=== PATIENT | female | born 1965 | race Caucasian/White ===

== ENCOUNTER 2022-12-13 16:24 | Emergency (ER) | payer OTHER ==
--- OUTSIDE RECORDS SUMMARY | 2022-12-13 16:53 | XMS REPORT | Continuity of Care Document ---
:1965 Author Organization [facility] t Address [address] [place] [address] [place] [id number] Care Team Providers Name Role Phone Anselmo Escobar MD Primary Care Physician ANSELMO ESCOBAR Attending Clinician Unavailable Ilan Attending Clinician Unavailable Doctor Unassigned, [place] Attending Clinician Unavailable Arnulfo Florez Attending Clinician Unavailable [email or web address] Attending Clinician Unavailable Helen Greer MD Attending Clinician Topher Ardon MD Attending Clinician HELEN GREER Attending Clinician Unavailable Lab, Adc Fam Pob I Attending Clinician Unavailable Shayy Parra MD Attending Clinician SHAYY PARRA Attending Clinician Unavailable Only, Adc Test Attending Clinician Unavailable Parish Lugo MD Attending Clinician Mauro Sims DO Attending Clinician CARLOS CASE Attending Clinician Unavailable CARLOS CASE Attending Clinician Unavailable , [facility] Sleep Lab Bed Attending Clinician Unavailable Carlos Case MD Attending Clinician , Adc Vascular Room 1 - Attending Clinician Unavailable Fifi aMxwell Attending Clinician Pob, Adc Lab Main Attending Clinician Unavailable Vls-Lab Attending Clinician Unavailable Hu Quach MD Attending Clinician 1, Adc Lab Attending Clinician Unavailable MITCH_Timmy Admitting Clinician Unavailable ANSELMO ESCOBAR Admitting Clinician Unavailable [email or web address] Admitting Clinician Unavailable Arnulfo Florez Admitting Clinician Unavailable Hu Quach MD Admitting Clinician Payers Payer Name Policy Type Policy Number Effective Date Expiration Date Sherice muir [employer] (POS) [id number] 2000 00:00:00 [employer] - CHOICE [id number] 2000 00:00:00 (POS II) [employer] (EPO) [id number] 2000 00:00:00 Problems Condition Condition Condition Status Onset Resolution Last Treating Co mments Source Name Details Category Date Date Treatment Clinician Date Trigger Trigger Problem Active Rosa Elena thumb of Thumb of 5-02 Orthop e left hand Left Hand 00:00: dic 00 Sports Medicin e Closed Closed Problem Active Rosa Elena Colles' Colles' 1-05 Orthope fracture Fracture 00:00: dic 00 Sports Medicin e Lesion of Lesion of Problem Active 2021-04 Aza elvira left ulnar Left Ulnar 2-21 Or thope nerve Nerve 00:00: dic 00 Sports Medicin e 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 00:00: dic of left of Left 00 Sports wrist Wrist Medicin e Lateral Lateral Problem Active 2021-04 Rosa Elena epicondyli Epicondyli 2-13 Or thope tis of tis of 00:00: dic left Left 00 Sports humerus Humerus Medicin e History of History of Problem Active P rivia cerebrovas Cerebrovas 9-13 Me dical cular cular 00:00: accident Accident 00 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 Added automatic ally from request for surgery [id number] Incontinen Incontinen Disease Active Overview : Univers ce of ce of 8-16 Formattin ity of feces, feces, 00:00: g of this [place] unspecifie unspecifie 00 note Me dical d fecal d fecal might be Branch incontinen incontinen different ce type ce type from the original. Added automatic ally from request for surgery [id number] Fecal Fecal Disease Active Overview: Univer s urgency urgency 8-16 Formattin ity o f 00:00: g of this [place] 00 note Medical might be Branch different from the original. Added automatic ally from request for surgery [id number] Intractabl Intractabl Disease Active Overview : Univers e vomiting e vomiting 16 Formattin ity of with with 00:00: g of this [place] nausea, nausea, 00 note Medical unspecifie unspecifie might be Branch d vomiting d vomiting different type type from the original. Added automatic ally from request for surgery [id number] Abdominal Abdominal Disease Active Overview: Univers pain, pain, 816 Formattin ity of generalize generalize 00:00: g of this [place] d d 00 note Medical might be Branch different from the original. Added automatic ally from request for surgery [id number] Early Early Disease Active Overview: Univer s satiety satiety 816 Formattin ity o f 00:00: g of this [place] 00 note Medical might be Branch different from the original. Added automatic ally from request for surgery [id number] Flatulence Flatulence Disease Active Overview : Univers , , 8-16 Formattin ity of eructation eructation 00:00: g of this [place] , and gas , and gas 00 note Medi moisés pain pain might be Branch different from the original. 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 acia 0-23 Orthope 00:00: dic 00 Sports Medicin e Allergies, Adverse Reactions, Alerts Allergy Allergy Status Severity Reaction(s) Onset Inactive Treating Comm ents Source Name Type Date Date Clinician ketorolgenaro DA Active SV FACIAL [facility] SWELLING 5-03 [place] 00:00: Orthope 00 dic [facility] No Known DA Active U 2021-04 [facility] Allergie 2-13 Clear s 00:00: [place] 00 [facility] AMLODIPI DRUG Active Swelling Univer s NE INGREDI 6-07 ity of 00:00: [place] 00 Medical Branch Amlodipi Propensi Active Swelling Univ ers ne ty to 6-07 ity of adverse 00:00: [place] reaction 00 Medical s Branch NO KNOWN Drug Active Univers ALLERGIE Class ity of S [facility] Social History Social Habit Start Date Stop Date Quantity Comments Source Exposure to Not sure [facility] SARS-CoV-2 [facility] (event) [place] Alcohol intake 2020-09-25 2020-09-25 Current drinker Unive rsity of 00:00:00 00:00:00 of alcohol [facility] (finding) [place] Tobacco use and 2018-12-04 2018-12-04 Smokeless tobacco Un iversity of exposure 00:00:00 00:00:00 non-user [facility] Sex [birth year] Universit y of 00:00:00 00:00:00 [facility] Smoking Status Start Date Stop Date [facility] Never Smoker Rosa Elena Orthopedi c Sports Medicine Medications Ordered Filled Start Stop Current Ordering Indication Dosage Frequency Signature Comments Components Source Medication Medication Date Date Medication? Clinician (SIG) Name Name hydroCHLORO 2020-04 Yes [id number] 12.5mg Take 1 Univers thiazide 0-04 capsule by ity o f 12.5 mg 00:00: mouth [place] capsule 00 daily. Medical Branch hydroCHLORO 2020-04 Yes [id number] 12.5mg Take 1 Univers thiazide 0-04 capsule by ity o f 12.5 mg 00:00: mouth [place] capsule 00 daily. Medical Branch hydroCHLORO Yes [id number] 12.5mg Take 1 Univers thiazide 4-08 capsule by ity o f 12.5 mg 00:00: mouth [place] capsule 00 daily. Medical Branch hydroCHLORO 2020-0 Yes [id number] 12.5mg Take 1 Univers thiazide 4-08 capsule by ity o f 12.5 mg 00:00: mouth [place] capsule 00 daily. Medical Branch hydroCHLORO 2020-0 Yes [id number] 12.5mg Take 1 Univers thiazide 4-08 capsule by ity o f 12.5 mg 00:00: mouth [place] capsule 00 daily. Medical Branch hydroCHLORO 2020-0 Yes [id number] 12.5mg Take 1 Univers thiazide 4-08 capsule by ity o f 12.5 mg 00:00: mouth [place] capsule 00 daily. Medical Branch hydroCHLORO 2020-0 Yes [id number] 12.5mg Take 1 Univers thiazide 4-08 capsule by ity o f 12.5 mg 00:00: mouth [place] capsule 00 daily. Medical Branch hydroCHLORO 2020-0 Yes [id number] 12.5mg Take 1 Univers thiazide 4-08 capsule by ity o f 12.5 mg 00:00: mouth [place] capsule 00 daily. Medical Branch hydroCHLORO 2020-0 2020- No [id number] 12.5mg Take 1 Univers thiazide 4-08 10-03 capsule by ity of 12.5 mg 00:00: 00:00 mouth [place] capsule 00 :00 daily. Medical Branch carvediloL 2020-0 Yes [id number] 25mg Take 1 U nivers 25 mg 4-07 tablet by ity of tablet 00:00: mouth (two) Medical times Branch daily with meals. carvediloL 2020-0 Yes [id number] 25mg Take 1 U nivers 25 mg 4-07 tablet by ity of tablet 00:00: mouth (two) Medical times Branch daily with meals. carvediloL 2020-0 Yes [id number] 25mg Take 1 U nivers 25 mg 4-07 tablet by ity of tablet 00:00: mouth (two) Medical times Branch daily with meals. carvediloL 2020-0 Yes [id number] 25mg Take 1 U nivers 25 mg 4-07 tablet by ity of tablet 00:00: mouth (two) Medical times Branch daily with meals. hydroCHLORO Yes [id number] 12.5mg Take 1 Univers thiazide 4-07 capsule by ity o f 12.5 mg 00:00: mouth [place] capsule 00 daily. Medical Branch carvediloL 2020-0 Yes [id number] 25mg Take 1 U nivers 25 mg 4-07 tablet by ity of tablet 00:00: mouth 2 (two) Medical times Branch daily with meals. hydroCHLORO 2020-0 Yes [id number] 12.5mg Take 1 Univers thiazide 4-07 capsule by ity o f 12.5 mg 00:00: mouth [place] capsule 00 daily. Medical Branch carvediloL 0 Yes [id number] 25mg Take 1 U nivers 25 mg 4-07 tablet by ity of tablet 00:00: mouth (two) Medical times Branch daily with meals. carvediloL Yes [id number] 25mg Take 1 U nivers 25 mg 4-07 tablet by ity of tablet 00:00: mouth (two) Medical times Branch daily with meals. carvediloL 0 Yes [id number] 25mg Take 1 U nivers 25 mg 4-07 tablet by ity of tablet 00:00: mouth (two) Medical times Branch daily with meals. carvediloL 0 Yes [id number] 25mg Take 1 U nivers 25 mg 4-07 tablet by ity of tablet 00:00: mouth (two) Medical times Branch daily with meals. carvediloL 0 Yes [id number] 25mg Take 1 U nivers 25 mg 4-07 tablet by ity of tablet 00:00: mouth (two) Medical times Branch daily with meals. carvediloL 0 Yes [id number] 25mg Take 1 U nivers 25 mg 4-07 tablet by ity of tablet 00:00: mouth (two) Medical times Branch daily with meals. hydroCHLORO 2020- No [id number] 12.5mg Take 1 Univers thiazide 4-07 04-08 capsule by ity of 12.5 mg 00:00: 00:00 mouth [place] capsule 00 :00 daily. Medical Branch amLODIPine 2019-04 Yes [id number] 5mg Take 1 U nivers 5 mg tablet 0-07 tablet by ity of 00:00: mouth [place] 00 daily. Medical Branch amLODIPine 2019- Yes [id number] 5mg Take 1 U nivers 5 mg tablet 0-07 tablet by ity of 00:00: mouth [place] 00 daily. Medical Branch amLODIPine 2019-04 Yes [id number] 5mg Take 1 U nivers 5 mg tablet 0-07 tablet by ity of 00:00: mouth [place] 00 daily. Medical Branch amLODIPine 2019-04 Yes [id number] 5mg Take 1 U nivers 5 mg tablet 0-07 tablet by ity of 00:00: mouth [place] 00 daily. Medical Branch amLODIPine 2019-04 Yes [id number] 5mg Take 1 U nivers 5 mg tablet 0-07 tablet by ity of 00:00: mouth [place] 00 daily. Medical Branch amLODIPine 2019-04 Yes [id number] 5mg Take 1 U nivers 5 mg tablet 0-07 tablet by ity of 00:00: mouth [place] 00 daily. Medical Branch amLODIPine 2019-04 Yes [id number] 5mg Take 1 U nivers 5 mg tablet 0-07 tablet by ity of 00:00: mouth [place] 00 daily. Medical Branch amLODIPine 2019-04 Yes [id number] 5mg Take 1 U nivers 5 mg tablet 0-07 tablet by ity of 00:00: mouth [place] 00 daily. Medical Branch amLODIPine 2019-04 Yes [id number] 5mg Take 1 U nivers 5 mg tablet 0-07 tablet by ity of 00:00: mouth [place] 00 daily. Medical Branch amLODIPine 2019-04- No [id number] 5mg Take 1 Univers 5 mg tablet 0-07 04-07 tablet by it y of 00:00: 00:00 mouth [place] 00 :00 daily. Medical Branch amLODIPine 2019-04- No [id number] 5mg Take 1 Univers 5 mg tablet 0-07 04-07 tablet by it y of 00:00: 00:00 mouth [place] 00 :00 daily. Medical Branch carvediloL 2019- Yes [id number] 12.5mg Take 1 Univers 12.5 mg 7-06 tablet by ity of tablet 00:00: mouth 2 [place] 00 (two) Medical times Branch daily with meals. carvediloL 2019- Yes [id number] 12.5mg Take 1 Univers 12.5 mg 7-06 tablet by ity of tablet 00:00: mouth 2 [place] 00 (two) Medical times Branch daily with meals. carvediloL 2020-0 Yes [id number] 12.5mg Take 1 Univers 12.5 mg 7-06 tablet by ity of tablet 00:00: mouth (two) Medical times Branch daily with meals. carvediloL 2020-0 Yes [id number] 12.5mg Take 1 Univers 12.5 mg 7-06 tablet by ity of tablet 00:00: mouth (two) Medical times Branch daily with meals. carvediloL 2020-0 Yes [id number] 12.5mg Take 1 Univers 12.5 mg 7-06 tablet by ity of tablet 00:00: mouth (two) Medical times Branch daily with meals. carvediloL 2020-0 Yes [id number] 12.5mg Take 1 Univers 12.5 mg 7-06 tablet by ity of tablet 00:00: mouth (two) Medical times Branch daily with meals. carvediloL 2020-0 Yes [id number] 12.5mg Take 1 Univers 12.5 mg 7-06 tablet by ity of tablet 00:00: mouth (two) Medical times Branch daily with meals. carvediloL 2020-0 Yes [id number] 12.5mg Take 1 Univers 12.5 mg 7-06 tablet by ity of tablet 00:00: mouth (two) Medical times Branch daily with meals. carvediloL 2020-0 Yes [id number] 12.5mg Take 1 Univers 12.5 mg 7-06 tablet by ity of tablet 00:00: mouth (two) Medical times Branch daily with meals. carvediloL 2020-0 Yes [id number] 12.5mg Take 1 Univers 12.5 mg 7-06 tablet by ity of tablet 00:00: mouth (two) Medical times Branch daily with meals. carvediloL 2020-0 Yes [id number] 12.5mg Take 1 Univers 12.5 mg 7-06 tablet by ity of tablet 00:00: mouth (two) Medical times Branch daily with meals. carvediloL 2020-0 Yes [id number] 12.5mg Take 1 Univers 12.5 mg 7-06 tablet by ity of tablet 00:00: mouth 2 [place] 00 (two) Medical times Branch daily with meals. carvediloL 2020-0 Yes [id number] 12.5mg Take 1 Univers 12.5 mg 7-06 tablet by ity of tablet 00:00: mouth (two) Medical times Branch daily with meals. carvediloL 2020-0 Yes [id number] 12.5mg Take 1 Univers 12.5 mg 7-06 tablet by ity of tablet 00:00: mouth (two) Medical times Branch daily with meals. carvediloL 2020-0 Yes [id number] 12.5mg Take 1 Univers 12.5 mg 7-06 tablet by ity of tablet 00:00: mouth (two) Medical times Branch daily with meals. carvediloL 2020-0 Yes [id number] 12.5mg Take 1 Univers 12.5 mg 7-06 tablet by ity of tablet 00:00: mouth (two) Medical times Branch daily with meals. carvediloL 2020-0 Yes [id number] 12.5mg Take 1 Univers 12.5 mg 7-06 tablet by ity of tablet 00:00: mouth (two) Medical times Branch daily with meals. carvediloL 2020-0 Yes [id number] 12.5mg Take 1 Univers 12.5 mg 7-06 tablet by ity of tablet 00:00: mouth (two) Medical times Branch daily with meals. carvediloL 2020-0 Yes [id number] 12.5mg Take 1 Univers 12.5 mg 7-06 tablet by ity of tablet 00:00: mouth (two) Medical times Branch daily with meals. carvediloL 2020-0 Yes [id number] 12.5mg Take 1 Univers 12.5 mg 7-06 tablet by ity of tablet 00:00: mouth (two) Medical times Branch daily with meals. carvediloL 2020-0 Yes [id number] 12.5mg Take 1 Univers 12.5 mg 7-06 tablet by ity of tablet 00:00: mouth (two) Medical times Branch daily with meals. carvediloL 2020-0 Yes [id number] 12.5mg Take 1 Univers 12.5 mg 7-06 tablet by ity of tablet 00:00: mouth (two) Medical times Branch daily with meals. carvediloL 2020-0 Yes [id number] 12.5mg Take 1 Univers 12.5 mg 7-06 tablet by ity of tablet 00:00: mouth 2 [place] 00 (two) Medical times Branch daily with meals. carvediloL 2019- Yes [id number] 12.5mg Take 1 Univers 12.5 mg 7-06 tablet by ity of tablet 00:00: mouth 2 [place] 00 (two) Medical times Branch daily with meals. carvediloL 2019-2020- No [id number] 12.5mg Take 1 Univers 12.5 mg 7-06 04-07 tablet by ity of tablet 00:00: 00:00 mouth 2 [place] 00 :00 (two) Medical times Branch daily with meals. carvediloL 2019-2020- No [id number] 12.5mg Take 1 Univers 12.5 mg 7-06 04-07 tablet by ity of tablet 00:00: 00:00 mouth 2 [place] 00 :00 (two) Medical times Branch daily with meals. carvediloL 2020- No [id number] 12.5mg Take 1 Univers 12.5 mg 7-06 04-07 tablet by ity of tablet 00:00: 00:00 mouth 2 [place] 00 :00 (two) Medical times Branch daily with meals. carvediloL 2019-2020- No [id number] 12.5mg Take 1 Univers 12.5 mg 7-06 04-07 tablet by ity of tablet 00:00: 00:00 mouth 2 [place] 00 :00 (two) Medical times Branch daily with meals. amLODIPine 2020-0 Yes [id number] 10mg Take 1 U nivers 10 mg 6-09 tablet by ity of tablet 00:00: mouth [place] 00 daily. Medical Branch amLODIPine 2020-0 Yes [id number] 10mg Take 1 U nivers 10 mg 6-09 tablet by ity of tablet 00:00: mouth [place] 00 daily. Medical Branch amLODIPine 2020-0 Yes [id number] 10mg Take 1 U nivers 10 mg 6-09 tablet by ity of tablet 00:00: mouth [place] 00 daily. Medical Branch amLODIPine 2019-0 2020- No [id number] 10mg Take 1 Univers 10 mg 6-09 10-07 tablet by ity of tablet 00:00: 00:00 mouth [place] 00 :00 daily. Medical Branch amLODIPine 2020-0 2020- No [id number] 10mg Take 1 Univers 10 mg 6-09 10-07 tablet by ity of tablet 00:00: 00:00 mouth [place] 00 :00 daily. Medical Branch amLODIPine 2020-0 Yes [id number] 10mg Take 1 U nivers 10 mg 6-08 tablet by ity of tablet 00:00: mouth 00 daily. Medical Branch carvediloL 2020-0 Yes [id number] 12.5mg Take 1 Univers 12.5 mg 4-06 tablet by ity of tablet 00:00: mouth (two) Medical times Branch daily with meals. carvediloL 2020-0 Yes [id number] 12.5mg Take 1 Univers 12.5 mg 4-06 tablet by ity of tablet 00:00: mouth (two) Medical times Branch daily with meals. carvediloL 2020-0 Yes [id number] 12.5mg Take 1 Univers 12.5 mg 4-06 tablet by ity of tablet 00:00: mouth (two) Medical times Branch daily with meals. carvediloL 2020-0 Yes [id number] 12.5mg Take 1 Univers 12.5 mg 4-06 tablet by ity of tablet 00:00: mouth (two) Medical times Branch daily with meals. carvediloL 2020-0 Yes [id number] 12.5mg Take 1 Univers 12.5 mg 4-06 tablet by ity of tablet 00:00: mouth (two) Medical times Branch daily with meals. carvediloL 2020-0 Yes [id number] 12.5mg Take 1 Univers 12.5 mg 4-06 tablet by ity of tablet 00:00: mouth (two) Medical times Branch daily with meals. carvediloL 2020-0 Yes [id number] 12.5mg Take 1 Univers 12.5 mg 4-06 tablet by ity of tablet 00:00: mouth (two) Medical times Branch daily with meals. carvediloL 2020-0 Yes [id number] 12.5mg Take 1 Univers 12.5 mg 4-06 tablet by ity of tablet 00:00: mouth 2 (two) Medical times Branch daily with meals. carvediloL 2020-0 Yes [id number] 12.5mg Take 1 Univers 12.5 mg 4-06 tablet by ity of tablet 00:00: mouth [place] (two) Medical times Branch daily with meals. carvediloL 2020-0 Yes [id number] 12.5mg Take 1 Univers 12.5 mg 4-06 tablet by ity of tablet 00:00: mouth 2 [place] 00 (two) Medical times Branch daily with meals. carvediloL 2020-0 Yes [id number] 12.5mg Take 1 Univers 12.5 mg 4-06 tablet by ity of tablet 00:00: mouth 2 [place] 00 (two) Medical times Branch daily with meals. carvediloL 2020-0 Yes [id number] 12.5mg Take 1 Univers 12.5 mg 4-06 tablet by ity of tablet 00:00: mouth 2 [place] 00 (two) Medical times Branch daily with meals. carvediloL 2020-0 2020- No [id number] 12.5mg Take 1 Univers 12.5 mg 4-06 07-06 tablet by ity of tablet 00:00: 00:00 mouth 2 [place] 00 :00 (two) Medical times Branch daily with meals. carvediloL 2020-0 2020- No [id number] 12.5mg Take 1 Univers 12.5 mg 4-06 07-06 tablet by ity of tablet 00:00: 00:00 mouth 2 [place] 00 :00 (two) Medical times Branch daily with meals. carvediloL 2020-0 2020- No [id number] 12.5mg Take 1 Univers 12.5 mg 4-06 04-06 tablet by ity of tablet 00:00: 00:00 mouth 2 [place] 00 :00 (two) Medical times Branch daily with meals. carvediloL 2020-0 Yes [id number] 6.25mg Take 1 Univers 6.25 mg 4-01 tablet by ity of tablet 00:00: mouth [address] [place] [address] 00 (two) Medical times Branch daily with meals. amLODIPine 2020-0 Yes [id number] 10mg Take 1 U nivers 10 mg 4-01 tablet by ity of tablet 00:00: mouth [place] 00 daily. Medical Branch amLODIPine 2020-0 Yes [id number] 10mg Take 1 U nivers 10 mg 4-01 tablet by ity of tablet 00:00: mouth [place] 00 daily. Medical Branch amLODIPine 2020-0 Yes [id number] 10mg Take 1 U nivers 10 mg 4-01 tablet by ity of tablet 00:00: mouth [place] 00 daily. Medical Branch amLODIPine 2019-0 Yes [id number] 10mg Take 1 U nivers 10 mg 4-01 tablet by ity of tablet 00:00: mouth [place] 00 daily. Medical Branch amLODIPine 2019-0 2020- No [id number] 10mg Take 1 Univers 10 mg 4-01 06-08 tablet by ity of tablet 00:00: 00:00 mouth [place] 00 :00 daily. Medical Branch carvediloL 2019-0 2020- No [id number] 6.25mg Take 1 Univers 6.25 mg 4- 04-06 tablet by ity of tablet 00:00: 00:00 mouth 2 [place] 00 :00 (two) Medical times Branch daily with meals. carvediloL 2020-0 Yes [id number] 3.125mg Take 1 Univers 3.125 mg 3-09 tablet by ity of tablet 00:00: mouth 2 (two) Medical times Branch daily with meals. carvediloL 2020-0 Yes [id number] 3.125mg Take 1 Univers 3.125 mg 3-09 tablet by ity of tablet 00:00: mouth (two) Medical times Branch daily with meals. carvediloL 2020-0 Yes [id number] 3.125mg Take 1 Univers 3.125 mg 3-09 tablet by ity of tablet 00:00: mouth 2 (two) Medical times Branch daily with meals. carvediloL 2020-0 Yes [id number] 3.125mg Take 1 Univers 3.125 mg 3-09 tablet by ity of tablet 00:00: mouth 2 (two) Medical times Branch daily with meals. carvediloL 2019-0 2020- No [id number] 3.125mg Take 1 Univers 3.125 mg 3-09 04-01 tablet by ity o f tablet 00:00: 00:00 mouth 2 [place] 00 :00 (two) Medical times Branch daily with meals. amLODIPine 2020-0 Yes [id number] 10mg Take 1 U nivers 10 mg 2-11 tablet by ity of tablet 00:00: mouth 00 daily. Medical Branch amLODIPine 2020-0 Yes [id number] 10mg Take 1 U nivers 10 mg 2-11 tablet by ity of tablet 00:00: mouth 00 daily. Medical Branch amLODIPine 2020-0 Yes [id number] 10mg Take 1 U nivers 10 mg 2-11 tablet by ity of tablet 00:00: mouth [place] 00 daily. Medical Branch amLODIPine 2020-0 Yes [id number] 10mg Take 1 U nivers 10 mg 2-11 tablet by ity of tablet 00:00: mouth [place] 00 daily. Medical Branch amLODIPine 2020-0 Yes [id number] 10mg Take 1 U nivers 10 mg 2-11 tablet by ity of tablet 00:00: mouth [place] 00 daily. Medical Branch amLODIPine 2020-0 Yes [id number] 10mg Take 1 U nivers 10 mg 2-11 tablet by ity of tablet 00:00: mouth [place] 00 daily. Medical Branch amLODIPine 2020-0 Yes [id number] 10mg Take 1 U nivers 10 mg 2-11 tablet by ity of tablet 00:00: mouth [place] 00 daily. Medical Branch amLODIPine 2020-0 Yes [id number] 10mg Take 1 U nivers 10 mg 2-11 tablet by ity of tablet 00:00: mouth [place] 00 daily. Medical Branch amLODIPine 2020-0 Yes [id number] 10mg Take 1 U nivers 10 mg 2-11 tablet by ity of tablet 00:00: mouth [place] 00 daily. Medical Branch amLODIPine 2020-0 2020- No [id number] 10mg Take 1 Univers 10 mg 2-11 04-01 tablet by ity of tablet 00:00: 00:00 mouth [place] 00 :00 daily. Medical Branch doxazosin 1 2020-0 2020- No 1mg Take 1 mg Univers mg tablet 2-07 21-04 by mouth ity o f 21:15: 00:00 daily. [place] 51 :00 Medical Branch doxazosin 1 2020-0 2020- No 1mg Take 1 mg Univers mg tablet 2-07 21-04 by mouth ity o f 21:15: 00:00 daily. [place] 51 :00 Medical Branch doxazosin 1 2020-0 2020- No 1mg Take 1 mg Univers mg tablet 2-07 21-04 by mouth ity o f 21:15: 00:00 daily. [place] 51 :00 Medical Branch doxazosin 2020-0 2020- No .5mg Take 0.5 Uni vers (CARDURA) 1 2-04 02-04 mg by ity of mg tablet 21:00: 00:00 mouth at [place] 59 :00 bedtime. Medical Branch doxazosin 2020-0 2020- No .5mg Take 0.5 Uni vers (CARDURA) 1 2-04 02-04 mg by ity of mg tablet 21:00: 00:00 mouth at [place] :00 bedtime. Medical Branch doxazosin 2019-0 2020- No .5mg Take 0.5 Uni vers (CARDURA) 1 2-04 02-04 mg by ity of mg tablet 21:00: 00:00 mouth at [place] :00 bedtime. Medical Branch hydroCHLORO 2020-0 Yes [id number] 25mg Take 1 Univers thiazide 25 2-04 tablet by ity of mg tablet 00:00: mouth [place] 00 daily. Medical Branch hydroCHLORO 2020-0 Yes [id number] 25mg Take 1 Univers thiazide 25 2-04 tablet by ity of mg tablet 00:00: mouth [place] 00 daily. Medical Branch hydroCHLORO 2020-0 Yes [id number] 25mg Take 1 Univers thiazide 25 2-04 tablet by ity of mg tablet 00:00: mouth [place] 00 daily. Medical Branch hydroCHLORO 2020-0 Yes [id number] 25mg Take 1 Univers thiazide 25 2-04 tablet by ity of mg tablet 00:00: mouth [place] 00 daily. Medical Branch hydroCHLORO 2020-0 Yes [id number] 25mg Take 1 [facility] thiazide 25 2-04 tablet by ity of mg tablet 00:00: mouth [place] 00 daily. Medical Branch hydroCHLORO 2020-0 2020- No [id number] 25mg Take 1 [facility] thiazide 25 2-04 02-11 tablet by it y of mg tablet 00:00: 00:00 mouth [place] 00 :00 daily. Medical Branch hydroCHLORO 2020-0 2020- No [id number] 25mg Take 1 Univers thiazide 25 2-04 02-11 tablet by it y of mg tablet 00:00: 00:00 mouth [place] 00 :00 daily. [facility] hydroCHLORO 2020-0 2020- No [id number] 25mg Take 1 [facility] thiazide 25 2-04 02-11 tablet by it y of mg tablet 00:00: 00:00 mouth [place] 00 :00 daily. [facility] hydroCHLORO 2020-0 2020- No [id number] 25mg Take 1 [facility] thiazide 25 2-04 02-11 tablet by it y of mg tablet 00:00: 00:00 mouth [place] 00 :00 daily. [facility] hydroCHLORO 2020-0 2020- No [id number] 25mg Take 1 [facility] thiazide 25 2-04 02-11 tablet by it y of mg tablet 00:00: 00:00 mouth [place] 00 :00 daily. [facility] clonazePAM 2020-0 Yes .5mg Take 0.5 [facility] vers 0.5 mg 1-03 mg by ity of tablet 17:14: mouth at [place] 40 bedtime. [facility] cyanocobala 2020-0 Yes 1000ug 1,000 mcg [facility] min 1,000 1-03 by ity of mcg/mL 17:14: Intramuscu [place] injection 40 lar route Medic al once every Branch month. aspirin 81 2020-0 Yes 81mg Take 81 mg U nivers mg chewable 1-03 by mouth ity of tablet 17:14: daily. [place] [address] [facility] simvastatin 2020-0 Yes 20mg Take 20 mg [facility] 20 mg 1-03 by mouth ity of tablet 17:14: every [place] 40 evening. [facility] clonazePAM 2020-0 Yes .5mg Take 0.5 [facility] vers 0.5 mg 1-03 mg by ity of tablet 17:14: mouth at [place] [address] bedtime. [facility] cyanocobala 2020-0 Yes 1000ug 1,000 mcg [facility] min 1,000 1-03 by ity of mcg/mL 17:14: Intramuscu [place] injection 40 lar route Medic al once every Branch month. aspirin 81 2020-0 Yes 81mg Take 81 mg U nivers mg chewable 1-03 by mouth ity of tablet 17:14: daily. [address] Branch simvastatin 2020-0 Yes 20mg Take 20 mg [facility] 20 mg 1-03 by mouth ity of tablet 17:14: every [place] [address] evening. [facility] clonazePAM 2020-0 Yes .5mg Take 0.5 [facility] vers 0.5 mg 1-03 mg by ity of tablet 17:14: mouth at [place] 40 bedtime. [facility] cyanocobala 2020-0 Yes 1000ug 1,000 mcg [facility] min 1,000 1-03 by ity of mcg/mL 17:14: Intramuscu [place] injection 40 lar route Medic al once every Branch month. aspirin 81 2020-0 Yes 81mg Take 81 mg [facility] nivers mg chewable 1-03 by mouth ity of tablet 17:14: daily. [address] simvastatin 2020-0 Yes 20mg Take 20 mg [facility] 20 mg 1-03 by mouth ity of tablet 17:14: every [place] 40 evening. [facility] clonazePAM 2020-0 Yes .5mg Take 0.5 [facility] vers 0.5 mg 1-03 mg by ity of tablet 17:14: mouth at [place] [address] bedtime. [facility] cyanocobala 2020-0 Yes 1000ug 1,000 mcg [facility] min 1,000 1-03 by ity of mcg/mL 17:14: Intramuscu [place] injection 40 lar route Medic al once every Branch month. aspirin 81 2020-0 Yes 81mg Take 81 mg [facility] nivers mg chewable 1-03 by mouth ity of tablet 17:14: daily. [place] [address] [facility] simvastatin 2020-0 Yes 20mg Take 20 mg [facility] 20 mg 1-03 by mouth ity of tablet 17:14: every [place] [address] evening. [facility] clonazePAM 2020-0 Yes .5mg Take 0.5 [facility] vers 0.5 mg 1-03 mg by ity of tablet 17:14: mouth at [place] [address] bedtime. [facility] cyanocobala 2020-0 Yes 1000ug 1,000 mcg [facility] min 1,000 1-03 by ity of mcg/mL 17:14: Intramuscu [place] injection 40 lar route Medic al once every Branch month. aspirin 81 2020-0 Yes 81mg Take 81 mg [facility] nivers mg chewable 1-03 by mouth ity of tablet 17:14: daily. [address] simvastatin 2020-0 Yes 20mg Take 20 mg [facility] 20 mg 1-03 by mouth ity of tablet 17:14: every [place] [address] evening. [facility] clonazePAM 2020-0 Yes .5mg Take 0.5 [facility] vers 0.5 mg 1-03 mg by ity of tablet 17:14: mouth at [place] [address] bedtime. [facility] cyanocobala 2020-0 Yes 1000ug 1,000 mcg [facility] min 1,000 1-03 by ity of mcg/mL 17:14: Intramuscu [place] injection 40 lar route Medic al once every Branch month. aspirin 81 2020-0 Yes 81mg Take 81 mg [facility] nivers mg chewable 1-03 by mouth ity of tablet 17:14: daily. [address] simvastatin 2020-0 Yes 20mg Take 20 mg [facility] 20 mg 1-03 by mouth ity of tablet 17:14: every [place] 40 evening. [facility] clonazePAM 2020-0 Yes .5mg Take 0.5 [facility] vers 0.5 mg 1-03 mg by ity of tablet 17:14: mouth at [place] [address] bedtime. [facility] cyanocobala 2020-0 Yes 1000ug 1,000 mcg [facility] min 1,000 1-03 by ity of mcg/mL 17:14: Intramuscu [place] injection 40 lar route Medic al once every Branch month. aspirin 81 2020-0 Yes 81mg Take 81 mg [facility] nivers mg chewable 1-03 by mouth ity of tablet 17:14: daily. [place] [address] [facility] simvastatin 2020-0 Yes 20mg Take 20 mg [facility] 20 mg 1-03 by mouth ity of tablet 17:14: every [place] 40 evening. [facility] clonazePAM 2020-0 Yes .5mg Take 0.5 [facility] vers 0.5 mg 1-03 mg by ity of tablet 17:14: mouth at [place] [address] bedtime. [facility] cyanocobala 2020-0 Yes 1000ug 1,000 mcg [facility] min 1,000 1-03 by ity of mcg/mL 17:14: Intramuscu [place] injection 40 lar route Medic al once every Branch month. aspirin 81 2020-0 Yes 81mg Take 81 mg [facility] nivers mg chewable 1-03 by mouth ity of tablet 17:14: daily. [place] [address] [facility] simvastatin 2020-0 Yes 20mg Take 20 mg [facility] 20 mg 1-03 by mouth ity of tablet 17:14: every [place] [address] evening. [facility] clonazePAM 2020-0 Yes .5mg Take 0.5 [facility] vers 0.5 mg 1-03 mg by ity of tablet 17:14: mouth at [place] [address] bedtime. [facility] cyanocobala 2020-0 Yes 1000ug 1,000 mcg [facility] min 1,000 1-03 by ity of mcg/mL 17:14: Intramuscu [place] injection 40 lar route Medic al once every Branch month. aspirin 81 2020-0 Yes 81mg Take 81 mg [facility] nivers mg chewable 1-03 by mouth ity of tablet 17:14: daily. [place] [address] [facility] simvastatin 2020-0 Yes 20mg Take 20 mg [facility] 20 mg 1-03 by mouth ity of tablet 17:14: every [place] 40 evening. [facility] clonazePAM 2020-0 Yes .5mg Take 0.5 [facility] vers 0.5 mg 1-03 mg by ity of tablet 17:14: mouth at [place] [address] bedtime. [facility] cyanocobala 2020-0 Yes 1000ug 1,000 mcg [facility] min 1,000 1-03 by ity of mcg/mL 17:14: Intramuscu [place] injection 40 lar route Medic al once every Branch month. aspirin 81 2020-0 Yes 81mg Take 81 mg [facility] nivers mg chewable 1-03 by mouth ity of tablet 17:14: daily. [place] [address] [facility] simvastatin 2020-0 Yes 20mg Take 20 mg [facility] 20 mg 1-03 by mouth ity of tablet 17:14: every [place] 40 evening. [facility] clonazePAM 2020-0 Yes .5mg Take 0.5 [facility] vers 0.5 mg 1-03 mg by ity of tablet 17:14: mouth at [place] [address] bedtime. [facility] cyanocobala 2020-0 Yes 1000ug 1,000 mcg [facility] min 1,000 1-03 by ity of mcg/mL 17:14: Intramuscu [place] injection 40 lar route Medic al once every Branch month. aspirin 81 2020-0 Yes 81mg Take 81 mg U nivers mg chewable 1-03 by mouth ity of tablet 17:14: daily. [place] [address] [facility] simvastatin 2020-0 Yes 20mg Take 20 mg [facility] 20 mg 1-03 by mouth ity of tablet 17:14: every [place] 40 evening. [facility] clonazePAM 2020-0 Yes .5mg Take 0.5 [facility] vers 0.5 mg 1-03 mg by ity of tablet 17:14: mouth at [place] [address] bedtime. [facility] cyanocobala 2020-0 Yes 1000ug 1,000 mcg [facility] min 1,000 1-03 by ity of mcg/mL 17:14: Intramuscu [place] injection 40 lar route Medic al once every Branch month. aspirin 81 2020-0 Yes 81mg Take 81 mg U nivers mg chewable 1-03 by mouth ity of tablet 17:14: daily. [place] [address] [facility] simvastatin 2020-0 Yes 20mg Take 20 mg [facility] 20 mg 1-03 by mouth ity of tablet 17:14: every [place] 40 evening. [facility] clonazePAM 2020-0 Yes .5mg Take 0.5 [facility] vers 0.5 mg 1-03 mg by ity of tablet 17:14: mouth at [place] [address] bedtime. [facility] cyanocobala 2020-0 Yes 1000ug 1,000 mcg [facility] min 1,000 1-03 by ity of mcg/mL 17:14: Intramuscu [place] injection 40 lar route Medic al once every Branch month. aspirin 81 2020-0 Yes 81mg Take 81 mg [facility] nivers mg chewable 1-03 by mouth ity of tablet 17:14: daily. [place] [address] [facility] simvastatin 2020-0 Yes 20mg Take 20 mg [facility] 20 mg 1-03 by mouth ity of tablet 17:14: every [place] 40 evening. [facility] clonazePAM 2020-0 Yes .5mg Take 0.5 [facility] vers 0.5 mg 1-03 mg by ity of tablet 17:14: mouth at [place] 40 bedtime. [facility] cyanocobala 2020-0 Yes 1000ug 1,000 mcg [facility] min 1,000 1-03 by ity of mcg/mL 17:14: Intramuscu [place] injection 40 lar route Medic al once every Branch month. aspirin 81 2020-0 Yes 81mg Take 81 mg [facility] nivers mg chewable 1-03 by mouth ity of tablet 17:14: daily. [place] [address] [facility] simvastatin 2020-0 Yes 20mg Take 20 mg [facility] 20 mg 1-03 by mouth ity of tablet 17:14: every [place] 40 evening. [facility] clonazePAM 2020-0 Yes .5mg Take 0.5 [facility] vers 0.5 mg 1-03 mg by ity of tablet 17:14: mouth at [place] [address] bedtime. [facility] cyanocobala 2020-0 Yes 1000ug 1,000 mcg [facility] min 1,000 1-03 by ity of mcg/mL 17:14: Intramuscu [place] injection 40 lar route Medic al once every Branch month. aspirin 81 2020-0 Yes 81mg Take 81 mg [facility] nivers mg chewable 1-03 by mouth ity of tablet 17:14: daily. [place] [address] Medical [place] simvastatin 2020-0 Yes 20mg Take 20 mg [facility] 20 mg 1-03 by mouth ity of tablet 17:14: every [place] 40 evening. [facility] clonazePAM 2020-0 Yes .5mg Take 0.5 [facility] vers 0.5 mg 1-03 mg by ity of tablet 17:14: mouth at [place] 40 bedtime. [facility] cyanocobala 2020-0 Yes 1000ug 1,000 mcg [facility] min 1,000 1-03 by ity of mcg/mL 17:14: Intramuscu [place] injection 40 lar route Medic al once every Branch month. aspirin 81 2020-0 Yes 81mg Take 81 mg U nivers mg chewable 1-03 by mouth ity of tablet 17:14: daily. [address] simvastatin 2020-0 Yes 20mg Take 20 mg [facility] 20 mg 1-03 by mouth ity of tablet 17:14: every [place] 40 evening. [facility] clonazePAM 2020-0 Yes .5mg Take 0.5 [facility] vers 0.5 mg 1-03 mg by ity of tablet 17:14: mouth at [place] [address] bedtime. [facility] cyanocobala 2020-0 Yes 1000ug 1,000 mcg [facility] min 1,000 1-03 by ity of mcg/mL 17:14: Intramuscu [place] injection 40 lar route Medic al once every Branch month. aspirin 81 2020-0 Yes 81mg Take 81 mg U nivers mg chewable 1-03 by mouth ity of tablet 17:14: daily. [address] simvastatin 2020-0 Yes 20mg Take 20 mg [facility] 20 mg 1-03 by mouth ity of tablet 17:14: every [place] 40 evening. [facility] clonazePAM 2020-0 Yes .5mg Take 0.5 [facility] vers 0.5 mg 1-03 mg by ity of tablet 17:14: mouth at [place] [address] bedtime. [facility] cyanocobala 2020-0 Yes 1000ug 1,000 mcg [facility] min 1,000 1-03 by ity of mcg/mL 17:14: Intramuscu [place] injection 40 lar route Medic al once every Branch month. aspirin 81 2020-0 Yes 81mg Take 81 mg [facility] nivers mg chewable 1-03 by mouth ity of tablet 17:14: daily. [address] simvastatin 2020-0 Yes 20mg Take 20 mg [facility] 20 mg 1-03 by mouth ity of tablet 17:14: every [place] [address] evening. [facility] clonazePAM 2020-0 Yes .5mg Take 0.5 [facility] vers 0.5 mg 1-03 mg by ity of tablet 17:14: mouth at [place] [address] bedtime. [facility] cyanocobala 2020-0 Yes 1000ug 1,000 mcg [facility] min 1,000 1-03 by ity of mcg/mL 17:14: Intramuscu [place] injection 40 lar route Medic al once every Branch month. aspirin 81 2020-0 Yes 81mg Take 81 mg [facility] nivers mg chewable 1-03 by mouth ity of tablet 17:14: daily. [address] simvastatin 2020-0 Yes 20mg Take 20 mg [facility] 20 mg 1-03 by mouth ity of tablet 17:14: every [place] 40 evening. [facility] clonazePAM 2020-0 Yes .5mg Take 0.5 [facility] vers 0.5 mg 1-03 mg by ity of tablet 17:14: mouth at [place] 40 bedtime. [facility] cyanocobala 2020-0 Yes 1000ug 1,000 mcg [facility] min 1,000 1-03 by ity of mcg/mL 17:14: Intramuscu [place] injection 40 lar route Medic al once every Branch month. aspirin 81 2020-0 Yes 81mg Take 81 mg [facility] nivers mg chewable 1-03 by mouth ity of tablet 17:14: daily. [place] [address] [facility] simvastatin 2020-0 Yes 20mg Take 20 mg [facility] 20 mg 1-03 by mouth ity of tablet 17:14: every [place] 40 evening. [facility] clonazePAM 2020-0 Yes .5mg Take 0.5 [facility] vers 0.5 mg 1-03 mg by ity of tablet 17:14: mouth at [place] [address] bedtime. [facility] cyanocobala 2020-0 Yes 1000ug 1,000 mcg [facility] min 1,000 1-03 by ity of mcg/mL 17:14: Intramuscu [place] injection 40 lar route Medic al once every Branch month. aspirin 81 2020-0 Yes 81mg Take 81 mg U nivers mg chewable 1-03 by mouth ity of tablet 17:14: daily. [place] [address] [facility] simvastatin 2020-0 Yes 20mg Take 20 mg [facility] 20 mg 1-03 by mouth ity of tablet 17:14: every [place] 40 evening. [facility] clonazePAM 2020-0 Yes .5mg Take 0.5 [facility] vers 0.5 mg 1-03 mg by ity of tablet 17:14: mouth at [place] [address] bedtime. [facility] cyanocobala 2020-0 Yes 1000ug 1,000 mcg [facility] min 1,000 1-03 by ity of mcg/mL 17:14: Intramuscu [place] injection 40 lar route Medic al once every Branch month. aspirin 81 2020-0 Yes 81mg Take 81 mg U nivers mg chewable 1-03 by mouth ity of tablet 17:14: daily. [place] [address] Medical [place] simvastatin 2020-0 Yes 20mg Take 20 mg [facility] 20 mg 1-03 by mouth ity of tablet 17:14: every [place] 40 evening. [facility] clonazePAM 2020-0 Yes .5mg Take 0.5 [facility] vers 0.5 mg 1-03 mg by ity of tablet 17:14: mouth at [place] [address] bedtime. [facility] cyanocobala 2020-0 Yes 1000ug 1,000 mcg [facility] min 1,000 1-03 by ity of mcg/mL 17:14: Intramuscu [place] injection 40 lar route Medic al once every Branch month. aspirin 81 2020-0 Yes 81mg Take 81 mg [facility] nivers mg chewable 1-03 by mouth ity of tablet 17:14: daily. [place] [address] [facility] simvastatin 2020-0 Yes 20mg Take 20 mg [facility] 20 mg 1-03 by mouth ity of tablet 17:14: every [place] 40 evening. [facility] clonazePAM 2020-0 Yes .5mg Take 0.5 [facility] vers 0.5 mg 1-03 mg by ity of tablet 17:14: mouth at [place] [address] bedtime. [facility] cyanocobala 2020-0 Yes 1000ug 1,000 mcg [facility] min 1,000 1-03 by ity of mcg/mL 17:14: Intramuscu [place] injection 40 lar route Medic al once every Branch month. aspirin 81 2020-0 Yes 81mg Take 81 mg U nivers mg chewable 1-03 by mouth ity of tablet 17:14: daily. [address] Branch simvastatin 2020-0 Yes 20mg Take 20 mg [facility] 20 mg 1-03 by mouth ity of tablet 17:14: every [place] [address] evening. [facility] clonazePAM 2020-0 Yes .5mg Take 0.5 [facility] vers 0.5 mg 1-03 mg by ity of tablet 17:14: mouth at [place] [address] bedtime. [facility] cyanocobala 2020-0 Yes 1000ug 1,000 mcg [facility] min 1,000 1-03 by ity of mcg/mL 17:14: Intramuscu [place] injection 40 lar route Medic al once every Branch month. aspirin 81 2020-0 Yes 81mg Take 81 mg U nivers mg chewable 1-03 by mouth ity of tablet 17:14: daily. [address] Branch simvastatin 2020-0 Yes 20mg Take 20 mg [facility] 20 mg 1-03 by mouth ity of tablet 17:14: every [place] 40 evening. [facility] clonazePAM 2020-0 Yes .5mg Take 0.5 [facility] vers 0.5 mg 1-03 mg by ity of tablet 17:14: mouth at [place] [address] bedtime. [facility] cyanocobala 2020-0 Yes 1000ug 1,000 mcg [facility] min 1,000 1-03 by ity of mcg/mL 17:14: Intramuscu [place] injection 40 lar route Medic al once every Branch month. aspirin 81 2020-0 Yes 81mg Take 81 mg U nivers mg chewable 1-03 by mouth ity of tablet 17:14: daily. [place] [address] [facility] simvastatin 2020-0 Yes 20mg Take 20 mg [facility] 20 mg 1-03 by mouth ity of tablet 17:14: every [place] 40 evening. [facility] clonazePAM 2020-0 Yes .5mg Take 0.5 [facility] vers 0.5 mg 1-03 mg by ity of tablet 17:14: mouth at [place] [address] bedtime. [facility] cyanocobala 2020-0 Yes 1000ug 1,000 mcg [facility] min 1,000 1-03 by ity of mcg/mL 17:14: Intramuscu [place] injection 40 lar route Medic al once every Branch month. aspirin 81 2020-0 Yes 81mg Take 81 mg [facility] nivers mg chewable 1-03 by mouth ity of tablet 17:14: daily. [place] [address] [facility] simvastatin 2020-0 Yes 20mg Take 20 mg [facility] 20 mg 1-03 by mouth ity of tablet 17:14: every [place] [address] evening. [facility] clonazePAM 2020-0 Yes .5mg Take 0.5 [facility] vers 0.5 mg 1-03 mg by ity of tablet 17:14: mouth at [place] [address] bedtime. [facility] cyanocobala 2020-0 Yes 1000ug 1,000 mcg [facility] min 1,000 1-03 by ity of mcg/mL 17:14: Intramuscu [place] injection 40 lar route Medic al once every Branch month. aspirin 81 2020-0 Yes 81mg Take 81 mg [facility] nivers mg chewable 1-03 by mouth ity of tablet 17:14: daily. [place] [address] [facility] simvastatin 2020-0 Yes 20mg Take 20 mg [facility] 20 mg 1-03 by mouth ity of tablet 17:14: every [place] 40 evening. [facility] clonazePAM 2020-0 Yes .5mg Take 0.5 [facility] vers 0.5 mg 1-03 mg by ity of tablet 17:14: mouth at [place] [address] bedtime. [facility] cyanocobala 2020-0 Yes 1000ug 1,000 mcg [facility] min 1,000 1-03 by ity of mcg/mL 17:14: Intramuscu [place] injection 40 lar route Medic al once every Branch month. aspirin 81 2020-0 Yes 81mg Take 81 mg [facility] nivers mg chewable 1-03 by mouth ity of tablet 17:14: daily. [place] [address] [facility] simvastatin 2020-0 Yes 20mg Take 20 mg [facility] 20 mg 1-03 by mouth ity of tablet 17:14: every [place] 40 evening. [facility] clonazePAM 2020-0 Yes .5mg Take 0.5 [facility] vers 0.5 mg 1-03 mg by ity of tablet 17:14: mouth at [place] [address] bedtime. [facility] cyanocobala 2020-0 Yes 1000ug 1,000 mcg [facility] min 1,000 1-03 by ity of mcg/mL 17:14: Intramuscu [place] injection 40 lar route Medic al once every Branch month. aspirin 81 2020-0 Yes 81mg Take 81 mg U nivers mg chewable 1-03 by mouth ity of tablet 17:14: daily. [place] [address] [facility] simvastatin 2020-0 Yes 20mg Take 20 mg [facility] 20 mg 1-03 by mouth ity of tablet 17:14: every [place] 40 evening. [facility] clonazePAM 2020-0 Yes .5mg Take 0.5 [facility] vers 0.5 mg 1-03 mg by ity of tablet 17:14: mouth at [place] [address] bedtime. [facility] cyanocobala 2020-0 Yes 1000ug 1,000 mcg [facility] min 1,000 1-03 by ity of mcg/mL 17:14: Intramuscu [place] injection 40 lar route Medic al once every Branch month. aspirin 81 2020-0 Yes 81mg Take 81 mg U nivers mg chewable 1-03 by mouth ity of tablet 17:14: daily. [place] [address] [facility] simvastatin 2020-0 Yes 20mg Take 20 mg [facility] 20 mg 1-03 by mouth ity of tablet 17:14: every [place] 40 evening. [facility] clonazePAM 2020-0 Yes .5mg Take 0.5 [facility] vers 0.5 mg 1-03 mg by ity of tablet 17:14: mouth at [place] [address] bedtime. [facility] cyanocobala 2020-0 Yes 1000ug 1,000 mcg [facility] min 1,000 1-03 by ity of mcg/mL 17:14: Intramuscu [place] injection 40 lar route Medic al once every Branch month. aspirin 81 2020-0 Yes 81mg Take 81 mg U nivers mg chewable 1-03 by mouth ity of tablet 17:14: daily. [place] [address] [facility] simvastatin 2020-0 Yes 20mg Take 20 mg [facility] 20 mg 1-03 by mouth ity of tablet 17:14: every [place] 40 evening. [facility] clonazePAM 2020-0 Yes .5mg Take 0.5 [facility] vers 0.5 mg 1-03 mg by ity of tablet 17:14: mouth at [place] [address] bedtime. [facility] cyanocobala 2020-0 Yes 1000ug 1,000 mcg [facility] min 1,000 1-03 by ity of mcg/mL 17:14: Intramuscu [place] injection 40 lar route Medic al once every Branch month. aspirin 81 2020-0 Yes 81mg Take 81 mg [facility] nivers mg chewable 1-03 by mouth ity of tablet 17:14: daily. [place] [address] [facility] simvastatin 2020-0 Yes 20mg Take 20 mg [facility] 20 mg 1-03 by mouth ity of tablet 17:14: every [place] 40 evening. [facility] clonazePAM 2020-0 Yes .5mg Take 0.5 [facility] vers 0.5 mg 1-03 mg by ity of tablet 17:14: mouth at [place] [address] bedtime. [facility] cyanocobala 2020-0 Yes 1000ug 1,000 mcg [facility] min 1,000 1-03 by ity of mcg/mL 17:14: Intramuscu [place] injection 40 lar route Medic al once every Branch month. aspirin 81 2020-0 Yes 81mg Take 81 mg U nivers mg chewable 1-03 by mouth ity of tablet 17:14: daily. [place] [address] [facility] simvastatin 2020-0 Yes 20mg Take 20 mg [facility] 20 mg 1-03 by mouth ity of tablet 17:14: every [place] 40 evening. [facility] clonazePAM 2020-0 Yes .5mg Take 0.5 [facility] vers 0.5 mg 1-03 mg by ity of tablet 17:14: mouth at [place] [address] bedtime. [facility] cyanocobala 2020-0 Yes 1000ug 1,000 mcg [facility] min 1,000 1-03 by ity of mcg/mL 17:14: Intramuscu [place] injection 40 lar route Medic al once every Branch month. aspirin 81 2020-0 Yes 81mg Take 81 mg U nivers mg chewable 1-03 by mouth ity of tablet 17:14: daily. [address] simvastatin 2020-0 Yes 20mg Take 20 mg [facility] 20 mg 1-03 by mouth ity of tablet 17:14: every [place] 40 evening. [facility] clonazePAM 2020-0 Yes .5mg Take 0.5 [facility] vers 0.5 mg 1-03 mg by ity of tablet 17:14: mouth at [place] [address] bedtime. [facility] cyanocobala 2020-0 Yes 1000ug 1,000 mcg [facility] min 1,000 1-03 by ity of mcg/mL 17:14: Intramuscu [place] injection 40 lar route Medic al once every Branch month. aspirin 81 2020-0 Yes 81mg Take 81 mg [facility] nivers mg chewable 1-03 by mouth ity of tablet 17:14: daily. [address] simvastatin 2020-0 Yes 20mg Take 20 mg [facility] 20 mg 1-03 by mouth ity of tablet 17:14: every [place] 40 evening. [facility] clonazePAM 2020-0 Yes .5mg Take 0.5 [facility] vers 0.5 mg 1-03 mg by ity of tablet 17:14: mouth at [place] [address] bedtime. [facility] cyanocobala 2020-0 Yes 1000ug 1,000 mcg [facility] min 1,000 1-03 by ity of mcg/mL 17:14: Intramuscu [place] injection 40 lar route Medic al once every Branch month. aspirin 81 2020-0 Yes 81mg Take 81 mg [facility] nivers mg chewable 1-03 by mouth ity of tablet 17:14: daily. [address] simvastatin 2020-0 Yes 20mg Take 20 mg [facility] 20 mg 1-03 by mouth ity of tablet 17:14: every [place] 40 evening. [facility] clonazePAM 2020-0 Yes .5mg Take 0.5 [facility] vers 0.5 mg 1-03 mg by ity of tablet 17:14: mouth at [place] [address] bedtime. [facility] cyanocobala 2020-0 Yes 1000ug 1,000 mcg [facility] min 1,000 1-03 by ity of mcg/mL 17:14: Intramuscu [place] injection 40 lar route Medic al once every Branch month. aspirin 81 2020-0 Yes 81mg Take 81 mg [facility] nivers mg chewable 1-03 by mouth ity of tablet 17:14: daily. [address] simvastatin 2020-0 Yes 20mg Take 20 mg [facility] 20 mg 1-03 by mouth ity of tablet 17:14: every [place] 40 evening. [facility] clonazePAM 2020-0 Yes .5mg Take 0.5 [facility] vers 0.5 mg 1-03 mg by ity of tablet 17:14: mouth at [place] [address] bedtime. [facility] cyanocobala 2020-0 Yes 1000ug 1,000 mcg [facility] min 1,000 1-03 by ity of mcg/mL 17:14: Intramuscu [place] injection 40 lar route Medic al once every Branch month. aspirin 81 2020-0 Yes 81mg Take 81 mg [facility] nivers mg chewable 1-03 by mouth ity of tablet 17:14: daily. [place] [address] [facility] simvastatin 2020-0 Yes 20mg Take 20 mg [facility] 20 mg 1-03 by mouth ity of tablet 17:14: every [place] 40 evening. [facility] clonazePAM 2020-0 Yes .5mg Take 0.5 [facility] vers 0.5 mg 1-03 mg by ity of tablet 17:14: mouth at [place] [address] bedtime. [facility] cyanocobala 2020-0 Yes 1000ug 1,000 mcg [facility] min 1,000 1-03 by ity of mcg/mL 17:14: Intramuscu [place] injection 40 lar route Medic al once every Branch month. aspirin 81 2020-0 Yes 81mg Take 81 mg [facility] nivers mg chewable 1-03 by mouth ity of tablet 17:14: daily. [address] Branch simvastatin 2020-0 Yes 20mg Take 20 mg [facility] 20 mg 1-03 by mouth ity of tablet 17:14: every [place] 40 evening. [facility] clonazePAM 2020-0 Yes .5mg Take 0.5 [facility] vers 0.5 mg 1-03 mg by ity of tablet 17:14: mouth at [place] [address] bedtime. [facility] cyanocobala 2020-0 Yes 1000ug 1,000 mcg [facility] min 1,000 1-03 by ity of mcg/mL 17:14: Intramuscu [place] injection 40 lar route Medic al once every Branch month. aspirin 81 2020-0 Yes 81mg Take 81 mg [facility] nivers mg chewable 1-03 by mouth ity of tablet 17:14: daily. [address] simvastatin 2020-0 Yes 20mg Take 20 mg [facility] 20 mg 1-03 by mouth ity of tablet 17:14: every [place] 40 evening. [facility] clonazePAM 2020-0 Yes .5mg Take 0.5 [facility] vers 0.5 mg 1-03 mg by ity of tablet 17:14: mouth at [place] 40 bedtime. [facility] cyanocobala 2020-0 Yes 1000ug 1,000 mcg [facility] min 1,000 1-03 by ity of mcg/mL 17:14: Intramuscu [place] injection 40 lar route Medic al once every Branch month. aspirin 81 2020-0 Yes 81mg Take 81 mg [facility] nivers mg chewable 1-03 by mouth ity of tablet 17:14: daily. [place] [address] [facility] simvastatin 2020-0 Yes 20mg Take 20 mg [facility] 20 mg 1-03 by mouth ity of tablet 17:14: every [place] 40 evening. [facility] clonazePAM 2020-0 Yes .5mg Take 0.5 [facility] vers 0.5 mg 1-03 mg by ity of tablet 17:14: mouth at [place] [address] bedtime. [facility] cyanocobala 2020-0 Yes 1000ug 1,000 mcg [facility] min 1,000 1-03 by ity of mcg/mL 17:14: Intramuscu [place] injection 40 lar route Medic al once every Branch month. aspirin 81 2020-0 Yes 81mg Take 81 mg U nivers mg chewable 1-03 by mouth ity of tablet 17:14: daily. [place] [address] Medical Branch simvastatin 2020-0 Yes 20mg Take 20 mg [facility] 20 mg 1-03 by mouth ity of tablet 17:14: every [place] 40 evening. Medical Branch clonazePAM 2020-0 Yes .5mg Take 0.5 Uni vers 0.5 mg 1-03 mg by ity of tablet 11:14: mouth at [place] [address] bedtime. Medical Branch cyanocobala 2020-0 Yes 1000ug 1,000 mcg [facility] min 1,000 1-03 by ity of mcg/mL 11:14: Intramuscu [place] injection 40 lar route Medic al once every Branch month. aspirin 81 2020-0 Yes 81mg Take 81 mg U nivers mg chewable 1-03 by mouth ity of tablet 11:14: daily. [place] [address] Medical Branch simvastatin 2020-0 Yes 20mg Take 20 mg [facility] 20 mg 1-03 by mouth ity of tablet 11:14: every [place] 40 evening. Medical Branch clonazePAM 2020-0 Yes .5mg Take 0.5 Uni vers 0.5 mg 1-03 mg by ity of tablet 11:14: mouth at [place] [address] bedtime. Medical Branch cyanocobala 2020-0 Yes 1000ug 1,000 mcg [facility] min 1,000 1-03 by ity of mcg/mL 11:14: Intramuscu [place] injection 40 lar route Medic al once every Branch month. aspirin 81 2020-0 Yes 81mg Take 81 mg U nivers mg chewable 1-03 by mouth ity of tablet 11:14: daily. [address] Branch simvastatin 2020-0 Yes 20mg Take 20 mg [facility] 20 mg 1-03 by mouth ity of tablet 11:14: every [place] 40 evening. Medical Branch clonazePAM 2020-0 Yes .5mg Take 0.5 Uni vers 0.5 mg 1-03 mg by ity of tablet 11:14: mouth at [place] [address] bedtime. Medical Branch cyanocobala 2020-0 Yes 1000ug 1,000 mcg [facility] min 1,000 1-03 by ity of mcg/mL 11:14: Intramuscu [place] injection 40 lar route Medic al once every Branch month. aspirin 81 2020-0 Yes 81mg Take 81 mg U nivers mg chewable 1-03 by mouth ity of tablet 11:14: daily. [address] simvastatin 2020-0 Yes 20mg Take 20 mg Univers 20 mg 1-03 by mouth ity of tablet 11:14: every [place] 40 evening. Medical Branch rifAXIMin 2019- No [id number] 550mg Take 1 Univers (XIFAXAN) 01-05 tablet by ity of 550 mg 00:00: 04:59 mouth 3 [place] tablet 00 :00 (three) Medical times [place] daily for 14 days. rifAXIMin 2019- No [id number] 550mg Take 1 Univers (XIFAXAN) 01-05- tablet by ity of 550 mg 00:00: 04:59 mouth 3 [place] tablet 00 :00 (three) Medical times [place] daily for 14 days. rifAXIMin 2019- No [id number] 550mg Take 1 Univers (XIFAXAN) 01-05- tablet by ity of 550 mg 00:00: 04:59 mouth 3 [place] tablet 00 :00 (three) Medical times [place] daily for 14 days. simethicone 2018-0 Yes PRN, Univer s (GAS 8-20 Starting ity of RELIEF) 40 17:59: Tue [place] mg/0.6 mL 00 12/08/18 at [facility] moisés drops 1259, Branch Until Discontinu ed, Routine, Intra-op lactated 2019- No 1000mL at 20 [facility] rs ringers IV 12-08 08-20 mL/hr, ity of infusion 17:45: 17:51 1,000 mL, [place] as 1,000 mL 00 :00 IV Medical Infusion, Branch ONCE, 1 dose, 12/08/18 at 1245, Routine, Endo Pre-op iohexol 2019- No 120mL 120 mL, [facility] rs (OMNIPAQUE 12-04-16 Intravenou it y of 350 20:45: 20:28 s, ONCE, 1 [place] BULK-150 00 :00 dose, Fri Medica l mL) 12/04/18 at Branch injection 1545, 120 mL Routine ondansetron Yes [id number] 8mg Take 1 Univers (ZOFRAN) 8 8-16 tablet by ity of mg tablet 00:00: mouth [place] 00 every 8 Medical (eight) Branch hours as needed for Nausea and Vomiting (N/V). ondansetron 2018- Yes [id number] 8mg Take 1 Univers (ZOFRAN) 8 8-16 tablet by ity of mg tablet 00:00: mouth [place] 00 every 8 Medical (eight) Branch hours as needed for Nausea and Vomiting (N/V). ondansetron 2018- Yes [id number] 8mg Take 1 [facility] (ZOFRAN) 8 8-16 tablet by ity of mg tablet 00:00: mouth [place] 00 every 8 Medical (eight) Branch hours as needed for Nausea and Vomiting (N/V). ondansetron 2018- Yes [id number] 8mg Take 1 Univers (ZOFRAN) 8 8-16 tablet by ity of mg tablet 00:00: mouth [place] 00 every 8 Medical (eight) Branch hours as needed for Nausea and Vomiting (N/V). ondansetron 2018- Yes [id number] 8mg Take 1 Univers (ZOFRAN) 8 8-16 tablet by ity of mg tablet 00:00: mouth [place] 00 every 8 Medical (eight) Branch hours as needed for Nausea and Vomiting (N/V). peg-electro 2018-0 Yes [id number] Take as Univers lyte soln 8-16 directed ity of 236-22.74-6 00:00: before [place] .74 -5.86 00 colonoscop Medi moisés gram y Branch solution ondansetron 2019-0 Yes [id number] 8mg Take 1 Univers (ZOFRAN) 8 8-16 tablet by ity of mg tablet 00:00: mouth [place] 00 every 8 Medical (eight) Branch hours as needed for Nausea and Vomiting (N/V). peg-electro Yes [id number] Take as Univers lyte soln 8-16 directed ity of 236-22.74-6 00:00: before [place] .74 -5.86 00 colonoscop Medi moisés gram y Branch solution ondansetron 2018-0 Yes [id number] 8mg Take 1 Univers (ZOFRAN) 8 8-16 tablet by ity of mg tablet 00:00: mouth [place] 00 every 8 Medical (eight) Branch hours as needed for Nausea and Vomiting (N/V). peg-electro Yes [id number] Take as Univers lyte soln 8-16 directed ity of 236-22.74-6 00:00: [place] .74 -5.86 00 colonoscop Medi moisés gram y Branch solution ondansetron 2018-0 Yes [id number] 8mg Take 1 Univers (ZOFRAN) 8 8-16 tablet by ity of mg tablet 00:00: mouth [place] 00 every 8 Medical (eight) Branch hours as needed for Nausea and Vomiting (N/V). peg-electro 0 Yes [id number] Take as Univers lyte soln 8-16 directed ity of 236-22.74-6 00:00: before [place] .74 -5.86 00 colonoscop Medi moisés gram y Branch solution ondansetron 2019-0 Yes [id number] 8mg Take 1 Univers (ZOFRAN) 8 8-16 tablet by ity of mg tablet 00:00: mouth [place] 00 every 8 Medical (eight) Branch hours as needed for Nausea and Vomiting (N/V). peg-electro 0 Yes [id number] Take as Univers lyte soln 8-16 directed ity of 236-22.74-6 00:00: before [place] .74 -5.86 00 colonoscop Medi moisés gram y Branch solution ondansetron 2019-0 Yes [id number] 8mg Take 1 Univers (ZOFRAN) 8 8-16 tablet by ity of mg tablet 00:00: mouth [place] 00 every 8 Medical (eight) Branch hours as needed for Nausea and Vomiting (N/V). peg-electro 2018-0 Yes [id number] Take as Univers lyte soln 8-16 directed ity of 236-22.74-6 00:00: before [place] .74 -5.86 00 colonoscop Medi moisés gram y Branch solution ondansetron 2018-0 Yes [id number] 8mg Take 1 Univers (ZOFRAN) 8 8-16 tablet by ity of mg tablet 00:00: mouth [place] 00 every 8 Medical (eight) Branch hours as needed for Nausea and Vomiting (N/V). peg-electro 2018-0 Yes [id number] Take as Univers lyte soln 8-16 directed ity of 236-.74-6 00:00: [place] .. 00 colonoscop Medi moisés gram y Branch solution ondansetron 2018-0 Yes [id number] 8mg Take 1 Univers (ZOFRAN) 8 8-16 tablet by ity of mg tablet 00:00: mouth [place] 00 every 8 Medical (eight) Branch hours as needed for Nausea and Vomiting (N/V). peg-electro 2018-0 Yes [id number] Take as Univers lyte soln 8-16 directed ity of 236-22.74-6 00:00: before [place] .[place] -.[place] 00 colonoscop Medi moisés gram y Branch solution ondansetron 2019-0 Yes [id number] 8mg Take 1 Univers (ZOFRAN) 8 8-16 tablet by ity of mg tablet 00:00: mouth [place] 00 every 8 Medical (eight) Branch hours as needed for Nausea and Vomiting (N/V). peg-electro 0 Yes [id number] Take as Univers lyte soln 8-16 directed ity of 236-22.74-6 00:00: before [place] .74 -5.86 00 colonoscop Medi moisés gram y Branch solution ondansetron 2019-0 Yes [id number] 8mg Take 1 Univers (ZOFRAN) 8 8-16 tablet by ity of mg tablet 00:00: mouth [place] 00 every 8 Medical (eight) Branch hours as needed for Nausea and Vomiting (N/V). peg-electro 2019-0 Yes [id number] Take as Univers lyte soln 8-16 directed ity of 236-22.74-6 00:00: before [place] .[place] -5.86 00 colonoscop Medi moisés gram y Branch solution ondansetron 2019-0 Yes [id number] 8mg Take 1 Univers (ZOFRAN) 8 8-16 tablet by ity of mg tablet 00:00: mouth [place] 00 every 8 Medical (eight) Branch hours as needed for Nausea and Vomiting (N/V). peg-electro 2019-0 Yes [id number] Take as Univers lyte soln 8-16 directed ity of 236-.74-6 00:00: before [place] .74 -5.86 00 colonoscop Medi moisés gram y Branch solution ondansetron 2019-0 Yes [id number] 8mg Take 1 Univers (ZOFRAN) 8 8-16 tablet by ity of mg tablet 00:00: mouth [place] 00 every 8 Medical (eight) Branch hours as needed for Nausea and Vomiting (N/V). peg-electro 2019-0 Yes [id number] Take as Univers lyte soln 8-16 directed ity of 236-.74-6 00:00: before [place] .74 -5.86 00 colonoscop Medi moisés gram y Branch solution ondansetron 2019-0 Yes [id number] 8mg Take 1 Univers (ZOFRAN) 8 8-16 tablet by ity of mg tablet 00:00: mouth [place] 00 every 8 Medical (eight) Branch hours as needed for Nausea and Vomiting (N/V). ondansetron 2019-0 Yes [id number] 8mg Take 1 Univers (ZOFRAN) 8 8-16 tablet by ity of mg tablet 00:00: mouth [place] 00 every 8 Medical (eight) Branch hours as needed for Nausea and Vomiting (N/V). ondansetron 2019-0 Yes [id number] 8mg Take 1 Univers (ZOFRAN) 8 8-16 tablet by ity of mg tablet 00:00: mouth [place] 00 every 8 Medical (eight) Branch hours as needed for Nausea and Vomiting (N/V). ondansetron 2019-0 Yes [id number] 8mg Take 1 Univers (ZOFRAN) 8 8-16 tablet by ity of mg tablet 00:00: mouth [place] 00 every 8 Medical (eight) Branch hours as needed for Nausea and Vomiting (N/V). ondansetron 2019-0 Yes [id number] 8mg Take 1 Univers (ZOFRAN) 8 8-16 tablet by ity of mg tablet 00:00: mouth [place] 00 every 8 Medical (eight) Branch hours as needed for Nausea and Vomiting (N/V). ondansetron 2019-0 Yes [id number] 8mg Take 1 Univers (ZOFRAN) 8 8-16 tablet by ity of mg tablet 00:00: mouth [place] 00 every 8 Medical (eight) Branch hours as needed for Nausea and Vomiting (N/V). ondansetron 2019-0 Yes [id number] 8mg Take 1 Univers (ZOFRAN) 8 8-16 tablet by ity of mg tablet 00:00: mouth [place] 00 every 8 Medical (eight) Branch hours as needed for Nausea and Vomiting (N/V). ondansetron 2019-0 Yes [id number] 8mg Take 1 Univers (ZOFRAN) 8 8-16 tablet by ity of mg tablet 00:00: mouth [place] 00 every 8 Medical (eight) Branch hours as needed for Nausea and Vomiting (N/V). ondansetron 2019-0 Yes [id number] 8mg Take 1 Univers (ZOFRAN) 8 8-16 tablet by ity of mg tablet 00:00: mouth [place] 00 every 8 Medical (eight) Branch hours as needed for Nausea and Vomiting (N/V). ondansetron 2019-0 Yes [id number] 8mg Take 1 Univers (ZOFRAN) 8 8-16 tablet by ity of mg tablet 00:00: mouth [place] 00 every 8 Medical (eight) Branch hours as needed for Nausea and Vomiting (N/V). ondansetron 2019-0 Yes [id number] 8mg Take 1 Univers (ZOFRAN) 8 8-16 tablet by ity of mg tablet 00:00: mouth [place] 00 every 8 Medical (eight) Branch hours as needed for Nausea and Vomiting (N/V). ondansetron 2019-0 Yes [id number] 8mg Take 1 Univers (ZOFRAN) 8 8-16 tablet by ity of mg tablet 00:00: mouth [place] 00 every 8 Medical (eight) Branch hours as needed for Nausea and Vomiting (N/V). ondansetron 2019-0 Yes [id number] 8mg Take 1 Univers (ZOFRAN) 8 8-16 tablet by ity of mg tablet 00:00: mouth [place] 00 every 8 Medical (eight) Branch hours as needed for Nausea and Vomiting (N/V). ondansetron 2019-0 Yes [id number] 8mg Take 1 Univers (ZOFRAN) 8 8-16 tablet by ity of mg tablet 00:00: mouth [place] 00 every 8 Medical (eight) Branch hours as needed for Nausea and Vomiting (N/V). ondansetron 2019-0 Yes [id number] 8mg Take 1 Univers (ZOFRAN) 8 8-16 tablet by ity of mg tablet 00:00: mouth [place] 00 every 8 Medical (eight) Branch hours as needed for Nausea and Vomiting (N/V). ondansetron 2019-0 Yes [id number] 8mg Take 1 Univers (ZOFRAN) 8 8-16 tablet by ity of mg tablet 00:00: mouth [place] 00 every 8 Medical (eight) Branch hours as needed for Nausea and Vomiting (N/V). ondansetron 2019-0 Yes [id number] 8mg Take 1 Univers (ZOFRAN) 8 8-16 tablet by ity of mg tablet 00:00: mouth [place] 00 every 8 Medical (eight) Branch hours as needed for Nausea and Vomiting (N/V). ondansetron 2019-0 Yes [id number] 8mg Take 1 Univers (ZOFRAN) 8 8-16 tablet by ity of mg tablet 00:00: mouth [place] 00 every 8 Medical (eight) Branch hours as needed for Nausea and Vomiting (N/V). ondansetron 2019-0 Yes [id number] 8mg Take 1 Univers (ZOFRAN) 8 8-16 tablet by ity of mg tablet 00:00: mouth [place] 00 every 8 Medical (eight) Branch hours as needed for Nausea and Vomiting (N/V). ondansetron 2019-0 Yes [id number] 8mg Take 1 Univers (ZOFRAN) 8 8-16 tablet by ity of mg tablet 00:00: mouth [place] 00 every 8 Medical (eight) Branch hours as needed for Nausea and Vomiting (N/V). ondansetron Yes [id number] 8mg Take 1 Univers (ZOFRAN) 8 8-16 tablet by ity of mg tablet 00:00: mouth [place] 00 every 8 Medical (eight) Branch hours as needed for Nausea and Vomiting (N/V). peg-electro 2018- Yes [id number] Take as Univers lyte soln 8-16 directed ity of 236-22.74-6 00:00: before [place] .74 -5.86 00 colonoscop Medi moisés gram y Branch solution ondansetron Yes [id number] 8mg Take 1 Univers (ZOFRAN) 8 8-16 tablet by ity of mg tablet 00:00: mouth [place] 00 every 8 Medical (eight) Branch hours as needed for Nausea and Vomiting (N/V). ondansetron 2018- Yes [id number] 8mg Take 1 Univers (ZOFRAN) 8 8-16 tablet by ity of mg tablet 00:00: mouth [place] 00 every 8 Medical (eight) Branch hours as needed for Nausea and Vomiting (N/V). ondansetron Yes [id number] 8mg Take 1 Univers (ZOFRAN) 8 8-16 tablet by ity of mg tablet 00:00: mouth [place] 00 every 8 Medical (eight) Branch hours as needed for Nausea and Vomiting (N/V). ondansetron Yes [id number] 8mg Take 1 Univers (ZOFRAN) 8 8-16 tablet by ity of mg tablet 00:00: mouth [place] 00 every 8 Medical (eight) Branch hours as needed for Nausea and Vomiting (N/V). ondansetron Yes [id number] 8mg Take 1 Univers (ZOFRAN) 8 8-16 tablet by ity of mg tablet 00:00: mouth [place] 00 every 8 Medical (eight) Branch hours as needed for Nausea and Vomiting (N/V). ondansetron 2018-0 Yes [id number] 8mg Take 1 Univers (ZOFRAN) 8 8-16 tablet by ity of mg tablet 00:00: mouth [place] 00 every 8 Medical (eight) Branch hours as needed for Nausea and Vomiting (N/V). ondansetron 2018-0 Yes [id number] 8mg Take 1 Univers (ZOFRAN) 8 8-16 tablet by ity of mg tablet 00:00: mouth [place] 00 every 8 Medical (eight) Branch hours as needed for Nausea and Vomiting (N/V). ondansetron 2019-0 Yes [id number] 8mg Take 1 Univers (ZOFRAN) 8 8-16 tablet by ity of mg tablet 00:00: mouth [place] 00 every 8 Medical (eight) Branch hours as needed for Nausea and Vomiting (N/V). ondansetron 2018- Yes [id number] 8mg Take 1 Univers (ZOFRAN) 8 8-16 tablet by ity of mg tablet 00:00: mouth [place] 00 every 8 Medical (eight) Branch hours as needed for Nausea and Vomiting (N/V). ondansetron 2018- Yes [id number] 8mg Take 1 Univers (ZOFRAN) 8 8-16 tablet by ity of mg tablet 00:00: mouth [place] 00 every 8 Medical (eight) Branch hours as needed for Nausea and Vomiting (N/V). ondansetron 2018- Yes [id number] 8mg Take 1 Univers (ZOFRAN) 8 8-16 tablet by ity of mg tablet 00:00: mouth [place] 00 every 8 Medical (eight) Branch hours as needed for Nausea and Vomiting (N/V). ondansetron 2018- Yes [id number] 8mg Take 1 Univers (ZOFRAN) 8 8-16 tablet by ity of mg tablet 00:00: mouth [place] 00 every 8 Medical (eight) Branch hours as needed for Nausea and Vomiting (N/V). ondansetron 2018- Yes [id number] 8mg Take 1 Univers (ZOFRAN) 8 8-16 tablet by ity of mg tablet 00:00: mouth [place] 00 every 8 Medical (eight) Branch hours as needed for Nausea and Vomiting (N/V). peg-electro 2018-0 Yes [id number] Take as Univers lyte soln 8-16 directed ity of 236-22.74-6 00:00: before [place] .74 -5.86 00 colonoscop Medi moisés gram y Branch solution ondansetron 2018-0 Yes [id number] 8mg Take 1 Univers (ZOFRAN) 8 8-16 tablet by ity of mg tablet 00:00: mouth [place] 00 every 8 Medical (eight) Branch hours as needed for Nausea and Vomiting (N/V). ondansetron Yes [id number] 8mg Take 1 Univers (ZOFRAN) 8 8-16 tablet by ity of mg tablet 00:00: mouth [place] 00 every 8 Medical (eight) Branch hours as needed for Nausea and Vomiting (N/V). ondansetron 2018- Yes [id number] 8mg Take 1 Univers (ZOFRAN) 8 8-16 tablet by ity of mg tablet 00:00: mouth [place] 00 every 8 Medical (eight) Branch hours as needed for Nausea and Vomiting (N/V). ondansetron Yes [id number] 8mg Take 1 Univers (ZOFRAN) 8 8-16 tablet by ity of mg tablet 00:00: mouth [place] 00 every 8 Medical (eight) Branch hours as needed for Nausea and Vomiting (N/V). ondansetron 2018- Yes [id number] 8mg Take 1 Univers (ZOFRAN) 8 8-16 tablet by ity of mg tablet 00:00: mouth [place] 00 every 8 Medical (eight) Branch hours as needed for Nausea and Vomiting (N/V). ondansetron Yes [id number] 8mg Take 1 Univers (ZOFRAN) 8 8-16 tablet by ity of mg tablet 00:00: mouth [place] 00 every 8 Medical (eight) Branch hours as needed for Nausea and Vomiting (N/V). ondansetron Yes [id number] 8mg Take 1 Univers (ZOFRAN) 8 8-16 tablet by ity of mg tablet 00:00: mouth [place] 00 every 8 Medical (eight) Branch hours as needed for Nausea and Vomiting (N/V). ondansetron Yes [id number] 8mg Take 1 Univers (ZOFRAN) 8 8-16 tablet by ity of mg tablet 00:00: mouth [place] 00 every 8 Medical (eight) Branch hours as needed for Nausea and Vomiting (N/V). peg-electro Yes [id number] Take as Univers lyte soln 8-16 directed ity of 236-22.74-6 00:00: before [place] .74 -5.86 00 colonoscop Medi moisés gram y Branch solution ondansetron Yes [id number] 8mg Take 1 Univers (ZOFRAN) 8 8-16 tablet by ity of mg tablet 00:00: mouth [place] 00 every 8 Medical (eight) Branch hours as needed for Nausea and Vomiting (N/V). ondansetron 2018- Yes [id number] 8mg Take 1 Univers (ZOFRAN) 8 8-16 tablet by ity of mg tablet 00:00: mouth [place] 00 every 8 Medical (eight) Branch hours as needed for Nausea and Vomiting (N/V). ondansetron Yes [id number] 8mg Take 1 Univers (ZOFRAN) 8 8-16 tablet by ity of mg tablet 00:00: mouth [place] 00 every 8 Medical (eight) Branch hours as needed for Nausea and Vomiting (N/V). ondansetron 2018- Yes [id number] 8mg Take 1 Univers (ZOFRAN) 8 8-16 tablet by ity of mg tablet 00:00: mouth [place] 00 every 8 Medical (eight) Branch hours as needed for Nausea and Vomiting (N/V). ondansetron Yes [id number] 8mg Take 1 Univers (ZOFRAN) 8 8-16 tablet by ity of mg tablet 00:00: mouth [place] 00 every 8 Medical (eight) Branch hours as needed for Nausea and Vomiting (N/V). ondansetron 2018- Yes [id number] 8mg Take 1 Univers (ZOFRAN) 8 8-16 tablet by ity of mg tablet 00:00: mouth [place] 00 every 8 Medical (eight) Branch hours as needed for Nausea and Vomiting (N/V). ondansetron 2018- Yes [id number] 8mg Take 1 Univers (ZOFRAN) 8 8-16 tablet by ity of mg tablet 00:00: mouth [place] 00 every 8 Medical (eight) Branch hours as needed for Nausea and Vomiting (N/V). peg-electro Yes [id number] Take as Univers lyte soln 8-16 directed ity of 236-22.74-6 00:00: before [place] .74 -5.86 00 colonoscop Medi moisés gram y Branch solution ondansetron 2018- Yes [id number] 8mg Take 1 Univers (ZOFRAN) 8 8-16 tablet by ity of mg tablet 00:00: mouth [place] 00 every 8 Medical (eight) Branch hours as needed for Nausea and Vomiting (N/V). peg-electro 2019- No [id number] Take as Univers lyte soln 12-0420 directed ity o f 236-22.74-6 00:00: 00:00 before [place] .74 -5.86 00 :00 colonoscop Medi moisés gram y Branch solution ondansetron 2019- No [id number] 8mg Take 1 Univers (ZOFRAN) 8 12-04 tablet by ity of mg tablet 00:00: 00:00 mouth [place] 00 :00 every 8 Medical (eight) Branch hours as needed for Nausea and Vomiting (N/V). ondansetron 2018- No [id number] 8mg Take 1 Univers (ZOFRAN) 8 12-04 tablet by ity of mg tablet 00:00: 00:00 mouth [place] 00 :00 every 8 Medical (eight) Branch hours as needed for Nausea and Vomiting (N/V). liothyronin Yes Univer s e 5 mcg 8-10 ity of tablet 00:00: Medical Branch liothyronin 20190 Yes Univer s e 5 mcg 8-10 ity of tablet 00:00: Medical Branch liothyronin 0 Yes Univer s e 5 mcg 8-10 ity of tablet 00:00: Medical Branch liothyronin 2019-0 Yes Univer s e 5 mcg 8-10 ity of tablet 00:00: Medical Branch liothyronin 20190 Yes Univer s e 5 mcg 8-10 ity of tablet 00:00: Medical Branch liothyronin 20190 Yes Univer s e 5 mcg 8-10 ity of tablet 00:00: Medical Branch liothyronin 2019-0 Yes Univer s e 5 mcg 8-10 ity of tablet 00:00: Medical Branch liothyronin 2019-0 Yes Univer s e 5 mcg 8-10 ity of tablet 00:00: Medical Branch liothyronin 20190 Yes Univer s e 5 mcg 8-10 ity of tablet 00:00: [place] 00 Medical Branch liothyronin 2019-0 Yes Univer s e 5 mcg 8-10 ity of tablet 00:00: [place] 00 Medical Branch liothyronin 2019-0 Yes Univer s e 5 mcg 8-10 ity of tablet 00:00: [place] 00 Medical Branch liothyronin 2019-0 Yes Univer s e 5 mcg 8-10 ity of tablet 00:00: [place] 00 Medical Branch liothyronin 2019-0 Yes Univer s e 5 mcg 8-10 ity of tablet 00:00: [place] 00 Medical Branch liothyronin 2019-0 Yes Univer s e 5 mcg 8-10 ity of tablet 00:00: [place] [address] Medical Branch liothyronin 2019-0 Yes Univer s e 5 mcg 8-10 ity of tablet 00:00: [place] [facility] Branch liothyronin 2019-0 Yes Univer s e 5 mcg 8-10 ity of tablet 00:00: [place] [address] Medical Branch liothyronin 2019-0 Yes Univer s e 5 mcg 8-10 ity of tablet 00:00: [place] [facility] Branch liothyronin 2019-0 Yes Univer s e 5 mcg 8-10 ity of tablet 00:00: [place] [address] Medical Branch liothyronin 2019-0 Yes Univer s e 5 mcg 8-10 ity of tablet 00:00: [place] [address] Medical Branch liothyronin 2019-0 Yes Univer s e 5 mcg 8-10 ity of tablet 00:00: [place] [address] Medical Branch liothyronin 2019-0 Yes Univer s e 5 mcg 8-10 ity of tablet 00:00: [place] [facility] liothyronin 2019-0 Yes Univer s e 5 mcg 8-10 ity of tablet 00:00: [place] 00 Medical Branch liothyronin 2019-0 Yes Univer s e 5 mcg 8-10 ity of tablet 00:00: [place] [facility] liothyronin 2019-0 Yes Univer s e 5 mcg 8-10 ity of tablet 00:00: [place] 00 Medical Branch liothyronin 2019-0 Yes Univer s e 5 mcg 8-10 ity of tablet 00:00: [place] [address] Medical Branch liothyronin 2019-0 Yes Univer s e 5 mcg 8-10 ity of tablet 00:00: [place] 00 Medical Branch liothyronin 2019-0 Yes Univer s e 5 mcg 8-10 ity of tablet 00:00: [place] 00 Medical Branch liothyronin 2019-0 Yes Univer s e 5 mcg 8-10 ity of tablet 00:00: [place] 00 Medical Branch liothyronin 2019-0 Yes Univer s e 5 mcg 8-10 ity of tablet 00:00: [place] [facility] liothyronin 2019-0 Yes Univer s e 5 mcg 8-10 ity of tablet 00:00: [place] 00 Medical Branch liothyronin 2019-0 Yes Univer s e 5 mcg 8-10 ity of tablet 00:00: [place] [facility] liothyronin 2019-0 Yes Univer s e 5 mcg 8-10 ity of tablet 00:00: [place] [facility] liothyronin 2019-0 Yes Univer s e 5 mcg 8-10 ity of tablet 00:00: [place] [address] Medical Branch liothyronin 2019-0 Yes Univer s e 5 mcg 8-10 ity of tablet 00:00: [place] [facility] liothyronin 2019-0 Yes Univer s e 5 mcg 8-10 ity of tablet 00:00: [place] [facility] liothyronin 2019-0 Yes Univer s e 5 mcg 8-10 ity of tablet 00:00: [place] [facility] liothyronin 2019-0 Yes Univer s e 5 mcg 8-10 ity of tablet 00:00: [place] [facility] liothyronin 2019-0 Yes Univer s e 5 mcg 8-10 ity of tablet 00:00: [place] [facility] liothyronin 2019-0 Yes Univer s e 5 mcg 8-10 ity of tablet 00:00: [place] [facility] liothyronin 2019-0 Yes Univer s e 5 mcg 8-10 ity of tablet 00:00: [place] [facility] liothyronin 2019-0 Yes Univer s e 5 mcg 8-10 ity of tablet 00:00: [place] [facility] liothyronin 2019-0 Yes Univer s e 5 mcg 8-10 ity of tablet 00:00: [place] [facility] liothyronin 2019-0 Yes Univer s e 5 mcg 8-10 ity of tablet 00:00: [place] [facility] liothyronin 2019-0 Yes Univer s e 5 mcg 8-10 ity of tablet 00:00: [place] 00 [facility] Branch liothyronin 2019-0 Yes Univer s e 5 mcg 8-10 ity of tablet 00:00: [place] 00 [facility] Branch liothyronin 2019-0 Yes Univer s e 5 mcg 8-10 ity of tablet 00:00: [place] [facility] liothyronin 2019-0 Yes Univer s e 5 mcg 8-10 ity of tablet 00:00: [place] [facility] liothyronin 2019-0 Yes Univer s e 5 mcg 8-10 ity of tablet 00:00: [place] [facility] liothyronin 2019-0 Yes Univer s e 5 mcg 8-10 ity of tablet 00:00: [place] [facility] liothyronin 2019-0 Yes Univer s e 5 mcg 8-10 ity of tablet 00:00: [place] [facility] liothyronin 2019-0 Yes Univer s e 5 mcg 8-10 ity of tablet 00:00: [place] [facility] liothyronin 2019-0 Yes Univer s e 5 mcg 8-10 ity of tablet 00:00: [place] [address] Medical Branch liothyronin 2019-0 Yes Univer s e 5 mcg 8-10 ity of tablet 00:00: [place] [address] Medical Branch liothyronin 2019-0 Yes [facility] 5 mcg 8-10 ity of tablet 00:00: [facility] liothyronin 2019-0 Yes [facility] e 5 mcg 8-10 ity of tablet 00:00: [place] [facility] liothyronin 2019-0 Yes [facility] e 5 mcg 8-10 ity of tablet 00:00: [place] [facility] liothyronin 2019-0 Yes [facility] e 5 mcg 8-10 ity of tablet 00:00: [place] [facility] liothyronin 2019-0 Yes [facility] e 5 mcg 8-10 ity of tablet 00:00: [place] [facility] liothyronin 2019-0 Yes [facility] e 5 mcg 8-10 ity of tablet 00:00: [place] [facility] liothyronin 2019-0 Yes [facility] e 5 mcg 8-10 ity of tablet 00:00: [place] [facility] liothyronin 2019-0 Yes [facility] s e 5 mcg 8-10 ity of tablet 00:00: [place] [facility] liothyronin 2019-0 Yes [facility] s e 5 mcg 8-10 ity of tablet 00:00: [place] [facility] liothyronin 2019-0 Yes Un[facility] s e 5 mcg 8-10 ity of tablet 00:00: [place] [facility] liothyronin 2019-0 Yes [facility] e 5 mcg 8-10 ity of tablet 00:00: [place] [address] [facility] liothyronin 2019-0 Yes Un[facility] s e 5 mcg 8-10 ity of tablet 00:00: [place] [facility] liothyronin 2019-0 Yes [facility] e 5 mcg 8-10 ity of tablet 00:00: [place] [address] [facility] valsartan 2019-0 Yes [facility] 160 mg 7-26 ity of tablet 00:00: [place] [address] [facility] valsartan 2019-0 Yes [facility] 160 mg 7-26 ity of tablet 00:00: [place] [address] [facility] valsartan 2019-0 Yes [facility] 160 mg 7-26 ity of tablet 00:00: [place] [address] [facility] valsartan 2019-0 Yes [facility] 160 mg 7-26 ity of tablet 00:00: [place] [address] [facility] valsartan 2019-0 Yes [facility] 160 mg 7-26 ity of tablet 00:00: [place] [address] [facility] valsartan 2019-0 Yes [facility] 160 mg 7-26 ity of tablet 00:00: [place] [address] [facility] valsartan 2019-0 Yes [facility] 160 mg 7-26 ity of tablet 00:00: [place] [address] [facility] valsartan 2019-0 Yes [facility] 160 mg 7-26 ity of tablet 00:00: [place] [address] [facility] valsartan 2019-0 Yes [facility] 160 mg 7-26 ity of tablet 00:00: [place] [address] [facility] valsartan 2019-0 Yes [facility] 160 mg 7-26 ity of tablet 00:00: [place] [address] [facility] valsartan 2019-0 Yes [facility] 160 mg 7-26 ity of tablet 00:00: [place] [address] [facility] valsartan 2019-0 Yes [facility] 160 mg 7-26 ity of tablet 00:00: [place] [address] [facility] valsartan 2019-0 Yes [facility] 160 mg 7-26 ity of tablet 00:00: [place] [address] [facility] valsartan 2019-0 Yes [facility] 160 mg 7-26 ity of tablet 00:00: [place] 00 [facility] valsartan 2019-0 Yes [facility] 160 mg 7-26 ity of tablet 00:00: [place] 00 [facility] valsartan 2019-0 Yes [facility] 160 mg 7-26 ity of tablet 00:00: [place] 00 [facility] valsartan 2019-0 Yes [facility] 160 mg 7-26 ity of tablet 00:00: [place] 00 [facility] valsartan 2019-0 Yes [facility] 160 mg 7-26 ity of tablet 00:00: [place] 00 [facility] valsartan 2019-0 Yes [facility] 160 mg 7-26 ity of tablet 00:00: [place] 00 [facility] valsartan 2019-0 Yes [facility] 160 mg 7-26 ity of tablet 00:00: [place] 00 [facility] valsartan 2019-0 2020- No [facility] 160 mg 7-26 02-04 ity of tablet 00:00: 00:00 [place] 00 :00 [facility] valsartan 2019-0 2020- No [facility] 160 mg 7-26 02-04 ity of tablet 00:00: 00:00 [place] 00 :00 [facility] valsartan 2019-0 2020- No [facility] 160 mg 7-26 02-04 ity of tablet 00:00: 00:00 [place] 00 :00 [facility] buPROPion 2019-0 Yes [facility] XL 300 mg 7-15 ity of 24 hr 00:00: [place] tablet 00 [facility] buPROPion [address] Yes [facility] XL 300 mg 7-15 ity of 24 hr 00:00: [place] tablet 00 [facility] buPROPion 2019-0 Yes [facility] XL 300 mg 7-15 ity of 24 hr 00:00: [place] tablet 00 [facility] buPROPion 2019-0 Yes [facility] XL 300 mg 7-15 ity of 24 hr 00:00: [place] tablet 00 [facility] buPROPion 2019-0 Yes [facility] XL 300 mg 7-15 ity of 24 hr 00:00: [place] tablet 00 [facility] buPROPion 2019-0 Yes [facility] XL 300 mg 7-15 ity of 24 hr 00:00: [place] tablet 00 [facility] buPROPion 2019-0 Yes [facility] XL 300 mg 7-15 ity of 24 hr 00:00: [place] tablet 00 [facility] buPROPion 2019-0 Yes [facility] XL 300 mg 7-15 ity of 24 hr 00:00: [place] tablet 00 [facility] buPROPion 2019-0 Yes [facility] XL 300 mg 7-15 ity of 24 hr 00:00: [place] tablet [facility] buPROPion 2019-0 Yes [facility] XL 300 mg 7-15 ity of 24 hr 00:00: [place] tablet [facility] buPROPion 2019-0 Yes [facility] XL 300 mg 7-15 ity of 24 hr 00:00: [place] tablet [facility] buPROPion 2019-0 Yes [facility] XL 300 mg 7-15 ity of 24 hr 00:00: [place] tablet [facility] buPROPion 2019-0 Yes [facility] XL 300 mg 7-15 ity of 24 hr 00:00: [place] tablet [facility] buPROPion 2019-0 Yes [facility] XL 300 mg 7-15 ity of 24 hr 00:00: [place] tablet [facility] buPROPion 2019-0 Yes [facility] XL 300 mg 7-15 ity of 24 hr 00:00: [place] tablet [facility] buPROPion 2019-0 Yes [facility] XL 300 mg 7-15 ity of 24 hr 00:00: [place] tablet [facility] buPROPion 2019-0 Yes [facility] XL 300 mg 7-15 ity of 24 hr 00:00: [place] tablet [facility] buPROPion 2019-0 Yes [facility] XL 300 mg 7-15 ity of 24 hr 00:00: [place] tablet [facility] buPROPion 2019-0 Yes [facility] XL 300 mg 7-15 ity of 24 hr 00:00: [place] tablet [facility] buPROPion 2019-0 Yes [facility] XL 300 mg 7-15 ity of 24 hr 00:00: [place] tablet [facility] buPROPion 2019-0 Yes [facility] XL 300 mg 7-15 ity of 24 hr 00:00: [place] tablet [facility] buPROPion 2019-0 Yes [facility] XL 300 mg 7-15 ity of 24 hr 00:00: [place] tablet [facility] buPROPion 2019-0 Yes [facility] XL 300 mg 7-15 ity of 24 hr 00:00: [place] tablet [facility] buPROPion 2019-0 Yes [facility] XL 300 mg 7-15 ity of 24 hr 00:00: [place] tablet [facility] buPROPion 2019-0 Yes [facility] XL 300 mg 7-15 ity of 24 hr 00:00: [place] tablet [facility] buPROPion 2019-0 Yes [facility] XL 300 mg 7-15 ity of 24 hr 00:00: [place] tablet [facility] buPROPion 2019-0 Yes [facility] XL 300 mg 7-15 ity of 24 hr 00:00: [place] tablet [facility] buPROPion 2019-0 Yes [facility] XL 300 mg 7-15 ity of 24 hr 00:00: [place] tablet [facility] buPROPion 2019-0 Yes [facility] XL 300 mg 7-15 ity of 24 hr 00:00: [place] tablet [facility] buPROPion 2019-0 Yes [facility] XL 300 mg 7-15 ity of 24 hr 00:00: [place] tablet [facility] buPROPion 2019-0 Yes [facility] XL 300 mg 7-15 ity of 24 hr 00:00: [place] tablet [facility] buPROPion 2019-0 Yes [facility] XL 300 mg 7-15 ity of 24 hr 00:00: [place] tablet [facility] buPROPion 2019-0 Yes [facility] XL 300 mg 7-15 ity of 24 hr 00:00: [place] tablet [facility] buPROPion 2019-0 Yes [facility] XL 300 mg 7-15 ity of 24 hr 00:00: [place] tablet [facility] buPROPion 2019-0 Yes [facility] XL 300 mg 7-15 ity of 24 hr 00:00: [place] tablet [facility] buPROPion 2019-0 Yes [facility] XL 300 mg 7-15 ity of 24 hr 00:00: [place] tablet [facility] buPROPion 2019-0 Yes [facility] XL 300 mg 7-15 ity of 24 hr 00:00: [place] tablet [facility] buPROPion 2019-0 Yes [facility] XL 300 mg 7-15 ity of 24 hr 00:00: [place] tablet [facility] buPROPion 2019-0 Yes [facility] XL 300 mg 7-15 ity of 24 hr 00:00: [place] tablet [facility] buPROPion 2019-0 Yes [facility] XL 300 mg 7-15 ity of 24 hr 00:00: [place] tablet [facility] buPROPion 2019-0 Yes [facility] XL 300 mg 7-15 ity of 24 hr 00:00: [place] tablet [facility] buPROPion 2019-0 Yes [facility] XL 300 mg 7-15 ity of 24 hr 00:00: [place] tablet [facility] buPROPion 2019-0 Yes [facility] XL 300 mg 7-15 ity of 24 hr 00:00: [place] tablet [facility] buPROPion 2019-0 Yes [facility] XL 300 mg 7-15 ity of 24 hr 00:00: [place] tablet [facility] buPROPion 2019-0 Yes [facility] XL 300 mg 7-15 ity of 24 hr 00:00: [place] tablet [facility] buPROPion 2019-0 Yes [facility] XL 300 mg 7-15 ity of 24 hr 00:00: [place] tablet [facility] buPROPion 2019-0 Yes [facility] XL 300 mg 7-15 ity of 24 hr 00:00: [place] tablet [facility] buPROPion 2019-0 Yes [facility] XL 300 mg 7-15 ity of 24 hr 00:00: [place] tablet [facility] buPROPion 2019-0 Yes [facility] XL 300 mg 7-15 ity of 24 hr 00:00: [place] tablet [facility] buPROPion 2019-0 Yes [facility] XL 300 mg 7-15 ity of 24 hr 00:00: [place] tablet [facility] buPROPion 2019-0 Yes [facility] XL 300 mg 7-15 ity of 24 hr 00:00: [place] tablet [facility] buPROPion 2019-0 Yes [facility] XL 300 mg 7-15 ity of 24 hr 00:00: [place] tablet [facility] buPROPion 2019-0 Yes [facility] XL 300 mg 7-15 ity of 24 hr 00:00: [place] tablet [facility] buPROPion 2019-0 Yes [facility] XL 300 mg 7-15 ity of 24 hr 00:00: [place] tablet [facility] buPROPion 2019-0 Yes [facility] XL 300 mg 7-15 ity of 24 hr 00:00: [place] tablet [facility] buPROPion 2019-0 Yes [facility] XL 300 mg 7-15 ity of 24 hr 00:00: [place] tablet [facility] buPROPion 2019-0 Yes [facility] XL 300 mg 7-15 ity of 24 hr 00:00: [place] tablet [facility] buPROPion 2019-0 Yes [facility] XL 300 mg 7-15 ity of 24 hr 00:00: [place] tablet [facility] buPROPion 2019-0 Yes [facility] XL 300 mg 7-15 ity of 24 hr 00:00: [place] tablet [facility] buPROPion 2019-0 Yes [facility] XL 300 mg 7-15 ity of 24 hr 00:00: [place] tablet [facility] buPROPion 2019-0 Yes [facility] XL 300 mg 7-15 ity of 24 hr 00:00: [place] tablet [facility] buPROPion 2019-0 Yes [facility] XL 300 mg 7-15 ity of 24 hr 00:00: [place] tablet [facility] buPROPion 0 Yes [facility] XL 300 mg 7-15 ity of 24 hr 00:00: [place] tablet [facility] buPROPion 0 Yes [facility] XL 300 mg 7-15 ity of 24 hr 00:00: [place] tablet [facility] buPROPion 0 Yes [facility] XL 300 mg 7-15 ity of 24 hr 00:00: [place] tablet [facility] buPROPion Yes [facility] XL 300 mg 7-15 ity of 24 hr 00:00: [place] tablet [facility] olmesartan 0 Yes Univers 20 mg 5-29 ity of tablet 00:00: [address] olmesartan 0 Yes Univers 20 mg 5-29 ity of tablet 00:00: [address] [facility] olmesartan Yes Univers 20 mg 5-29 ity of tablet 00:00: [address] [facility] olmesartan 2019-0 Yes [facility] 20 mg 5-29 ity of tablet 00:00: [address] [facility] olmesartan 0 Yes [facility] 20 mg 5-29 ity of tablet 00:00: [address] [facility] olmesartan 0 Yes [facility] 20 mg 5-29 ity of tablet 00:00: [address] [facility] olmesartan [address] Yes [facility] 20 mg 5-29 ity of tablet 00:00: [address] [facility] olmesartan 0 Yes [facility] 20 mg 5-29 ity of tablet 00:00: [address] [facility] olmesartan 2019-0 Yes [facility] 20 mg 5-29 ity of tablet 00:00: [address] [facility] olmesartan 0 Yes [facility] 20 mg 5-29 ity of tablet 00:00: [address] [facility] olmesartan 0 Yes [facility] 20 mg 5-29 ity of tablet 00:00: [address] [facility] olmesartan 2019-0 Yes [facility] 20 mg 5-29 ity of tablet 00:00: [address] [facility] olmesartan 0 Yes [facility] 20 mg 5-29 ity of tablet 00:00: [address] [facility] olmesartan 0 Yes [facility] 20 mg 5-29 ity of tablet 00:00: [address] olmesartan 0 Yes [facility] 20 mg 5-29 ity of tablet 00:00: [place] 00 [facility] olmesartan 2019-0 Yes [facility] 20 mg 5-29 ity of tablet 00:00: [place] 00 [facility] olmesartan 2019-0 Yes [facility] 20 mg 5-29 ity of tablet 00:00: [place] 00 [facility] olmesartan 2019-0 Yes [facility] 20 mg 5-29 ity of tablet 00:00: [place] [address] [facility] olmesartan 2019-0 Yes [facility] 20 mg 5-29 ity of tablet 00:00: [place] [address] [facility] olmesartan 2019-0 Yes [facility] 20 mg 5-29 ity of tablet 00:00: [place] [address] [facility] olmesartan 2019-0 Yes [facility] 20 mg 5-29 ity of tablet 00:00: [place] [address] [facility] olmesartan 2019-0 Yes [facility] 20 mg 5-29 ity of tablet 00:00: [place] [address] [facility] olmesartan 2019-0 Yes [facility] 20 mg 5-29 ity of tablet 00:00: [place] [address] [facility] olmesartan 2019-0 Yes [facility] 20 mg 5-29 ity of tablet 00:00: [place] [address] [facility] olmesartan 2019-0 Yes [facility] 20 mg 5-29 ity of tablet 00:00: [place] [address] [facility] olmesartan 2019-0 2020- No Univer s 20 mg 5-29 02-11 ity of tablet 00:00: 00:00 [place] 00 :00 [facility] olmesartan 2019-0 2020- No Univer s 20 mg 5-29 02-11 ity of tablet 00:00: 00:00 [place] 00 :00 [facility] olmesartan 2019-0 2020- No Univer s 20 mg 5-29 02-11 ity of tablet 00:00: 00:00 [place] 00 :00 [facility] olmesartan 2019-0 2020- No Univer s 20 mg 5-29 02-11 ity of tablet 00:00: 00:00 [place] 00 :00 [facility] olmesartan 2019-0 2020- No Univer s 20 mg 5-29 02-11 ity of tablet 00:00: 00:00 [place] 00 :00 [facility] levothyroxi 2019-0 Yes Univer s ne 150 mcg 5-25 ity of tablet 00:00: [place] [address] [facility] levothyroxi 2019-0 Yes Univer s ne 150 mcg 5-25 ity of tablet 00:00: [place] 00 [facility] levothyroxi 2019-0 Yes [place] [facility] 150 mcg 5-25 ity of tablet 00:00: [place] 00 [facility] levothyroxi 2019-0 Yes [place] [facility] ne 150 mcg 5-25 ity of tablet 00:00: [place] 00 [facility] levothyroxi 2019-0 Yes [place] [facility] ne 150 mcg 5-25 ity of tablet 00:00: [place] 00 [facility] levothyroxi 2019-0 Yes [facility] ne 150 mcg 5-25 ity of tablet 00:00: [place] 00 [facility] levothyroxi 2019-0 Yes [facility] ne 150 mcg 5-25 ity of tablet 00:00: [place] [address] [facility] levothyroxi 2019-0 Yes [facility] ne 150 mcg 5-25 ity of tablet 00:00: [place] [address] [facility] levothyroxi 2019-0 Yes [facility] ne 150 mcg 5-25 ity of tablet 00:00: [place] [address] [facility] levothyroxi 2019-0 Yes [facility] ne 150 mcg 5-25 ity of tablet 00:00: [place] [address] [facility] levothyroxi 2019-0 Yes [facility] ne 150 mcg 5-25 ity of tablet 00:00: [place] [address] [facility] levothyroxi 2019-0 Yes [facility] ne 150 mcg 5-25 ity of tablet 00:00: [place] [address] [facility] levothyroxi 2019-0 Yes [facility] ne 150 mcg 5-25 ity of tablet 00:00: [place] [address] [facility] levothyroxi 2019-0 Yes [facility] ne 150 mcg 5-25 ity of tablet 00:00: [place] 00 [facility] levothyroxi 2019-0 Yes [facility] ne 150 mcg 5-25 ity of tablet 00:00: [place] 00 [facility] levothyroxi 2019-0 Yes [facility] ne 150 mcg 5-25 ity of tablet 00:00: [place] [address] [facility] levothyroxi 2019-0 Yes [facility] ne 150 mcg 5-25 ity of tablet 00:00: [place] [address] [facility] levothyroxi 2019-0 Yes [facility] ne 150 mcg 5-25 ity of tablet 00:00: [place] [address] [facility] levothyroxi 2019-0 Yes [facility] ne 150 mcg 5-25 ity of tablet 00:00: [place] 00 [facility] levothyroxi 2019-0 Yes [facility] ne 150 mcg 5-25 ity of tablet 00:00: [place] 00 [facility] levothyroxi 2019-0 Yes Univer s ne 150 mcg 5-25 ity of tablet 00:00: [place] 00 [facility] levothyroxi 2019-0 Yes Univer s ne 150 mcg 5-25 ity of tablet 00:00: [place] [address] [facility] levothyroxi 2019-0 Yes [place] [facility] ne 150 mcg 5-25 ity of tablet 00:00: [place] [address] [facility] levothyroxi 2019-0 Yes [facility] ne 150 mcg 5-25 ity of tablet 00:00: [place] [address] [facility] levothyroxi 2019-0 Yes [place] [facility] ne 150 mcg 5-25 ity of tablet 00:00: [place] [address] [facility] levothyroxi 2019-0 Yes [facility] ne 150 mcg 5-25 ity of tablet 00:00: [place] [address] [facility] levothyroxi 2019-0 Yes [facility] ne 150 mcg 5-25 ity of tablet 00:00: [place] [address] [facility] levothyroxi 2019-0 Yes [facility] ne 150 mcg 5-25 ity of tablet 00:00: [place] [address] [facility] levothyroxi 2019-0 Yes [facility] ne 150 mcg 5-25 ity of tablet 00:00: [place] [address] [facility] levothyroxi 2019-0 Yes [facility] ne 150 mcg 5-25 ity of tablet 00:00: [place] [address] [facility] levothyroxi 2019-0 Yes [facility] ne 150 mcg 5-25 ity of tablet 00:00: [place] [address] [facility] levothyroxi 2019-0 Yes [facility] ne 150 mcg 5-25 ity of tablet 00:00: [place] [address] [facility] levothyroxi 2019-0 Yes [facility] ne 150 mcg 5-25 ity of tablet 00:00: [place] [address] [facility] levothyroxi 2019-0 Yes [place] [facility] ne 150 mcg 5-25 ity of tablet 00:00: [place] [address] [facility] levothyroxi 2019-0 Yes [facility] 150 mcg 5-25 ity of tablet 00:00: [place] [address] [facility] levothyroxi 2019-0 Yes [place] [facility] ne 150 mcg 5-25 ity of tablet 00:00: [place] [address] [facility] levothyroxi 2019-0 Yes [facility] ne 150 mcg 5-25 ity of tablet 00:00: [place] 00 [facility] levothyroxi 2019-0 Yes Univer s ne 150 mcg 5-25 ity of tablet 00:00: [place] 00 [facility] levothyroxi 2019-0 Yes Univer s ne 150 mcg 5-25 ity of tablet 00:00: [place] 00 [facility] levothyroxi 2019-0 Yes Univer s ne 150 mcg 5-25 ity of tablet 00:00: [place] [address] [facility] levothyroxi 2019-0 Yes Univer s ne 150 mcg 5-25 ity of tablet 00:00: [place] [address] [facility] levothyroxi 2019-0 Yes Univer s ne 150 mcg 5-25 ity of tablet 00:00: [place] [address] [facility] levothyroxi 2019-0 Yes Univer s ne 150 mcg 5-25 ity of tablet 00:00: [place] [address] [facility] levothyroxi 2019-0 Yes [place] [facility] ne 150 mcg 5-25 ity of tablet 00:00: [place] [address] [facility] levothyroxi 2019-0 Yes [place] [facility] ne 150 mcg 5-25 ity of tablet 00:00: [place] [address] [facility] levothyroxi 2019-0 Yes Univer s ne 150 mcg 5-25 ity of tablet 00:00: [place] [address] [facility] levothyroxi 2019-0 Yes Univer s ne 150 mcg 5-25 ity of tablet 00:00: [place] [address] [facility] levothyroxi 2019-0 Yes Univer s ne 150 mcg 5-25 ity of tablet 00:00: [place] [address] [facility] levothyroxi 2019-0 Yes [place] [facility] ne 150 mcg 5-25 ity of tablet 00:00: [place] [address] [facility] levothyroxi 2019-0 Yes Univer s ne 150 mcg 5-25 ity of tablet 00:00: [place] [address] [facility] levothyroxi 2019-0 Yes Univer s ne 150 mcg 5-25 ity of tablet 00:00: [place] [address] [facility] levothyroxi 2019-0 Yes Univer s ne 150 mcg 5-25 ity of tablet 00:00: [place] [address] [facility] levothyroxi 2019-0 Yes Univer s ne 150 mcg 5-25 ity of tablet 00:00: [place] [address] [facility] levothyroxi 2019-0 Yes Univer s ne 150 mcg 5-25 ity of tablet 00:00: [place] [address] [facility] levothyroxi 2019-0 Yes Univer s ne 150 mcg 5-25 ity of tablet 00:00: [place] [facility] levothyroxi 2019-0 Yes Univer s ne 150 mcg 5-25 ity of tablet 00:00: [place] [facility] levothyroxi 2019-0 Yes Univer s ne 150 mcg 5-25 ity of tablet 00:00: [place] [address] [facility] levothyroxi 2019-0 Yes Univer s ne 150 mcg 5-25 ity of tablet 00:00: [place] [address] [facility] levothyroxi 2019-0 Yes Univer s ne 150 mcg 5-25 ity of tablet 00:00: [place] [address] [facility] levothyroxi 2019-0 Yes Univer s ne 150 mcg 5-25 ity of tablet 00:00: [place] [address] [facility] levothyroxi 2019-0 Yes Univer s ne 150 mcg 5-25 ity of tablet 00:00: [place] [address] [facility] levothyroxi 2019-0 Yes Univer s ne 150 mcg 5-25 ity of tablet 00:00: [place] [address] [facility] levothyroxi 2019-0 Yes Univer s ne 150 mcg 5-25 ity of tablet 00:00: [address] [facility] levothyroxi 2019-0 Yes Univer s ne 150 mcg 5-25 ity of tablet 00:00: [address] [facility] levothyroxi 2019-0 Yes Univer s ne 150 mcg 5-25 ity of tablet 00:00: [address] [facility] levothyroxi 2019-0 Yes Univer s ne 150 mcg 5-25 ity of tablet 00:00: [place] [address] [facility] omeprazole 2019-0 Yes [facility] 40 mg 5-19 ity of capsule 00:00: [place] [address] [facility] omeprazole 2019-0 Yes [facility] 40 mg 5-19 ity of capsule 00:00: [place] [address] [facility] omeprazole 2019-0 Yes [facility] 40 mg 5-19 ity of capsule 00:00: [place] [address] [facility] omeprazole 2019-0 Yes [facility] 40 mg 5-19 ity of capsule 00:00: [place] [address] [facility] omeprazole 2019-0 Yes [facility] 40 mg 5-19 ity of capsule 00:00: [place] [address] [facility] omeprazole 2019-0 Yes [facility] 40 mg 5-19 ity of capsule 00:00: [place] 00 [facility] omeprazole 2019-0 Yes [facility] 40 mg 5-19 ity of capsule 00:00: [place] [address] [facility] omeprazole 2019-0 Yes [facility] 40 mg 5-19 ity of capsule 00:00: [place] [address] [facility] omeprazole 2019-0 Yes [facility] 40 mg 5-19 ity of capsule 00:00: [place] [address] [facility] omeprazole 2019-0 Yes [facility] 40 mg 5-19 ity of capsule 00:00: [place] [address] [facility] omeprazole 2019-0 Yes [facility] 40 mg 5-19 ity of capsule 00:00: [place] [address] [facility] omeprazole 2019-0 Yes [facility] 40 mg 5-19 ity of capsule 00:00: [place] [address] [facility] omeprazole 2019-0 Yes [facility] 40 mg 5-19 ity of capsule 00:00: [place] [address] [facility] omeprazole 2019-0 Yes [facility] 40 mg 5-19 ity of capsule 00:00: [place] [address] [facility] omeprazole 2019-0 Yes [facility] 40 mg 5-19 ity of capsule 00:00: [place] [address] [facility] omeprazole 2019-0 Yes [facility] 40 mg 5-19 ity of capsule 00:00: [place] [address] [facility] omeprazole 2019-0 Yes [facility] 40 mg 5-19 ity of capsule 00:00: [place] [address] [facility] omeprazole 2019-0 Yes [facility] 40 mg 5-19 ity of capsule 00:00: [place] [address] [facility] omeprazole 2019-0 Yes [facility] 40 mg 5-19 ity of capsule 00:00: [place] [address] [facility] omeprazole 2019-0 Yes [facility] 40 mg 5-19 ity of capsule 00:00: [place] [address] [facility] omeprazole 2019-0 Yes [facility] 40 mg 5-19 ity of capsule 00:00: [place] [address] [facility] omeprazole 2019-0 Yes [facility] 40 mg 5-19 ity of capsule 00:00: [place] [address] [facility] omeprazole 2019-0 Yes [facility] 40 mg 5-19 ity of capsule 00:00: [place] [address] [facility] omeprazole 2019-0 Yes [facility] 40 mg 5-19 ity of capsule 00:00: [place] [address] [facility] omeprazole 2019-0 Yes [facility] 40 mg 5-19 ity of capsule 00:00: [place] [address] [facility] omeprazole 2019-0 Yes [facility] 40 mg 5-19 ity of capsule 00:00: [place] [address] [facility] omeprazole 2019-0 Yes [facility] 40 mg 5-19 ity of capsule 00:00: [place] [address] [facility] omeprazole 2019-0 Yes [facility] 40 mg 5-19 ity of capsule 00:00: [place] [address] [facility] omeprazole 2019-0 Yes [facility] 40 mg 5-19 ity of capsule 00:00: [place] [address] [facility] omeprazole 2019-0 Yes [facility] 40 mg 5-19 ity of capsule 00:00: [place] [address] [facility] omeprazole 2019-0 Yes [facility] 40 mg 5-19 ity of capsule 00:00: [place] [address] [facility] omeprazole 2019-0 Yes [facility] 40 mg 5-19 ity of capsule 00:00: [place] [address] [facility] omeprazole 2019-0 Yes [facility] 40 mg 5-19 ity of capsule 00:00: [place] [address] [facility] omeprazole 2019-0 Yes [facility] 40 mg 5-19 ity of capsule 00:00: [place] [address] [facility] omeprazole 2019-0 Yes [facility] 40 mg 5-19 ity of capsule 00:00: [place] [address] [facility] omeprazole 2019-0 Yes [facility] 40 mg 5-19 ity of capsule 00:00: [place] [address] [facility] omeprazole 2019-0 Yes [facility] 40 mg 5-19 ity of capsule 00:00: [place] [address] [facility] omeprazole 2019-0 Yes [facility] 40 mg 5-19 ity of capsule 00:00: [place] [address] [facility] omeprazole 2019-0 Yes [facility] 40 mg 5-19 ity of capsule 00:00: [place] [address] [facility] omeprazole 2019-0 Yes [facility] 40 mg 5-19 ity of capsule 00:00: [place] [address] [facility] omeprazole 2019-0 Yes [facility] 40 mg 5-19 ity of capsule 00:00: [place] [address] [facility] omeprazole 2019-0 Yes [facility] 40 mg 5-19 ity of capsule 00:00: [place] [address] [facility] omeprazole 2019-0 Yes [facility] 40 mg 5-19 ity of capsule 00:00: [place] [address] [facility] omeprazole 2019-0 Yes [facility] 40 mg 5-19 ity of capsule 00:00: [place] [address] [facility] omeprazole 2019-0 Yes [facility] 40 mg 5-19 ity of capsule 00:00: [place] [address] [facility] omeprazole 2019-0 Yes [facility] 40 mg 5-19 ity of capsule 00:00: [place] [address] [facility] omeprazole 2019-0 Yes [facility] 40 mg 5-19 ity of capsule 00:00: [place] [address] [facility] omeprazole 2019-0 Yes [facility] 40 mg 5-19 ity of capsule 00:00: [place] [facility] omeprazole 2019-0 Yes [facility] 40 mg 5-19 ity of capsule 00:00: [place] [address] [facility] omeprazole 2019-0 Yes [facility] 40 mg 5-19 ity of capsule 00:00: [place] [address] [facility] omeprazole 2019-0 Yes [facility] 40 mg 5-19 ity of capsule 00:00: [place] [address] [facility] omeprazole 2019-0 Yes [facility] 40 mg 5-19 ity of capsule 00:00: [place] [address] [facility] omeprazole 2019-0 Yes [facility] 40 mg 5-19 ity of capsule 00:00: [place] [address] [facility] omeprazole 2019-0 Yes [facility] 40 mg 5-19 ity of capsule 00:00: [place] [address] [facility] omeprazole 2019-0 Yes [facility] 40 mg 5-19 ity of capsule 00:00: [place] [address] [facility] omeprazole 2019-0 Yes [facility] 40 mg 5-19 ity of capsule 00:00: [place] [address] [facility] omeprazole 2019-0 Yes [facility] 40 mg 5-19 ity of capsule 00:00: [place] [address] [facility] omeprazole 2019-0 Yes [facility] 40 mg 5-19 ity of capsule 00:00: [place] [address] [facility] omeprazole 2019-0 Yes [facility] 40 mg 5-19 ity of capsule 00:00: [place] [address] [facility] omeprazole 2019-0 Yes [facility] 40 mg 5-19 ity of capsule 00:00: [place] [address] [facility] omeprazole 2019-0 Yes [facility] 40 mg 5-19 ity of capsule 00:00: [place] [address] [facility] omeprazole 2019-0 Yes [facility] 40 mg 5-19 ity of capsule 00:00: [place] [address] [facility] omeprazole 2019-0 Yes [facility] 40 mg 5-19 ity of capsule 00:00: [place] [address] [facility] omeprazole 2019-0 Yes [facility] 40 mg 5-19 ity of capsule 00:00: [place] [address] [facility] omeprazole 2019-0 Yes [facility] 40 mg 5-19 ity of capsule 00:00: [place] [address] [facility] omeprazole 2019-0 Yes [facility] 40 mg 5-19 ity of capsule 00:00: [place] [address] [facility] carvedilol carvedilol No carvedilol [facility] 12.5 mg 12.5 mg 12.5 mg Orthop e tablet tablet tablet dic Sports [facility] e cephalexin cephalexin No cephalexin [facility] 500 mg 500 mg 500 mg [facility] capsule capsule capsule dic Take 1 Take 1 Take 1 Sports capsule capsule capsule Medici n twice a day twice a day twice a e by oral by oral day by route. route. oral route. clonazepam clonazepam No clonazepam [facility] 1 mg tablet 1 mg tablet 1 mg O rthope tablet dic Sports Medicin e cyanocobala cyanocobala No cyanocobal [facility] Elena min (vit min (vit jean (vit Or thope B-12) 1,000 B-12) 1,000 B-12) dic mcg/mL mcg/mL 1,000 Sports injection injection mcg/mL Med icin solution solution injection e solution hydrochloro hydrochloro No hydrochlor [facility] Elena thiazide thiazide othiazide Or thope 12.5 mg 12.5 mg 12.5 mg dic capsule capsule capsule Sports Medicin e hydrochloro hydrochloro No hydrochlor [facility] Elena thiazide thiazide othiazide Or thope 12.5 mg 12.5 mg 12.5 mg dic tablet tablet tablet Sports Medicin e liothyronin liothyronin No liothyroni [facility] e 5 mcg e 5 mcg ne 5 mcg Ortho pe tablet RX tablet RX tablet RX dic by other MD by other MD by other Sports MD Medicin e lorazepam lorazepam No lorazepam [facility] 0.5 mg 0.5 mg 0.5 mg Orth[facility] tablet tablet tablet dic Sports Medicin e omeprazole omeprazole No omeprazole [facility] 40 mg 40 mg 40 mg [facility] capsule,del capsule,del capsule,de dic ayed ayed layed Sports release release release Medici n e potassium potassium No potassium Rosa Elena chloride ER chloride ER chloride Orthope 20 mEq 20 mEq ER 20 mEq dic tablet,exte tablet,exte tablet,ext Sports nded nded ended Medicin release release release e sertraline sertraline No sertraline [facility] 50 mg 50 mg 50 mg [facility] tablet tablet tablet dic Sports Medicin e simvastatin simvastatin No simvastati [facility] 20 mg 20 mg n 20 mg [facility] tablet tablet tablet dic Sports Medicin e Synthroid Synthroid No Synthroid [facility] 150 mcg 150 mcg 150 mcg Orthop e tablet tablet tablet dic Sports Medicin e tramadol 50 tramadol 50 No 1 Q6H tramadol [facility] mg tablet mg tablet 50 mg Orth ope Take 1 Take 1 tablet dic tablet tablet Take 1 Sports every 6 every 6 tablet Medicin hours by hours by every 6 e oral route. oral route. hours by oral route. trazodone trazodone No trazodone [facility] 50 mg 50 mg 50 mg [facility] tablet tablet tablet dic Sports Medicin e aspirin 81 aspirin 81 No 1capsul Q1D aspirin 81 [facility] mg capsule mg capsule e(s) mg capsule [facility] Take 1 Take 1 Take 1 dic capsule capsule capsule Sports every day every day every day Medicin by oral by oral by oral e route. route. route. carvedilol carvedilol No carvedilol [facility] 12.5 mg 12.5 mg 12.5 mg Orthop e tablet tablet tablet dic Sports Medicin e clonazepam clonazepam No clonazepam [facility] 1 mg tablet 1 mg tablet 1 mg O rthope tablet dic Sports Medicin e hydrochloro hydrochloro No hydrochlor [facility] thiazide thiazide othiazide Or thope 12.5 mg 12.5 mg 12.5 mg dic capsule capsule capsule Sports Medicin e liothyronin liothyronin No liothyroni [facility] e 5 mcg e 5 mcg ne 5 mcg Ortho pe tablet RX tablet RX tablet RX dic by other MD by other MD by other Sports MD Medicin e omeprazole omeprazole No omeprazole [facility] 40 mg 40 mg 40 mg [facility] capsule,del capsule,del capsule,de dic ayed ayed layed Sports release release release Medici n e simvastatin simvastatin No simvastati [facility] 20 mg 20 mg n 20 mg [facility] tablet tablet tablet dic Sports Medicin e Synthroid Synthroid No Synthroid [facility] 150 mcg 150 mcg 150 mcg Orthop e tablet tablet tablet dic Sports Medicin e trazodone trazodone No trazodone [facility] 50 mg 50 mg 50 mg [facility] tablet tablet tablet dic Sports Medicin e carvedilol carvedilol No carvedilol [facility] 12.5 mg 12.5 mg 12.5 mg Orthop e tablet tablet tablet dic Sports Medicin e clonazepam clonazepam No clonazepam [facility] 1 mg tablet 1 mg tablet 1 mg O rthope tablet dic Sports Medicin e cyanocobala cyanocobala No cyanocobal [facility] min (vit min (vit jean (vit Or thope B-12) 1,000 B-12) 1,000 B-12) dic mcg/mL mcg/mL 1,000 Sports injection injection mcg/mL Med icin solution solution injection e solution hydrochloro hydrochloro No hydrochlor [facility] thiazide thiazide othiazide Or thope 12.5 mg 12.5 mg 12.5 mg dic capsule capsule capsule Sports Medicin e hydrochloro hydrochloro No hydrochlor [facility] thiazide thiazide othiazide Or thope 12.5 mg 12.5 mg 12.5 mg dic tablet tablet tablet Sports Medicin e amlodipine amlodipine No amlodipine [facility] 10 mg 10 mg 10 mg Medical tablet tablet tablet liothyronin liothyronin No liothyroni [facility] e 5 mcg e 5 mcg ne 5 mcg Ortho pe tablet RX tablet RX tablet RX dic by other MD by other MD by other Sports MD Medicin e lorazepam lorazepam No lorazepam [facility] 0.5 mg 0.5 mg 0.5 mg [facility] tablet tablet tablet dic Sports Medicin e omeprazole omeprazole No omeprazole [facility] 40 mg 40 mg 40 mg [facility] capsule,del capsule,del capsule,de dic ayed ayed layed Sports release release release Medici n e potassium potassium No potassium [facility] chloride ER chloride ER chloride [facility] 20 mEq 20 mEq ER 20 mEq dic tablet,exte tablet,exte tablet,ext Sports nded nded ended Medicin release release release e sertraline sertraline No sertraline [facility] 50 mg 50 mg 50 mg [facility] tablet tablet tablet dic Sports Medicin e simvastatin simvastatin No simvastati [facility] 20 mg 20 mg n 20 mg [facility] tablet tablet tablet dic Sports Medicin e Synthroid Synthroid No Synthroid [facility] 150 mcg 150 mcg 150 mcg Orthop e tablet tablet tablet dic Sports Medicin e trazodone trazodone No trazodone [facility] 50 mg 50 mg 50 mg [facility] tablet tablet tablet dic Sports Medicin e carvedilol carvedilol No carvedilol [facility] 12.5 mg 12.5 mg 12.5 mg Orthop e tablet tablet tablet dic Sports Medicin e cephalexin cephalexin No cephalexin [facility] 500 mg 500 mg 500 mg [facility] capsule capsule capsule dic Take 1 Take 1 Take 1 Sports capsule capsule capsule Medici n twice a day twice a day twice a e by oral by oral day by route. route. oral route. azithromyci azithromyci No azithromyc [facility] n 500 mg n 500 mg in 500 mg Me dical tablet tablet tablet clonazepam clonazepam No clonazepam [facility] 1 mg tablet 1 mg tablet 1 mg O rthope tablet dic Sports Medicin e cyanocobala cyanocobala No cyanocobal [facility] min (vit min (vit jean (vit Or thope B-12) 1,000 B-12) 1,000 B-12) dic mcg/mL mcg/mL 1,000 Sports injection injection mcg/mL Med icin solution solution injection e solution hydrochloro hydrochloro No hydrochlor [facility] thiazide thiazide othiazide Or thope 12.5 mg 12.5 mg 12.5 mg dic capsule capsule capsule Sports Medicin e hydrochloro hydrochloro No hydrochlor [facility] thiazide thiazide othiazide Or thope 12.5 mg 12.5 mg 12.5 mg dic tablet tablet tablet Sports Medicin e liothyronin liothyronin No liothyroni [facility] e 5 mcg e 5 mcg ne 5 mcg Ortho pe tablet RX tablet RX tablet RX dic by other MD by other MD by other Sports MD Medicin e lorazepam lorazepam No lorazepam [facility] 0.5 mg 0.5 mg 0.5 mg [facility] tablet tablet tablet dic Sports Medicin e omeprazole omeprazole No omeprazole [facility] 40 mg 40 mg 40 mg [facility] capsule,del capsule,del capsule,de dic ayed ayed layed Sports release release release Medici n e potassium potassium No potassium [facility] chloride ER chloride ER chloride [facility] 20 mEq 20 mEq ER 20 mEq dic tablet,exte tablet,exte tablet,ext Sports nded nded ended Medicin release release release e sertraline sertraline No sertraline [facility] 50 mg 50 mg 50 mg [facility] tablet tablet tablet dic Sports Medicin e simvastatin simvastatin No simvastati [facility] 20 mg 20 mg n 20 mg [facility] tablet tablet tablet dic Sports Medicin e bupropion bupropion No bupropion [facility] HCl XL 300 HCl XL 300 HCl XL 300 Medical mg 24 hr mg 24 hr mg 24 hr tablet, tablet, tablet, extended extended extended release release release Synthroid Synthroid No Synthroid [facility] 150 mcg 150 mcg 150 mcg Orthop e tablet tablet tablet dic Sports Medicin e tramadol 50 tramadol 50 No 1 Q6H tramadol [facility] mg tablet mg tablet 50 mg Orth ope Take 1 Take 1 tablet dic tablet tablet Take 1 Sports every 6 every 6 tablet Medicin hours by hours by every 6 e oral route. oral route. hours by oral route. trazodone trazodone No trazodone [facility] 50 mg 50 mg 50 mg [facility] tablet tablet tablet dic Sports Medicin e carvedilol carvedilol No carvedilol [facility] 12.5 mg 12.5 mg 12.5 mg Orthop e tablet tablet tablet dic Sports Medicin e cephalexin cephalexin No cephalexin [facility] 500 mg 500 mg 500 mg [facility] capsule capsule capsule dic Take 1 Take 1 Take 1 Sports capsule capsule capsule Medici n twice a day twice a day twice a e by oral by oral day by route. route. oral route. clonazepam clonazepam No clonazepam [facility] 1 mg tablet 1 mg tablet 1 mg O rthope tablet dic Sports Medicin e cyanocobala cyanocobala No cyanocobal [facility] min (vit min (vit jean (vit Or thope B-12) 1,000 B-12) 1,000 B-12) dic mcg/mL mcg/mL 1,000 Sports injection injection mcg/mL Med icin solution solution injection e solution hydrochloro hydrochloro No hydrochlor [facility] thiazide thiazide othiazide Or thope 12.5 mg 12.5 mg 12.5 mg dic capsule capsule capsule Sports Medicin e hydrochloro hydrochloro No hydrochlor [facility] thiazide thiazide othiazide Or thope 12.5 mg 12.5 mg 12.5 mg dic tablet tablet tablet Sports Medicin e liothyronin liothyronin No liothyroni [facility] e 5 mcg e 5 mcg ne 5 mcg Ortho pe tablet RX tablet RX tablet RX dic by other MD by other MD by other Sports MD Medicin e carvedilol carvedilol No carvedilol [facility] 12.5 mg 12.5 mg 12.5 mg Medica l tablet tablet tablet lorazepam lorazepam No lorazepam [facility] 0.5 mg 0.5 mg 0.5 mg [facility] tablet tablet tablet dic Sports Medicin e omeprazole omeprazole No omeprazole [facility] 40 mg 40 mg 40 mg [facility] capsule,del capsule,del capsule,de dic ayed ayed layed Sports release release release Medici n e potassium potassium No potassium [facility] chloride ER chloride ER chloride [facility] 20 mEq 20 mEq ER 20 mEq dic tablet,exte tablet,exte tablet,ext Sports nded nded ended Medicin release release release e sertraline sertraline No sertraline [facility] 50 mg 50 mg 50 mg [facility] tablet tablet tablet dic Sports Medicin e simvastatin simvastatin No simvastati [facility] 20 mg 20 mg n 20 mg [facility] tablet tablet tablet dic Sports Medicin e Synthroid Synthroid No Synthroid [facility] 150 mcg 150 mcg 150 mcg Orthop e tablet tablet tablet dic Sports Medicin e tramadol 50 tramadol 50 No 1 Q6H tramadol [facility] mg tablet mg tablet 50 mg Orth ope Take 1 Take 1 tablet dic tablet tablet Take 1 Sports every 6 every 6 tablet Medicin hours by hours by every 6 e oral route. oral route. hours by oral route. trazodone trazodone No trazodone [facility] 50 mg 50 mg 50 mg [facility] tablet tablet tablet dic Sports Medicin e carvedilol carvedilol No carvedilol [facility] 25 mg 25 mg 25 mg Medical tablet tablet tablet clonazepam clonazepam No clonazepam [facility] 1 mg tablet 1 mg tablet 1 mg M edical tablet cyanocobala cyanocobala No cyanocobal [facility] min (vit min (vit jean (vit Me dical B-12) 1,000 B-12) 1,000 B-12) mcg/mL mcg/mL 1,000 injection injection mcg/mL solution solution injection solution famotidine famotidine No famotidine [facility] 20 mg 20 mg 20 mg Medical tablet tablet tablet hydrochloro hydrochloro No hydrochlor [facility] thiazide thiazide othiazide Me dical 12.5 mg 12.5 mg 12.5 mg capsule capsule capsule hydroxychlo hydroxychlo No hydroxychl [facility] roquine 200 roquine 200 oroquine Medical mg tablet mg tablet 200 mg tablet Klor-Con Klor-Con No Klor-Con Renetta via M20 mEq M20 mEq M20 mEq Medica l tablet,exte tablet,exte tablet,ext nded nded ended release release release liothyronin liothyronin No liothyroni [facility] e 5 mcg e 5 mcg ne 5 mcg Medic al tablet tablet tablet lorazepam lorazepam No lorazepam [facility] 0.5 mg 0.5 mg 0.5 mg Medical tablet tablet tablet metaxalone metaxalone No metaxalone [facility] 800 mg 800 mg 800 mg Medical tablet tablet tablet omeprazole omeprazole No omeprazole [facility] 40 mg 40 mg 40 mg Medical capsule,del capsule,del capsule,de ayed ayed layed release release release ondansetron ondansetron No ondansetro [facility] 4 mg 4 mg n 4 mg Medical disintegrat disintegrat disintegra ing tablet ing tablet ting tablet ondansetron ondansetron No ondansetro [facility] HCl 8 mg HCl 8 mg n HCl 8 mg M edical tablet tablet tablet promethazin promethazin No promethazi [facility] e 25 mg e 25 mg ne 25 mg Medic al tablet tablet tablet Promethegan Promethegan No Promethega [facility] 25 mg 25 mg n 25 mg Medical rectal rectal rectal suppository suppository suppositor y sertraline sertraline No sertraline [facility] 50 mg 50 mg 50 mg Medical tablet tablet tablet simvastatin simvastatin No simvastati [facility] 20 mg 20 mg n 20 mg Medical tablet tablet tablet sulfamethox sulfamethox No sulfametho [facility] azole 400 azole 400 xazole 400 Medical mg-trimetho mg-trimetho mg-trimeth prim 80 mg prim 80 mg oprim 80 tablet tablet mg tablet Synthroid Synthroid No Synthroid [facility] 150 mcg 150 mcg 150 mcg Medica l tablet tablet tablet trazodone trazodone No trazodone [facility] 50 mg 50 mg 50 mg Medical tablet tablet tablet Vital Signs Vital Name Observation Time Observation Value Comments Source Height 2022-08-20 00:00:00 67 [in_i] [facility] BMI (Body Mass 2022-08-20 00:00:00 27.4 kg/m2 [facility] Index) Sports Medicine Body Weight 2022-08-20 00:00:00 175 [lb_av] [facility] Height 2022-04-25 00:00:00 67 [in_i] [facility] BMI (Body Mass 2022-04-25 00:00:00 27.4 kg/m2 [facility] Index) Sports Medicine Body Weight 2022-04-25 00:00:00 175 [lb_av] [facility] Height 2022-04-18 00:00:00 67 [in_i] [facility] BMI (Body Mass 2022-04-18 00:00:00 27.4 kg/m2 [facility] Index) Sports Medicine Body Weight 2022-04-18 00:00:00 175 [lb_av] [facility] Height 2022-04-02 00:00:00 67 [in_i] [facility] BMI (Body Mass 2022-04-02 00:00:00 27.4 kg/m2 [facility] Index) Sports Medicine Body Weight 2022-04-02 00:00:00 175 [lb_av] [facility] Systolic blood 2020-09-25 15:17:00 135 mm[Hg] Univer sity of pressure [facility] Diastolic blood 2020-09-25 15:17:00 78 mm[Hg] Unive rsity of [facility] Heart rate 2020-09-25 15:17:00 62 /min Universi ty [facility] Body height 2020-09-25 15:17:00 167.6 cm [facility]i ty [facility] Body weight 2020-09-25 15:17:00 80.015 kg [facility]i ty [facility] BMI 2020-09-25 15:17:00 28.47 kg/m2 Universi [facility] Oxygen saturation in 2020-09-25 15:17:00 98 /min [facility] Arterial blood by [facility] Pulse oximetry Branch Systolic blood 2020-07-26 15:10:00 119 mm[Hg] Univer sity of [facility] Diastolic blood 2020-07-26 15:10:00 78 mm[Hg] Unive rsity of [facility] Heart rate 2020-07-26 15:10:00 67 /min Universi ty [facility] Body height 2020-07-26 15:10:00 167.6 cm Universi ty [facility] Body weight 2020-07-26 15:10:00 86.728 [address] [facility] BMI 2020-07-26 15:10:00 30.86 kg/m2 [facility] [place] [facility] Oxygen saturation in 2020-07-26 15:10:00 95 /min [facility] of Arterial blood by [facility] Pulse oximetry Branch Systolic blood 2020-01-26 14:12:00 105 mm[Hg] Univer sity of pressure [place] [facility] Diastolic blood 2020-01-26 14:12:00 59 mm[Hg] Unive rsity of pressure [place] [facility] Heart rate 2020-01-26 14:12:00 59 /min [facility]i [facility] [place] [facility] Respiratory rate 2020-01-26 14:12:00 18 /min Univ ers[facility] [place] [facility] Body height 2020-01-26 14:12:00 170.2 cm [facility] [place] [facility] Body weight 2020-01-26 14:12:00 80.559 kg [facility] [place] [facility] BMI 2020-01-26 14:12:00 27.82 kg/m2 [facility] [place] [facility] Oxygen saturation in 2020-01-26 14:12:00 100 /min [facility] of Arterial blood by [facility] Pulse oximetry Branch Systolic blood 2019-06-07 21:51:00 145 mm[Hg] Univer sity of pressure [facility] Diastolic blood 2019-06-07 21:51:00 90 mm[Hg] Unive rsity of pressure [facility] Heart rate 2019-06-07 21:51:00 100 /min [facility] [place] [facility] Body temperature 2019-06-07 21:51:00 37.28 Jenni [facility] [place] [facility] Respiratory rate 2019-06-07 21:51:00 16 /min Univ ers[facility] [place] [facility] Body height 2019-06-07 21:51:00 170.2 cm [facility] [place] [facility] Body weight 2019-06-07 21:51:00 78.472 kg [facility] [place] [facility] BMI 2019-06-07 21:51:00 27.10 kg/m2 [facility] [place] [facility] Systolic blood 2019-05-25 20:50:00 153 mm[Hg] Univer sity of pressure [place] [facility] Diastolic blood 2019-05-25 20:50:00 74 mm[Hg] Unive rsity of pressure [facility] Heart rate 2019-05-25 20:43:00 90 /min [facility]i [facility] [place] [facility] Respiratory rate 2019-05-25 20:43:00 18 /min Univ ers[facility] [place] [facility] Body height 2019-05-25 20:43:00 170.2 cm [facility] [place] [facility] Body weight 2019-05-25 20:43:00 77.157 kg [facility] [place] [facility] BMI 2019-05-25 20:43:00 26.64 kg/m2 [facility] [place] [facility] Oxygen saturation in 2019-05-25 20:43:00 99 /min University of Arterial blood by [facility] Pulse oximetry Branch Systolic blood 2019-01-05 13:59:00 159 mm[Hg] Univer sity of pressure [facility] Diastolic blood 2019-01-05 13:59:00 97 mm[Hg] Unive rsity of pressure [facility] Heart rate 2019-01-05 13:59:00 71 /min [facility] [place] [facility] Body temperature 2019-01-05 13:59:00 36.11 Jenni [facility] [place] [facility] Respiratory rate 2019-01-05 13:59:00 16 /min [facility] [place] [facility] Body height 2019-01-05 13:59:00 170.2 cm [facility] [place] [facility] Body weight 2019-01-05 13:59:00 83.915 kg [facility] [place] [facility] BMI 2019-01-05 13:59:00 28.98 kg/m2 [facility] [place] [facility] Oxygen saturation in 2019-01-05 13:59:00 99 /min University of Arterial blood by [facility] [place] Pulse oximetry Branch Systolic blood 2018-12-08 18:50:00 119 mm[Hg] Univer sity of pressure [facility] Diastolic blood 2018-12-08 18:50:00 83 mm[Hg] Unive rsity of pressure [facility] Heart rate 2018-12-08 18:50:00 66 /min [facility] [place] [facility] Respiratory rate 2018-12-08 18:50:00 17 /min Univ [facility] [place] [facility] Oxygen saturation in 2018-12-08 18:50:00 100 /min [facility] blood by [place] [facility] P[facility] Body temperature 2018-12-08 18:32:00 36.67 Jenni [facility] [place] [facility] Body height 2018-12-08 17:48:00 170.2 cm Universi [facility] Body weight 2018-12-08 17:48:00 81.647 kg Universi [facility] BMI 2018-12-08 17:48:00 28.19 [facility] 2018-12-04 14:15:00 129 mm[Hg] Univer sity of pressure [facility] Diastolic blood 2018-12-04 14:15:00 89 mm[Hg] Unive rsity of pressure [facility] Heart rate 2018-12-04 14:15:00 65 [facility] Body temperature 2018-12-04 14:15:00 36.5 Jenni [facility] Respiratory rate 2018-12-04 14:15:00 16 /min [facility] Body height 2018-12-04 14:15:00 170.2 cm Universi [facility] Body weight 2018-12-04 14:15:00 81.647 kg [facility] BMI 2018-12-04 14:15:00 28.19 kg/m2 [facility] Oxygen saturation in 2018-12-04 14:15:00 98 /min [facility] Arterial blood by [facility] Pulse oximetry Branch Procedures Procedure Date / Time Performing Clinician Source Performed EXTERNAL PROVIDER RECORDS 2022-10-16 05:01:00 Doctor Unassigned, [facility] [place] [facility] MRI, brain, w/o contrast 2022-08-29 00:00:00 Renetta via Medical XR, wrist, 3 or more view 2022-04-25 00:00:00 Henok russell [facility] Inj Tendon 2022-04-10 00:00:00 Rosa Elena Ortho pedic Origin/insertion Sports Medicine Revise Ulnar Nerve at 2022-04-10 00:00:00 Rosa Elena Orthopedic Elbow Sports Medicine Carpal Tunnel Surgery 2022-04-10 00:00:00 [facility] XR, elbow, 2 view 2022-04-02 00:00:00 Rosa Elena Kang hopedic Sports Medicine XR, hand, 3 or more view 2022-04-02 00:00:00 Kaycee felix [facility] EXTERNAL PROVIDER - ADC 2021-01-01 05:01:00 [facility] CARDIOLOGY [place] [facility] AUTHORIZATION FOR RELEASE 2020-10-30 05:01:00 Doctor Crow, [facility] [place] [facility] ASSIGNMENT OF BENEFITS 2020-07-17 17:56:10 Doctor Crow [facility] SLEEP STUDY DATA REPORT 2020-01-31 05:01:00 Doctor Crow [facility] [place] COVID-19 (ID NOW RAPID 2020-01-28 13:48:00 [facility] [facility] TESTING) Medical Branch BASIC METABOLIC PANEL 2019-05-28 14:24:00 Sven [facility] (NA, K, CL, CO2, GLUCOSE, Medica l Branch BUN, CREATININE, CA) PROFILE / HEMOGRAM 2019-05-28 14:24:00 Sven [facility] PROTHROMBIN TIME / INR 2019-05-28 14:24:00 Sven [facility] ACTIVATED PARTIAL 2019-05-28 14:24:00 Sven [facility] THRMPLAS [facility] ASSIGNMENT OF BENEFITS 2019-05-28 14:05:08 Doctor Crow, [facility] Medical [place] EKG-12 LEAD 2019-05-25 20:51:14 Sven [facility] COLONOSCOPY (ENDO) 2018-12-08 17:48:14 Anselmo Escobar [facility] EGD (ENDO) 2018-12-08 17:42:09 Anselmo Escobar [facility] CONSENT/REFUSAL FOR 2018-12-08 17:21:15 Doctor Crow [facility] DIAGNOSIS AND TREATMENT [place] [facility] [place] ASSIGNMENT OF BENEFITS 2018-12-08 17:20:15 [facility] [place] [facility] ASSIGNMENT OF BENEFITS 2018-12-07 15:24:15 Doctor Crow, [facility] Medical Branch CT ABDOMEN PELVIS W 2018-12-04 20:37:26 Marques [facility] CONTRAST Fifi Medical Branch COMP. METABOLIC PANEL 2018-12-04 15:08:00 Marques [facility] ([id number]) [facility] CBC WITH DIFFERENTIAL 2018-12-04 15:08:00 Marques [facility] DISCLOSURE AND CONSENT, 2018-12-04 05:01:00 Doctor Unassigned, Liss [facility] MEDICAL AND SURGICAL [place] [facility] PROCEDURES REFERRAL- 2018-11-30 05:01:00 Doctor Lashaunsskasi, [facility] REQUEST/RESPONSE [place] [facility] Tonsillectomy [facility] Ass[facility]u [facility] Keratomileusis Ligation of Bilateral [facility] Fallopian Tubes Partial Hysterectomy [facility] Plan of Care Planned Activity Planned Date Details Comments Source Instructions [facility] Sports Medicine Encounters Start End Encounter Admission Attending Care Care Encounter Source Date/Time Date/Time Type Type Clinicians Facility Department ID 2022-01-14 Outpatient ANSELMO ESCOBAR [facility] [id number] Common 10:51:04 [facility] 2022-10-16 2022-10-16 Outpatient FOG_Mehlhof AOSM AOSM [id number] Rosa Elena 00:00:00 00:00:00 Mariah [id number] Orth ope dic Sports Medicin e 2022-10-16 2022-10-16 Orders Doctor DAMIAN 1.2.840.114 [id number] Univers 00:00:00 00:00:00 Only Unassigned, ROBERTO 350.1.13.10 ity of [place] [facility] 4.2.7.2.686 Lyle as [phone] [place] [address] Branch 2022-10-12 2022-10-12 Outpatient FOG_Mehlhof AOSM AOSM [id number] Rosa Elena 00:00:00 00:00:00 Mariah [id number] Orth ope dic Sports Medicin e 2022-09-12 2022-09-12 Outpatient FOG_Mehlhof AOSM AOSM 553 [id number] Rosa Elena 00:00:00 00:00:00 Mariah [id number] Orth ope dic Sports Medicin e 2022-09-11 2022-09-11 Outpatient FOG_Mehlhof AOSM AOSM [id number] Rosa Elena 00:00:00 00:00:00 Mariah [id number] Orth ope dic Sports Medicin e 2022-09-02 2022-09-02 Outpatient EDMOND Florez KARI OBSAleah [id number] [facility] 13:33:00 16:20:00 Arnulfo [facility] 2022-08-29 2022-08-29 Outpatient GC_TNC_Lovi PRIV PRIV [id number] [facility] 00:00:00 00:00:00 tt_S [id number] Medica l 2022-08-29 2022-08-29 Rashad Melendrez [facility]IV [facility] [id number] [facility] 00:00:00 00:00:00 Morro [facility] Dago barrios MD: [id number] GC_TNC_[facility]ison [facility], Office* [address], [place] [address] , Ph. 2022-08-22 2022-08-22 Outpatient FOG_Mehlhof AOSM AOSM [address] [place] [address] Rosa Elena 00:00:00 00:00:00 Mariah [id number] Orth ope dic Sports Medicin e 2022-08-20 2022-08-20 Outpatient FOG_Mehlhof AOSM AOSM 553 97[facility] Rosa Elena 00:00:00 00:00:00 Mariah [id number] Orth ope dic Sports Medicin e 2022-08-20 2022-08-20 Arnulfo Salmon AOSM [place] - Ortho Rosa Elena 00:00:00 00:00:00 Kavita Florez MD: [id number] FOG_Ofc dic [facility] Spo rts [facility] Medicin [facility] [address] , Ph. [phone] 2022-08-14 2022-08-14 Outpatient GC_TNC_Lovi PRIV PRIV [id number] [facility] 00:00:00 00:00:00 tt_S [id number] Medica l 2022-08-01 2022-08-01 Outpatient FOG_Mehlhof AOSM AOSM 553 [id number] Rosa Elena 00:00:00 00:00:00 Mariah [id number] Orth ope dic Sports Medicin e 2022-08-01 2022-08-01 Outpatient FOG_Mehlhof AOSM AOSM 553 [id number] Rosa Elena 00:00:00 00:00:00 Mariah [id number] Orth ope dic Sports Medicin e 2022-08-01 2022-08-01 Outpatient FOG_Mehlhof AOSM AOSM 553 [id number] Rosa Elena 00:00:00 00:00:00 Mariah [id number] Orth ope dic Sports Medicin e 2022-04-25 2022-04-25 Outpatient FOG_Mehlhof AOSM AOSM [id number] Rosa Elena 00:00:00 00:00:00 Mariah [id number] Orth ope dic Sports Medicin e 2022-04-25 2022-04-25 Arnulfo Salmon AOSM [place] - Ortho Rosa Elena 00:00:00 00:00:00 Kavita Florez MD: [id number] FOG_Ofc dic [facility] e [address] , Ph. [phone] 2022-04-24 2022-04-24 Outpatient FOG_Mehlhof AOSM AOSM 553 9711[facility] Rosa Elena 00:00:00 00:00:00 Mariah [id number] Orth ope dic Sports Medicin e 2022-04-18 2022-04-18 Outpatient FOG_Mehlhof AOSM AOSM [id number] Rosa Elena 00:00:00 00:00:00 Mariah [id number] Orth ope dic Sports Medicin e 2022-04-18 2022-04-18 Arnulfo Salmon AOSM [place] - Ortho [id number] Rosa Elena 00:00:00 00:00:00 Kavita Florez MD: [id number] FOG_Ofc dic [facility] [place] [address] , Ph. [phone] 2022-04-17 2022-04-17 Outpatient FOG_Mehlhof AOSM AOSM [id number] Rosa Elena 00:00:00 00:00:00 Mariah [id number] Orth ope dic Sports Medicin e 2022-04-16 2022-04-16 Outpatient FOG_Mehlhof AOSM AOSM 553 [id number] Rosa Elena 00:00:00 00:00:00 Mariah [id number] Orth ope dic Sports Medicin e 2022-04-12 2022-04-12 Outpatient FOG_Mehlhof AOSM AOSM 553 [id number] Rosa Elena 00:00:00 00:00:00 Mariah [id number] Orth ope dic Sports Medicin e 2022-04-10 2022-04-10 [id number] [facility] 08:37:00 08:37:00 Arnulfo Roman [facility] 2022-04-10 2022-04-10 Outpatient FOG_Mehlhof AOSM AOSM 553 9711- Rosa Elena 00:00:00 00:00:00 Mariah [id number] Orth ope dic Sports Medicin e 2022-04-10 2022-04-10 Arnulfo Luis Antonio AOSM [place] - Ortho [id number] Rosa Elena 00:00:00 00:00:00 Kavita Florez MD: 7401 FOG[facility] [place] [facility] [place] [address] , Ph. [phone] 2022-04-02 2022-04-02 Outpatient FOG_Mehlhof AOSM AOSM 553 [id number] Rosa Elena 00:00:00 00:00:00 Mariah [id number] Orth ope dic Sports Medicin e 2022-04-02 2022-04-02 Arnulfo Luis Antonio AOSM [place] - Ortho [id number] Rosa Elena 00:00:00 00:00:00 Kavita Florez MD: 7401 FOG_[address] [facility] [place] [address] , Ph. [phone] 2022-03-25 2022-03-25 Outpatient GC_TNC_Lovi PRIV PRIV [id number] [facility] 00:00:00 00:00:00 tt_S [id number] Medica l 2022-03-20 2022-03-20 Outpatient FOG_Mehlhof AOSM AOSM 553 [id number] Rosa Elena 00:00:00 00:00:00 Mariah [id number] Orth ope dic Sports Medicin e 2022-03-20 2022-03-20 Outpatient FOG_Mehlhof AOSM AOSM 553 [id number] Rosa Elena 00:00:00 00:00:00 Mariha [id number] Orth ope dic Sports Medicin e 2022-03-20 2022-03-20 Outpatient FOG_Mehlhof AOSM AOSM 553 [id number] Ros Aelena 00:00:00 00:00:00 Mariah [id number] Orth ope dic Sports Medicin e 2021-01-21 2021-01-21 [facility] 1.2.840.114 [id number] Univers 00:00:00 00:00:00 Helen Church 350.1.13.10 [place] [phone] Ms dical nal 059 [facility] 2021-01-01 2021-01-01 Orders Doctor RICKIE 1.2.840.114 [id number] Univers 00:00:00 00:00:00 Only Unassigned, ROBERTO 350.1.13.10 [place] [facility] 4.2.7.2.686 Lyle as [phone] [address] 2020-11-29 2020-11-29 Abel [facility] 1.2.840.114 [id number] [facility] 00:00:00 00:00:00 Topher Church 350.1.13.10 [place] [phone] Ms dical nal 092 [facility] 2020-10-30 2020-10-30 Orders Doctor RICKIE 1.2.840.114 [id number] Univers 00:00:00 00:00:00 Only Unassigned, ROBERTO 350.1.13.10 [place] [facility] 4.2.7.2.686 [place] as [phone] [address] 2020-09-25 2020-09-25 Office [facility] 1.2.840.114 [id number] Univers 10:13:51 10:33:24 Visit Helen Church 350.1.13.10 [place] [phone] Ms dical nal 059 [facility] 2020-09-25 2020-09-25 [facility] [id number] Univers 10:20:00 10:20:00 HELEN reidy o f [facility] 2020-09-10 2020-09-10 Laboratory Lab, [facility] Fam Pob I [facility] 1.2. 840.114 [id number] Univers 17:01:59 17:21:59 Only Shayy Parra [facility] 350.1.13.10 ity of [place] 4.2.7.2.686 [place] as Professio [phone] [address] Office [facility] 2020-09-10 2020-09-10 Outpatient [facility] [id number] Univers 17:20:00 17:20:[address] [facility] 2020-07-27 2020-07-27 Telephone [facility] 1.2.753.725 [id number] Univers 00:00:00 00:00:00 Helen Church 350.1.13.10 [place] [phone] Ms dical nal [address] [place] [address] 2020-07-26 2020-07-26 Office [facility] 1.2.840.114 [id number] Univers 09:41:54 10:41:31 Visit Helen Church 350.1.13.10 [place] [phone] Ms dical nal 059 [facility] 2020-07-26 2020-07-26 Outpatient [facility] [id number] Univers 10:00:00 10:00:00 HELEN ity o f [facility] 2020-07-17 2020-07-17 Laboratory Only, [facility] Test [facility] 1.2.840. 114 [id number] Univers 12:56:35 13:11:35 Only Parish Lugo 350.1.13.10 [place] Kamiah [phone] [facility] [address] 2020-07-17 2020-07-17 Outpatient R [facility] [id number] Univers 13:00:00 13:00:00 ity of [facility] 2020-07-17 2020-07-17 Orders Doctor RICKIE 1.2.840.114 [id number] Univers 00:00:00 00:00:00 Only Unassigned, ROBERTO 350.1.13.10 [place] of [place] [facility] 4.2.7.2.686 Lyle as [phone] [facility] [address] 2020-07-11 2020-07-11 Patient Levi [facility] 1.2.840.114 [id number] Univers 00:00:00 00:00:00 Outreach Mauro VELASQUEZ 350.1.13.10 i ty of [facility] [place]2.7.[place] [phone] [facility] [address] [place] 2020-01-31 2020-01-31 Outpatient R CARLOS CASE [facility] [id number] Univers 20:00:00 20:00:00 CARLOS CASE ity of [facility] 2020-01-31 2020-01-31 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 2.840.114 [id number] Univers 14:14:44 16:44:44 Visit Carlos Case 350.1.13. 10 [place] [phone] [facility] [address] 2020-01-31 2020-01-31 Gear Machine Operator Pc, [facility] Vascular Room 1 - [facility] 1.2.840.114 [id number] Univers 12:50:18 13:50:18 Visit Helen Greer 350.1.13.10 [place] [phone] Ms dical nal 059 [facility] 2020-01-31 2020-01-31 Outpatient R [facility] [id number] Univers 13:00:00 13:00:00 ity of [facility] 2020-01-31 2020-01-31 Orders Doctor RICKIE 1.2.840.114 [id number] Univers 00:00:00 00:00:00 Only Unassigned, ROBERTO 350.1.13.10 it[place] of [place] [facility] 4.2.7.2.686 Lyle as [phone] [facility] 00[address] [place] 2020-01-28 2020-01-28 Outpatient R [facility] [id number] Univers 09:30:00 09:30:00 ity of [facility] 2020-01-28 2020-01-28 Laboratory Only, Adc Test [facility] 1.2.840. 114 [id number] Univers 08:24:27 08:39:27 Only Carlos Case 350.1.13. 10 [place] [phone] [facility] [address] [place] 2020-01-26 2020-01-26 Office [facility] 1.2.840.114 [id number] Univers 08:55:21 09:30:55 Visit Helen Church 350.1.13.10 [place] [phone] Ms dical nal 059 [facility] 2020-01-26 2020-01-26 Out[facility] [id number] Univers 09:00:00 09:00:00 HELEN martin o f [facility] 2019-12-29 2019-12-29 Refill DunnRuss [facility] 1.2.840.114 [id number] Univers 00:00:00 00:00:00 ise, SPECIALTY 350.1.13.10 ity of [facility] 4.2.7.2.[place] AT [phone] Ms royal GUIDO 072 [facility] 2019-11-08 2019-11-08 Telephone [facility] 1.2.532.653 [id number] Univers 00:00:00 00:00:00 Qiangjun Ter[place] 350.1.13.10 [place] [phone] Ms dical nal [address] [place] [address] 2019-10-25 2019-10-25 Refill [facility] 1.2.840.114 [id number] Univers 00:00:00 00:00:00 Qiangjun [place] 350.1.13.10 [place] [phone] Ms dic[address] 2019-09-27 2019-09-27 Refill [facility] 1.2.840.114 [id number] Univers 00:00:00 00:00:00 Qiangjun [place] 350.1.13.10 [place] [phone] Ms dical nal [address] [place] [address] 2019-08-30 2019-08-30 Patient [facility], [facility] 1.2.840.114 [id number] Univers 00:00:00 00:00:00 Secure Msg Qiangjun [place] 350.1.13.10 [place] [phone] [address] 2019-08-30 2019-08-30 Patient [facility], [facility] 1.2.840.114 [id number] Univers 00:00:00 00:00:00 Secure Msg Qiangjun [place] 350.1.13.10 [place] [phone] Ms dical nal [address] [place] [address] 2019-08-17 2019-08-17 Patient Sven, [facility] 1.2.840.114 [id number] Univers 00:00:00 00:00:00 Secure Msg Qiang[facility] 350.1.13.10 [place]y of [place].2.[place] [phone] [place] [address] Branch [facility] 2019-07-26 2019-07-26 Outpatient R [facility] [id number] Univers 14:00:00 14:00:00 HELEN ity o f [facility] 2019-07-26 2019-07-26 Telemedici [facility] 1.2.840.114 [id number] Univers 08:08:58 08:28:58 ne Visit Helen Botelloton 350.1.13.10 [place] [phone] Ms dical nal 059 [facility] 2019-07-26 2019-07-26 Patient [facility], [facility] 1.2.840.114 [id number] Univers 00:00:00 00:00:00 Secure Msg Helen [place] 350.1.13.10 [place] [phone] Ms dical nal 059 [facility] 2019-07-21 2019-07-21 Telephone [facility] 1.2.531.349 [id number] Univers 00:00:00 00:00:00 Qiaaidenjun [place] 350.1.13.10 [place] [phone] Ms dical nal 059 [facility] 2019-07-13 2019-07-13 Patient [facility], [facility] 1.2.840.114 [id number] Univers 00:00:00 00:00:00 Secure Msg Helen [place] 350.1.13.10 [place] [phone] Ms dical nal 059 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 2019-06-28 2019-06-28 Patient Sven, [facility] 1.2.840.114 [id number] Univers 00:00:00 00:00:00 Secure Msg Helen Church 350.1.13.10 [place] [phone] Ms dicvt nal 059 [facility] 2019-06-07 2019-06-07 Office [facility] 1.2.840.114 [id number] Univers 15:32:41 16:00:18 Visit Topher Church 350.1.13.10 [place].2.[place] [phone] Ms dical nal 092 [facility] 2019-06-01 2019-06-01 Patient [facility], [facility] 1.2.840.114 [id number] Univers 00:00:00 00:00:00 Secure Msg Helen Church 350.1.13.10 [place].2.[place] [phone] Ms dical nal 059 [facility] 2019-05-31 2019-05-31 Telephone [facility], [facility] 1.2.635.018 [id number] Univers 00:00:00 00:00:00 Helen Church 350.1.13.10 [place] [phone] Ms dicvt nal 059 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 2019-05-28 2019-05-28 Orders Doctor RICKIE 1.2.840.114 [id number] Univers 00:00:00 00:00:00 Only Unassigned, ROBERTO 350.1.13.10 [place] [facility] 4.2.7.2.686 Lyle as [phone] [address] 2019-05-27 2019-05-27 Telephone Sven [facility] 1.2.782.112 [id number] Univers 00:00:00 00:00:00 Christenaidenroberto Ranjit 350.1.13.10 [place] [phone] Ms dicdenis nal 059 [facility] 2019-05-25 2019-05-25 Outpatient R SVEN [facility] [id number] Univers 14:40:00 15:25:26 HELEN martin o f [facility] 2019-05-25 2019-05-25 Office [facility] 1.2.840.114 [id number] Univers 14:36:57 15:25:26 Visit Helen Church 350.1.13.10 [place] [phone] [facility] nal [address] [place] [address] 2019-01-05 2019-01-05 Gear Machine Operator Vls-Lab [facility] 1.2.840.114 [id number] Univers 09:40:44 09:55:44 Visit Fifi Mohan SPECIALTY 350. 1.13.10 ity of [place].2.[place] AT [phone] Ms royal GUIDO [address] [facility] 2019-01-05 2019-01-05 Office ShaunRuss [facility] 1.2.840.114 [id number] Univers 08:46:16 09:16:16 Visit ise, SPECIALTY 350.1.13.10 ity of [place] CARE [place]2.[place].2.[place] AT [phone] Ms royal GUIDO 072 [facility] 2018-12-08 2018-12-08 Hospital [facility] 1.2.840.114 [id number] Univers 12:20:00 14:10:00 Encounter [facility] 350.1.13.10 [place] [phone] [address] ([facility]) 2018-12-08 2018-12-08 Orders Doctor RICKIE 1.2.840.114 [id number] Univers 00:00:00 00:00:00 Only Unassigned, ROBERTO 350.1.13.10 [place] [facility] 4.2.7.2.686 [place] as [phone] [address] 2018-12-07 2018-12-07 Gear Machine Operator 1, Adc Lab [facility] 1.2.840.114 [id number] Univers 10:23:39 10:38:[address] [facility] [place] 350.1 .13.10 [place] [phone] [address] 2018-12-07 2018-12-07 Telephone [facility] 1.2.840.114 [id number] Univers 00:00:00 00:00:00 ise, SPECIALTY 350.1.13.10 ity of [place] C[place]2.[place].2.[place] AT [phone] Ms royal GUIDO [address] [place] [address] 2018-12-07 2018-12-07 Orders Doctor RICKIE 1.2.840.114 [id number] Univers 00:00:00 00:00:00 Only Unassigned, ROBERTO 350.1.13.10 [place] of [place] [facility] 4.2.7.2.686 L[place] as [phone] [address] 2018-12-04 2018-12-04 Hospital [facility] 1.2.840.114 [id number] Univers 15:00:00 23:59:00 Encounter ise, SPECIALTY 350.1.13.10 it[place] of [place]2.[place].2.[place] AT [phone] Ms royal GUIDO [address] [facility] 2018-12-04 2018-12-04 Office [facility] 1.2.840.114 [id number] Univers 09:07:41 13:21:01 Visit ise, SPECIALTY 350.1.13.10 ity of [place] CARE 4.2.7.2.[place] AT [phone] Ms royal GUIDO [address] [place] [address] 2018-12-04 2018-12-04 Gear Machine Operator Vls-Lab [facility] 1.2.840.114 [id number] Univers 09:56:02 10:10:21 Visit Marques Fifi SPECIALTY 350. 1.13.10 ity of CARE 4.2.7.2.686 [facility] AT [phone] Ms royal GUIDO [address] [facility] 2018-12-04 2018-12-04 Telephone Marbin [facility] 1.2.840.114 [id number] Univers 00:00:00 00:00:00 ise, SPECIALTY 350.1.13.10 ity of [facility] CARE 4.2.7.2.686 [facility] AT [phone] Ms royal GUIDO 072 [facility] 2018-11-30 2018-11-30 Orders Doctor RICKIE 1.2.840.114 [id number] Univers 00:00:00 00:00:00 Only Unassigned, ROBERTO 350.1.13.10 it[place] of [place] [facility] 4.2.7.2.686 Lyel as [phone] [address] Results Test Description Test Time Test Comments Results Result Comments Source Novel Coronavirus 2019 Inhouse 2022-04-03 15:20:00 Test Item Value Reference Range Interpretation Comme nts Novel Coronavirus 2018 Negative Negative Posit reena results are indicative of the Inhouse (test code = presenc e kaIZRR-RgA-0 RNA, clinical COVNONPUI) correlation wit h patient historyand other diagnosti c information is necessary to de terminepatient infection status. Positiv e results do not rule outbacterial in fection or co-infection with other viru ses. Negative results do not preclude SA RS-CoV-2 infection andshould not b e used as the sole basis for patient man agementdecisions. Negative result s must be combined with otherclinical o bservations, patient history, and ep idemiologicalinformation. Detection of SA RS-CoV-2 RNA may be affected bysamp le collection methods, storage conditi ons, and/or stageof infection. Charisse l RNA mutations, vaccinations, a ntiviraltherapeutics, antibiotics, ch emotherapeutic orimmunosuppres wilfredo drugs have not been evaluated for e ffectson detection. Results are for the identification of SARS-CoV-2 RNA usingreal-time (RT) polymerase mayra n reaction (PCR) technologyfor t he qualitative detection of nucleic acid s from [id number]-JlX-3 virus and diagn osis of SARS-CoV-2 virusinfection. It is an Emergency Use Authorization ( EUA) testauthorized by the U.S[place] FDA. Novel Coronavirus 2018 [id number] 15:19:00 Test Item Value Reference Range Interpretation Comments Novel Coronavirus Negative Negative Positive r esults are 2019 Inhouse (test indicativ e of the presence code = COVNONPUI) ofSARS-CoV -2 RNA, clinical correlation wit h patient historyand othe r diagnostic info rmation is necessary to determinepatien t infection status. Positiv e results do not rule out bacterial infection or co -infection with other viru ses. Negative result s do not preclude SARS-C oV-2 infection andsh ould not be used as the zenia e basis for patient managementdecis ions. Negative result s must be combined with otherclinical observations, p atient history, and epidemiological information . Detection of SARS-CoV-2 RNA may be affe cted bysample collec tion methods, storag e conditions, and /or stageof infection. Charisse l RNA mutations, vacc inations, antiviraltherap eutics, antibiotics, chemotherapeuti c orimmunosuppres wilfredo drugs have not been e valuated for effectson d etection. Results are for the identification of SARS-CoV-2 RNA usingreal-time (RT) polymerase mayra n reaction (PCR) technolog yfor the qualitative det ection of nucleic acids f rom gebPIWF-OoO-2 v irus and diagnosis of SA RS-CoV-2 virusinfection. It is an Emergency Use Authorization ( EUA) testauthorized by the U.[place] FDA. novel coronavirus 2018 [id number] 10:50:00 Test Item Value Reference Range Interpretation Comments novel coronavirus 2018 inhouse (test negative negative code = novel coronavirus 2019 inhouse) performing lab: (test code = performing lab:) [facility] coronavirus 2018 [id number] 10:50:00 Test Item Value Reference Range Interpretation Comments novel coronavirus 2019 inhouse (test negative negative code = novel coronavirus 2019 inhouse) performing lab: (test code = performing lab:) [facility] coronavirus 2019 [id number] 10:50:00 Test Item Value Reference Range Interpretation Comments novel coronavirus 2019 inhouse (test negative negative code = novel coronavirus 2019 inhouse) performing lab: (test code = performing [facility]2020-01-28 14:16:00 Test Item Value Reference Range Interpretation Comments SARS-CoV-2 Rapid ID NOW Not Detected Not Detected (test code = 55533-0) SCARLET (test code = SCARLET) ID NOW COVID-19 Assay is an isothermal nucleic acid amplification test intended for the qualitative detection of nucleic acid from SARS-CoV-2 viral RNA in nasopharyngeal (TRANSPORT ASSISTANT) specimens. It is used under Emergency Use Authorization (EUA) by FDA. The limit of detection (LOD) of the assay is 125 Genome Equivalents/mL. A positive result is indicative of the presence of SARS-CoV-2 RNA. ?Clinical correlation with patient history and other diagnostic information is necessary to determine patient infection status. A negative (Not Detected) result does not preclude SARS-CoV-2 infection. In patients with clinical symptoms and other tests that are consistent with SARS-CoV-2 infection, negative results should be treated as presumptive negative and a new specimen should be tested with alternative PCR molecular test. Invalid: Please collect a new specimen for repeat patient testing if clinically indicated. Lab Interpretation Normal (test code = 78357-7) [facility] (01329)(NA, K, CL, CO2, GLUCOSE, BUN, CREATININE, CA)2019-05-28 15:09:00 Test Item Value Reference Range Interpretation Comments NA (test code = 140 mmol/L 135-145 6764008955) K (test code = 4.5 mmol/L 3.5-5 6715741461) CL (test code = 96 mmol/L 98-108 L 3780934970) CO2 TOTAL (test code = 30 mmol/L 23-31 5903945204) AGAP (test code = 2-16 8067005194) BUN (test code = 15 mg/dL 7-23 8076073577) GLUCOSE (test code = 136 mg/dL 70-110 H 0857926792) CREATININE (test code = 1.21 mg/dL 0.5-1.04 H 8288270690) CALCIUM (test code = 11.0 mg/dL 8.6-10.6 H 6970875394) eGFR Calculation mL/min/1.73m2 (Non-) (test code = 3301880179) eGFR Calculation mL/min/1.73m2 () (test code = 0935669466) SCARLET (test code = SCARLET) Association of Glomerular Filtration Rate (GFR) and Staging of Kidney Disease* + --+ --+ ------+| GFR (mL/min/1.73 m2) ?| With Kidney Damage ?| ?Without Kidney Damage+ --------+ --------+ +| ?>90 ?| ?Stage one ?| ? Normal ?+ ---+ ---+ -------+| ?60-89 ?| ?Stage two ?| ? Decreased GFR ? + --+ --+ ------+| ?30-59 ?| ?Stage three ?| ? Stage three ? + --+ --+ ------+| ?15-29 ?| ?Stage four ? | ? Stage four ?+ ---+ ---+ -------+| ?<15 (or dialysis) ? ?| ?Stage five ? | ? Stage five ?+ ---+ ---+ -------+ *Each stage assumes the associated GFR level has been in effect for at least three months. ?Stages 1 to 5, with or without kidney disease, indicate chronic kidney disease. Notes: Determination of stages one and two (with eGFR >59mL/min/1.73 m2) requires estimation of kidney damage for at least three months as defined by structural or functional abnormalities of the kidney, manifested by either:Pathological abnormalities or Markers of kidney damage (including abnormalities in the composition of the blood or urine or abnormalities in imaging tests). Lab Interpretation Abnormal (test code = 19830-8) [facility] / [id number] 15:03:00 Test Item Value Reference Range Interpretation Comments PROTIME PATIENT (test See_Comment [Auto mated message] code = 5964-2) The system [employer] generated this result transmitted ref erence range: 12.0 - 1 4.7 Seconds. The re ference range was not u sed to interpret this result as normal/abnor mal. INR (test code = 6301-6) Nor mal INR <1.1; Warfarin Therap eutic range 2.0 to 3. 0 or 2.5 to 3.5, dep ending upon the indica tions. Lab Interpretation (test Normal code = 58527-4) [facility] 15:03:00 Test Item Value Reference Range Interpretation Comments APTT Patient (test See_Comment [Automat ed code = 3173-2) message] The system which generated this result transmitted reference range : 23 - 38 Seconds . The reference range was not used to interpr et this result as normal/abnormal . SCARLET (test code = SCARLET) The [facility] patient population mean normal value for aPTT is 30 seconds. Lab Interpretation Normal (test code = 55510-5) [facility] W/O [id number] 14:43:00 Test Item Value Reference Range Interpretation Comments WBC (test code = 6690-2) See_Comment [A utomated message] The system [employer] generated this result transmit cedric reference range : 4.30 - 11.10 10*3/?L. The reference range was not used to interpret this result as normal/abnormal . RBC (test code = 789-8) See_Comment [Au tomated message] The system [employer] generated this result transmit cedric reference range : 3.93 - 5.25 10* 6/?L. The reference r tano was not used to interpret this result as normal/abnormal . HGB (test code = 718-7) 15.2 g/dL 11.6-15 H HCT (test code = 4544-3) 43.3 % 35.7-45.2 MCH (test code = 785-6) 30.2 pg 25.9-32.8 MCV (test code = 787-2) 86.1 fL 80.6-95.5 MCHC (test code = 786-4) 35.1 g/dL 31.6-35.1 PLT (test code = 777-3) See_Comment H [Au tomated message] The system [employer] generated this result transmit cedric reference range : 166 - 358 10*3/?L. The reference range was not used to interpret this result as normal/abnormal . MPV (test code = 10.3 fL 9.5-12.9 18844-9) RDW-CV (test code = 12.0 % 12-15.5 788-0) RDW-SD (test code = 37.2 fL 39-49.9 L 65215-2) NRBC x10^3 (test code = <0.01 See_Comment [Au tomated message] 5144154079) The system [employer] h generated this result transmit cedric reference range : 10*3/?L. The reference range was not used to interpret this result as normal/abnormal . NRBC/100 WBC (test code See_Comment [Au tomated message] = 7474159473) The system [employer] ch generated this result transmit cedric reference range : 0.0 - 10.0 /100 WBC s. The reference r tano was not used to interpret this result as normal/abnormal . IPF % (test code = 3322403650) Lab Interpretation (test Abnormal code = 38097-0) [facility] W [id number] 21:26:38 1.?No acute findings are seen in the abdomen and pelvis. 2.?The liver is enlarged and shows diffusesteatosis. * * * * * * * * ORIGINAL REPORT * * * * * * * *EXAM: CT ABDOMEN AND PELVIS WITH CONTRAST HISTORY: 53-year-old female with abdominal distention and pain. COMPARISON: None. DOSE: Total exam DLP 961 mGy-cm TECHNIQUE AND FINDINGS: Contiguous axial imaging was performed after theuncomplicated administration of 120 cc of intravenous Omnipaque contrast.Coronal and sagittal reconstructions were obtained. FINDINGS:LOWER THORAX: The lungs bases are clear. No cardiomegaly. No pleural orpericardial ef fusion is seen. LIVER: Hepatic steatosis with no evidence of focal lesions. No biliaryductal dilatation is seen. The liver is enlarged and measures 21.7 cm incraniocaudal dimension. GALLBLADDER AND BILIARY TREE: No biliary ductal dilation.?No gallbladderwall thickening. SPLEEN: No splenomegaly. PANCREAS: No ductal dilation or masses. ADRENAL GLANDS: No adrenal nodules. KIDNEYS: No hydronephrosis, stones, or masses. PERITONEUM AND RETROPERITONEUM: No free air or fluid. LYMPH NODES: No lymphadenopathy. GI TRACT: No dilation or wall thickening. A normal appendix is seen in theright lower quadrant. There is no evidence of diverticulitis. PELVIS/BLADDER: The urinary bladder appears normal. The uterus and adnexaappear normal. VESSELS: Unremarkable. BONES AND SOFT TISSUES: No suspicious lytic or sclerotic bony lesions.Degenerative changes are seen in the spine. [facility], Radiant Results Inft User - 12/04/2018 4:28 PM CDT* * * * * * * * ORIGINAL REPORT * * * * * * * *EXAM: CT ABDOMEN AND PELVIS WITH CONTRASTHISTORY: 53-year-old female with abdominal distention and pain.COMPARISON: None.DOSE: Total exam DLP 961 mGy-cmTECHNIQUE AND FINDINGS: Contiguous axial imaging was performed after theuncomplicated administration of 120 cc of intravenous Omnipaque contrast.Coronal and sagittal reconstructions were obtained.FINDINGS:LOWER THORAX: The lungs bases are clear. No cardiomegaly. No pleural orpericardial effusion is seen.LIVER: Hepatic steatosis with no evidence of focal lesions. No biliaryductal dilatationis seen. The liver is enlarged and measures 21.7 cm incraniocaudal dimension.GALLBLADDER AND BILIARY TREE: No biliary ductal dilation. No gallbladderwall thickening.SPLEEN: No splenomegaly.PANCREAS: Noductal dilation or masses.ADRENAL GLANDS: No adrenal nodules.KIDNEYS: No hydronephrosis, stones, or masses.PERITONEUM AND RETROPERITONEUM: No free air or fluid.LYMPH NODES: No lymphadenopathy.GI TRACT: No dilation or wall thickening. A normal appendix is seen in theright lower quadrant. There is no evidence of diverticulitis.PELVIS/BLADDER: The urinary bladder appears normal. The uterus and adnexaappear normal.VESSELS: Unremarkable.BONES AND SOFT TISSUES: No suspicious lytic or sclerotic bony lesions.Degenerative changes are seen in the spine.IMPRESSION1. No acute findings are seen in the abdomen and pelvis. 2. The liver is enlarged and shows diffuse steatosis.[facility]. METABOLIC PANEL (18328)2018-12-04 16:33:00 Test Item Value Reference Range Interpretation Comments NA (test code = 141 mmol/L 135-145 0852066875) K (test code = 5.5 mmol/L 3.5-5 H 4603014054) CL (test code = 100 mmol/L 98-108 3191493837) CO2 TOTAL (test code = 28 mmol/L 23-31 3716236129) AGAP (test code = 2-16 9439584017) BUN (test code = 11 mg/dL 7-23 4744475483) GLUCOSE (test code = 125 mg/dL 70-110 H 4012637109) CREATININE (test code = 0.69 mg/dL 0.5-1.04 6086087322) TOTAL BILI (test code = 0.7 mg/dL 0.1-1.9 9679664080) CALCIUM (test code = 10.8 mg/dL 8.6-10.6 H 4936356776) T PROTEIN (test code = 8.2 g/dL 6.3-8.2 5668169873) ALBUMIN (test code = 5.1 g/dL 3.5-5 H 8519887661) ALK PHOS (test code = 160 U/L 34-122 H 5455316446) ALT(SGPT) (test code = 54 U/L 9-51 H 8908801921) AST(SGOT) (test code = 42 U/L 13-40 H 7734075613) eGFR Calculation mL/min/1.73m2 (Non-) (test code = 5126391762) eGFR Calculation mL/min/1.73m2 () (test code = 5334002899) SCARLET (test code = SCARLET) Association of Glomerular Filtration Rate (GFR) and Staging of Kidney Disease*+ + + +| GFR (mL/min/1.73 m2)?| With Kidney Damage?|?Without Kidney Damage+ --------+ --------+ +|?>90?|?S tage one?|? Normal?+ ---------+ ---------+ +|?60-89? |?Stage two?|? Decreased GFR? + --+ --+ ------+|?30-59?|?Stage three?|? Stage three? + --+ --+ ------+|?15-29?|?Stage four? |? Stage four?+ -------+ -------+ +|?<15 (or dialysis)?|?Stage five? |? Stage five?+ -------+ -------+ +*Each stage assumes the associated GFR level has been in effect for at least three months.?Stages 1 to 5, with or without kidney disease, indicate chronic kidney disease.Notes: Determination of stages one and two (with eGFR >59mL/min/1.73 m2) requires estimation of kidney damage for at least three months as defined by structural or functional abnormalities of the kidney, manifested by either:Pathological abnormalities or Markers of kidney damage (including abnormalities in the composition of the blood or urine or abnormalities in imaging tests). Lab Interpretation Abnormal (test code = 58592-7) [facility] WITH [id number] 16:03:00 Test Item Value Reference Range Interpretation Comments WBC (test code = See_Comment [Automated 6690-2) message] The sy stem which generated this result transmitted reference range : 4.30 - 11.10 10*3/?L. The reference range was not used to interpret this result as normal/abnormal . RBC (test code = See_Comment [Automated 789-8) message] The sy stem which generated this result transmitted reference range : 3.93 - 5.25 10*6/?L. The reference range was not used to interpret this result as normal/abnormal . HGB (test code = 15.7 g/dL 11.6-15 H 718-7) HCT (test code = 45.9 % 35.7-45.2 H 4544-3) MCV (test code = 90.2 fL 80.6-95.5 787-2) MCH (test code = 30.8 pg 25.9-32.8 785-6) MCHC (test code = 34.2 g/dL 31.6-35.1 786-4) RDW-SD (test code = 41.2 fL 39-49.9 78041-6) RDW-CV (test code = 12.7 % 12-15.5 788-0) PLT (test code = See_Comment H [Automated 777-3) message] The sy stem which generated this result transmitted reference range : 166 - 358 10*3/ ?L. The reference r tano was not used to interpret this result as normal/abnormal . MPV (test code = 10.3 fL 9.5-12.9 63225-5) NRBC/100 WBC (test See_Comment [Automat ed code = 5789586804) message] The system which generated this result transmitted reference range : 0.0 - 10.0 /100 WBCs. The refer ence range was not u sed to interpret th is result as normal/abnormal . NRBC x10^3 (test code <0.01 See_Comment [Auto mated = 5169311720) message] The s ystem which generated this result transmitted reference range : 10*3/?L. The reference range was not used to interpret this result as normal/abnormal . GRAN MAT (NEUT) % 56.2 % (test code = 770-8) IMM GRAN % (test code 0.20 % = 9787074981) LYMPH % (test code = 34.2 % 736-9) MONO % (test code = 6.3 % 5905-5) EOS % (test code = 2.5 % 713-8) BASO % (test code = 0.6 % 706-2) GRAN MAT x10^3(ANC) 4.59 10*3/uL 1.88-7.09 (test code = 0791518394) IMM GRAN x10^3 (test <0.03 0-0.06 code = 7764910854) LYMPH x10^3 (test code 2.79 10*3/uL 1.32-3.29 = 731-0) MONO x10^3 (test code 0.51 10*3/uL 0.33-0.92 = 742-7) EOS x10^3 (test code = 0.20 10*3/uL 0.03-0.39 711-2) BASO x10^3 (test code 0.05 10*3/uL 0.01-0.07 = 704-7) Lab Interpretation Abnormal (test code = 34981-7) [facility] Notes Date/Time Note Provider Source 2022-09-02 16:54:00-00:00 [id number] [place] [address] PATIENT NAME: CHAPITO REINOSO ADMIT D ATE: 09/02/22 ACCOUNT NO: [id number] ROOM NO: AGE: 57 REPORT TYPE: OPERATIVE REPORT SEX: F ADMITTING PHYSICIAN: ATTENDING PHYSICIAN:Arnulfo Florez MD OPERATION DATE: 09/02/2022 PREOPERATIVE DIAGNOSES: 1. Left trigger thumb with locking. 2. Hypothyroidism. 3. Hypertension. POSTOPERATIVE DIAGNOSES: 1. Left trigger thumb with locking. 2. Retinacular ganglion cyst, A1 alyssa, left th umb. OPERATIVE PROCEDURE: Release of A1 alyssa, left trigger thumb, excision of retinacular ganglion cyst. SURGEON: Arnulfo Florez M.D. ARMATURE W[employer]ER AUTOMOTIVE: ANESTHESIA: General anesthesia, laryngeal mask a irway technique, supine position. ESTIMATED BLOOD LOSS: None. SPECIMENS: Retinacular ganglion cyst removed, no t sent. INDICATIONS: This is a 57-year-old left hand dom inant white female. She previously had surgery to release left carpal tu nnel and decompression ulnar nerve in 2021. She now has triggering and locking of the left t humb. She fell in June while carrying a basket, and then developed locking. The locking is now constant with active flexion and pops with active extension. 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 The risks and expectations for surgery were discussed. Com plications can include infection, hematoma, recurre nt triggering or locking, continued pain, scar, and anesthetic risks. No guarantees can be given. Monique simeon understands, and gives informed consent to proceed with surgery for her trigger left thumb. DESCRIPTION OF PROCEDURE IN DETAIL: The patient received 2 grams of IV Kefzol antibiotic. She was taken to operating room #11. General anesthesia was induced. Laryngeal mask airway technique was uti lized. Previously calibrated PATIENT NAME: CHAPITO REINOSO pneumatic tourniquet was applied to proximal lef t upper extremity. The left hand and arm were prepped and draped in a steril e manner. Timeout was performed. The tourniquet was elevated to 250 mm Hg. A 2.0 cm transverse incision was placed at the M P flexion crease, left thumb. The skin was incised. Subcutaneous tissue was sp read longitudinally. Digital nerves on the radial and ulnar aspect of the lef t thumb were identified and protected. The A1 alyssa was visualized. This wa s quite thick. There was a retinacular ganglion cyst on the A1 alyssa as we ll. The retinacular ganglion cyst was excised with the middle one-third of th e alyssa in a longitudinal manner. Complete release of the A1 alyssa was ac hieved further by releasing tendon sheath in a proximal direction with the t enotomy scissors. The digital nerves were protected. The retinacular g anglion cyst was excised, but not sent to pathology. Traction check with tendon hook de monstrated good excursion for the FPL flexor tendon. The tendon was irrigated and returned to the thumb. Subcutaneous tissue was infiltrated with Marcain e. The skin was carefully approximated with interrupte d #6-0 nylon sutures. The incision was dressed with Xeroform, followed by the application of sterile dressings and a volar splint. Tourniquet time for the left thumb surgery was 1 4 minutes. Procedure was tolerated well by the patient. She was s uccessfully extubated in the operating room, and she returned to the recovery room in g ood condition. Dictated By: Arnulfo Florez MD Date Dictated: 09/02/2022 16:54:01 Date Transcribed: 09/02/2022 20:34:34 [facility] [place] Receipt ID: [id number] Authenticated by Arnulfo Florez MD On 2022 02:13:11 PM Electronically Signed by Arnulfo Florez MD o n 09/06/22 at 0213 PATIENT NAME: CHAPITO REINOSO 2022-04-10 15:25:00-00:00 [id number] [place] [address] PATIENT NAME: CHAPITO REINOSO ADMIT D ATE: 04/10/22 ACCOUNT NO: [id number] ROOM NO: AGE: 56 REPORT TYPE: OPERATIVE REPORT SEX: F ADMITTING PHYSICIAN: ATTENDING PHYSICIAN:Arnulfo Florez MD OPERATION DATE: 04/10/2022 PREOPERATIVE DIAGNOSES: 1. Severe left carpal tunnel syndrome. 2. Ulnar neuropathy, left elbow. 3. Lateral epicondylitis, left elbow. POSTOPERATIVE DIAGNOSES: 1. Severe left carpal tunnel syndrome. 2. Moderate ulnar neuropathy, left elbow. 3. Lateral epicondylitis, left elbow. OPERATIVE PROCEDURES: 1. Release of left carpal tunnel with decompress ion of median nerve (severe). 2. Decompression of ulnar nerve, left elbow (mod erate). 3. Injection of extensor origin tendon, left elb ow (Depo-Medrol 40 mg/Xylocaine/Marcaine). SURGEON: Arnulfo Florez M.D. [employer]: ANESTHESIA: General anesthesia, laryngeal mask a irway technique, supine position. ESTIMATED BLOOD LOSS: None. SPECIMENS: None. INDICATIONS: This is a 56-year-old left hand dom inant white female. She has numbness and tingling to all fingers, left hand greater than right hand. Numbness radiates to the thumb, index, middle fi ngers, but often the little finger as well. She has been symptomatic for mor e than 2 years. She has nocturnal symptoms 7 of 7 nights. Electrodiagnos tic test reports moderate carpal tunnel syndrome in amilcar th hands and mild to moderate ulnar neuropathy, left elbow. She also has lateral epicondylitis of the left elbow with pain at the extensor origin tendon. Surgery for release of t he left carpal tunnel was recommended, as well as decompression of the ulnar nerve, left elbow. She will have injection for the extensor origin tendon, l eft elbow. The risks and expectations for surgery were discussed. Complic ations can include infection, hematoma, continued numbness or tingling, limite d elbow motion, scar, and anesthetic risks. No guarantees can be given. aleah understands and gives PATIENT NAME: CHAPITO REINOSO informed consent to proceed with surgery for her left hand and elbow. DESCRIPTION OF PROCEDURE IN DETAIL: The patient received 2 grams of IV Kefzol antibiotic. She was taken to the operating room #11. General anesthesia was induced. Laryngeal mask airway technique was uti lized. Previously calibrated pneumatic tourniquet was applied to the proximal left upper extremity. Injection of the extensor or igin tendon, left elbow was performed. The skin was prepped with Betadine and an alcohol pad. Inject ion of the extensor origin tendon was performed with De po-Medrol 40 mg/Xylocaine/Marcaine using a 27-gauge needle. The injection was well tolerated. The left hand and arm was then prepped a nd draped in a sterile manner. Timeout was performed. The tourniquet was elevated to 25 0 mmHg. Release of the left carpal tunnel was performed first. A 3.2 cm longitudinal incision was placed on the proximal aspect of th e left palm. The skin was incised. Subcutaneous tissue was divided cleanly . Fat pad was retracted in an ulnar direction. Self-retaining retractor was po sitioned. The transverse carpal ligament was incised and released along t he ulnar aspect of the carpal tunnel. Complete release was performed in a prox imal direction including the antebrachial fascia of the forearm. Complete rel ease was then performed in a distal direction to the fat tissue over the median nerve. The median nerve did show a severe hourglass deformity due to jack cecile. The motor recurrent branch was extraligamentous. Excellent release o f the left carpal tunnel was achieved. The wound was irrigated. Subcutaneous tissue was infiltrated with Marcaine. The subcutaneous tissue was then appro ximated with interrupted #5-0 Vicryl sutures. The skin was approximate d with interrupted #6-0 nylon sutures. Surgery for the ulnar nerve, left elbow was then performed. A 7 cm incision was placed at the medial aspect of the left elbow. T he skin was incised. Subcutaneous tissue was divided carefully protec ting cutaneous nerves. The fascia at the cubital tunnel was opened to ident larisa the ulnar nerve. This tissue was fibrotic. The cubital tunnel fascia w as incised and released with the tenotomy scissors. There was moderate hourgl ass deformity on the ulnar nerve at the FCU fascia. The FCU fascia was inci sed and released in a distal direction as well. Motor branches from the FCU w ere preserved. Excellent decompression of the ulnar nerve was achieved. T he ulnar nerve was stable and did not sublux with elbow range of motio n. Tourniquet was released. Hemostasis was excellent. Tourniquet was elevated for closu re. Subcutaneous tissue was infiltrated with Marcaine. The subcutaneous tiss ue was then approximated with interrupted #3-0 Vicryl sutu res. Skin was approximated with 4-0 Monocryl suture in a subcuticular fashion, reinforced with inter rupted #5-0 nylon sutures. Both procedures were dressed with Xeroform, foll owed by the application of sterile dressings, and an an terior-posterior fiberglass splint with the elbow in 60 degrees of extension. Both procedures were to lerated well by the patient. Tourniquet time was 30 minutes for the left hand and left elbow. She was successfully extubated in th e operating room, and returned to the recovery room in good condition. Dictated By: Arnulfo Florez MD Date Dictated: 04/10/2022 15:25:21 PATIENT NAME: CHAPITO REINOSO ACCOUN T #: [id number] Date Transcribed: 04/10/2022 20:03:30 [facility] Receipt ID: [id number] Authenticated by Arnulfo Florez MD On 2021 06:35:12 AM Electronically Signed by Arnulfo Florez MD o n 04/18/22 at 0635 PATIENT NAME: CHAPITO REINOSO 2022-04-02 10:49:00-00:00 [id number] [place] [address] PATIENT NAME: CHAPITO REINOSO ADMIT D ATE: ACCOUNT NO: [id number] ROOM NO: AGE: 56 REPORT TYPE: ELECTROCARDIOGRAM SEX: F ADMITTING PHYSICIAN: ATTENDING PHYSICIAN:Arnulfo Florez MD Order: [id number] Test Reason : PRE OP CLEARANCE HTN Test Date/Time Stamp: FriApr 02 2022 10:49:59 Blood Pressure : / mmHG Vent. Rate : 048 BPM Atrial Rate : 048 BPM P-R Int : 188 ms QRS Dur : 098 ms QT Int : 452 ms P-R-T Axes : 027 036 036 degree s QTc Int : 403 ms Sinus bradycardia Otherwise normal ECG No previous ECGs available Confirmed by ASHER PALACIO MD ([id number]) on 04/03/2022 8:12:29 PM Referred By: Arnulfo Florez Confirmed by:ASHER PALACIO MD PATIENT NAME: CHAPITO REINOSO "
--- NOTE | 2022-12-13 17:18 | RAD REPORT ---
EXAM DESCRIPTION: CT - Abdomen Pelvis Wo Contrast - 12/13/2022 5:06 pm CLINICAL HISTORY: Abdominal pain COMPARISON: None TECHNIQUE: Computed axial tomography of the abdomen and pelvis was obtained. IV and oral contrast we re not requested. All CT scans are performed using dose optimization technique as appropriate and may include automated exposure control or mA/KV adjustment according to patient size. FINDINGS: The evaluation of solid organs, vessels and bowel is limited secondary to the lack of con trast administration. The liver, spleen, pancreas, adrenals and kidneys appear grossly normal. The appendix is normal. There is no evidence of diverticulitis. No adnexal mass IMPRESSION: No acute abnormality is displayed.
--- NOTE | 2022-12-13 17:20 | RAD REPORT ---
EXAM DESCRIPTION: US - Abdomen Exam Limited - 12/13/2022 4:54 pm CLINICAL HISTORY: Abdominal pain. COMPARISON: None. FINDINGS: The gallbladder wall is not thickened. A gallstone is not seen. The biliary tree is normal caliber. IMPRESSION: Unremarkable gallbladder ultrasound.
[2022-12-13] MEDS ORDERED: NA CHLORIDE 0.9% 1,000 ML ONE ×2 (17:32→18:50)
[2022-12-13] MEDS ORDERED: FENTANYL CITR 100 MCG/2 ML ONE (17:32)
[2022-12-13] MEDS ORDERED: FAMOTIDINE 20 MG/2 ML VIAL IV ONE (17:32)
[2022-12-13] MEDS ORDERED: ONDANSETRON 4 MG/2 ML VIAL ONE (17:32)
[2022-12-13 17:37] LABS: Absolute Lymphocytes (CBC) 1.8 K/uL (0.7-4.9); Hematocrit 40.8 % (36.0-45.0); Lymphocytes % 20.3 % (15.3-44.8); MCV 86.3 fL (80-100); MPV 8.4 fL (7.6-11.3); Platelets 335 thou/uL (152-406); RBC Red Blood Cell Count 4.73 M/uL (3.86-4.86)
[2022-12-13 18:06] LABS: Albumin 4.1 g/dL (3.4-5.0); Bilirubin Total 0.7 mg/dL (0.2-1.0); Potassium 2.7 mEq/L (3.5-5.1); Protein, Total 7.9 g/dL (6.4-8.2)
[2022-12-13] MEDS ORDERED: POTASSIUM 25 MEQ EFFERV TAB ONE (18:50)
[2022-12-13] MEDS ORDERED: KCL 20 MEQ/100 mL IVPB 100 ML IV ONE (18:50)
--- NOTE | 2022-12-13 19:17 | EDPHYS ---
Physician Documentation [facility] Name: Roya Reinoso Age: 57 yrs Sex: Female : 1965 Arrival Date: 12/13/2022 Time: 16:24 Bed 12 Private MD: ED Physician Jonas Bolden HPI: 12/13 17:22 This 57 yrs old Female presents to ER via Ambulatory with complaints of kb Nausea/Vomiting/Diarrhea. 17:22 The patient presents to the emergency department with nausea, vomiting, diarrhea, kb abdominal pain. Onset: The symptoms/episode began/occurred 4 week(s) ago. Possible causes: unknown. The symptoms are aggravated by nothing. The symptoms are alleviated by nothing. Associated signs and symptoms: Pertinent positives: abdominal pain, diarrhea, nausea, vomiting, Pertinent negatives: fever. Severity of symptoms: At their worst the symptoms were moderate in the emergency department the symptoms are unchanged. The patient has not experienced similar symptoms in the past. The patient has been recently seen by a physician: the patient's primary care provider, 4 day(s) ago, with similar presenting complaints, was given a prescription for antibiotics. Historical: - Allergies: 16:35 Toradol; cm10 - PMHx: 16:35 Hypothyroidism; Hypertensive disorder; TIA; cm10 - PSHx: 16:35 Tonsillectomy; Ligation of fallopian tube; cm10 - Immunization history:: Adult Immunizations unknown. - Social history:: Smoking status: Patient denies any tobacco usage or history of. ROS: 17:21 Constitutional: Negative for fever, chills, and weight loss. kb 17:21 Abdomen/GI: Positive for abdominal pain, nausea, vomiting, and diarrhea. 17:21 Neuro: Positive for weakness. 17:21 All other systems are negative. Exam: 17:21 Constitutional: This is a well developed, well nourished patient who is awake, alert, kb and in no acute distress. Head/Face: Normocephalic, atraumatic. ENT: Moist Mucous membranes Cardiovascular: Regular rate and rhythm with a normal S1 and S2. No gallops, murmurs, or rubs. No pulse deficits. Respiratory: Respirations even and unlabored. No increased work of breathing. Talking in full sentences Skin: Warm, dry with normal turgor. Normal color. MS/ Extremity: Pulses equal, no cyanosis. Neurovascular intact. Full, normal range of motion. Neuro: Awake and alert, GCS 15, oriented to person, place, time, and situation. Moves all extremities. Normal gait. 17:21 Abdomen/GI: Inspection: abdomen appears normal, Bowel sounds: normal, Palpation: soft, in all quadrants, mild abdominal tenderness, in the right lower quadrant and left lower quadrant, moderate abdominal tenderness, in the right upper quadrant and left upper quadrant. Vital Signs: 16:32 BP 108 / 91; Pulse 77; Resp 18; Temp 98.2; Pulse Ox 100% ; Weight 69.85 kg; Height 5 cm10 ft. 7 in. ; Pain 8/10; 18:51 BP 128 / 68; Pulse 61; Resp 16; Pulse Ox 99% on R/A; Pain 7/10; hb 21:15 BP 115 / 60; Pulse 59; Resp 16; Pulse Ox 100% on R/A; kl 16:32 Body Mass Index 24.12 (69.85 kg, 170.18 cm) cm10 16:32 Pain Scale: Adult cm10 18:51 Pain Scale: Adult hb MDM: 16:29 Patient medically screened. 19:15 Differential diagnosis: Nonspecific abd pain, gastritis, diverticulitis, viral kb gastroenteritis. Data reviewed: vital signs, nurses notes. Historians other than the Patient: Spouse/Significant Other: . Counseling: I had a detailed discussion with the patient and/or guardian regarding the historical points, exam findings, and any diagnostic results supporting the discharge/admit diagnosis, lab results, radiology results, the need for outpatient follow up, a family practitioner, to return to the emergency department if symptoms worsen or persist or if there are any questions or concerns that arise at home. 19:15 I considered the following discharge prescriptions or medication management in the emergency department Antibiotics: At this time antibiotics are not recommended. 12/13 16:35 Order name: CBC with Diff; Complete Time: 17:43 kb 12/13 16:35 Order name: CMP; Complete Time: 18:07 kb 12/13 16:35 Order name: Lipase; Complete Time: 18:07 kb 12/13 16:35 Order name: Abdomen Limited US; Complete Time: 17:20 kb 12/13 17:07 Order name: Abdomen ; Complete Time: 17:20 EDMS 12/13 16:35 Order name: IV Saline Lock; Complete Time: 18:51 kb 12/13 16:35 Order name: Labs collected and sent; Complete Time: 18:51 kb Administered Medications: 16:50 Drug: NS 0.9% IV 1000 ml Route: IV; Rate: 1 bolus; Site: right antecubital; jl7 18:00 Follow up: Response: No adverse reaction; IV Status: Completed infusion; IV Intake: jl7 1800ml 16:50 Drug: Famotidine IVP 20 mg Route: IVP; Site: right antecubital; jl7 19:42 Follow up: Response: No adverse reaction 7 16:50 Drug: fentaNYL (PF) IVP 25 mcg Route: IVP; Site: right antecubital; jl7 19:42 Follow up: Response: No adverse reaction; Pain is decreased jl7 16:54 Drug: Ondansetron IVP 4 mg Route: IVP; Site: right antecubital; jl7 19:41 Follow up: Response: No adverse reaction 7 18:50 Drug: NS 0.9% IV 1000 ml Route: IV; Rate: 1000 ml; Site: right antecubital; hb 21:16 Follow up: IV Status: Completed infusion; IV Intake: 1000ml kl 18:50 Drug: Potassium Chloride IV 20 mEq Route: IV; Rate: calculated rate; Site: right hb antecubital; 21:15 Follow up: IV Status: Completed infusion; IV Intake: 100ml kl 18:50 Drug: Potassium PO Effervescent Tablet 50 mEq Route: PO; hb 21:15 Follow up: Response: No adverse reaction kl 19:18 Drug: Promethazine IVP 12.5 mg Route: IVP; Site: right antecubital; kl 21:15 Follow up: Response: No adverse reaction; Marked relief of symptoms kl Disposition Summary: 12/13/22 19:16 Discharge Ordered Location: Home kb Condition: Stable kb Diagnosis - Dehydration kb - Nausea with vomiting, unspecified kb - Diarrhea, unspecified kb Followup: kb - With: Emergency Department - When: As needed - Reason: Worsening of condition Followup: kb - With: Private Physician - When: 2 - 3 days - Reason: Recheck today's complaints, Continuance of care, Re-evaluation by your physician Discharge Instructions: - Discharge Summary Sheet kb - Food Choices to Help Relieve Diarrhea, Adult kb - Dehydration, Adult kb - Nausea and Vomiting, Adult, [id number] kb - Diarrhea, Adult, [id number] kb Forms: - Medication Reconciliation Form kb - Thank You Letter kb - Antibiotic Education kb - Prescription Opioid Use kb - Patient Portal Instructions kb - Leadership Thank You Letter kb Signatures: Dispatcher [employer] EDMS Avani Stevenson, [employer]-C [employer]-Sarah Hancock RN RN Crystal Diaz RN RN Bobbi Dunbar RN RN jl7 Ruma Hall RN RN cm10 Corrections: (The following items were deleted from the chart) 17:07 16:35 Abdomen Pelvis W Con+CT.RAD.BRZ ordered. EDMS EDMS
--- NOTE | 2022-12-13 19:17 | ER ---
Nurse's Notes [facility] Name: Roya Reinoso Age: 57 yrs Sex: Female : 1965 Arrival Date: 12/13/2022 Time: 16:24 Bed 12 Private MD: Diagnosis: Dehydration;Nausea with vomiting, unspecified;Diarrhea, unspecified Presentation: 12/13 16:32 Chief complaint: Patient states: nausea, vomiting, diarrhea and abdominal pain X3-4 cm10 weeks. Pt states that she was seen at her PCP on Friday and was started on potassium, cipro and zofran. Coronavirus screen: Client denies travel out of the [place] in the last 14 days. Ebola Screen: Patient denies travel to an Ebola-affected area in the 21 days before illness onset. No symptoms or risks identified at this time. Initial Sepsis Screen: Does the patient meet any 2 criteria? No. Patient's initial sepsis screen is negative. Does the patient have a suspected source of infection? No. Patient's initial sepsis screen is negative. Risk Assessment: Do you want to hurt yourself or someone else? Patient reports no desire to harm self or others. Onset of symptoms was December 13, 2022. 16:32 Method Of Arrival: Ambulatory cm10 16:32 Acuity: LINDA 3 cm10 Historical: - Allergies: 16:35 Toradol; cm10 - PMHx: 16:35 Hypothyroidism; Hypertensive disorder; TIA; cm10 - PSHx: 16:35 Tonsillectomy; Ligation of fallopian tube; cm10 - Immunization history:: Adult Immunizations unknown. - Social history:: Smoking status: Patient denies any tobacco usage or history of. Screenin:[facility] ED Fall Risk Assessment (Adult) Score/Fall Risk Level 0 - 2 = Low Risk hb Oriented to surroundings, Maintained a safe environment. Abuse screen: Denies threats or abuse. Denies injuries from another. Nutritional screening: No deficits noted. Tuberculosis screening: No symptoms or risk factors identified. Assessment: 16:45 General: Appears in no apparent distress. uncomfortable, ill, Behavior is calm, jl7 cooperative, appropriate for age. Pain: Complains of pain in abdomen Pain currently is 8 out of 10 on a pain scale. Quality of pain is described as burning. Neuro: Level of Consciousness is awake, alert, obeys commands, Oriented to person, place, time, situation. Cardiovascular: Patient's skin is warm and dry. Respiratory: Airway is patent Respiratory effort is even, unlabored, Respiratory pattern is regular, symmetrical. GI: Abdomen is non-distended, Reports diarrhea, nausea, vomiting. Derm: Skin is pink, warm \T\ dry. 18:51 Reassessment: Patient appears in no apparent distress at this time. Patient and/or hb family updated on plan of care and expected duration. Pain level reassessed. Patient is alert, oriented x 3, equal unlabored respirations, skin warm/dry/pink. 19:45 Reassessment: Pt will be discharged once infusion is complete. jl7 21:15 Reassessment: Patient states feeling better. Patient states symptoms have improved. Vital Signs: 16:32 BP 108 / 91; Pulse 77; Resp 18; Temp 98.2; Pulse Ox 100% ; Weight 69.85 kg; Height 5 cm10 ft. 7 in. ; Pain 8/10; 18:51 BP 128 / 68; Pulse 61; Resp 16; Pulse Ox 99% on R/A; Pain 7/10; hb 21:15 BP 115 / 60; Pulse 59; Resp 16; Pulse Ox 100% on R/A; kl 16:32 Body Mass Index 24.12 (69.85 kg, 170.18 cm) cm10 16:32 Pain Scale: Adult cm10 18:51 Pain Scale: Adult hb Vitals: 21:15 Cardiac Rhythm Assessment Sinus qi. kl ED Course: 16:26 Patient arrived in ED. rg4 16:27 Avani Stevenson [facility]C [facility] kb 16:27 Jonas Bolden MD is Attending Physician. kb 16:30 Patient has correct armband on for positive identification. Provided Education on: use jl7 of call lee. monitor tech on. Pulse ox on. NIBP on. 16:30 Inserted saline lock: 22 gauge in right antecubital area, using aseptic technique. jl7 16:35 Triage completed. cm10 16:36 Arm band placed on Patient placed in waiting room. cm10 16:56 Abdomen Limited US In Process Unspecified. EDMS 17:07 Abdomen In Process Unspecified. EDMS 17:18 Bobbi Dunbar, SHERI is Primary Nurse. jl7 21:16 No provider procedures requiring assistance completed. IV discontinued, intact, kl bleeding controlled, No redness/swelling at site. Pressure dressing applied. Administered Medications: 16:50 Drug: NS 0.9% IV 1000 ml Route: IV; Rate: 1 bolus; Site: right antecubital; jl7 18:00 Follow up: Response: No adverse reaction; IV Status: Completed infusion; IV Intake: jl7 1800ml 16:50 Drug: Famotidine IVP 20 mg Route: IVP; Site: right antecubital; jl7 19:42 Follow up: Response: No adverse reaction 7 16:50 Drug: fentaNYL (PF) IVP 25 mcg Route: IVP; Site: right antecubital; jl7 19:42 Follow up: Response: No adverse reaction; Pain is decreased 7 16:54 Drug: Ondansetron IVP 4 mg Route: IVP; Site: right antecubital; jl7 19:41 Follow up: Response: No adverse reaction [facility] 18:50 Drug: NS 0.9% IV 1000 ml Route: IV; Rate: 1000 ml; Site: right antecubital; hb 21:16 Follow up: IV Status: Completed infusion; IV Intake: 1000ml 18:50 Drug: Potassium Chloride IV 20 mEq Route: IV; Rate: calculated rate; Site: right hb antecubital; 21:15 Follow up: IV Status: Completed infusion; IV Intake: 100ml kl 18:50 Drug: Potassium PO Effervescent Tablet 50 mEq Route: PO; hb 21:15 Follow up: Response: No adverse reaction 19:18 Drug: Promethazine IVP 12.5 mg Route: IVP; Site: right antecubital; kl 21:15 Follow up: Response: No adverse reaction; Marked relief of symptoms Medication: 16:30 VIS not applicable for this client. jl7 Intake: 18:00 IV: 1800ml; Total: 1800ml. jl7 21:15 IV: 100ml; Total: 1900ml. kl 21:16 IV: 1000ml; Total: 2900ml. kl Outcome: 19:16 Discharge ordered by . tate 21:16 Discharged to home ambulatory. kl 21:16 Condition: improved 21:16 Discharge instructions given to patient, Instructed on discharge instructions, follow up and referral plans. Demonstrated understanding of instructions, follow-up care. 21:17 Patient left the ED. kl Signatures: Dispatcher [employer] Avani Cadet, PLAYGROUND EQUIPMENT ERECTOR-C PLAYGROUND EQUIPMENT ERECTOR-CkSarah Turner, RN RN kl Crystal Urbina, RN RN Gloria Vick4 Bobbi Dunbar RN RN jl7 Ruma Hall RN RN cm10
[2022-12-13] MEDS ORDERED: PROMETHAZINE INJ 25 MG/ML AMP ONE (19:28)
[2022-12-13 22:42] VITALS: TEMP 98.2
[2022-12-13 22:46] VITALS: BP 115/60; O2SAT 100
== END 2022-12-13 21:17 | disposition home or self-care (01) ==
LOC: ER 16:24
DX: E86.0 Dehydration (principal); R19.7 Diarrhea, unspecified; I10 Essential (primary) hypertension; Z88.5 Allergy status to narcotic agent
CPT/HCPCS: 96365; 96361; 85025; 36415; 82565; 83690; 80053; 74176; 76705; 96375; 99285; 96366; J2550; J3480; J3010; J2405; J7030 ×2

== ENCOUNTER 2022-12-20 18:17 | Emergency (ER) | payer OTHER ==
--- OUTSIDE RECORDS SUMMARY | 2022-12-20 18:28 | XMS REPORT | Continuity of Care Document ---
:1965 Author Organization Formerly [facility] t Address [address] [place] [address] [place] [id number] Care Team Providers Name Role Phone Anselmo Escobar MD Primary Care Physician ANSELMO ESCOBAR Attending Clinician Unavailable Ilan Attending Clinician Unavailable Doctor Unassigned, [place] Attending Clinician Unavailable Arnulfo Florez Attending Clinician Unavailable [email or web address] Attending Clinician Unavailable Helen Greer MD Attending Clinician Topher Ardon MD Attending Clinician HELEN GREER Attending Clinician Unavailable Lab, [facility] Fam Pob I Attending Clinician Unavailable Shayy Parra MD Attending Clinician SHAYY PARRA Attending Clinician Unavailable Only, [facility] Test Attending Clinician Unavailable Parish Lugo MD Attending Clinician Mauro Sims DO Attending Clinician CARLOS CASE Attending Clinician Unavailable CARLOS CASE Attending Clinician Unavailable 1, [facility] Sleep Lab Bed Attending Clinician Unavailable Carlos Case MD Attending Clinician , [facility] Vascular Room 1 - Attending Clinician Unavailable Fifi Maxwell Attending Clinician Pob, [facility] Lab Main Attending Clinician Unavailable Vls-Lab Attending Clinician Unavailable Hu Quach MD Attending Clinician , [facility] Lab Attending Clinician Unavailable MITCH_Timmy Admitting Clinician Unavailable ASNELMO ESCOBAR Admitting Clinician Unavailable [email or web address] Admitting Clinician Unavailable Arnulfo Florez Admitting Clinician Unavailable Hu Quach MD Admitting Clinician Payers Payer Name Policy Type Policy Number Effective Date Expiration Date S wood [employer] (POS) [id number] 2000 00:00:00 [employer] - CHOICE [id number] 2000 00:00:00 (POS II) [employer] (EPO) [id number] 2000 00:00:00 Problems Condition Condition Condition Status [...] Diarrhea, Disease Active Overview: [facility] unspecifie unspecifie 16 Formattin ity of d type d type 00:00: g of this [place] 00 note Medical might be Branch different from the original. Added automatic ally from request for surgery [id number] Incontinen Incontinen Disease Active Overview : Univers ce of ce of -16 Formattin ity of feces, feces, 00:00: g of this [place] unspecifie unspecifie 00 note Me dical d fecal d fecal might be Branch incontinen incontinen different ce type ce type from the original. Added automatic ally from request for surgery [id number] Fecal Fecal Disease Active Overview: Univer s urgency urgency 8-16 Formattin ity o f 00:00: g of this [place] 00 note Medical might be Branch different from the original. Added automatic ally from request for surgery [id number] Intractabl Intractabl Disease Active Overview : Univers e vomiting e vomiting 16 Formattin ity of with with 00:00: g of this [place] nausea, nausea, 00 note Medical unspecifie unspecifie might be Branch d vomiting d vomiting different type type from the original. Added automatic ally from request for surgery [id number] Abdominal Abdominal Disease Active Overview: Univers pain, pain, 16 Formattin ity of generalize generalize 00:00: g of this [place] d d 00 note Medical might be Branch different from the original. Added automatic ally from request for surgery [id number] Early Early Disease Active Overview: Univer s satiety satiety 816 Formattin ity o f 00:00: g of this [place] 00 note Medical might be Branch different from the original. Added automatic ally from request for surgery [id number] Flatulence Flatulence Disease Active Overview : Univers , , 8-16 Formattin ity of eructation eructation 00:00: g of this [place] , and gas , and gas 00 note Medi moisés pain pain might be Branch different from the original. Added automatic ally from request for surgery [id number] Closed Closed Problem Active Rosa Elena fracture [...] ents Source Name Type Date Date Clinician ketorola DA Active SV FACIAL [facility] SWELLING 5-03 [place] 00:00: [facility] No Known DA Active U 2021-04 [facility] Allergie 2-13 Clear s 00:00: [place] 00 [facility] AMLODIPI DRUG Active Swelling Univer s NE INGREDI 6-07 ity of 00:00: [place] 00 Medical Branch Amlodipi Propensi Active Swelling Univ ers ne ty to 6-07 ity of adverse 00:00: [place] reaction 00 Medical s Branch NO KNOWN Drug Active Univers ALLERGIE Class ity of S [facility] Social History Social Habit Start Date Stop Date Quantity Comments Source Exposure to Not sure [facility] SARS-CoV-2 [facility] (event) [place] Alcohol intake 2020-09-25 2020-09-25 Current drinker Unive rsity of 00:00:00 00:00:00 of alcohol [facility] (finding) [place] Tobacco use and 2018-12-04 2018-12-04 Smokeless tobacco Un iversity of exposure 00:00:00 00:00:00 non-user [facility] Sex Ass[birth year] At [birth year] Universit y of 00:00:00 00:00:00 [facility] Smoking Status Start Date Stop Date Source Unknown if ever smoked Universit y of [facility] Never Smoker [facility] Medications Ordered Filled Start Stop Current Ordering Indication Dosage Frequency Signature Comments Components Source Medication Medication Date Date Medication? Clinician (SIG) Name Name hydroCHLORO 2020-04 Yes [id number] 12.5mg Take 1 Univers thiazide 0-04 capsule by ity o f 12.5 mg 00:00: mouth [place] capsule 00 daily. Medical Branch hydroCHLORO 2020-04 Yes [id number] 12.5mg Take 1 Univers thiazide 0-04 capsule by ity o f 12.5 mg 00:00: mouth [place] capsule 00 daily. Medical Branch hydroCHLORO Yes [id number] 12.5mg Take 1 Univers thiazide 4-08 capsule by ity o f 12.5 mg 00:00: mouth [place] capsule 00 daily. Medical Branch hydroCHLORO 2020-0 Yes [id number] 12.5mg Take 1 Univers thiazide 4-08 capsule by ity o f 12.5 mg 00:00: mouth [place] capsule 00 daily. Medical Branch hydroCHLORO 2020-0 Yes [id number] 12.5mg Take 1 Univers thiazide 4-08 capsule by ity o f 12.5 mg 00:00: mouth [place] capsule 00 daily. Medical Branch hydroCHLORO 2020-0 Yes [id number] 12.5mg Take 1 Univers thiazide 4-08 capsule by ity o f 12.5 mg 00:00: mouth [place] capsule 00 daily. Medical Branch hydroCHLORO 2020-0 Yes [id number] 12.5mg Take 1 Univers thiazide 4-08 capsule by ity o f 12.5 mg 00:00: mouth [place] capsule 00 daily. Medical Branch hydroCHLORO 2020-0 Yes [id number] 12.5mg Take 1 Univers thiazide 4-08 capsule by ity o f 12.5 mg 00:00: mouth [place] capsule 00 daily. Medical Branch hydroCHLORO 2020- No [id number] 12.5mg Take 1 Univers thiazide 4-08 10-03 capsule by ity of 12.5 mg 00:00: 00:00 mouth [place] capsule 00 :00 daily. Medical Branch carvediloL 2020-0 Yes [id number] 25mg Take 1 U nivers 25 mg 4-07 tablet by ity of tablet 00:00: mouth (two) Medical times Branch daily with meals. carvediloL 2020-0 Yes [id number] 25mg Take 1 U nivers 25 mg 4-07 tablet by ity of tablet 00:00: mouth (two) Medical times Branch daily with meals. carvediloL 2020-0 Yes [id number] 25mg Take 1 U nivers 25 mg 4-07 tablet by ity of tablet 00:00: mouth (two) Medical times Branch daily with meals. carvediloL 2020-0 Yes [id number] 25mg Take 1 U nivers 25 mg 4-07 tablet by ity of tablet 00:00: mouth (two) Medical times Branch daily with meals. hydroCHLORO 2020-0 Yes [id number] 12.5mg Take 1 Univers thiazide 4-07 capsule by ity o f 12.5 mg 00:00: mouth [place] capsule 00 daily. Medical Branch carvediloL 0 Yes [id number] 25mg Take 1 U nivers 25 mg 4-07 tablet by ity of tablet 00:00: mouth 2 (two) Medical times Branch daily with meals. hydroCHLORO 2020-0 Yes [id number] 12.5mg Take 1 Univers thiazide 4-07 capsule by ity o f 12.5 mg 00:00: mouth [place] capsule 00 daily. Medical Branch carvediloL 0 Yes [id number] 25mg Take 1 U nivers 25 mg 4-07 tablet by ity of tablet 00:00: mouth (two) Medical times Branch daily with meals. carvediloL Yes [id number] 25mg Take 1 U nivers 25 mg 4-07 tablet by ity of tablet 00:00: mouth (two) Medical times Branch daily with meals. carvediloL 0 Yes [id number] 25mg Take 1 U nivers 25 mg 4-07 tablet by ity of tablet 00:00: mouth (two) Medical times Branch daily with meals. carvediloL 0 Yes [id number] 25mg Take 1 U nivers 25 mg 4-07 tablet by ity of tablet 00:00: mouth (two) Medical times Branch daily with meals. carvediloL 2020-0 Yes [id number] 25mg Take 1 U nivers 25 mg 4-07 tablet by ity of tablet 00:00: mouth (two) Medical times Branch daily with meals. carvediloL 2020-0 Yes [id number] 25mg Take 1 U nivers 25 mg 4-07 tablet by ity of tablet 00:00: mouth (two) Medical times Branch daily with meals. hydroCHLORO 2020-0 2020- No [id number] 12.5mg Take 1 Univers thiazide 4-07 04-08 capsule by ity of 12.5 mg 00:00: 00:00 mouth [place] capsule 00 :00 daily. Medical Branch amLODIPine 2019-04 Yes [id number] 5mg Take 1 U nivers 5 mg tablet 0-07 tablet by ity of 00:00: mouth [place] 00 daily. Medical Branch amLODIPine 2019-04 Yes [id number] 5mg Take 1 U nivers 5 mg tablet 0-07 tablet by ity of 00:00: mouth [place] 00 daily. Medical Branch amLODIPine 2019-04 Yes [id number] 5mg Take 1 U nivers 5 mg tablet 0-07 tablet by ity of 00:00: mouth [place] 00 daily. Medical Branch amLODIPine 2019-04 Yes [id number] 5mg Take 1 U nivers 5 mg tablet 0-07 tablet by ity of 00:00: mouth [place] 00 daily. Medical Branch amLODIPine 2019-04 Yes [id number] 5mg Take 1 U nivers 5 mg tablet 0-07 tablet by ity of 00:00: mouth [place] 00 daily. Medical Branch amLODIPine 2019-04 Yes [id number] 5mg Take 1 U nivers 5 mg tablet 0-07 tablet by ity of 00:00: mouth [place] 00 daily. Medical Branch amLODIPine 2019-04 Yes [id number] 5mg Take 1 U nivers 5 mg tablet 0-07 tablet by ity of 00:00: mouth [place] 00 daily. Medical Branch amLODIPine 2019-04 Yes [id number] 5mg Take 1 U nivers 5 mg tablet 0-07 tablet by ity of 00:00: mouth [place] 00 daily. Medical Branch amLODIPine 2019-04 Yes [id number] 5mg Take 1 U nivers 5 mg tablet 0-07 tablet by ity of 00:00: mouth [place] 00 daily. Medical Branch amLODIPine 2019-04- No [id number] 5mg Take 1 Univers 5 mg tablet 0-07 04-07 tablet by it y of 00:00: 00:00 mouth [place] 00 :00 daily. Medical Branch amLODIPine 2019-04- No [id number] 5mg Take 1 Univers 5 mg tablet 0-07 04-07 tablet by it y of 00:00: 00:00 mouth [place] 00 :00 daily. Medical Branch carvediloL 2019- Yes [id number] 12.5mg Take 1 Univers 12.5 mg 7-06 tablet by ity of tablet 00:00: mouth 2 [place] 00 (two) Medical times Branch daily with meals. carvediloL 2020- Yes [id number] 12.5mg Take 1 Univers 12.5 mg 7-06 tablet by ity of tablet 00:00: mouth (two) Medical times Branch daily with meals. carvediloL 2020-0 Yes [id number] 12.5mg Take 1 Univers 12.5 mg 7-06 tablet by ity of tablet 00:00: mouth (two) Medical times Branch daily with meals. carvediloL 2020-0 Yes [id number] 12.5mg Take 1 Univers 12.5 mg 7-06 tablet by ity of tablet 00:00: mouth (two) Medical times Branch daily with meals. carvediloL 2020-0 Yes [id number] 12.5mg Take 1 Univers 12.5 mg 7-06 tablet by ity of tablet 00:00: mouth (two) Medical times Branch daily with meals. carvediloL 2020-0 Yes [id number] 12.5mg Take 1 Univers 12.5 mg 7-06 tablet by ity of tablet 00:00: mouth (two) Medical times Branch daily with meals. carvediloL 2020-0 Yes [id number] 12.5mg Take 1 Univers 12.5 mg 7-06 tablet by ity of tablet 00:00: mouth (two) Medical times Branch daily with meals. carvediloL 2020-0 Yes [id number] 12.5mg Take 1 Univers 12.5 mg 7-06 tablet by ity of tablet 00:00: mouth (two) Medical times Branch daily with meals. carvediloL 2020-0 Yes [id number] 12.5mg Take 1 Univers 12.5 mg 7-06 tablet by ity of tablet 00:00: mouth (two) Medical times Branch daily with meals. carvediloL 2020-0 Yes [id number] 12.5mg Take 1 Univers 12.5 mg 7-06 tablet by ity of tablet 00:00: mouth (two) Medical times Branch daily with meals. carvediloL 2020-0 Yes [id number] 12.5mg Take 1 Univers 12.5 mg 7-06 tablet by ity of tablet 00:00: mouth (two) Medical times Branch daily with meals. carvediloL 2020-0 Yes [id number] 12.5mg Take 1 Univers 12.5 mg 7-06 tablet by ity of tablet 00:00: mouth (two) Medical times Branch daily with meals. carvediloL 2020-0 Yes [id number] 12.5mg Take 1 Univers 12.5 mg 7-06 tablet by ity of tablet 00:00: mouth (two) Medical times Branch daily with meals. carvediloL 2020-0 Yes [id number] 12.5mg Take 1 Univers 12.5 mg 7-06 tablet by ity of tablet 00:00: mouth (two) Medical times Branch daily with meals. carvediloL 2020-0 Yes [id number] 12.5mg Take 1 Univers 12.5 mg 7-06 tablet by ity of tablet 00:00: mouth (two) Medical times Branch daily with meals. carvediloL 2020-0 Yes [id number] 12.5mg Take 1 Univers 12.5 mg 7-06 tablet by ity of tablet 00:00: mouth (two) Medical times Branch daily with meals. carvediloL 2020-0 Yes [id number] 12.5mg Take 1 Univers 12.5 mg 7-06 tablet by ity of tablet 00:00: mouth (two) Medical times Branch daily with meals. carvediloL 2020-0 Yes [id number] 12.5mg Take 1 Univers 12.5 mg 7-06 tablet by ity of tablet 00:00: mouth (two) Medical times Branch daily with meals. carvediloL 2020-0 Yes [id number] 12.5mg Take 1 Univers 12.5 mg 7-06 tablet by ity of tablet 00:00: mouth (two) Medical times Branch daily with meals. carvediloL 2020-0 Yes [id number] 12.5mg Take 1 Univers 12.5 mg 7-06 tablet by ity of tablet 00:00: mouth (two) Medical times Branch daily with meals. carvediloL 2020-0 Yes [id number] 12.5mg Take 1 Univers 12.5 mg 7-06 tablet by ity of tablet 00:00: mouth (two) Medical times Branch daily with meals. carvediloL 2020-0 Yes [id number] 12.5mg Take 1 Univers 12.5 mg 7-06 tablet by ity of tablet 00:00: mouth (two) Medical times Branch daily with meals. carvediloL 2020-0 Yes [id number] 12.5mg Take 1 Univers 12.5 mg 7-06 tablet by ity of tablet 00:00: mouth 2 [place] 00 (two) Medical times Branch daily with meals. carvediloL 2020- Yes [id number] 12.5mg Take 1 Univers 12.5 mg 7-06 tablet by ity of tablet 00:00: mouth 2 [place] 00 (two) Medical times Branch daily with meals. carvediloL 2019-2020- No [id number] 12.5mg Take 1 Univers 12.5 mg 7-06 04-07 tablet by ity of tablet 00:00: 00:00 mouth 2 [place] 00 :00 (two) Medical times Branch daily with meals. carvediloL 2019-2020- No [id number] 12.5mg Take 1 Univers 12.5 mg 7-06 04-07 tablet by ity of tablet 00:00: 00:00 mouth 2 [place] 00 :00 (two) Medical times Branch daily with meals. carvediloL 2020- No [id number] 12.5mg Take 1 Univers 12.5 mg 7-06 04-07 tablet by ity of tablet 00:00: 00:00 mouth 2 [place] 00 :00 (two) Medical times Branch daily with meals. carvediloL 2019-2020- No [id number] 12.5mg Take 1 Univers 12.5 mg 7-06 04-07 tablet by ity of tablet 00:00: 00:00 mouth 2 [place] 00 :00 (two) Medical times Branch daily with meals. amLODIPine 2020-0 Yes [id number] 10mg Take 1 U nivers 10 mg 6-09 tablet by ity of tablet 00:00: mouth [place] 00 daily. Medical Branch amLODIPine 2020-0 Yes [id number] 10mg Take 1 U nivers 10 mg 6-09 tablet by ity of tablet 00:00: mouth [place] 00 daily. Medical Branch amLODIPine 2020-0 Yes [id number] 10mg Take 1 U nivers 10 mg 6-09 tablet by ity of tablet 00:00: mouth [place] 00 daily. Medical Branch amLODIPine 2019-0 2019- No [id number] 10mg Take 1 Univers 10 mg 6-09 10-07 tablet by ity of tablet 00:00: 00:00 mouth [place] 00 :00 daily. Medical Branch amLODIPine 2020-0 2019- No [id number] 10mg Take 1 Univers 10 mg 6-09 10-07 tablet by ity of tablet 00:00: 00:00 mouth [place] 00 :00 daily. Medical Branch amLODIPine 2020-0 Yes [id number] 10mg Take 1 U nivers 10 mg 6-08 tablet by ity of tablet 00:00: mouth [place] 00 daily. Medical Branch carvediloL 2020-0 Yes [id number] 12.5mg Take 1 Univers 12.5 mg 4-06 tablet by ity of tablet 00:00: mouth 2 (two) Medical times Branch daily with meals. carvediloL 2020-0 Yes [id number] 12.5mg Take 1 Univers 12.5 mg 4-06 tablet by ity of tablet 00:00: mouth (two) Medical times Branch daily with meals. carvediloL 2020-0 Yes [id number] 12.5mg Take 1 Univers 12.5 mg 4-06 tablet by ity of tablet 00:00: mouth (two) Medical times Branch daily with meals. carvediloL 2020-0 Yes [id number] 12.5mg Take 1 Univers 12.5 mg 4-06 tablet by ity of tablet 00:00: mouth (two) Medical times Branch daily with meals. carvediloL 2020-0 Yes [id number] 12.5mg Take 1 Univers 12.5 mg 4-06 tablet by ity of tablet 00:00: mouth (two) Medical times Branch daily with meals. carvediloL 2020-0 Yes [id number] 12.5mg Take 1 Univers 12.5 mg 4-06 tablet by ity of tablet 00:00: mouth (two) Medical times Branch daily with meals. carvediloL 2020-0 Yes [id number] 12.5mg Take 1 Univers 12.5 mg 4-06 tablet by ity of tablet 00:00: mouth [place] (two) Medical times Branch daily with meals. carvediloL 2020-0 Yes [id number] 12.5mg Take 1 Univers 12.5 mg 4-06 tablet by ity of tablet 00:00: mouth 2 (two) Medical times Branch daily with meals. carvediloL 2020-0 Yes [id number] 12.5mg Take 1 Univers 12.5 mg 4-06 tablet by ity of tablet 00:00: mouth [address] [place] [address] 00 (two) Medical times Branch daily with meals. carvediloL 2020-0 Yes [id number] 12.5mg Take 1 Univers 12.5 mg 4-06 tablet by ity of tablet 00:00: mouth 2 [place] 00 (two) Medical times Branch daily with meals. carvediloL 2020-0 Yes [id number] 12.5mg Take 1 Univers 12.5 mg 4-06 tablet by ity of tablet 00:00: mouth [address] [place] [address] 00 (two) Medical times Branch daily with meals. carvediloL 2020-0 Yes [id number] 12.5mg Take 1 Univers 12.5 mg 4-06 tablet by ity of tablet 00:00: mouth [address] [place] [address] 00 (two) Medical times Branch daily with meals. carvediloL 2020-0 2020- No [id number] 12.5mg Take 1 Univers 12.5 mg 4-06 07-06 tablet by ity of tablet 00:00: 00:[address] [place] [address] 00 :00 (two) Medical times Branch daily with meals. carvediloL 2020-0 2020- No [id number] 12.5mg Take 1 Univers 12.5 mg 4-06 07-06 tablet by ity of tablet 00:00: 00:[address] [place] [address] 00 :00 (two) Medical times Branch daily with meals. carvediloL 2020-0 2020- No [id number] 12.5mg Take 1 Univers 12.5 mg 4-06 04-06 tablet by ity of tablet 00:00: 00:[address] [place] [address] 00 :00 (two) Medical times Branch daily with meals. carvediloL 2020-0 Yes [id number] 6.25mg Take 1 Univers 6.25 mg 4-01 tablet by ity of tablet 00:00: mouth [address] [place] [address] 00 (two) Medical times Branch daily with meals. amLODIPine 2020-0 Yes [id number] 10mg Take 1 U nivers 10 mg 4-01 tablet by ity of tablet 00:00: mouth [place] 00 daily. Medical Branch amLODIPine 2020-0 Yes [id number] 10mg Take 1 U nivers 10 mg 4-01 tablet by ity of tablet 00:00: mouth [place] 00 daily. Medical Branch amLODIPine 2020-0 Yes [id number] 10mg Take 1 U nivers 10 mg 4-01 tablet by ity of tablet 00:00: mouth 00 daily. Medical Branch amLODIPine 2019-0 Yes [id number] 10mg Take 1 U nivers 10 mg 4-01 tablet by ity of tablet 00:00: mouth 00 daily. Medical Branch amLODIPine 2019-0 2020- No [id number] 10mg Take 1 Univers 10 mg 4-01 06-08 tablet by ity of tablet 00:00: 00:00 mouth [place] 00 :00 daily. Medical Branch carvediloL 2019-0 2020- No [id number] 6.25mg Take 1 Univers 6.25 mg 4- 04-06 tablet by ity of tablet 00:00: 00:00 mouth 2 [place] 00 :00 (two) Medical times Branch daily with meals. carvediloL 2020-0 Yes [id number] 3.125mg Take 1 Univers 3.125 mg 3-09 tablet by ity of tablet 00:00: mouth 2 00 (two) Medical times Branch daily with meals. carvediloL 2020-0 Yes [id number] 3.125mg Take 1 Univers 3.125 mg 3-09 tablet by ity of tablet 00:00: mouth 00 (two) Medical times Branch daily with meals. carvediloL 2020-0 Yes [id number] 3.125mg Take 1 Univers 3.125 mg 3-09 tablet by ity of tablet 00:00: mouth 2 00 (two) Medical times Branch daily with meals. carvediloL 2020-0 Yes [id number] 3.125mg Take 1 Univers 3.125 mg 3-09 tablet by ity of tablet 00:00: mouth 2 00 (two) Medical times Branch daily with meals. carvediloL 2019-0 2020- No [id number] 3.125mg Take 1 Univers 3.125 mg 3-09 04-01 tablet by ity o f tablet 00:00: 00:00 mouth 2 [place] 00 :00 (two) Medical times Branch daily with meals. amLODIPine 2019-0 Yes [id number] 10mg Take 1 U nivers 10 mg 2-11 tablet by ity of tablet 00:00: mouth [place] 00 daily. Medical Branch amLODIPine 2019-0 Yes [id number] 10mg Take 1 U nivers 10 mg 2-11 tablet by ity of tablet 00:00: mouth 00 daily. Medical Branch amLODIPine 2019-0 Yes [id number] 10mg Take 1 U nivers 10 mg 2-11 tablet by ity of tablet 00:00: mouth [place] 00 daily. Medical Branch amLODIPine 2020-0 Yes [id number] 10mg Take 1 U nivers 10 mg 2-11 tablet by ity of tablet 00:00: mouth [place] 00 daily. Medical Branch amLODIPine 2020-0 Yes [id number] 10mg Take 1 U nivers 10 mg 2-11 tablet by ity of tablet 00:00: mouth [place] 00 daily. Medical Branch amLODIPine 2020-0 Yes [id number] 10mg Take 1 U nivers 10 mg 2-11 tablet by ity of tablet 00:00: mouth [place] 00 daily. Medical Branch amLODIPine 2020-0 Yes [id number] 10mg Take 1 U nivers 10 mg 2-11 tablet by ity of tablet 00:00: mouth [place] 00 daily. Medical Branch amLODIPine 2020-0 Yes [id number] 10mg Take 1 U nivers 10 mg 2-11 tablet by ity of tablet 00:00: mouth [place] 00 daily. Medical Branch amLODIPine 2020-0 Yes [id number] 10mg Take 1 U nivers 10 mg 2-11 tablet by ity of tablet 00:00: mouth [place] 00 daily. Medical Branch amLODIPine 2020-0 2020- No [id number] 10mg Take 1 Univers 10 mg 2-11 [...] 1mg Take 1 mg Univers mg tablet 2- 02-04 by mouth ity o f 21:15: 00:00 [...] :00 bedtime. Medical Branch hydroCHLORO 2020-0 Yes [id number] 25mg Take 1 Univers thiazide 25 2-04 tablet by ity of mg tablet 00:00: mouth [place] 00 daily. Medical Branch hydroCHLORO 2020-0 Yes [id number] 25mg Take 1 Univers thiazide 25 2-04 tablet by ity of mg tablet 00:00: mouth [place] 00 daily. Medical Branch hydroCHLORO 2020-0 Yes [id number] 25mg Take 1 Univers thiazide 25 2-04 tablet by ity of mg tablet 00:00: mouth [place] 00 daily. Medical Branch hydroCHLORO 2020-0 Yes [id number] 25mg Take 1 [facility] thiazide 25 2-04 tablet by ity of mg tablet 00:00: mouth [place] 00 daily. Medical Branch hydroCHLORO 2020-0 Yes [id number] 25mg Take 1 [facility] thiazide 25 2-04 tablet by ity of mg tablet 00:00: mouth [place] 00 daily. Medical Branch hydroCHLORO 2019-0 2020- No [id number] 25mg Take 1 Univers thiazide 25 2-04 02-11 tablet by it y of mg tablet 00:00: 00:00 mouth [place] 00 :00 daily. Medical Branch hydroCHLORO 2020-0 2020- No [id number] 25mg Take 1 Univers thiazide 25 2-04 02-11 tablet by it y of mg tablet 00:00: 00:00 mouth [place] 00 :00 daily. Medical Branch hydroCHLORO 2020-0 2020- No [id number] 25mg Take 1 Univers thiazide 25 2-04 02-11 tablet by it y of mg tablet 00:00: 00:00 mouth [place] 00 :00 daily. Medical Branch hydroCHLORO 2020-0 2020- No [id number] 25mg Take 1 Univers thiazide 25 2-04 02-11 tablet by it y of mg tablet 00:00: 00:00 mouth [place] 00 :00 daily. Medical Branch hydroCHLORO 2020-0 2020- No [id number] 25mg Take 1 Univers thiazide 25 2-04 02-11 tablet by it y of mg tablet 00:00: 00:00 mouth [place] 00 :00 daily. Medical Branch clonazePAM 2020-0 Yes .5mg Take 0.5 Uni vers 0.5 mg 1-03 mg by ity of tablet 17:14: mouth at [place] [address] bedtime. Medical Branch cyanocobala 2020-0 Yes 1000ug 1,000 mcg Univers min 1,000 1-03 by ity of mcg/mL 17:14: Intramuscu [place] injection 40 lar route Medic al once every Branch month. aspirin 81 2020-0 Yes 81mg Take 81 mg U nivers mg chewable 1-03 by mouth ity of tablet 17:14: daily. [address] Branch simvastatin 2020-0 Yes 20mg Take 20 mg Univers 20 mg 1-03 by mouth ity of tablet 17:14: every [place] 40 evening. Medical Branch clonazePAM 2020-0 Yes .5mg Take 0.5 Uni vers 0.5 mg 1-03 mg by ity of tablet 17:14: mouth at [place] [address] bedtime. Medical Branch cyanocobala 2020-0 Yes 1000ug 1,000 mcg Univers min 1,000 1-03 by ity of mcg/mL 17:14: Intramuscu [place] injection 40 lar route Medic al once every Branch month. aspirin 81 2020-0 Yes 81mg Take 81 mg U nivers mg chewable 1-03 by mouth ity of tablet 17:14: daily. [address] simvastatin 2020-0 Yes 20mg Take 20 mg Univers 20 mg 1-03 by mouth ity of tablet 17:14: every [place] [address] evening. Medical Branch clonazePAM 2020-0 Yes .5mg Take 0.5 Uni vers 0.5 mg 1-03 mg by ity of tablet 17:14: mouth at [place] [address] bedtime. Medical Branch cyanocobala 2020-0 Yes 1000ug 1,000 mcg Univers min 1,000 1-03 by ity of mcg/mL 17:14: Intramuscu [place] injection 40 lar route Medic al once every Branch month. aspirin 81 2020-0 Yes 81mg Take 81 mg U nivers mg chewable 1-03 by mouth ity of tablet 17:14: daily. [address] simvastatin 2020-0 Yes 20mg Take 20 mg Univers 20 mg 1-03 by mouth ity of tablet 17:14: every [place] 40 evening. Medical Branch clonazePAM 2020-0 Yes .5mg Take 0.5 Uni vers 0.5 mg 1-03 mg by ity of tablet 17:14: mouth at [place] [address] bedtime. Medical Branch cyanocobala 2020-0 Yes 1000ug 1,000 mcg [facility] min 1,000 1-03 by ity of mcg/mL 17:14: Intramuscu [place] injection 40 lar route Medic al once every Branch month. aspirin 81 2020-0 Yes 81mg Take 81 mg U nivers mg chewable 1-03 by mouth ity of tablet 17:14: daily. [place] [address] [facility] Branch simvastatin 2020-0 Yes 20mg Take 20 mg [facility] 20 mg 1-03 by mouth ity of tablet 17:14: every [place] 40 evening. [facility] Branch clonazePAM 2020-0 Yes .5mg Take 0.5 Uni vers 0.5 mg 1-03 mg by ity of tablet 17:14: mouth at [place] [address] bedtime. [facility] cyanocobala 2020-0 Yes 1000ug 1,000 mcg [facility] min 1,000 1-03 by ity of mcg/mL 17:14: Intramuscu [place] injection 40 lar route Medic al once every Branch month. aspirin 81 2020-0 Yes 81mg Take 81 mg U nivers mg chewable 1-03 by mouth ity of tablet 17:14: daily. [place] [address] [facility] Branch simvastatin 2020-0 Yes 20mg Take 20 mg [facility] 20 mg 1-03 by mouth ity of tablet 17:14: every [place] 40 evening. [facility] Branch clonazePAM 2020-0 Yes .5mg Take 0.5 Uni vers 0.5 mg 1-03 mg by ity of tablet 17:14: mouth at [place] [address] bedtime. [facility] cyanocobala 2020-0 Yes 1000ug 1,000 mcg [facility] min 1,000 1-03 by ity of mcg/mL 17:14: Intramuscu [place] injection 40 lar route Medic al once every Branch month. aspirin 81 2020-0 Yes 81mg Take 81 mg U nivers mg chewable 1-03 by mouth ity of tablet 17:14: daily. [place] [address] [facility] Branch simvastatin 2020-0 Yes 20mg Take 20 mg [facility] 20 mg 1-03 by mouth ity of tablet 17:14: every [place] 40 evening. [facility] Branch clonazePAM 2020-0 Yes .5mg Take 0.5 Uni vers 0.5 mg 1-03 mg by ity of tablet 17:14: mouth at [place] [address] bedtime. [facility] cyanocobala 2020-0 Yes 1000ug 1,000 mcg [facility] min 1,000 1-03 by ity of mcg/mL 17:14: Intramuscu [place] injection 40 lar route Medic al once every Branch month. aspirin 81 2020-0 Yes 81mg Take 81 mg U nivers mg chewable 1-03 by mouth ity of tablet 17:14: daily. [place] [address] [facility] Branch simvastatin 2020-0 Yes 20mg Take 20 mg [facility] 20 mg 1-03 by mouth ity of tablet 17:14: every [place] 40 evening. [facility] Branch clonazePAM 2020-0 Yes .5mg Take 0.5 Uni vers 0.5 mg 1-03 mg by ity of tablet 17:14: mouth at [place] [address] bedtime. [facility] cyanocobala 2020-0 Yes 1000ug 1,000 mcg [facility] min 1,000 1-03 by ity of mcg/mL 17:14: Intramuscu [place] injection 40 lar route Medic al once every Branch month. aspirin 81 2020-0 Yes 81mg Take 81 mg U nivers mg chewable 1-03 by mouth ity of tablet 17:14: daily. [place] [address] [facility] Branch simvastatin 2020-0 Yes 20mg Take 20 mg [facility] 20 mg 1-03 by mouth ity of tablet 17:14: every [place] [address] evening. Medical Branch clonazePAM 2020-0 Yes .5mg Take 0.5 Uni vers 0.5 mg 1-03 mg by ity of tablet 17:14: mouth at [place] [address] bedtime. [facility] cyanocobala 2020-0 Yes 1000ug 1,000 mcg [facility] min 1,000 1-03 by ity of mcg/mL 17:14: Intramuscu [place] injection 40 lar route Medic al once every Branch month. aspirin 81 2020-0 Yes 81mg Take 81 mg U nivers mg chewable 1-03 by mouth ity of tablet 17:14: daily. [place] [address] [facility] Branch simvastatin 2020-0 Yes 20mg Take 20 mg [facility] 20 mg 1-03 by mouth ity of tablet 17:14: every [place] 40 evening. [facility] Branch clonazePAM 2020-0 Yes .5mg Take 0.5 Uni vers 0.5 mg 1-03 mg by ity of tablet 17:14: mouth at [place] [address] bedtime. [facility] cyanocobala 2020-0 Yes 1000ug 1,000 mcg [facility] min 1,000 1-03 by ity of mcg/mL 17:14: Intramuscu [place] injection 40 lar route Medic al once every Branch month. aspirin 81 2020-0 Yes 81mg Take 81 mg U nivers mg chewable 1-03 by mouth ity of tablet 17:14: daily. [place] [address] [facility] Branch simvastatin 2020-0 Yes 20mg Take 20 mg [facility] 20 mg 1-03 by mouth ity of tablet 17:14: every [place] 40 evening. [facility] Branch clonazePAM 2020-0 Yes .5mg Take 0.5 Uni vers 0.5 mg 1-03 mg by ity of tablet 17:14: mouth at [place] [address] bedtime. [facility] cyanocobala 2020-0 Yes 1000ug 1,000 mcg [facility] min 1,000 1-03 by ity of mcg/mL 17:14: Intramuscu [place] injection 40 lar route Medic al once every Branch month. aspirin 81 2020-0 Yes 81mg Take 81 mg U nivers mg chewable 1-03 by mouth ity of tablet 17:14: daily. [place] [address] [facility] Branch simvastatin 2020-0 Yes 20mg Take 20 mg [facility] 20 mg 1-03 by mouth ity of tablet 17:14: every [place] 40 evening. [facility] clonazePAM 2020-0 Yes .5mg Take 0.5 Uni vers 0.5 mg 1-03 mg by ity of tablet 17:14: mouth at [place] [address] bedtime. [facility] cyanocobala 2020-0 Yes 1000ug 1,000 mcg [facility] min 1,000 1-03 by ity of mcg/mL 17:14: Intramuscu [place] injection 40 lar route Medic al once every Branch month. aspirin 81 2020-0 Yes 81mg Take 81 mg U nivers mg chewable 1-03 by mouth ity of tablet 17:14: daily. [place] [address] [facility] Branch simvastatin 2020-0 Yes 20mg Take [...] by mouth ity of tablet 17:14: daily. [place] [address] [facility] Branch simvastatin 2020-0 Yes 20mg Take 20 mg [facility] 20 mg 1-03 by mouth ity of tablet 17:14: every [place] 40 evening. [facility] Branch clonazePAM 2020-0 Yes .5mg Take 0.5 [facility] vers 0.5 mg 1-03 mg by ity of tablet 17:14: mouth at [place] [address] bedtime. [facility] cyanocobala 2020-0 Yes 1000ug 1,000 mcg [facility] min 1,000 1-03 by ity of mcg/mL 17:14: Intramuscu [place] injection 40 lar route Medic al once every Branch month. aspirin 81 2020-0 Yes 81mg Take 81 mg U nivers mg chewable 1-03 by mouth ity of tablet 17:14: daily. [place] [address] [facility] Branch simvastatin 2020-0 Yes 20mg Take 20 mg [facility] 20 mg 1-03 by mouth ity of tablet 17:14: every [place] 40 evening. [facility] clonazePAM 2020-0 Yes .5mg Take 0.5 [facility] vers 0.5 mg 1-03 mg by ity of tablet 17:14: mouth at [place] [address] bedtime. [facility] cyanocobala 2020-0 Yes 1000ug 1,000 mcg [facility] min 1,000 1-03 by ity of mcg/mL 17:14: Intramuscu [place] injection 40 lar route Medic al once every Branch month. aspirin 81 2020-0 Yes 81mg Take 81 mg U nivers mg chewable 1-03 by mouth ity of tablet 17:14: daily. [place] [address] [facility] Branch simvastatin 2020-0 Yes 20mg Take 20 mg [facility] 20 mg 1-03 by mouth ity of tablet 17:14: every [place] 40 evening. [facility] clonazePAM 2020-0 Yes .5mg Take 0.5 [facility] vers 0.5 mg 1-03 mg by ity of tablet 17:14: mouth at [place] [address] bedtime. [facility] cyanocobala 2020-0 Yes 1000ug 1,000 mcg [facility] min 1,000 1-03 by ity of mcg/mL 17:14: Intramuscu [place] injection 40 lar route Medic al once every Branch month. aspirin 81 2020-0 Yes 81mg Take 81 mg U nivers mg chewable 1-03 by mouth ity of tablet 17:14: daily. [address] simvastatin 2020-0 Yes 20mg Take 20 mg [facility] 20 mg 1-03 by mouth ity of tablet 17:14: every [place] 40 evening. [facility] Branch clonazePAM 2020-0 Yes .5mg Take 0.5 [facility] vers 0.5 mg 1-03 mg by ity of tablet 17:14: mouth at [place] [address] bedtime. [facility] cyanocobala 2020-0 Yes 1000ug 1,000 mcg [facility] min 1,000 1-03 by ity of mcg/mL 17:14: Intramuscu [place] injection 40 lar route Medic al once every Branch month. aspirin 81 2020-0 Yes 81mg Take 81 mg [facility] nivers mg chewable 1-03 by mouth ity of tablet 17:14: daily. [address] simvastatin 2020-0 Yes 20mg Take 20 mg [facility] 20 mg 1-03 by mouth ity of tablet 17:14: every [place] 40 evening. [facility] clonazePAM 2020-0 Yes .5mg Take 0.5 [facility] vers 0.5 mg 1-03 mg by ity of tablet 17:14: mouth at [place] [address] bedtime. [facility] cyanocobala 2020-0 Yes 1000ug 1,000 mcg [facility] min 1,000 1-03 by ity of mcg/mL 17:14: Intramuscu [place] injection 40 lar route Medic al once every Branch month. aspirin 81 2020-0 Yes 81mg Take 81 mg U nivers mg chewable 1-03 by mouth ity of tablet 17:14: daily. [address] simvastatin 2020-0 Yes 20mg Take 20 mg [facility] 20 mg 1-03 by mouth ity of tablet 17:14: every [place] 40 evening. [facility] Branch clonazePAM 2020-0 Yes .5mg Take 0.5 [facility] vers 0.5 mg 1-03 mg by ity of tablet 17:14: mouth at [place] [address] bedtime. [facility] cyanocobala 2020-0 Yes 1000ug 1,000 mcg [facility] min 1,000 1-03 by ity of mcg/mL 17:14: Intramuscu [place] injection 40 lar route Medic al once every Branch month. aspirin 81 2020-0 Yes 81mg Take 81 mg U nivers mg chewable 1-03 by mouth ity of tablet 17:14: daily. [address] simvastatin 2020-0 Yes 20mg Take 20 [...] by mouth ity of tablet 17:14: daily. [address] Branch simvastatin 2020-0 Yes 20mg Take 20 mg [facility] 20 mg 1-03 by mouth ity of tablet 17:14: every [place] 40 evening. [facility] Branch clonazePAM 2020-0 Yes .5mg Take 0.5 Uni vers 0.5 mg 1-03 mg by ity of tablet 17:14: mouth at [place] [address] bedtime. [facility] cyanocobala 2020-0 Yes 1000ug 1,000 mcg [facility] min 1,000 1-03 by ity of mcg/mL 17:14: Intramuscu [place] injection 40 lar route Medic al once every Branch month. aspirin 81 2020-0 Yes 81mg Take 81 mg U nivers mg chewable 1-03 by mouth ity of tablet 17:14: daily. [address] simvastatin 2020-0 Yes 20mg Take 20 mg [facility] 20 mg 1-03 by mouth ity of tablet 17:14: every [place] 40 evening. [facility] Branch clonazePAM 2020-0 Yes .5mg Take 0.5 Uni vers 0.5 mg 1-03 mg by ity of tablet 17:14: mouth at [place] [address] bedtime. [facility] Branch cyanocobala 2020-0 Yes 1000ug 1,000 mcg [facility] min 1,000 1-03 by ity of mcg/mL 17:14: Intramuscu [place] injection 40 lar route Medic al once every Branch month. aspirin 81 2020-0 Yes 81mg Take 81 mg U nivers mg chewable 1-03 by mouth ity of tablet 17:14: daily. [address] simvastatin 2020-0 Yes 20mg Take 20 [...] by mouth ity of tablet 17:14: daily. [place] [address] [facility] Branch simvastatin 2020-0 Yes 20mg Take 20 mg [facility] 20 mg 1-03 by mouth ity of tablet 17:14: every [place] 40 evening. [facility] Branch clonazePAM 2020-0 Yes .5mg Take 0.5 Uni vers 0.5 mg 1-03 mg by ity of tablet 17:14: mouth at [place] [address] bedtime. [facility] cyanocobala 2020-0 Yes 1000ug 1,000 mcg [facility] min 1,000 1-03 by ity of mcg/mL 17:14: Intramuscu [place] injection 40 lar route Medic al once every Branch month. aspirin 81 2020-0 Yes 81mg Take 81 mg U nivers mg chewable 1-03 by mouth ity of tablet 17:14: daily. [place] [address] [facility] Branch simvastatin 2020-0 Yes 20mg Take 20 mg [facility] 20 mg 1-03 by mouth ity of tablet 17:14: every [place] 40 evening. [facility] Branch clonazePAM 2020-0 Yes .5mg Take 0.5 Uni vers 0.5 mg 1-03 mg by ity of tablet 17:14: mouth at [place] [address] bedtime. [facility] cyanocobala 2020-0 Yes 1000ug 1,000 mcg [facility] min 1,000 1-03 by ity of mcg/mL 17:14: Intramuscu [place] injection 40 lar route Medic al once every Branch month. aspirin 81 2020-0 Yes 81mg Take 81 mg U nivers mg chewable 1-03 by mouth ity of tablet 17:14: daily. [place] [address] [facility] Branch simvastatin 2020-0 Yes 20mg Take [...] by mouth ity of tablet 17:14: daily. [place] [address] [facility] Branch simvastatin 2020-0 Yes 20mg Take [...] by mouth ity of tablet 17:14: daily. [place] [address] [facility] simvastatin 2020-0 Yes 20mg Take 20 mg [facility] 20 mg 1-03 by mouth ity of tablet 17:14: every [place] 40 evening. [facility] clonazePAM 2020-0 Yes .5mg Take 0.5 [facility] vers 0.5 mg 1-03 mg by ity of tablet 17:14: mouth at [place] [address] bedtime. [facility] cyanocobala 2020-0 Yes 1000ug 1,000 mcg [facility] min 1,000 1-03 by ity of mcg/mL 17:14: Intramuscu [place] injection 40 lar route Medic al once every Branch month. aspirin 81 2020-0 Yes 81mg Take 81 mg U nivers mg chewable 1-03 by mouth ity of tablet 17:14: daily. [place] [address] [facility] Branch simvastatin 2020-0 Yes 20mg Take [...] by mouth ity of tablet 17:14: daily. [place] [address] [facility] simvastatin 2020-0 Yes 20mg Take 20 mg [facility] 20 mg 1-03 by mouth ity of tablet 17:14: every [place] 40 evening. [facility] clonazePAM 2020-0 Yes .5mg Take 0.5 Uni vers 0.5 mg 1-03 mg by ity of tablet 17:14: mouth at [place] [address] bedtime. [facility] cyanocobala 2020-0 Yes 1000ug 1,000 mcg [facility] min 1,000 1-03 by ity of mcg/mL 17:14: Intramuscu [place] injection 40 lar route Medic al once every Branch month. aspirin 81 2020-0 Yes 81mg Take 81 mg U nivers mg chewable 1-03 by mouth ity of tablet 17:14: daily. [place] [address] [facility] simvastatin 2020-0 Yes 20mg Take 20 mg [facility] 20 mg 1-03 by mouth ity of tablet 17:14: every [place] 40 evening. [facility] clonazePAM 2020-0 Yes .5mg Take 0.5 Uni vers 0.5 mg 1-03 mg by ity of tablet 17:14: mouth at [place] [address] bedtime. [facility] cyanocobala 2020-0 Yes 1000ug 1,000 mcg [facility] min 1,000 1-03 by ity of mcg/mL 17:14: Intramuscu [place] injection 40 lar route Medic al once every Branch month. aspirin 81 2020-0 Yes 81mg Take 81 mg U nivers mg chewable 1-03 by mouth ity of tablet 17:14: daily. [address] Branch simvastatin 2020-0 Yes 20mg Take 20 mg [facility] 20 mg 1-03 by mouth ity of tablet 17:14: every [place] 40 evening. Medical Branch clonazePAM 2020-0 Yes .5mg Take 0.5 Uni vers 0.5 mg 1-03 mg by ity of tablet 17:14: mouth at [place] [address] bedtime. [facility] cyanocobala 2020-0 Yes 1000ug 1,000 mcg [facility] min 1,000 1-03 by ity of mcg/mL 17:14: Intramuscu [place] injection 40 lar route Medic al once every Branch month. aspirin 81 2020-0 Yes 81mg Take 81 mg U nivers mg chewable 1-03 by mouth ity of tablet 17:14: daily. [place] [address] [facility] Branch simvastatin 2020-0 Yes 20mg Take 20 mg [facility] 20 mg 1-03 by mouth ity of tablet 17:14: every [place] 40 evening. [facility] Branch clonazePAM 2020-0 Yes .5mg Take 0.5 Uni vers 0.5 mg 1-03 mg by ity of tablet 17:14: mouth at [place] [address] bedtime. [facility] cyanocobala 2020-0 Yes 1000ug 1,000 mcg [facility] min 1,000 1-03 by ity of mcg/mL 17:14: Intramuscu [place] injection 40 lar route Medic al once every Branch month. aspirin 81 2020-0 Yes 81mg Take 81 mg U nivers mg chewable 1-03 by mouth ity of tablet 17:14: daily. [address] Branch simvastatin 2020-0 Yes 20mg Take 20 mg [facility] 20 mg 1-03 by mouth ity of tablet 17:14: every [place] [address] evening. Medical Branch clonazePAM 2020-0 Yes .5mg Take 0.5 Uni vers 0.5 mg 1-03 mg by ity of tablet 17:14: mouth at [place] [address] bedtime. [facility] Branch cyanocobala 2020-0 Yes 1000ug 1,000 mcg [facility] min 1,000 1-03 by ity of mcg/mL 17:14: Intramuscu [place] injection 40 lar route Medic al once every Branch month. aspirin 81 2020-0 Yes 81mg Take 81 mg U nivers mg chewable 1-03 by mouth ity of tablet 17:14: daily. [place] [address] [facility] Branch simvastatin 2020-0 Yes 20mg Take 20 mg [facility] 20 mg 1-03 by mouth ity of tablet 17:14: every [place] [address] evening. Medical Branch clonazePAM 2020-0 Yes .5mg Take 0.5 Uni vers 0.5 mg 1-03 mg by ity of tablet 17:14: mouth at [place] [address] bedtime. [facility] cyanocobala 2020-0 Yes 1000ug 1,000 mcg [facility] min 1,000 1-03 by ity of mcg/mL 17:14: Intramuscu [place] injection 40 lar route Medic al once every Branch month. aspirin 81 2020-0 Yes 81mg Take 81 mg U nivers mg chewable 1-03 by mouth ity of tablet 17:14: daily. [address] simvastatin 2020-0 Yes 20mg Take 20 mg [facility] 20 mg 1-03 by mouth ity of tablet 17:14: every [place] 40 evening. [facility] Branch clonazePAM 2020-0 Yes .5mg Take 0.5 Uni vers 0.5 mg 1-03 mg by ity of tablet 17:14: mouth at [place] [address] bedtime. [facility] cyanocobala 2020-0 Yes 1000ug 1,000 mcg [facility] min 1,000 1-03 by ity of mcg/mL 17:14: Intramuscu [place] injection 40 lar route Medic al once every Branch month. aspirin 81 2020-0 Yes 81mg Take 81 mg U nivers mg chewable 1-03 by mouth ity of tablet 17:14: daily. [address] simvastatin 2020-0 Yes 20mg Take 20 mg [facility] 20 mg 1-03 by mouth ity of tablet 17:14: every [place] 40 evening. [facility] Branch clonazePAM 2020-0 Yes .5mg Take 0.5 Uni vers 0.5 mg 1-03 mg by ity of tablet 17:14: mouth at [place] [address] bedtime. [facility] cyanocobala 2020-0 Yes 1000ug 1,000 mcg [facility] min 1,000 1-03 by ity of mcg/mL 17:14: Intramuscu [place] injection 40 lar route Medic al once every Branch month. aspirin 81 2020-0 Yes 81mg Take 81 mg U nivers mg chewable 1-03 by mouth ity of tablet 17:14: daily. [address] simvastatin 2020-0 Yes 20mg Take 20 mg [facility] 20 mg 1-03 by mouth ity of tablet 17:14: every [place] [address] evening. Medical Branch clonazePAM 2020-0 Yes .5mg Take 0.5 Uni vers 0.5 mg 1-03 mg by ity of tablet 17:14: mouth at [place] [address] bedtime. [facility] cyanocobala 2020-0 Yes 1000ug 1,000 mcg [facility] min 1,000 1-03 by ity of mcg/mL 17:14: Intramuscu [place] injection 40 lar route Medic al once every Branch month. aspirin 81 2020-0 Yes 81mg Take 81 mg U nivers mg chewable 1-03 by mouth ity of tablet 17:14: daily. [place] 40 Medical Branch simvastatin 2020-0 Yes 20mg Take [...] by mouth ity of tablet 17:14: daily. [address] Branch simvastatin 2020-0 Yes 20mg Take 20 mg [facility] 20 mg 1-03 by mouth ity of tablet 17:14: every [place] 40 evening. Medical Branch clonazePAM 2020-0 Yes .5mg Take 0.5 Uni vers 0.5 mg 1-03 mg by ity of tablet 17:14: mouth at [place] [address] bedtime. [facility] cyanocobala 2020-0 Yes 1000ug 1,000 mcg [facility] min 1,000 1-03 by ity of mcg/mL 17:14: Intramuscu [place] injection 40 lar route Medic al once every Branch month. aspirin 81 2020-0 Yes 81mg Take 81 mg U nivers mg chewable 1-03 by mouth ity of tablet 17:14: daily. [address] simvastatin 2020-0 Yes 20mg Take 20 mg [facility] 20 mg 1-03 by mouth ity of tablet 17:14: every [place] 40 evening. [facility] Branch clonazePAM 2020-0 Yes .5mg Take 0.5 Uni vers 0.5 mg 1-03 mg by ity of tablet 17:14: mouth at [place] [address] bedtime. Medical Branch cyanocobala 2020-0 Yes 1000ug 1,000 mcg [facility] min 1,000 1-03 by ity of mcg/mL 17:14: Intramuscu [place] injection 40 lar route Medic al once every Branch month. aspirin 81 2020-0 Yes 81mg Take 81 mg U nivers mg chewable 1-03 by mouth ity of tablet 17:14: daily. [address] simvastatin 2020-0 Yes 20mg Take 20 [...] by mouth ity of tablet 17:14: daily. [place] [address] [facility] Branch simvastatin 2020-0 Yes 20mg Take 20 mg [facility] 20 mg 1-03 by mouth ity of tablet 17:14: every [place] 40 evening. [facility] Branch clonazePAM 2020-0 Yes .5mg Take 0.5 Uni vers 0.5 mg 1-03 mg by ity of tablet 17:14: mouth at [place] [address] bedtime. [facility] cyanocobala 2020-0 Yes 1000ug 1,000 mcg [facility] min 1,000 1-03 by ity of mcg/mL 17:14: Intramuscu [place] injection 40 lar route Medic al once every Branch month. aspirin 81 2020-0 Yes 81mg Take 81 mg U nivers mg chewable 1-03 by mouth ity of tablet 17:14: daily. [place] [address] [facility] Branch simvastatin 2020-0 Yes 20mg Take 20 mg [facility] 20 mg 1-03 by mouth ity of tablet 17:14: every [place] 40 evening. [facility] Branch clonazePAM 2020-0 Yes .5mg Take 0.5 Uni vers 0.5 mg 1-03 mg by ity of tablet 11:14: mouth at [place] [address] bedtime. [facility] Branch cyanocobala 2020-0 Yes 1000ug 1,000 mcg [facility] min 1,000 1-03 by ity of mcg/mL 11:14: Intramuscu [place] injection 40 lar route Medic al once every Branch month. aspirin 81 2020-0 Yes 81mg Take 81 mg U nivers mg chewable 1-03 by mouth ity of tablet 11:14: daily. [place] [address] [facility] Branch simvastatin 2020-0 Yes 20mg Take 20 mg [facility] 20 mg 1-03 by mouth ity of tablet 11:14: every [place] 40 evening. [facility] Branch clonazePAM 2020-0 Yes .5mg Take 0.5 Uni vers 0.5 mg 1-03 mg by ity of tablet 11:14: mouth at [place] 40 bedtime. [facility] Branch cyanocobala 2020-0 Yes 1000ug 1,000 mcg [facility] min 1,000 1-03 by ity of mcg/mL 11:14: Intramuscu [place] injection 40 lar route Medic al once every Branch month. aspirin 81 2020-0 Yes 81mg Take 81 mg U nivers mg chewable 1-03 by mouth ity of tablet 11:14: daily. [address] Branch simvastatin 2020-0 Yes 20mg Take 20 mg [facility] 20 mg 1-03 by mouth ity of tablet 11:14: every [place] 40 evening. Medical Branch clonazePAM 2019-0 Yes .5mg Take 0.5 Uni vers 0.5 mg 1-03 mg by ity of tablet 11:14: mouth at [place] 40 bedtime. [facility] Branch cyanocobala 2019-0 Yes 1000ug 1,000 mcg [facility] min 1,000 1-03 by ity of mcg/mL 11:14: Intramuscu [place] injection 40 lar route Medic al once every Branch month. aspirin 81 2020-0 Yes 81mg Take 81 mg U nivers mg chewable 1-03 by mouth ity of tablet 11:14: daily. [address] simvastatin 2020-0 Yes 20mg Take 20 mg [facility] 20 mg 1-03 by mouth ity of tablet 11:14: every [place] 40 evening. Medical Branch rifAXIMin 2019- No [id number] 550mg Take 1 [facility] (XIFAXAN) 01-05 tablet by ity of 550 mg 00:00: 04:59 mouth 3 [place] tablet 00 :00 (three) Medical times [place] daily for 14 days. rifAXIMin 2019- No [id number] 550mg Take 1 [facility] (XIFAXAN) 01-05 tablet by ity of 550 mg 00:00: 04:59 mouth 3 [place] tablet 00 :00 (three) Medical times [place] daily for 14 days. rifAXIMin 2019- No [id number] 550mg Take 1 [facility] (XIFAXAN) 01-05 tablet by ity of 550 mg 00:00: 04:59 mouth 3 [place] tablet 00 :00 (three) Medical times [place] daily for 14 days. simethicone 2019-0 Yes PRN, Univer s (GAS 8-20 Starting ity of RELIEF) 40 17:59: Tue [place] mg/0.6 mL 00 12/08/18 at [facility] moisés drops 1259, Branch Until Discontinu ed, Routine, Intra-op lactated 2019- No 1000mL at 20 [facility] rs ringers IV 12-08 08-20 mL/hr, ity of infusion 17:45: 17:51 1,000 mL, [place] as 1,000 mL 00 :00 IV Medical Infusion, Branch ONCE, 1 dose, 12/08/18 at 1245, Routine, Endo Pre-op iohexol 2019- No 120mL 120 mL, [facility] rs (OMNIPAQUE 12-04-16 Intravenou it y of 350 20:45: 20:28 s, ONCE, 1 [place] BULK-150 00 :00 dose, Fri Medica l mL) 12/04/18 at [place] injection 1545, 120 mL Routine ondansetron 2018- Yes [id number] 8mg Take 1 [facility] (ZOFRAN) 8 8-16 tablet by ity of mg tablet 00:00: mouth [place] 00 every 8 Medical (eight) Branch hours as needed for Nausea and Vomiting (N/V). ondansetron 2018- Yes [id number] 8mg Take 1 [facility] (ZOFRAN) 8 8-16 tablet by ity of mg tablet 00:00: mouth [place] 00 every 8 Medical (eight) Branch hours as needed for Nausea and Vomiting (N/V). ondansetron 2018- Yes [id number] 8mg Take 1 [facility] (ZOFRAN) 8 8-16 tablet by ity of mg tablet 00:00: mouth [place] 00 every 8 Medical (eight) Branch hours as needed for Nausea and Vomiting (N/V). ondansetron 2019-0 Yes [id number] 8mg Take 1 [facility] (ZOFRAN) 8 8-16 tablet by ity of mg tablet 00:00: mouth [place] 00 every 8 Medical (eight) Branch hours as needed for Nausea and Vomiting (N/V). ondansetron 2019-0 Yes [id number] 8mg Take 1 [facility] (ZOFRAN) 8 8-16 tablet by ity of mg tablet 00:00: mouth [place] 00 every 8 Medical (eight) Branch hours as needed for Nausea and Vomiting (N/V). peg-electro 2018-0 Yes [id number] Take as [facility] lyte soln 8-16 directed ity of 236-22.74-6 00:00: before [place] .74 -5.86 00 colonoscop Medi moisés gram y Branch solution ondansetron 2019-0 Yes [id number] 8mg Take 1 [facility] (ZOFRAN) 8 8-16 tablet by ity of mg tablet 00:00: mouth [place] 00 every 8 Medical (eight) Branch hours as needed for Nausea and Vomiting (N/V). peg-electro 2018-0 Yes [id number] Take as [facility] lyte soln 8-16 directed ity of 236-22.74-6 00:00: before [place] .74 -5.86 00 colonoscop Medi moisés gram y Branch solution ondansetron 2019-0 Yes [id number] 8mg Take 1 [facility] (ZOFRAN) 8 8-16 tablet by ity of mg tablet 00:00: mouth [place] 00 every 8 Medical (eight) Branch hours as needed for Nausea and Vomiting (N/V). peg-electro 2018-0 Yes [id number] Take as [facility] lyte soln 8-16 directed ity of 236-22.74-6 00:00: before [place] .74 -5.86 00 colonoscop Medi moisés gram y Branch solution ondansetron 2019-0 Yes [id number] 8mg Take 1 [facility] (ZOFRAN) 8 8-16 tablet by ity of mg tablet 00:00: mouth [place] 00 every 8 Medical (eight) Branch hours as needed for Nausea and Vomiting (N/V). peg-electro 2018-0 Yes [id number] Take as [facility] lyte soln 8-16 directed ity of 236-22.74-6 00:00: before [place] .74 -5.86 00 colonoscop Medi moisés gram y Branch solution ondansetron 2019-0 Yes [id number] 8mg Take 1 [facility] (ZOFRAN) 8 8-16 tablet by ity of mg tablet 00:00: mouth [place] 00 every 8 Medical (eight) Branch hours as needed for Nausea and Vomiting (N/V). peg-electro 2019-0 Yes [id number] Take as [facility] lyte soln 8-16 directed ity of 236-22.74-6 00:00: before [place] .74 -5.86 00 colonoscop Medi moisés gram y Branch solution ondansetron 2019-0 Yes [id number] 8mg Take 1 [facility] ([facility] 8 8-16 tablet by ity of mg tablet 00:00: mouth [place] 00 every 8 Medical (eight) Branch hours as needed for Nausea and Vomiting (N/V). peg-electro 2018-0 Yes [id number] Take as [facility] lyte soln 8-16 directed ity of 236-22.74-6 00:[place] .[place] -5.[place] 00 colonoscop Medi mois[facility] gram y Branch solution ondansetron 2018-0 Yes [id number] 8mg Take 1 [facility] ([facility]) 8 8-16 tablet by ity of mg tablet 00:00: mouth [place] 00 every 8 Medical (eight) Branch hours as needed for Nausea and Vomiting (N/V). peg-electro 2018-0 Yes [id number] Take as [facility] lyte soln 8-16 directed ity of 236-22.74-6 00:00[place] .[place] -.[place] colonoscop [facility] mo[facility] gram y Branch solution ondansetron 2018-0 Yes [id number] 8mg Take 1 [facility] ([facility]) 8 8-16 tablet by ity of mg tablet 00:00: mouth [place] 00 every 8 Medical (eight) Branch hours as needed for Nausea and Vomiting (N/V). peg-electro 2018-0 Yes [id number] Take as [facility] lyte soln 8-16 directed ity of 236-22.74-6 00:00: [place] .[place] -5.86 00 colonoscop [facility] mois[facility] gram y Branch solution ondansetron 2019-0 Yes [id number] 8mg Take 1 [facility] ([facility]) 8 8-16 tablet by ity of mg tablet 00:00: mouth [place] 00 every 8 Medical (eight) Branch hours as needed for Nausea and Vomiting (N/V). peg-electro 2018-0 Yes [id number] Take as [facility] lyte soln 8-16 directed ity of 236-22.74-6 00:00: [place] .[place] -5.86 00 colonoscop [facility] mois[facility] gram y Branch solution ondansetron 2019-0 Yes [id number] 8mg Take 1 [facility] ([facility]) 8 8-16 tablet by ity of mg tablet 00:00: mouth [place] 00 every 8 Medical (eight) Branch hours as needed for Nausea and Vomiting (N/V). peg-electro 2019-0 Yes [id number] Take as [facility] lyte soln 8-16 directed ity of 236-22.74-6 00:00: [place] .[place] -5.86 00 colonoscop [facility] mois[facility] gram y Branch solution ondansetron 2019-0 Yes [id number] 8mg Take 1 [facility] ([facility]) 8 8-16 tablet by ity of mg tablet 00:00: mouth [place] 00 every 8 Medical (eight) Branch hours as needed for Nausea and Vomiting (N/V). peg-electro 2019-0 Yes [id number] Take as [facility] lyte soln 8-16 directed ity of 236-.74-6 00:00: [place] .[place] -5.86 00 colonoscop [facility] mo[facility] gram y Branch solution ondansetron 2019-0 Yes [id number] 8mg Take 1 [facility] ([facility]) 8 8-16 tablet by ity of mg tablet 00:00: mouth [place] 00 every 8 Medical (eight) Branch hours as needed for Nausea and Vomiting (N/V). peg-electro 2019-0 Yes [id number] Take as [facility] lyte soln 8-16 directed ity of 236-.74-6 00:00: [place] .74 -5.86 00 colonoscop [facility] mo[facility] gram y Branch solution ondansetron 2019-0 Yes [id number] 8mg Take 1 [facility] ([facility]) 8 8-16 tablet by ity of mg tablet 00:00: mouth [place] 00 every 8 Medical (eight) Branch hours as needed for Nausea and Vomiting (N/V). ondansetron 2019-0 Yes [id number] 8mg Take 1 [facility] ([facility]) 8 8-16 tablet by ity of mg tablet 00:00: mouth [place] 00 every 8 Medical (eight) Branch hours as needed for Nausea and Vomiting (N/V). ondansetron 2019-0 Yes [id number] 8mg Take 1 [facility] ([facility]) 8 8-16 tablet by ity of mg tablet 00:00: mouth [place] 00 every 8 Medical (eight) Branch hours as needed for Nausea and Vomiting (N/V). ondansetron 2019-0 Yes [id number] 8mg Take 1 [facility] ([facility]) 8 8-16 tablet by ity of mg tablet 00:00: mouth [place] 00 every 8 Medical (eight) Branch hours as needed for Nausea and Vomiting (N/V). ondansetron 2019-0 Yes [id number] 8mg Take 1 [facility] ([facility]) 8 8-16 tablet by ity of mg tablet 00:00: mouth [place] 00 every 8 Medical (eight) Branch hours as needed for Nausea and Vomiting (N/V). ondansetron 2019-0 Yes [id number] 8mg Take 1 [facility] ([facility]) 8 8-16 tablet by ity of mg tablet 00:00: mouth [place] 00 every 8 Medical (eight) Branch hours as needed for Nausea and Vomiting (N/V). ondansetron 2019-0 Yes [id number] 8mg Take 1 [facility] ([facility]) 8 8-16 tablet by ity of mg tablet 00:00: mouth [place] 00 every 8 Medical (eight) Branch hours as needed for Nausea and Vomiting (N/V). ondansetron 2019-0 Yes [id number] 8mg Take 1 [facility] ([facility]) 8 8-16 tablet by ity of mg tablet 00:00: mouth [place] 00 every 8 Medical (eight) Branch hours as needed for Nausea and Vomiting (N/V). ondansetron 2019-0 Yes [id number] 8mg Take 1 [facility] ([facility]) 8 8-16 tablet by ity of mg tablet 00:00: mouth [place] 00 every 8 Medical (eight) Branch hours as needed for Nausea and Vomiting (N/V). ondansetron 2019-0 Yes [id number] 8mg Take 1 [facility] ([facility]) 8 8-16 tablet by ity of mg tablet 00:00: mouth [place] 00 every 8 Medical (eight) Branch hours as needed for Nausea and Vomiting (N/V). ondansetron 2019-0 Yes [id number] 8mg Take 1 [facility] ([facility]) 8 8-16 tablet by ity of mg tablet 00:00: mouth [place] 00 every 8 Medical (eight) Branch hours as needed for Nausea and Vomiting (N/V). ondansetron 2019-0 Yes [id number] 8mg Take 1 [facility] ([facility]) 8 8-16 tablet by ity of mg tablet 00:00: mouth [place] 00 every 8 Medical (eight) Branch hours as needed for Nausea and Vomiting (N/V). ondansetron 2019-0 Yes [id number] 8mg Take 1 [facility] ([facility]) 8 8-16 tablet by ity of mg tablet 00:00: mouth [place] 00 every 8 Medical (eight) Branch hours as needed for Nausea and Vomiting (N/V). ondansetron 2019-0 Yes [id number] 8mg Take 1 [facility] ([facility]) 8 8-16 tablet by ity of mg tablet 00:00: mouth [place] 00 every 8 Medical (eight) Branch hours as needed for Nausea and Vomiting (N/V). ondansetron 2019-0 Yes [id number] 8mg Take 1 [facility] ([facility]) 8 8-16 tablet by ity of mg tablet 00:00: mouth [place] 00 every 8 Medical (eight) Branch hours as needed for Nausea and Vomiting (N/V). ondansetron 2019-0 Yes [id number] 8mg Take 1 [facility] ([facility]) 8 8-16 tablet by ity of mg tablet 00:00: mouth [place] 00 every 8 Medical (eight) Branch hours as needed for Nausea and Vomiting (N/V). ondansetron 2019-0 Yes [id number] 8mg Take 1 [facility] ([facility]) 8 8-16 tablet by ity of mg tablet 00:00: mouth [place] 00 every 8 Medical (eight) Branch hours as needed for Nausea and Vomiting (N/V). ondansetron 2019-0 Yes [id number] 8mg Take 1 [facility] ([facility]) 8 8-16 tablet by ity of mg tablet 00:00: mouth [place] 00 every 8 Medical (eight) Branch hours as needed for Nausea and Vomiting (N/V). ondansetron 2019-0 Yes [id number] 8mg Take 1 [facility] ([facility]) 8 8-16 tablet by ity of mg tablet 00:00: mouth [place] 00 every 8 Medical (eight) Branch hours as needed for Nausea and Vomiting (N/V). ondansetron 2019-0 Yes [id number] 8mg Take 1 [facility] ([facility]) 8 8-16 tablet by ity of mg tablet 00:00: mouth [place] 00 every 8 Medical (eight) Branch hours as needed for Nausea and Vomiting (N/V). ondansetron 2019- Yes [id number] 8mg Take 1 [facility] ([facility]) 8 8-16 tablet by ity of mg tablet 00:00: mouth [place] 00 every 8 Medical (eight) Branch hours as needed for Nausea and Vomiting (N/V). peg-electro 2018- Yes [id number] Take as [facility] lyte soln 8-16 directed ity of 236-22.74-6 00:00: [place] .74 -5.86 00 colonoscop [facility] gram y Branch solution ondansetron Yes [id number] 8mg Take 1 [facility] ([facility]) 8 8-16 tablet by ity of mg tablet 00:00: mouth [place] 00 every 8 Medical (eight) Branch hours as needed for Nausea and Vomiting (N/V). ondansetron 2018- Yes [id number] 8mg Take 1 [facility] ([facility]) 8 8-16 tablet by ity of mg tablet 00:00: mouth [place] 00 every 8 Medical (eight) Branch hours as needed for Nausea and Vomiting (N/V). ondansetron 2018- Yes [id number] 8mg Take 1 [facility] ([facility]) 8 8-16 tablet by ity of mg tablet 00:00: mouth [place] 00 every 8 Medical (eight) Branch hours as needed for Nausea and Vomiting (N/V). ondansetron 2018- Yes [id number] 8mg Take 1 [facility] ([facility]) 8 8-16 tablet by ity of mg tablet 00:00: mouth [place] 00 every 8 Medical (eight) Branch hours as needed for Nausea and Vomiting (N/V). ondansetron Yes [id number] 8mg Take 1 [facility] ([facility]) 8 8-16 tablet by ity of mg tablet 00:00: mouth [place] 00 every 8 Medical (eight) Branch hours as needed for Nausea and Vomiting (N/V). ondansetron 2019-0 Yes [id number] 8mg Take 1 [facility] ([facility]) 8 8-16 tablet by ity of mg tablet 00:00: mouth [place] 00 every 8 Medical (eight) Branch hours as needed for Nausea and Vomiting (N/V). ondansetron 2018- Yes [id number] 8mg Take 1 [facility] ([facility]) 8 8-16 tablet by ity of mg tablet 00:00: mouth [place] 00 every 8 Medical (eight) Branch hours as needed for Nausea and Vomiting (N/V). ondansetron 2019-0 Yes [id number] 8mg Take 1 [facility] ([facility]) 8 8-16 tablet by ity of mg tablet 00:00: mouth [place] 00 every 8 Medical (eight) Branch hours as needed for Nausea and Vomiting (N/V). ondansetron 2018- Yes [id number] 8mg Take 1 [facility] ([facility]) 8 8-16 tablet by ity of mg tablet 00:00: mouth [place] 00 every 8 Medical (eight) Branch hours as needed for Nausea and Vomiting (N/V). ondansetron 2018- Yes [id number] 8mg Take 1 [facility] ([facility]) 8 8-16 tablet by ity of mg tablet 00:00: mouth [place] 00 every 8 Medical (eight) Branch hours as needed for Nausea and Vomiting (N/V). ondansetron Yes [id number] 8mg Take 1 [facility] ([facility]) 8 8-16 tablet by ity of mg tablet 00:00: mouth [place] 00 every 8 Medical (eight) Branch hours as needed for Nausea and Vomiting (N/V). ondansetron 2018- Yes [id number] 8mg Take 1 [facility] ([facility]) 8 8-16 tablet by ity of mg tablet 00:00: mouth [place] 00 every 8 Medical (eight) Branch hours as needed for Nausea and Vomiting (N/V). ondansetron 2018- Yes [id number] 8mg Take 1 [facility] ([facility]) 8 8-16 tablet by ity of mg tablet 00:00: mouth [place] 00 every 8 Medical (eight) Branch hours as needed for Nausea and Vomiting (N/V). peg-electro Yes [id number] Take as [facility] lyte soln 8-16 directed ity of 236-22.74-6 00:00: [place] .74 -5.86 00 colonoscop Medi mois[facility] gram y Branch solution ondansetron 2018-0 Yes [id number] 8mg Take 1 [facility] ([facility]) 8 8-16 tablet by ity of mg tablet 00:00: mouth [place] 00 every 8 Medical (eight) Branch hours as needed for Nausea and Vomiting (N/V). ondansetron 2019- Yes [id number] 8mg Take 1 [facility] ([facility]) 8 8-16 tablet by ity of mg tablet 00:00: mouth [place] 00 every 8 Medical (eight) Branch hours as needed for Nausea and Vomiting (N/V). ondansetron 2018- Yes [id number] 8mg Take 1 [facility] ([facility]) 8 8-16 tablet by ity of mg tablet 00:00: mouth [place] 00 every 8 Medical (eight) Branch hours as needed for Nausea and Vomiting (N/V). ondansetron Yes [id number] 8mg Take 1 [facility] ([facility]) 8 8-16 tablet by ity of mg tablet 00:00: mouth [place] 00 every 8 Medical (eight) Branch hours as needed for Nausea and Vomiting (N/V). ondansetron Yes [id number] 8mg Take 1 [facility] ([facility]) 8 8-16 tablet by ity of mg tablet 00:00: mouth [place] 00 every 8 Medical (eight) Branch hours as needed for Nausea and Vomiting (N/V). ondansetron Yes [id number] 8mg Take 1 [facility] ([facility]) 8 8-16 tablet by ity of mg tablet 00:00: mouth [place] 00 every 8 Medical (eight) Branch hours as needed for Nausea and Vomiting (N/V). ondansetron Yes [id number] 8mg Take 1 [facility] ([facility]) 8 8-16 tablet by ity of mg tablet 00:00: mouth [place] 00 every 8 Medical (eight) Branch hours as needed for Nausea and Vomiting (N/V). ondansetron Yes [id number] 8mg Take 1 [facility] ([facility]) 8 8-16 tablet by ity of mg tablet 00:00: mouth [place] 00 every 8 Medical (eight) Branch hours as needed for Nausea and Vomiting (N/V). peg-electro Yes [id number] Take as [facility] lyte soln 8-16 directed ity of 236-22.74-6 00:00: [place] .74 -5.86 00 colonoscop Medi mois[facility] gram y Branch solution ondansetron Yes [id number] 8mg Take 1 [facility] ([facility]) 8 8-16 tablet by ity of mg tablet 00:00: mouth [place] 00 every 8 Medical (eight) Branch hours as needed for Nausea and Vomiting (N/V). ondansetron Yes [id number] 8mg Take 1 [facility] ([facility]) 8 8-16 tablet by ity of mg tablet 00:00: mouth [place] 00 every 8 Medical (eight) Branch hours as needed for Nausea and Vomiting (N/V). ondansetron Yes [id number] 8mg Take 1 [facility] ([facility]) 8 8-16 tablet by ity of mg tablet 00:00: mouth [place] 00 every 8 Medical (eight) Branch hours as needed for Nausea and Vomiting (N/V). ondansetron Yes [id number] 8mg Take 1 [facility] ([facility]) 8 8-16 tablet by ity of mg tablet 00:00: mouth [place] 00 every 8 Medical (eight) Branch hours as needed for Nausea and Vomiting (N/V). ondansetron Yes [id number] 8mg Take 1 [facility] ([facility]) 8 8-16 tablet by ity of mg tablet 00:00: mouth [place] 00 every 8 Medical (eight) Branch hours as needed for Nausea and Vomiting (N/V). ondansetron Yes [id number] 8mg Take 1 [facility] ([facility]) 8 8-16 tablet by ity of mg tablet 00:00: mouth [place] 00 every 8 Medical (eight) Branch hours as needed for Nausea and Vomiting (N/V). ondansetron Yes [id number] 8mg Take 1 [facility] ([facility]) 8 8-16 tablet by ity of mg tablet 00:00: mouth [place] 00 every 8 Medical (eight) Branch hours as needed for Nausea and Vomiting (N/V). peg-electro Yes [id number] Take as [facility] lyte soln 8-16 directed ity of 236-22.74-6 00:00: [place] .74 -5.86 00 colonoscop Medi mois[facility] gram y Branch solution ondansetron 2018- Yes [id number] 8mg Take 1 [facility] ([facility]) 8 8-16 tablet by ity of mg tablet 00:00: mouth [place] 00 every 8 Medical (eight) Branch hours as needed for Nausea and Vomiting (N/V). peg-electro 2019- No [id number] Take as [facility] lyte soln 12-0420 directed ity o f 236-22.74-6 00:00: 00:00 before [place] .74 -5.86 00 :00 colonoscop Medi mois[facility] gram y Branch solution ondansetron 2019- No [id number] 8mg Take 1 [facility] ([facility]) 8 12-04 tablet by ity of mg tablet 00:00: 00:00 mouth [place] 00 :00 every 8 Medical (eight) Branch hours as needed for Nausea and Vomiting (N/V). ondansetron 2018- No [id number] 8mg Take 1 [facility] ([facility]) 8 12-04 tablet by ity of mg tablet 00:00: 00:00 mouth [place] 00 :00 every 8 Medical (eight) Branch hours as needed for Nausea and Vomiting (N/V). liothyronin Yes Univer s e 5 mcg 8-10 ity of tablet 00:00: Medical Branch liothyronin 20190 Yes Univer s e 5 mcg 8-10 ity of tablet 00:00: [place] [facility] liothyronin 20190 Yes Univer s [...] 5 mcg 8-10 ity of tablet 00:00: [place] [address] Medical Branch liothyronin 2019-0 Yes Univer s e 5 mcg 8-10 ity of tablet 00:00: [place] [address] Medical Branch liothyronin 2019-0 Yes Univer s e 5 mcg 8-10 ity of tablet 00:00: [place] [address] Medical Branch liothyronin 2019-0 Yes Univer s e 5 mcg 8-10 ity of tablet 00:00: [place] [address] Medical Branch liothyronin 2019-0 Yes Univer s e 5 mcg 8-10 ity of tablet 00:00: [place] [address] Medical Branch liothyronin 2019-0 Yes Univer s e 5 mcg 8-10 ity of tablet 00:00: [place] [address] Medical Branch liothyronin 2019-0 Yes Univer s e 5 mcg 8-10 ity of tablet 00:00: [place] [address] Medical Branch liothyronin 2019-0 Yes Univer s e 5 mcg 8-10 ity of tablet 00:00: [place] [facility] liothyronin 2019-0 Yes Univer s e 5 mcg 8-10 ity of tablet 00:00: [place] [facility] liothyronin 2019-0 Yes Univer s e 5 mcg 8-10 ity of tablet 00:00: [place] [address] Medical Branch liothyronin 2019-0 Yes Univer s [...] 5 mcg 8-10 ity of tablet 00:00: [place] [address] Medical Branch liothyronin 2019-0 Yes Univer s e 5 mcg 8-10 ity of tablet 00:00: [place] 00 Medical Branch liothyronin 2019-0 Yes Univer s e 5 mcg 8-10 ity of tablet 00:00: [place] [address] Medical Branch liothyronin 2019-0 Yes Univer s e 5 mcg 8-10 ity of tablet 00:00: [place] 00 Medical Branch liothyronin 2019-0 Yes Univer s e 5 mcg 8-10 ity of tablet 00:00: [place] [address] Medical Branch liothyronin 2019-0 Yes Univer s [...] 5 mcg 8-10 ity of tablet 00:00: [place] [address] Medical Branch valsartan 2019-0 Yes [facility] 160 mg 7-26 ity of tablet 00:00: [place] [address] Medical Branch valsartan 2019-0 Yes [facility] 160 mg 7-26 ity of tablet 00:00: [place] [address] Medical Branch valsartan 2019-0 Yes [facility] 160 mg 7-26 ity of tablet 00:00: [place] [address] Medical Branch valsartan 2019-0 Yes [facility] 160 mg 7-26 ity of tablet 00:00: [place] [address] Medical Branch valsartan 2019-0 Yes [facility] 160 mg 7-26 ity of tablet 00:00: [place] [address] Medical Branch valsartan 2019-0 Yes [facility] 160 mg 7-26 ity of tablet 00:00: [place] [address] Medical Branch valsartan 2019-0 Yes [facility] 160 mg 7-26 ity of tablet 00:00: [place] [address] Medical Branch valsartan 2019-0 Yes [facility] 160 mg 7-26 ity of tablet 00:00: [place] [address] Medical Branch valsartan 2019-0 Yes [facility] 160 mg 7-26 ity of tablet 00:00: [place] [address] Medical Branch valsartan 2019-0 Yes [facility] 160 mg 7-26 ity of tablet 00:00: [place] [address] Medical Branch valsartan 2019-0 Yes [facility] 160 mg 7-26 ity of tablet 00:00: [place] [address] Medical Branch valsartan 2019-0 Yes [facility] 160 mg 7-26 ity of tablet 00:00: [place] [address] Medical Branch valsartan 2019-0 Yes [facility] 160 mg 7-26 ity of tablet 00:00: [place] [address] Medical Branch valsartan 2019-0 Yes [facility] 160 mg 7-26 ity of tablet 00:00: [place] 00 [facility] Branch valsartan 2019-0 Yes [facility] 160 mg 7-26 ity of tablet 00:00: [place] 00 [facility] Branch valsartan 2019-0 Yes [facility] 160 mg 7-26 ity of tablet 00:00: [place] 00 [facility] valsartan 2019-0 Yes [facility] 160 mg 7-26 ity of tablet 00:00: [place] 00 [facility] Branch valsartan 2019-0 Yes [facility] 160 mg 7-26 ity of tablet 00:00: [place] 00 [facility] valsartan 2019-0 Yes [facility] 160 mg 7-26 ity of tablet 00:00: [place] 00 [facility] valsartan 2019-0 Yes [facility] 160 mg 7-26 ity of tablet 00:00: [place] 00 [facility] valsartan 2019-0 2020- No [facility] 160 mg 7-26 02-04 ity of tablet 00:00: 00:00 [place] 00 :00 [facility] valsartan 2019-0 2020- No [facility] 160 mg 7-26 02-04 ity of tablet 00:00: 00:00 [place] 00 :00 [facility] valsartan 2019-0 2020- No [facility] 160 mg 7-26 02-04 ity of tablet 00:00: 00:00 [place] 00 :00 [facility] buPROPion 20190 Yes [facility] XL 300 mg 7-15 ity of 24 hr 00:00: [place] tablet 00 [facility] buPROPion 20190 Yes [facility] XL 300 mg 7-15 ity of 24 hr 00:00: [place] tablet 00 [facility] buPROPion 2019-0 Yes [facility] XL 300 mg 7-15 ity of 24 hr 00:00: [place] tablet 00 Medical Branch buPROPion 20190 Yes [facility] XL 300 mg 7-15 ity of 24 hr 00:00: [place] tablet 00 Medical Branch buPROPion 2019-0 Yes [facility] XL 300 mg 7-15 ity of 24 hr 00:00: [place] tablet 00 Medical Branch buPROPion 2019-0 Yes [facility] XL 300 mg 7-15 ity of 24 hr 00:00: [place] tablet 00 Medical Branch buPROPion 20190 Yes [facility] XL 300 mg 7-15 ity of 24 hr 00:00: [place] tablet 00 Medical Branch buPROPion 2019-0 Yes [facility] XL 300 mg 7-15 ity of 24 hr 00:00: [place] tablet [facility] buPROPion 2019-0 Yes [facility] XL 300 mg 7-15 ity of 24 hr 00:00: [place] tablet [facility] buPROPion 2019-0 Yes [facility] XL 300 mg 7-15 ity of 24 hr 00:00: [place] tablet [facility] buPROPion 2019-0 Yes [facility] XL 300 mg 7-15 ity of 24 hr 00:00: [place] tablet [facility] buPROPion 2019-0 Yes [facility] XL 300 mg 7-15 ity of 24 hr 00:00: [place] tablet [facility] buPROPion 2019-0 Yes [facility] XL 300 mg 7-15 ity of 24 hr 00:00: [place] tablet [facility] buPROPion 2019-0 Yes [facility] XL 300 mg 7-15 ity of 24 hr 00:00: [place] tablet [facility] buPROPion 2019-0 Yes [facility] XL 300 mg 7-15 ity of 24 hr 00:00: [place] tablet [facility] buPROPion 2019-0 Yes [facility] XL 300 mg 7-15 ity of 24 hr 00:00: [place] tablet [facility] buPROPion 2019-0 Yes [facility] XL 300 mg 7-15 ity of 24 hr 00:00: [place] tablet [facility] buPROPion 2019-0 Yes [facility] XL 300 mg 7-15 ity of 24 hr 00:00: [place] tablet [facility] buPROPion 2019-0 Yes [facility] XL 300 mg 7-15 ity of 24 hr 00:00: [place] tablet [facility] buPROPion 2019-0 Yes [facility] XL 300 mg 7-15 ity of 24 hr 00:00: [place] tablet [facility] buPROPion 2019-0 Yes [facility] XL 300 mg 7-15 ity of 24 hr 00:00: [place] tablet Medical Branch buPROPion 2019-0 Yes [facility] XL 300 mg 7-15 ity of 24 hr 00:00: [place] tablet Medical Branch buPROPion 2019-0 Yes [facility] XL 300 mg 7-15 ity of 24 hr 00:00: [place] tablet [facility] buPROPion 2019-0 Yes [facility] XL 300 mg 7-15 ity of 24 hr 00:00: [place] tablet [facility] buPROPion 2019-0 Yes [facility] XL 300 mg 7-15 ity of 24 hr 00:00: [place] tablet Medical Branch buPROPion 2019-0 Yes [facility] XL 300 mg 7-15 ity of 24 hr 00:00: [place] tablet [facility] buPROPion 2019-0 Yes [facility] XL 300 mg 7-15 ity of 24 hr 00:00: [place] tablet [facility] buPROPion 2019-0 Yes [facility] XL 300 mg 7-15 ity of 24 hr 00:00: [place] tablet [facility] buPROPion 2019-0 Yes [facility] XL 300 mg 7-15 ity of 24 hr 00:00: [place] tablet [facility] buPROPion 2019-0 Yes [facility] XL 300 mg 7-15 ity of 24 hr 00:00: [place] tablet [facility] buPROPion 2019-0 Yes [facility] XL 300 mg 7-15 ity of 24 hr 00:00: [place] tablet [facility] buPROPion 2019-0 Yes [facility] XL 300 mg 7-15 ity of 24 hr 00:00: [place] tablet [facility] buPROPion 2019-0 Yes [facility] XL 300 mg 7-15 ity of 24 hr 00:00: [place] tablet [facility] buPROPion 2019-0 Yes [facility] XL 300 mg 7-15 ity of 24 hr 00:00: [place] tablet [facility] buPROPion 2019-0 Yes [facility] XL 300 mg 7-15 ity of 24 hr 00:00: [place] tablet [facility] buPROPion 2019-0 Yes [facility] XL 300 mg 7-15 ity of 24 hr 00:00: [place] tablet [facility] buPROPion 2019-0 Yes [facility] XL 300 mg 7-15 ity of 24 hr 00:00: [place] tablet [facility] buPROPion 2019-0 Yes [facility] XL 300 mg 7-15 ity of 24 hr 00:00: [place] tablet [facility] buPROPion 2019-0 Yes [facility] XL 300 mg 7-15 ity of 24 hr 00:00: [place] tablet [facility] buPROPion 2019-0 Yes [facility] XL 300 mg 7-15 ity of 24 hr 00:00: [place] tablet [facility] buPROPion 2019-0 Yes [facility] XL 300 mg 7-15 ity of 24 hr 00:00: [place] tablet [facility] buPROPion 2019-0 Yes [facility] XL 300 mg 7-15 ity of 24 hr 00:00: [place] tablet [facility] buPROPion 2019-0 Yes [facility] XL 300 mg 7-15 ity of 24 hr 00:00: [place] tablet [facility] buPROPion 2019-0 Yes [facility] XL 300 mg 7-15 ity of 24 hr 00:00: [place] tablet [facility] buPROPion 2019-0 Yes [facility] XL 300 mg 7-15 ity of 24 hr 00:00: [place] tablet Medical Branch buPROPion 2019-0 Yes [facility] XL 300 mg 7-15 ity of 24 hr 00:00: [place] tablet [facility] buPROPion 2019-0 Yes [facility] XL 300 mg 7-15 ity of 24 hr 00:00: [place] tablet [facility] buPROPion 2019-0 Yes [facility] XL 300 mg 7-15 ity of 24 hr 00:00: [place] tablet [facility] buPROPion 2019-0 Yes [facility] XL 300 mg 7-15 ity of 24 hr 00:00: [place] tablet [facility] buPROPion 2019-0 Yes [facility] XL 300 mg 7-15 ity of 24 hr 00:00: [place] tablet [facility] buPROPion 2019-0 Yes [facility] XL 300 mg 7-15 ity of 24 hr 00:00: [place] tablet [facility] buPROPion 2019-0 Yes [facility] XL 300 mg 7-15 ity of 24 hr 00:00: [place] tablet [facility] buPROPion 2019-0 Yes [facility] XL 300 mg 7-15 ity of 24 hr 00:00: [place] tablet [facility] buPROPion 2019-0 Yes [facility] XL 300 mg 7-15 ity of 24 hr 00:00: [place] tablet [facility] buPROPion 2019-0 Yes [facility] XL 300 mg 7-15 ity of 24 hr 00:00: [place] tablet [facility] buPROPion 2019-0 Yes [facility] XL 300 mg 7-15 ity of 24 hr 00:00: [place] tablet [facility] buPROPion 2019-0 Yes [facility] XL 300 mg 7-15 ity of 24 hr 00:00: [place] tablet [facility] buPROPion 2019-0 Yes [facility] XL 300 mg 7-15 ity of 24 hr 00:00: [place] tablet [facility] buPROPion 2019-0 Yes [facility] XL 300 mg 7-15 ity of 24 hr 00:00: [place] tablet [facility] buPROPion 2019-0 Yes [facility] XL 300 mg 7-15 ity of 24 hr 00:00: [place] tablet [facility] buPROPion 2019-0 Yes Univers XL 300 mg 7-15 ity of 24 hr 00:00: [place] tablet [facility] buPROPion 2019-0 Yes Univers XL 300 [...] 20 mg 5-29 ity of tablet 00:00: [place] [address] [facility] olmesartan 0 Yes Univers 20 mg 5-29 ity of tablet 00:00: [address] Branch olmesartan 0 Yes Univers 20 mg 5-29 ity of tablet 00:00: [address] Branch olmesartan 2019-0 Yes Univers 20 mg 5-29 ity of tablet 00:00: [address] Branch olmesartan 0 Yes Univers 20 mg 5-29 ity of tablet 00:00: [address] Branch olmesartan [address] Yes Univers 20 mg 5-29 ity of tablet 00:00: [place] [address] [facility] olmesartan 2019-0 Yes Univers 20 mg 5-29 ity of tablet 00:00: [address] Branch olmesartan 2018-0 Yes Univers 20 mg 5-29 ity of tablet 00:00: [place] [address] [facility] olmesartan 2019-0 Yes Univers 20 mg 5-29 ity of tablet 00:00: [place] [address] [facility] olmesartan 2018-0 Yes Univers 20 mg 5-29 ity of tablet 00:00: [address] Branch olmesartan 2019-0 Yes Univers 20 mg 5-29 ity of tablet 00:00: [address] Branch olmesartan 2019-0 Yes Univers 20 mg 5-29 ity of tablet 00:00: [address] Branch olmesartan 0 Yes Univers 20 mg 5-29 ity of tablet 00:00: [place] [address] [facility] olmesartan 0 Yes Univers 20 mg 5-29 ity of tablet 00:00: [place] [address] [facility] olmesartan 0 Yes Univers 20 mg 5-29 ity of tablet 00:00: [place] 00 [facility] olmesartan 2019-0 Yes Univers 20 mg 5-29 ity of tablet 00:00: [place] 00 [facility] olmesartan 2019-0 Yes Univers 20 mg 5-29 ity of tablet 00:00: [place] 00 [facility] olmesartan 2019-0 Yes Univers 20 mg 5-29 ity of tablet 00:00: [place] [address] [facility] olmesartan 2019-0 Yes Univers 20 mg 5-29 ity of tablet 00:00: [place] 00 [facility] olmesartan 2019-0 Yes Univers 20 mg 5-29 ity of tablet 00:00: [place] 00 [facility] olmesartan 2019-0 Yes Univers 20 mg 5-29 ity of tablet 00:00: [place] [address] [facility] olmesartan 2019-0 Yes Univers 20 mg 5-29 ity of tablet 00:00: [place] [address] [facility] olmesartan 2019-0 Yes Univers 20 mg 5-29 ity of tablet 00:00: [place] [address] [facility] olmesartan 2019-0 Yes Univers 20 mg 5-29 ity of tablet 00:00: [place] 00 [facility] olmesartan 2019-0 Yes Univers 20 mg 5-29 ity of tablet 00:00: [place] 00 [facility] olmesartan 2019-0 2020- No Univer [...] 150 mcg 5-25 ity of tablet 00:00: [place] [address] [facility] levothyroxi 2019-0 Yes Ada s ne 150 mcg 5-25 ity of tablet 00:00: [place] [address] [facility] levothyroxi 2019-0 Yes Ada s ne 150 mcg 5-25 ity of tablet 00:00: [place] [address] [facility] levothyroxi 2019-0 Yes Ada malone ne 150 mcg 5-25 ity of tablet 00:00: [place] [address] [facility] levothyroxi 2019-0 Yes Ada s ne 150 mcg 5-25 ity of tablet 00:00: [place] [address] [facility] levothyroxi 2019-0 Yes Ada s ne 150 mcg 5-25 ity of tablet 00:00: [place] [address] [facility] levothyroxi 2019-0 Yes Ada s ne 150 mcg 5-25 ity of tablet 00:00: [place] [address] [facility] levothyroxi 2019-0 Yes Ada malone ne 150 mcg 5-25 ity of tablet 00:00: [place] [address] [facility] levothyroxi 2019-0 Yes Ada s ne 150 mcg 5-25 ity of tablet 00:00: [place] [address] [facility] levothyroxi 2019-0 Yes Ada s ne 150 mcg 5-25 ity of tablet 00:00: [place] [address] [facility] levothyroxi 2019-0 Yes Ada s ne 150 mcg 5-25 ity of tablet 00:00: [place] [address] [facility] levothyroxi 2019-0 Yes Ada s ne 150 mcg 5-25 ity of tablet 00:00: [place] [address] [facility] levothyroxi 2019-0 Yes Ada malone ne 150 mcg 5-25 ity of tablet 00:00: [place] [address] [facility] levothyroxi 2019-0 Yes Univer s [...] 150 mcg 5-25 ity of tablet 00:00: [place] [address] [facility] levothyroxi 2019-0 Yes Lew[place] s ne 150 mcg 5-25 ity of tablet 00:00: [place] [address] [facility] levothyroxi 2019-0 Yes Ada s ne 150 mcg 5-25 ity of tablet 00:00: [place] [address] [facility] levothyroxi 2019-0 Yes Ada s ne 150 mcg 5-25 ity of tablet 00:00: [place] [address] [facility] levothyroxi 2019-0 Yes Ada s ne 150 mcg 5-25 ity of tablet 00:00: [place] [address] [facility] levothyroxi 2019-0 Yes Ada s ne 150 mcg 5-25 ity of tablet 00:00: [place] [address] [facility] levothyroxi 2019-0 Yes Ada s ne 150 mcg 5-25 ity of tablet 00:00: [place] [address] [facility] levothyroxi 2019-0 Yes Ada s ne 150 mcg 5-25 ity of tablet 00:00: [place] [address] [facility] levothyroxi 2019-0 Yes Ada s ne 150 mcg 5-25 ity of tablet 00:00: [place] [address] [facility] levothyroxi 2019-0 Yes Ada s ne 150 mcg 5-25 ity of tablet 00:00: [place] [address] [facility] levothyroxi 2019-0 Yes Ada s ne 150 mcg 5-25 ity of tablet 00:00: [place] 00 [facility] levothyroxi 2019-0 Yes Ada s ne 150 mcg 5-25 ity of tablet 00:00: [place] [address] [facility] levothyroxi 2019-0 Yes Ada s ne 150 mcg 5-25 ity of tablet 00:00: [place] [address] [facility] levothyroxi 2019-0 Yes Univer s ne 150 mcg 5-25 ity of tablet 00:00: [place] 00 [facility] levothyroxi 2019-0 Yes Univer s ne 150 mcg 5-25 ity of tablet 00:00: [place] 00 [facility] levothyroxi 2019-0 Yes Univer s ne 150 mcg 5-25 ity of tablet 00:00: [place] [address] [facility] levothyroxi 2019-0 Yes Univer s ne 150 mcg 5-25 ity of tablet 00:00: [place] [address] [facility] levothyroxi 2019-0 Yes Univer s ne 150 mcg 5-25 ity of tablet 00:00: [place] [address] [facility] levothyroxi 2019-0 Yes Univer s ne 150 mcg 5-25 ity of tablet 00:00: [place] [address] [facility] levothyroxi 2019-0 Yes Univer s ne 150 mcg 5-25 ity of tablet 00:00: [place] [address] [facility] levothyroxi 2019-0 Yes [place] s ne 150 mcg 5-25 ity of tablet 00:00: [place] [address] [facility] levothyroxi 2019-0 Yes [place] s ne 150 mcg 5-25 ity of tablet 00:00: [place] [address] [facility] levothyroxi 2019-0 Yes Univer s ne 150 mcg 5-25 ity of tablet 00:00: [place] [address] [facility] levothyroxi 2019-0 Yes Univer s ne 150 mcg 5-25 ity of tablet 00:00: [place] [address] [facility] levothyroxi 2019-0 Yes Univer s ne 150 mcg 5-25 ity of tablet 00:00: [place] [address] [facility] levothyroxi 2019-0 Yes [place] s ne 150 mcg 5-25 ity of tablet 00:00: [place] [address] [facility] levothyroxi 2019-0 Yes Univer s ne 150 mcg 5-25 ity of tablet 00:00: [place] [address] [facility] levothyroxi 2019-0 Yes Univer s ne 150 mcg 5-25 ity of tablet 00:00: [place] [address] [facility] levothyroxi 2019-0 Yes Univer s ne 150 mcg 5-25 ity of tablet 00:00: [place] [address] [facility] levothyroxi 2019-0 Yes Univer s ne 150 mcg 5-25 ity of tablet 00:00: [place] [address] [facility] levothyroxi 2019-0 Yes Univer s ne 150 mcg 5-25 ity of tablet 00:00: [place] [address] [facility] levothyroxi 2019-0 Yes Univer s ne 150 mcg 5-25 ity of tablet 00:00: [place] [address] [facility] levothyroxi 2019-0 Yes Univer s ne 150 mcg 5-25 ity of tablet 00:00: [place] [address] [facility] levothyroxi 2019-0 Yes Univer s ne 150 mcg 5-25 ity of tablet 00:00: [place] [address] [facility] levothyroxi 2019-0 Yes Univer s ne 150 mcg 5-25 ity of tablet 00:00: [place] [address] [facility] levothyroxi 2019-0 Yes Univer s ne 150 mcg 5-25 ity of tablet 00:00: [place] [address] [facility] levothyroxi 2019-0 Yes Univer s ne 150 mcg 5-25 ity of tablet 00:00: [place] [address] [facility] levothyroxi 2019-0 Yes Univer s ne 150 mcg 5-25 ity of tablet 00:00: [place] [address] [facility] levothyroxi 2019-0 Yes Univer s ne 150 mcg 5-25 ity of tablet 00:00: [place] [address] [facility] levothyroxi 2019-0 Yes Univer s ne 150 mcg 5-25 ity of tablet 00:00: [place] [address] [facility] levothyroxi 2019-0 Yes Univer s ne 150 mcg 5-25 ity of tablet 00:00: [place] [address] [facility] levothyroxi 2019-0 Yes Univer s ne 150 mcg 5-25 ity of tablet 00:00: [place] [address] [facility] levothyroxi 2019-0 Yes Univer s ne 150 mcg 5-25 ity of tablet 00:00: [place] [address] [facility] omeprazole 2019-0 Yes Univers 40 mg 5-19 ity of capsule 00:00: [place] [address] [facility] omeprazole 2019-0 Yes Univers 40 mg 5-19 ity of capsule 00:00: [place] [address] [facility] omeprazole 2019-0 Yes Univers 40 mg 5-19 ity of capsule 00:00: [place] [address] [facility] omeprazole 2019-0 Yes Univers 40 mg 5-19 ity of capsule 00:00: [place] [address] [facility] omeprazole 2019-0 Yes Univers 40 mg 5-19 ity of capsule 00:00: [place] [address] [facility] omeprazole 2019-0 Yes Univers 40 mg 5-19 ity of capsule 00:00: [place] [address] [facility] omeprazole 2019-0 Yes Univers 40 mg 5-19 ity of capsule 00:00: [place] [address] [facility] omeprazole 2019-0 Yes Univers 40 mg 5-19 ity of capsule 00:00: [place] [address] [facility] omeprazole 2019-0 Yes Univers 40 mg 5-19 ity of capsule 00:00: [place] [address] [facility] omeprazole 2019-0 Yes Univers 40 mg 5-19 ity of capsule 00:00: [place] [address] [facility] omeprazole 2019-0 Yes Univers 40 mg 5-19 ity of capsule 00:00: [place] [address] [facility] omeprazole 2019-0 Yes Univers 40 mg 5-19 ity of capsule 00:00: [place] [address] [facility] omeprazole 2019-0 Yes Univers 40 mg 5-19 ity of capsule 00:00: [place] [address] [facility] omeprazole 2019-0 Yes Univers 40 mg 5-19 ity of capsule 00:00: [place] [address] [facility] omeprazole 2019-0 Yes Univers 40 mg 5-19 ity of capsule 00:00: [place] [address] [facility] omeprazole 2019-0 Yes Univers 40 mg 5-19 ity of capsule 00:00: [place] [address] [facility] omeprazole 2019-0 Yes Univers 40 mg 5-19 ity of capsule 00:00: [place] [address] [facility] omeprazole 2019-0 Yes Univers 40 mg 5-19 ity of capsule 00:00: [place] [address] [facility] omeprazole 2019-0 Yes Univers 40 mg 5-19 ity of capsule 00:00: [place] [address] [facility] omeprazole 2019-0 Yes Univers 40 mg 5-19 ity of capsule 00:00: [place] [address] [facility] omeprazole 2019-0 Yes Univers 40 mg 5-19 ity of capsule 00:00: [place] [address] [facility] omeprazole 2019-0 Yes Univers 40 mg 5-19 ity of capsule 00:00: [place] [address] [facility] omeprazole 2019-0 Yes Univers 40 mg 5-19 ity of capsule 00:00: [place] [address] [facility] omeprazole 2019-0 Yes Univers 40 mg 5-19 ity of capsule 00:00: [place] [address] [facility] omeprazole 2019-0 Yes Univers 40 mg 5-19 ity of capsule 00:00: [place] [address] [facility] omeprazole 2019-0 Yes Univers 40 mg 5-19 ity of capsule 00:00: [place] [address] [facility] omeprazole 2019-0 Yes Univers 40 mg 5-19 ity of capsule 00:00: [place] [address] [facility] omeprazole 2019-0 Yes Univers 40 mg 5-19 ity of capsule 00:00: [place] [address] [facility] omeprazole 2019-0 Yes Univers 40 mg 5-19 ity of capsule 00:00: [place] [address] [facility] omeprazole 2019-0 Yes Univers 40 mg 5-19 ity of capsule 00:00: [place] [address] [facility] omeprazole 2019-0 Yes Univers 40 mg 5-19 ity of capsule 00:00: [place] [address] [facility] omeprazole 2019-0 Yes Univers 40 mg 5-19 ity of capsule 00:00: [place] [address] [facility] omeprazole 2019-0 Yes Univers 40 mg 5-19 ity of capsule 00:00: [place] [address] [facility] omeprazole 2019-0 Yes Univers 40 mg 5-19 ity of capsule 00:00: [place] [address] [facility] omeprazole 2019-0 Yes Univers 40 mg 5-19 ity of capsule 00:00: [place] [address] [facility] omeprazole 2019-0 Yes Univers 40 mg 5-19 ity of capsule 00:00: [place] [address] [facility] omeprazole 2019-0 Yes Univers 40 mg 5-19 ity of capsule 00:00: [place] [address] [facility] omeprazole 2019-0 Yes Univers 40 mg 5-19 ity of capsule 00:00: [place] [address] [facility] omeprazole 2019-0 Yes Univers 40 mg 5-19 ity of capsule 00:00: [place] [address] [facility] omeprazole 2019-0 Yes Univers 40 mg 5-19 ity of capsule 00:00: [place] [address] [facility] omeprazole 2019-0 Yes Univers 40 mg 5-19 ity of capsule 00:00: [place] [address] [facility] omeprazole 2019-0 Yes Univers 40 mg 5-19 ity of capsule 00:00: [place] [address] [facility] omeprazole 2019-0 Yes Univers 40 mg 5-19 ity of capsule 00:00: [place] [address] [facility] omeprazole 2019-0 Yes Univers 40 mg 5-19 ity of capsule 00:00: [place] [address] [facility] omeprazole 2019-0 Yes Univers 40 mg 5-19 ity of capsule 00:00: [place] [address] [facility] omeprazole 2019-0 Yes Univers 40 mg 5-19 ity of capsule 00:00: [place] [address] [facility] omeprazole 2019-0 Yes Univers 40 mg 5-19 ity of capsule 00:00: [place] [address] [facility] omeprazole 2019-0 Yes Univers 40 mg 5-19 ity of capsule 00:00: [place] [address] [facility] omeprazole 2019-0 Yes Univers 40 mg 5-19 ity of capsule 00:00: [place] [address] [facility] omeprazole 2019-0 Yes Univers 40 mg 5-19 ity of capsule 00:00: [place] [address] [facility] omeprazole 2019-0 Yes Univers 40 mg 5-19 ity of capsule 00:00: [place] [address] [facility] omeprazole 2019-0 Yes Univers 40 mg 5-19 ity of capsule 00:00: [place] [address] [facility] omeprazole 2019-0 Yes Univers 40 mg 5-19 ity of capsule 00:00: [place] [address] [facility] omeprazole 2019-0 Yes Univers 40 mg 5-19 ity of capsule 00:00: [place] [address] [facility] omeprazole 2019-0 Yes Univers 40 mg 5-19 ity of capsule 00:00: [place] [address] [facility] omeprazole 2019-0 Yes Univers 40 mg 5-19 ity of capsule 00:00: [place] [address] [facility] omeprazole 2019-0 Yes Univers 40 mg 5-19 ity of capsule 00:00: [place] [address] [facility] omeprazole 2019-0 Yes Univers 40 mg 5-19 ity of capsule 00:00: [place] [address] [facility] omeprazole 2019-0 Yes Univers 40 mg 5-19 ity of capsule 00:00: [place] [address] [facility] omeprazole 2019-0 Yes Univers 40 mg 5-19 ity of capsule 00:00: [place] [address] [facility] omeprazole 2019-0 Yes Univers 40 mg 5-19 ity of capsule 00:00: [place] [address] [facility] omeprazole 2019-0 Yes Univers 40 mg 5-19 ity of capsule 00:00: [place] [address] [facility] omeprazole 2019-0 Yes Univers 40 mg 5-19 ity of capsule 00:00: [place] [address] [facility] omeprazole 2019-0 Yes Univers 40 mg 5-19 ity of capsule 00:00: [place] [address] [facility] omeprazole 2019-0 Yes Univers 40 mg 5-19 ity of capsule 00:00: [place] [address] [facility] omeprazole 2019-0 Yes Univers 40 mg 5-19 ity of capsule 00:00: [place] [address] [facility] carvedilol carvedilol No carvedilol Rosa [...] dic capsule capsule capsule [facility] amlodipine amlodipine No amlodipine [...] dic tablet tablet tablet [facility] azithromyci azithromyci No azithromyc [facility] n 500 mg n 500 mg in 500 mg Me dical tablet tablet tablet liothyronin liothyronin No liothyroni [...] oral day by route. route. oral route. bupropion bupropion No bupropion [facility] HCl XL 300 HCl XL 300 HCl XL 300 Medical mg 24 hr mg 24 hr mg 24 hr tablet, tablet, tablet, extended extended extended release release release clonazepam clonazepam No clonazepam Rosa Elena 1 [...] 12.5 mg Medica l tablet tablet tablet Synthroid Synthroid No Synthroid Rosa Elena 150 mcg 150 mcg 150 mcg Orthop e tablet tablet tablet dic [facility] tramadol 50 tramadol 50 No [...] mg 25 mg Medical tablet tablet tablet lorazepam lorazepam No lorazepam [...] [facility] clonazepam clonazepam No clonazepam [facility] 1 mg [...] 2020-09-25 15:17:00 135 mm[Hg] [facility]iver [facility] Diastolic blood 2020-09-25 15:17:00 78 mm[Hg] Unive rsity [facility] Heart rate 2020-09-25 15:17:00 62 /min Universi ty [facility] Body height 2020-09-25 15:17:00 167.6 cm Universi ty [facility] Body weight 2020-09-25 15:17:[address] [facility] BMI 2020-09-25 15:17:00 28.47 kg/m2 [facility] Oxygen saturation in 2020-09-25 15:17:00 98 /min [facility] Arterial blood by [facility] Pulse oximetry Branch Systolic blood 2020-07-26 15:10:00 119 mm[Hg] [facility]iver [facility] Diastolic blood 2020-07-26 15:10:00 78 mm[Hg] Unive rs[facility] Heart rate 2020-07-26 15:10:00 67 /min Universi ty [facility] Body height 2020-07-26 15:10:[address] [facility] Body weight 2020-07-26 15:10:00 86.728 kg [facility] [address] [facility] BMI 2020-07-26 15:10:00 30.86 kg/m2 [facility]i ty [facility] [place] [facility] Oxygen saturation in 2020-07-26 15:10:00 95 /min University of Arterial blood by [facility] Pulse oximetry Branch Systolic blood 2020-01-26 14:12:00 105 mm[Hg] Univer sity of pressure [place] [facility] Diastolic blood 2020-01-26 14:12:00 59 mm[Hg] Unive rsity of pressure [place] [facility] Heart rate 2020-01-26 14:12:00 59 [...] 100 /min University of Arterial blood by [facility] Pulse oximetry Branch Systolic blood 2019-06-07 21:51:00 145 mm[Hg] Univer sity of pressure [place] [facility] Diastolic blood 2019-06-07 21:51:00 90 mm[Hg] Unive rsity of pressure [place] [facility] Heart rate 2019-06-07 21:51:00 100 /min [facility]i [facility] [place] [facility] Body temperature 2019-06-07 21:51:00 37.28 Jenni Univ [facility] [place] [facility] Respiratory rate 2019-06-07 21:51:00 16 /min Univ [facility] [place] [facility] Body height 2019-06-07 21:51:00 170.2 cm [facility] [place] [facility] Body weight 2019-06-07 21:51:00 78.472 kg [facility] [place] [facility] BMI 2019-06-07 21:51:00 27.10 kg/m2 [facility] [place] [facility] Systolic blood 2019-05-25 20:50:00 153 mm[Hg] Univer sity of pressure [place] [facility] Diastolic blood 2019-05-25 20:50:00 74 mm[Hg] Unive rsity of pressure [place] [facility] Heart rate 2019-05-25 20:43:00 90 /min [facility] [place] [facility] Respiratory rate 2019-05-25 20:43:00 18 /min Univ ers[facility] [place] [facility] Body height 2019-05-25 20:43:00 170.2 cm [facility] [place] [facility] Body weight 2019-05-25 20:43:00 77.157 kg [facility] [place] [facility] BMI 2019-05-25 20:43:00 26.64 kg/m2 [facility] [place] [facility] Oxygen saturation in 2019-05-25 20:43:00 99 /min University of Arterial blood by [place] [facility] Pulse oximetry Branch Systolic blood 2019-01-05 [...] 2019-01-05 13:59:00 83.915 kg [facility] [place] [facility] BMI 2019-01-05 13:59:00 28.98 kg/m2 [facility] [place] [facility] Oxygen saturation in 2019-01-05 13:59:00 99 /min [facility] of Arterial blood by [place] [facility] Pulse oximetry Branch Systolic blood 2018-12-08 18:50:00 119 mm[Hg] Univer sity of pressure [place] [facility] Diastolic blood 2018-12-08 18:50:00 83 mm[Hg] Unive rsity of pressure [place] [facility] Heart rate 2018-12-08 18:50:00 66 /min [facility]i [facility] [place] [facility] Respiratory rate 2018-12-08 18:50:00 17 /min Univ [facility] [place] [facility] Oxygen saturation in 2018-12-08 18:50:00 100 /min University of Arterial blood by [facility] mois[facility] Pulse oximetry Branch Body temperature 2018-12-08 18:32:00 36.67 Jenni Univ [facility] [place] [facility] Body height 2018-12-08 17:48:[address] [facility] Body weight 2018-12-08 17:48:00 81.647 kg [facility] BMI 2018-12-08 17:48:00 28.19 [facility] 2018-12-04 14:15:00 129 mm[Hg] Univer sity of pressure [facility] Diastolic blood 2018-12-04 14:15:00 89 mm[Hg] Unive rsity of [facility] Heart rate 2018-12-04 14:15:00 65 /min Universi [facility] Body temperature 2018-12-04 14:15:00 36.5 Jenni [facility] 2018-12-04 14:15:00 16 /min [facility] Body height 2018-12-04 14:15:00 170.2 cm [facility] Body weight 2018-12-04 14:15:00 81.647 kg [facility] BMI 2018-12-04 14:15:00 28.19 kg/m2 [facility] Oxygen saturation in 2018-12-04 14:15:00 98 /min [facility] Arterial blood by [facility] Pulse oximetry Branch Procedures Procedure Date / Time Performing Clinician Source Performed EXTERNAL PROVIDER RECORDS 2022-10-16 05:01:00 Doctor Unassigned, [facility] [place] [facility] MRI, brain, w/o contrast 2022-08-29 00:00:00 Renetta via Medical XR, wrist, 3 or more view 2022-04-25 00:00:00 Henok russell Orthopedic Sports Medicine Inj Tendon 2022-04-10 00:00:00 Rosa Elena Ortho pedic Origin/insertion Sports Medicine Revise Ulnar Nerve at 2022-04-10 00:00:00 Rosa Eelna Orthopedic Elbow Sports Medicine Carpal Tunnel Surgery 2022-04-10 00:00:00 Rosa Elena Orthopedic Sports Medicine XR, elbow, 2 view 2022-04-02 00:00:00 Rosa Elena Kang hopedic Sports Medicine XR, hand, 3 or more view 2022-04-02 00:00:00 Kaycee felix Orthopedic Sports Medicine EXTERNAL PROVIDER - ADC 2021-01-01 05:01:00 Doctor Unassigned, [facility] CARDIOLOGY [place] [facility] AUTHORIZATION FOR RELEASE 2020-10-30 05:01:00 Doctor Crow, [facility] [place] [facility] ASSIGNMENT OF BENEFITS 2020-07-17 17:56:10 Doctor Crow, [facility] Medical Branch SLEEP STUDY DATA REPORT 2020-01-31 05:01:00 Doctor Crow [facility] Branch COVID-19 (ID NOW RAPID 2020-01-28 13:48:00 Carlos Case [facility] TESTING) Medical Branch BASIC METABOLIC PANEL 2019-05-28 14:24:00 [facility] (NA, K, CL, CO2, GLUCOSE, Medica l Branch BUN, CREATININE, CA) PROFILE / HEMOGRAM 2019-05-28 14:24:00 Sven [facility] PROTHROMBIN TIME / INR 2019-05-28 14:24:00 [facility]ven [facility] ACTIVATED PARTIAL 2019-05-28 14:24:00 Sven [facility] THRMPLAS ANUJ [facility] ASSIGNMENT OF BENEFITS 2019-05-28 14:05:08 Doctor Crow, [facility] Medical Branch EKG-12 LEAD 2019-05-25 20:51:14 Sven [facility] COLONOSCOPY (ENDO) 2018-12-08 17:48:14 Anselmo Escobar [facility] EGD (ENDO) 2018-12-08 17:42:09 Anselmo Escobar [facility] CONSENT/REFUSAL FOR 2018-12-08 17:21:15 Doctor Crow [facility] DIAGNOSIS AND TREATMENT [place] [facility] ASSIGNMENT OF BENEFITS 2018-12-08 17:20:15 [facility] [place] [facility] ASSIGNMENT OF BENEFITS 2018-12-07 15:24:15 Doctor Crow, [facility] Name Medical Branch CT ABDOMEN PELVIS W 2018-12-04 20:37:26 Marques [facility] CONTRAST [facility] COMP. METABOLIC PANEL 2018-12-04 15:08:00 Marques [facility] ([id number]) [facility] CBC WITH DIFFERENTIAL 2018-12-04 15:08:00 Marques [facility] DISCLOSURE AND CONSENT, 2018-12-04 05:01:00 Doctor UnassLiss villaseñor [facility] MEDICAL AND SURGICAL [place] [facility] PROCEDURES REFERRAL- 2018-11-30 05:01:00 Doctor Unassigned, [facility] REQUEST/RESPONSE [place] [facility] Tonsillectomy [facility]u [facility] Keratomileusis Ligation of Bilateral [facility] ical Fallopian Tubes Partial Hysterectomy [facility] Plan of Care Planned Activity Planned Date Details Comments Source Instructions Rosa Elena Orthoped ic Sports Medicine Encounters Start End Encounter Admission Attending Care Care Encounter Source Date/Time Date/Time Type Type Clinicians Facility Department ID 2022-01-14 Outpatient ANSELMO ESCOBAR [facility] [id number] Common 10:51:04 [place] [facility] 2022-10-16 2022-10-16 Outpatient FOG_Mehlhof AOSM AOSM 553 9711-20 Rosa Elena 00:00:00 00:00:00 Mariah [id number] [facility] 2022-10-16 2022-10-16 Orders Doctor RICKIE 1.2.840.114 [id number] Univers 00:00:00 00:00:00 Only Unassigned, ROBERTO 350.1.13.10 ity of [place] [facility] 4.2.7.2.686 Lyle as [phone] [place] [address] [place] 2022-10-12 2022-10-12 Outpatient FOG_Mehlhof AOSM AOSM 553 9711-20 Rosa Elena 00:00:00 00:00:00 Mariah [id number] Orth [facility] 2022-09-12 2022-09-12 Outpatient FOG_Mehlhof AOSM AOSM 553 9711-20 Rosa Elena 00:00:00 00:00:00 Mariah [id number] Orth o[facility] dic Sports Medicin e 2022-09-11 2022-09-11 Outpatient FOG_Mehlhof AOSM AOSM 553 9711-20 Rosa Elena 00:00:00 00:00:00 Mariah [id number] Orth [facility] 2022-09-02 2022-09-02 Outpatient KARI Galvez ISABELAAleah [id number] [facility] 13:33:00 16:20:00 Arnulfo [facility] 2022-08-29 2022-08-29 Outpatient GC_TNC_Lovi PRIV PRIV 223 [id number] [facility] 00:00:00 00:00:00 tt_S [id number] Medica l 2022-08-29 2022-08-29 Rashad PRIV [facility] 511 [facility] 00:00:00 00:00:00 Morro [facility] Dago barrios MD: [id number] GC_TN_Alison [facility], Office* [address], [place] [address] , Ph. 2022-08-22 2022-08-22 Outpatient FOG_Mehlhof AOSM AOSM 553 9711-20 Rosa Elena 00:00:00 00:00:00 Mariah [id number] Orth [facility] 2022-08-20 2022-08-20 Outpatient FOG_Mehlhof AOSM AOSM 553 9711-20 Rosa Elena 00:00:00 00:00:00 Mariah [id number] Orth ope dic Sports Medicin e 2022-08-20 2022-08-20 Arnulfo Salmon AOSM [place] - Ortho Rosa Elena 00:00:00 00:00:00 Kavita Florez MD: 7401 FOG_Ofc dic [facility] [place] [place] [address] , Ph. [phone] 2022-08-14 2022-08-14 Outpatient GC_TNC_Lovi PRIV PRIV 223 [id number] [facility] 00:00:00 00:00:00 tt_S [id number] Medica l 2022-08-01 2022-08-01 Outpatient FOG_Mehlhof AOSM AOSM 553 9711-20 Rosa Elena 00:00:00 00:00:00 fBobyThom_MD [id number] Orth [facility] 2022-08-01 2022-08-01 Outpatient FOG_Mehlhof AOSM AOSM 553 [id number] Rosa Elena 00:00:00 00:00:00 Mariah [id number] Orth ope dic Sports Medicin e 2022-08-01 2022-08-01 Outpatient FOG_Mehlhof AOSM AOSM 553 [id number] Rosa Elena 00:00:00 00:00:00 Mariah [id number] Orth ope dic Sports Medicin e 2022-04-25 2022-04-25 Outpatient FOG_Mehlhof AOSM AOSM 553 [id number] Rosa Elena 00:00:00 00:00:00 Mariah [id number] Orth ope dic Sports Medicin e 2022-04-25 2022-04-25 Arnulfo Salmon AOSM [place] - Ortho Rosa Elena 00:00:00 00:00:00 Kavita Florez MD: 7401 FOG_Ofc dic [facility] e [address] , Ph. [phone] 2022-04-24 2022-04-24 Outpatient FOG_Mehlhof AOSM AOSM 553 9711[facility] Rosa Elena 00:00:00 00:00:00 Mariah [id number] Orth ope dic Sports Medicin e 2022-04-18 2022-04-18 Outpatient FOG_Mehlhof AOSM AOSM 553 9711[facility] Rosa Elena 00:00:00 00:00:00 Mariah [id number] Orth ope dic Sports Medicin e 2022-04-18 2022-04-18 Arnulfo Salmon AOSM [place] - Ortho [id number] Rosa Elena 00:00:00 00:00:00 Kavita Florez MD: 7401 FOG_Ofc dic [facility] [place] [address] , Ph. [phone] 2022-04-17 2022-04-17 Outpatient FOG_Mehlhof AOSM AOSM 553 9711[facility] Rosa Elena 00:00:00 00:00:00 Mariah [id number] Orth ope dic Sports Medicin e 2022-04-16 2022-04-16 Outpatient FOG_Mehlhof AOSM AOSM 553 9711- Rosa Elena 00:00:00 00:00:00 Mariah [id number] Orth ope dic Sports Medicin e 2022-04-12 2022-04-12 Outpatient FOG_Mehlhof AOSM AOSM 553 9711 Rosa Elena 00:00:00 00:00:00 Mariah [id number] Orth ope dic Sports Medicin e 2022-04-10 2022-04-10 [facility] [id number] [facility] 08:37:00 08:37:00 Arnulfo Roman [facility] 2022-04-10 2022-04-10 Outpatient FOG_Mehlhof AOSM AOSM 553 9711 Rosa Elena 00:00:00 00:00:00 Mariah [id number] Orth ope dic Sports Medicin e 2022-04-10 2022-04-10 Arnulfo Salmon AOSM [place] - Ortho [id number] Rosa Elena 00:00:00 00:00:00 Kavita Florez MD: 7401 [facility] [place] [facility] [place] [address] , Ph. [phone] 2022-04-02 2022-04-02 Outpatient FOG_Mehlhof AOSM AOSM 553 9711-20 Rosa Elena 00:00:00 00:00:00 Mariah [id number] Orth ope dic Sports Medicin e 2022-04-02 2022-04-02 Arnulfo Salmon AOSM [place] - Ortho [id number] Rosa Elena 00:00:00 00:00:00 Kavita Florez MD: 7401 FOG_Ofc dic [facility] [place] [address] , Ph. [phone] 2022-03-25 2022-03-25 Outpatient GC_TNC_Lovi PRIV PRIV 223 [id number] [facility] 00:00:00 00:00:00 tt_S [id number] Medica l 2022-03-20 2022-03-20 Outpatient FOG_Mehlhof AOSM AOSM 553 9711-20 Rosa Elena 00:00:00 00:00:00 Mariah [id number] Orth ope dic Sports Medicin e 2022-03-20 2022-03-20 Outpatient FOG_Mehlhof AOSM AOSM 553 9711-20 Rosa Elena 00:00:00 00:00:00 Mariah [id number] Orth ope dic Sports Medicin e 2022-03-20 2022-03-20 Outpatient FOG_Mehlhof AOSM AOSM 553 9711-20 Rosa Elena 00:00:00 00:00:00 Mariah [id number] Orth ope dic Sports Medicin e 2021-01-21 2021-01-21 [facility] 1.2.840.114 [id number] Univers 00:00:00 00:00:00 Helen Churhc 350.1.13.10 ity of [place] [phone] Az dical nal 059 [facility] 2021-01-01 2021-01-01 Orders Doctor RICKIE 1.2.840.114 [id number] Univers 00:00:00 00:00:00 Only Unassigned, ROBERTO 350.1.13.10 ity of [place] [facility] 4.2.7.2.686 Lyle as [phone] [address] 2020-11-29 2020-11-29 Abel [facility] 1.2.840.114 [id number] [facility] 00:00:00 00:00:00 Topher Church 350.1.13.10 ity of [place] [phone] Az dical nal 092 [facility] 2020-10-30 2020-10-30 Orders Doctor RICKIE 1.2.840.114 [id number] Univers 00:00:00 00:00:00 Only Unassigned, ROBERTO 350.1.13.10 ity of [place] [facility] 4.2.7.2.686 Lyel as [phone] [facility] [address] [place] 2020-09-25 2020-09-25 Office [facility] 1.2.840.114 [id number] Univers 10:13:51 10:33:24 Visit Helen Church 350.1.13.10 ity of [place] [phone] Az dical nal [address] [place] [address] 2020-09-25 2020-09-25 Outpatient R [facility] [id number] Univers 10:20:00 10:20:00 HELEN reidy o f [facility] 2020-09-10 2020-09-10 Laboratory Lab, [facility] Pob I [facility] 1.2. 840.114 [id number] Univers 17:01:59 17:21:59 Only Eber Shayy [facility] 350.1.13.10 ity of [place] 4.2.7.2.686 Lyle as Professio [phone] [address] One 2020-09-10 2020-09-10 [facility] [id number] Univers 17:20:00 17:20:[address] [facility] 2020-07-27 2020-07-27 Telephone [facility] 1.2.379.195 [id number] Univers 00:00:00 00:00:00 Cadenroberto [place] 350.1.13.10 ity of [place].7.2.[place] [phone] Az dical nal [address] [place] [address] 2020-07-26 2020-07-26 Office [facility] 1.2.840.114 [id number] Univers 09:41:54 10:41:31 Visit Cadenroberto [place] 350.1.13.10 ity of [place] 4.2.7.2.[place] [phone] Az dical nal 059 [facility] 2020-07-26 2020-07-26 Outpatient R [facility] [id number] Univers 10:00:00 10:00:00 HELEN ity o f [facility] 2020-07-17 2020-07-17 Laboratory Only, [facility] Test [facility] 1.2.840. 114 [id number] Univers 12:56:35 13:11:35 Only Parish Lugo 350.1.13.10 ity of [place].2.7.2.686 [place] [phone] [facility] [address] 2020-07-17 2020-07-17 Outpatient R [facility] [id number] Univers 13:00:00 13:00:00 ity of [facility] 2020-07-17 2020-07-17 Orders Doctor RICKIE 1.2.840.114 [id number] Univers 00:00:00 00:00:00 Only Unassigned, ROBERTO 350.1.13.10 ity of [facility] 4.2.7.2.686 Lyle as [phone] [facility] [address] 2020-07-11 2020-07-11 Patient Levi [facility] 1.2.840.114 [id number] Univers 00:00:00 00:00:00 Outreach Mauro PRIMARY 350.1.13.10 i ty of [facility] 4.2.7.2.686 [place] [phone] [facility] [address] [place] 2020-01-31 2020-01-31 Outpatient R CARLOS CASE [facility] [id number] Univers 20:00:00 20:00:00 CARLOS CASE ity of [facility] 2020-01-31 2020-01-31 Contact Acid Plant Operator 1, [facility] Sleep Lab Bed [facility] 1. 2.840.114 [id number] Univers 14:14:44 16:44:44 Visit Carlos Case 350.1.13. 10 ity of [place]2.7.2.686 [place] [phone] [facility] [address] 2020-01-31 2020-01-31 Contact Acid Plant Operator Pc, [facility] Vascular Room 1 - [facility] 1.2.840.114 [id number] Univers 12:50:18 13:50:18 Visit Helen Greer 350.1.13.10 ity of [place] 4.2.7.2.[place] [phone] Az dical nal 059 [facility] 2020-01-31 2020-01-31 Outpatient R [facility] [id number] Univers 13:00:00 13:00:00 ity of [facility] 2020-01-31 2020-01-31 Orders Doctor RICKIE 1.2.840.114 [id number] Univers 00:00:00 00:00:00 Only Unassigned, ROBERTO 350.1.13.10 [facility] 4.2.7.2.686 [place] as [phone] [facility] [address] [place] 2020-01-28 2020-01-28 Outpatient R [facility] [id number] Univers 09:30:00 09:30:00 ity of [facility] 2020-01-28 2020-01-28 Laboratory Only, Adc Test [facility] 1.2.840. 114 [id number] Univers 08:24:27 08:39:27 Only Carlos Case 350.1.13. 10 ity of [place] 4.2.7.2.686 [place] [phone] [facility] [address] [place] 2020-01-26 2020-01-26 Office [facility] 1.2.840.114 [id number] Univers 08:55:21 09:30:55 Visit Helen Church 350.1.13.10 ity of [place]2.7.2.[place] [phone] Az dical nal 059 [facility] 2020-01-26 2020-01-26 Outpatient [facility] [id number] Univers 09:00:00 09:00:00 HELEN martin o f [facility] 2019-12-29 2019-12-29 Refill Dunn-Russ [facility] 1.2.840.114 [id number] Univers 00:00:00 00:00:00 ise, SPECIALTY 350.1.13.10 ity of [facility] 4.2.7.2.686 [place] AT [phone] Az royal GUIDO 072 [facility] 2019-11-08 2019-11-08 Telephone [facility] 1.2.458.269 [id number] Univers 00:00:00 00:00:00 Qiangjun [place] 350.1.13.10 ity of [place].7.2.[place] [phone] Az dicme nal [address] [place] [address] 2019-10-25 2019-10-25 Refill [facility] 1.2.840.114 [id number] Univers 00:00:00 00:00:00 Qiangjun [place] 350.1.13.10 ity of [place] 4[place]2.7.2.[place] [phone] Az dic[address] 2019-09-27 2019-09-27 Refill [facility] 1.2.840.114 [id number] Univers 00:00:00 00:00:00 Qiangjun [place] 350.1.13.10 ity of [place] 4.2.7.2.[place] [phone] Az dic[address] 2019-08-30 2019-08-30 Patient [facility], [facility] 1.2.840.114 [id number] Univers 00:00:00 00:00:00 Secure Msg Qiangjun [place] 350.1.13.10 ity of [place] 4.2.7.2.[place] [phone] [address] 2019-08-30 2019-08-30 Patient [facility], [facility] 1.2.840.114 [id number] Univers 00:00:00 00:00:00 Secure Msg Qiangjun [place] 350.1.13.10 ity of [place] 4.2.7.2.[place] [phone] Az dical nal [address] [place] [address] 2019-08-17 2019-08-17 Patient [facility], [facility] 1.2.840.114 [id number] Univers 00:00:00 00:00:00 Secure Msg Qiangjun [facility] 350.1.13.10 ity of [place]2.7.2.686 [place] [phone] [place] [address] [address] [facility] 2019-07-26 2019-07-26 Outpatient R [facility] [id number] Univers 14:00:00 14:00:00 HELEN ity o f [facility] 2019-07-26 2019-07-26 Telemedici [facility] 1.2.840.114 [id number] Univers 08:08:58 08:28:58 ne Visit Helen Church 350.1.13.10 ity of [place] 4.2.7.2.[place] [phone] Az dical nal 9 [facility] 2019-07-26 2019-07-26 Patient Sven, [facility] 1.2.840.114 [id number] Univers 00:00:00 00:00:00 Secure Msg Helen [place] 350.1.13.10 ity of [place] 4.2.7.2.686 [place] [phone] Az dical nal 059 [facility] 2019-07-21 2019-07-21 Telephone [facility] 1.2.874.633 [id number] Univers 00:00:00 00:00:00 Helen Botelloton 350.1.13.10 ity of [place] 4.2.7.2.[place] [phone] Az dical nal 9 [facility] 2019-07-13 2019-07-13 Patient Sven, [facility] 1.2.840.114 [id number] Univers 00:00:00 00:00:00 Secure Msg Helen Botelloton 350.1.13.10 ity of [place] 4.2.7.2.[place] [phone] Az dical nal 9 [facility] 2019-06-29 2019-06-29 Outpatient R [facility] [id number] Univers 11:00:00 11:00:00 CADENROBERTO frankliny o f [facility] 2019-06-29 2019-06-29 Contact Acid Plant Operator Sharon Curtis Lab Main [facility] 1.2.8 40.114 [id number] Univers 10:24:18 10:39:18 Visit Helen Greer 350.1.13.10 ity of [place] 4.2.7.2.686 [place] [phone] Az dical nal 353 [facility] 2019-06-28 2019-06-28 Patient Sven, [facility] 1.2.840.114 [id number] Univers 00:00:00 00:00:00 Secure Msg Helen Church 350.1.13.10 ity of [place] 4.2.7.2.686 [place] [phone] [facility] nal 059 [facility] 2019-06-07 2019-06-07 Office [facility] 1.2.840.114 [id number] Univers 15:32:41 16:00:18 Visit Topher Church 350.1.13.10 ity of [place] 4.2.7.2.686 [place] [phone] [facility] nal 092 [facility] 2019-06-01 2019-06-01 Patient [facility], [facility] 1.2.840.114 [id number] Univers 00:00:00 00:00:00 Secure Msg Helen Church 350.1.13.10 ity of [place] 4.2.7.2.686 [place] [phone] [facility] nal 059 [facility] 2019-05-31 2019-05-31 Telephone [facility], [facility] 1.2.699.477 [id number] Univers 00:00:00 00:00:00 Helen Church 350.1.13.10 ity of [place] 4.2.7.2.686 [place] [phone] [facility] nal 059 [facility] 2019-05-28 2019-05-28 Contact Acid Plant Operator Sharon Curtis Lab Main [facility] 1.2.8 40.114 [id number] Univers 08:07:22 08:22:22 Visit Helen Greer 350.1.13.10 ity of [place] 4.2.7.2.686 [place] [phone] [facility] nal 353 [facility] 2019-05-28 2019-05-28 Orders Doctor RICKIE 1.2.840.114 [id number] Univers 00:00:00 00:00:00 Only Unassigned, ROBERTO 350.1.13.10 ity of [place] [facility] 4.2.7.2.686 Lyle as [phone] [address] 2019-05-27 2019-05-27 Telephone Sven [facility] 1.2.070.165 [id number] Univers 00:00:00 00:00:00 Helen Botelloton 350.1.13.10 ity of [place] 4.2.7.2.[place] [phone] Az naomidenis nal 9 [facility] 2019-05-25 2019-05-25 Outpatient R SVEN [facility] [id number] Univers 14:40:00 15:25:26 HELEN martin o f [facility] 2019-05-25 2019-05-25 Office [facility] 1.2.840.114 [id number] Univers 14:36:57 15:25:26 Visit Helen Church 350.1.13.10 ity of [place] 4.2.7.2.686 [place] Profess[place] [phone] [facility] nal [address] [place] [address] 2019-01-05 2019-01-05 Contact Acid Plant Operator Vls-Lab [facility] 1.2.840.114 [id number] Univers 09:40:44 09:55:44 Visit Fifi Mohan SPECIALTY 350. 1.13.10 ity of C[place]2.7.2.[place] C[place] AT [phone] Az royal GUIDO 353 [facility] 2019-01-05 2019-01-05 Office Marbin [facility] 1.2.840.114 [id number] Univers 08:46:16 09:16:16 Visit isaleah, SPECIALTY 350.1.13.10 ity of [place] CARE 4.2.7.2.686 [place] C[place] AT [phone] Az royal GUIDO 072 [facility] 2018-12-08 2018-12-08 Hospital [facility] 1.2.840.114 [id number] Univers 12:20:00 14:10:00 Encounter [facility] 350.1.13.10 ity of [place].2.686 [place] [phone] [address] ([facility]) 2018-12-08 2018-12-08 Orders Doctor RICKIE 1.2.840.114 [id number] Univers 00:00:00 00:00:00 Only Unassigned, ROBERTO 350.1.13.10 ity of [place] [facility] 4.2.7.2.686 Lyle as [phone] [address] 2018-12-07 2018-12-07 Contact Acid Plant Operator 1, Adc Lab [facility] 1.2.840.114 [id number] Univers 10:23:39 10:38:39 [facility] [place] 350.1 .13.10 it[place] of [place] 4.2.7.2.686 [place] [phone] [facility] [address] [place] 2018-12-07 2018-12-07 Telephone [facility] 1.2.840.114 [id number] Univers 00:00:00 00:00:00 ise, SPECIALTY 350.1.13.10 ity of [place] CARE 4.2.7.2.[place] CENTER AT [phone] Az royal GUIDO [address] [place] [address] 2018-12-07 2018-12-07 Orders Doctor RICKIE 1.2.840.114 [id number] Univers 00:00:00 00:00:00 Only Unassigned, ROBERTO 350.1.13.10 ity of [place] [facility] 4.2.7.2.686 L[place] as [phone] [address] 2018-12-04 2018-12-04 Hospital [facility] 1.2.840.114 [id number] Univers 15:00:00 23:59:00 Encounter ise, SPECIALTY 350.1.13.10 ity of [place] C[place] 4.2.7.2.[place] C[place] AT [phone] Az royal GUIDO 801 [facility] 2018-12-04 2018-12-04 Office [facility] 1.2.840.114 [id number] Univers 09:07:41 13:21:01 Visit ise, SPECIALTY 350.1.13.10 ity of [place] C[place] 4[place]2.7.2.[place] CENTER AT [phone] Az royal GUIDO [address] [place] [address] 2018-12-04 2018-12-04 Contact Acid Plant Operator Vls-Lab [facility] 1.2.840.114 [id number] Univers 09:56:02 10:10:21 Visit JerricaMatt Fifi SPECIALTY 350. 1.13.10 ity of CARE 4.2.7.2.686 [place] [facility] AT [phone] Az royal GUIDO 353 [facility] 2018-12-04 2018-12-04 Telephone Marbin [facility] 1.2.840.114 [id number] Univers 00:00:00 00:00:00 ise, SPECIALTY 350.1.13.10 ity of [facility] CARE 4.2.7.2.686 [facility] AT [phone] Az royal GUIDO 072 [facility] 2018-11-30 2018-11-30 Orders Doctor RICKIE 1.2.840.114 [id number] Univers 00:00:00 00:00:00 Only Unassigned, ROBERTO 350.1.13.10 ity of [place] [facility] 4.2.7.2.686 [place] as [phone] [address] Results Test Description Test Time Test Comments Results Result Comments Source Novel Coronavirus 2018 Inhouse 2022-04-03 15:20:00 Test Item Value Reference Range Interpretation Comme nts Novel Coronavirus 2018 Negative Negative Posit reena results are indicative of the Inhouse (test code = presenc e gaCLOY-EtQ-4 RNA, clinical COVNONPUI) correlation wit h patient [...] qualitative detection of nucleic acid s from jouJZFQ-TaI-6 virus and diagn osis of SARS-CoV-2 virusinfection. It is an Emergency Use Authorization ( EUA) testauthorized by the U.[place]. FDA. Novel Coronavirus 2018 [id number] 15:19:00 Test Item Value Reference Range Interpretation [...] det ection of nucleic acids f rom djhONHZ-BcJ-9 v irus and diagnosis of SA RS-CoV-2 virusinfection. It is an Emergency Use Authorization ( EUA) testauthorized by the U.[place]. FDA. novel coronavirus 2018 [id number] 10:50:00 Test Item Value Reference Range Interpretation Comments novel coronavirus 2018 inhouse (test negative negative code = novel coronavirus 2019 inhouse) performing lab: (test code = performing lab:) [facility] coronavirus 2018 [id number] 10:50:00 Test Item Value Reference Range Interpretation Comments novel coronavirus 2019 inhouse (test negative negative code = novel coronavirus 2019 inhouse) performing lab: (test code = performing lab:) [facility] coronavirus 2019 [id number] 10:50:00 Test Item Value Reference Range Interpretation Comments novel coronavirus 2019 inhouse (test negative negative code = novel coronavirus 2019 inhouse) performing lab: (test code = performing lab:) [facility]ID [facility]2020-01-28 14:16:00 Test Item Value Reference Range Interpretation Comments SARS-CoV-2 Rapid ID NOW Not Detected Not Detected (test code = 54254-8) SCARLET (test code = SCARLET) ID NOW COVID-19 Assay is an isothermal nucleic acid amplification test intended for the qualitative detection of nucleic acid from SARS-CoV-2 viral RNA in nasopharyngeal (HOG MAN) specimens. It is used under Emergency Use [...] indicated. Lab Interpretation Normal (test code = 70785-9) [facility] METABOLIC PANEL (63625)(NA, K, CL, CO2, GLUCOSE, BUN, CREATININE, CA)2019-05-28 15:09:00 Test Item Value Reference Range Interpretation Comments NA (test code = 140 mmol/L 135-145 5913041238) K (test code = 4.5 mmol/L 3.5-5 3324394635) CL (test code = 96 mmol/L 98-108 L 2603867279) CO2 TOTAL (test code = 30 mmol/L 23-31 6626078162) AGAP (test code = 2-16 3684564705) BUN (test code = 15 mg/dL 7-23 1604541074) GLUCOSE (test code = 136 mg/dL 70-110 H 8768846113) CREATININE (test code = 1.21 mg/dL 0.5-1.04 H 8575686205) CALCIUM (test code = 11.0 mg/dL 8.6-10.6 H 7912631995) eGFR Calculation mL/min/1.73m2 (Non-) (test code = 2047625328) eGFR Calculation mL/min/1.73m2 () (test code = 9778781419) SCARLET (test code = SCARLET) Association of [...] tests). Lab Interpretation Abnormal (test code = 40487-7) [facility] [id number] 15:03:00 Test Item Value Reference Range Interpretation Comments PROTIME PATIENT (test See_Comment [Auto mated message] code = 5964-2) The system wh ich generated this result transmitted ref erence range: 12.0 - 1 4.7 Seconds. The re ference range was not u sed to interpret this result as normal/abnor mal. INR (test code = 6301-6) Nor mal INR <1.1; Warfarin Therap eutic range 2.0 to 3. 0 or 2.5 to 3.5, dep ending upon the indica tions. Lab Interpretation (test Normal code = 76743-9) [facility] 15:03:00 Test Item Value Reference Range Interpretation Comments APTT Patient (test See_Comment [Automat ed code = 3173-2) message] The system which generated this result transmitted reference range : 23 - 38 Seconds . The reference range was not used to interpr et this result as normal/abnormal . SCARLET (test code = SCARLET) The [facility] patient population mean normal value for aPTT is 30 seconds. Lab Interpretation Normal (test code = 81562-0) [facility]/O [id number] 14:43:00 Test Item Value Reference Range Interpretation Comments WBC (test code = 6690-2) See_Comment [A utomated message] The system [employer] generated this result transmit cedric reference range : 4.30 - 11.10 10*3/?L. The reference range was not used to interpret this result as normal/abnormal . RBC (test code = 789-8) See_Comment [Au tomated message] The system [employer] generated this result transmit cedric reference range [...] See_Comment H [Au tomated message] The system [employer] generated this result transmit cedric reference range : 166 - 358 10*3/?L. The reference range was not used to interpret this result as normal/abnormal . MPV (test code = 10.3 fL 9.5-12.9 98021-0) RDW-CV (test code = 12.0 % 12-15.5 788-0) RDW-SD (test code = 37.2 fL 39-49.9 L 57846-3) NRBC x10^3 (test code = <0.01 See_Comment [Au tomated message] [id number]) The system [employer] h generated this result transmit cedric reference range : 10*3/?L. The reference range was not used to interpret this result as normal/abnormal . NRBC/100 WBC (test code See_Comment [Au tomated message] = [id number]) The system [employer] generated this result transmit cedric reference range : 0.0 - 10.0 /100 WBC s. The reference r tano was not used to interpret this result as normal/abnormal . IPF % (test code = 7344184570) Lab Interpretation (test Abnormal code = 60791-9) [facility] [id number] 21:26:38 1.?No acute findings are seen in [...] The liver is enlarged and shows diffuse steatosis.[facility]. METABOLIC PANEL (37290)2018-12-04 16:33:00 Test Item Value Reference Range Interpretation Comments NA (test code = 141 mmol/L 135-145 4657797159) K (test code = 5.5 mmol/L 3.5-5 H 3432394356) CL (test code = 100 mmol/L 98-108 9850281495) CO2 TOTAL (test code = 28 mmol/L 23-31 5416598827) AGAP (test code = 2-16 7406526963) BUN (test code = 11 mg/dL 7-23 6575615684) GLUCOSE (test code = 125 mg/dL 70-110 H 5240884457) CREATININE (test code = 0.69 mg/dL 0.5-1.04 7415121190) TOTAL BILI (test code = 0.7 mg/dL 0.1-1.9 4183366902) CALCIUM (test code = 10.8 mg/dL 8.6-10.6 H 8930960365) T PROTEIN (test code = 8.2 g/dL 6.3-8.2 6881058987) ALBUMIN (test code = 5.1 g/dL 3.5-5 H 5598190073) ALK PHOS (test code = 160 U/L 34-122 H 4489866282) ALT(SGPT) (test code = 54 U/L 9-51 H 7649502756) AST(SGOT) (test code = 42 U/L 13-40 H 6729261773) eGFR Calculation mL/min/1.73m2 (Non-) (test code = 7008699729) eGFR Calculation mL/min/1.73m2 () (test code = 8972905000) SCARLET (test code = SCARLET) Association of [...] tests). Lab Interpretation Abnormal (test code = 81969-6) [facility] WITH [id number] 16:03:00 Test Item Value Reference Range Interpretation [...] RDW-SD (test code = 41.2 fL 39-49.9 11127-8) RDW-CV (test code = 12.7 % 12-15.5 788-0) PLT (test code = See_Comment H [Automated 777-3) message] The sy stem which generated this result transmitted reference range : 166 - 358 10*3/ ?L. The reference r tano was not used to interpret this result as normal/abnormal . MPV (test code = 10.3 fL 9.5-12.9 85214-8) NRBC/100 WBC (test See_Comment [Automat ed code = 8397231204) message] The system which generated this result transmitted reference range : 0.0 - 10.0 /100 WBCs. The refer ence range was not u sed to interpret th is result as normal/abnormal . NRBC x10^3 (test code <0.01 See_Comment [Auto mated = 3808896239) message] The s ystem which generated this result transmitted reference range : 10*3/?L. The reference range was not used to interpret this result as normal/abnormal . GRAN MAT (NEUT) % 56.2 % (test code = 770-8) IMM GRAN % (test code 0.20 % = 1898148921) LYMPH % (test code = 34.2 % 736-9) MONO % (test code = 6.3 % 5905-5) EOS % (test code = 2.5 % 713-8) BASO % (test code = 0.6 % 706-2) GRAN MAT x10^3(ANC) 4.59 10*3/uL 1.88-7.09 (test code = 0345036046) IMM GRAN x10^3 (test <0.03 0-0.06 code = 5748498533) LYMPH x10^3 (test code 2.79 10*3/uL 1.32-3.29 = 731-0) MONO x10^3 (test code 0.51 10*3/uL 0.33-0.92 = 742-7) EOS x10^3 (test code = 0.20 10*3/uL 0.03-0.39 711-2) BASO x10^3 (test code 0.05 10*3/uL 0.01-0.07 = 704-7) Lab Interpretation Abnormal (test code = 14945-5) [facility] Notes Date/Time Note Provider Source 2022-09-02 16:54:00-00:00 [id number] [place] [address] PATIENT NAME: CHAPITO REINOSO ADMIT D ATE: 09/02/22 ACCOUNT NO: [id number] ROOM NO: AGE: 57 REPORT TYPE: OPERATIVE [...] retinacular ganglion cyst. SURGEON: Arnulfo Florez M.D. WELDING MACHINE FEEDER: ANESTHESIA: General anesthesia, laryngeal mask a irway [...] to release the A1 alyssa, left t legal research analyst thumb is recommended. The risks and expectations [...] Dictated: 09/02/2022 16:54:01 Date Transcribed: 09/02/2022 20:34:34 [facility] Receipt ID: [id number] Authenticated by Arnulfo Florez MD On 2022 02:13:11 PM Electronically Signed by Arnulfo Florez MD o n 09/06/22 at 0213 PATIENT NAME: CHAPITO REINOSO 2022-04-10 15:25:00-00:00 [id number] [place] [address] PATIENT NAME: CHAPITO REINOSO ADMIT D ATE: 04/10/22 ACCOUNT NO: [id number] ROOM NO: AGE: 56 REPORT TYPE: OPERATIVE [...] (Depo-Medrol 40 mg/Xylocaine/Marcaine). SURGEON: Arnulfo Florez M.D. WELDING MACHINE FEEDER: ANESTHESIA: General anesthesia, laryngeal mask a irway [...] recovery room in good condition. Dictated By: Anrulfo Florez MD Date Dictated: 04/10/2022 15:25:21 PATIENT NAME: CHAPITO REINOSO Date Transcribed: 04/10/2022 20:03:30 [facility] Receipt ID: [id number] Authenticated by Arnulfo Florez MD On 2021 06:35:12 AM Electronically Signed by Arnulfo Florez MD o n 04/18/22 at 0635 PATIENT NAME: CHAPITO REINOSO 2022-04-02 10:49:00-00:00 [id number] [place] [address] PATIENT NAME: CHAPITO REINOSO ADMIT DATE: ACCOUNT NO: [id number] ROOM NO: AGE: 56 REPORT TYPE: ELECTROCARDIOGRAM SEX: F ADMITTING PHYSICIAN: ATTENDING PHYSICIAN:Arnulfo Florez MD Order: [id number] Test Reason : PRE OP CLEARANCE HTN [...] ECGs available Confirmed by ASHER PALACIO MD ([id number]) on 04/03/2022 8:12:29 PM Referred By: Arnulfo Florez Confirmed by:ASHER PALACIO MD PATIENT NAME: CHAPITO REINOSO "
[2022-12-20 19:25] LABS: Absolute Lymphocytes (CBC) 1.9 K/uL (0.7-4.9); Hematocrit 39.2 % (36.0-45.0); Lymphocytes % 24.4 % (15.3-44.8); MCV 85.6 fL (80-100); MPV 8.7 fL (7.6-11.3); Platelets 290 thou/uL (152-406); RBC Red Blood Cell Count 4.58 M/uL (3.86-4.86)
[2022-12-20] MEDS ORDERED: PROMETHAZINE INJ 25 MG/ML AMP ONE (19:41)
[2022-12-20] MEDS ORDERED: NA CHLORIDE 0.9% 250 ML ONE (19:42)
[2022-12-20] MEDS ORDERED: NA CHLORIDE 0.9% 1,000 ML ONE ×3 (19:42→21:23)
[2022-12-20 19:52] LABS: Albumin 4.1 g/dL (3.4-5.0); Bilirubin Total 0.7 mg/dL (0.2-1.0); Phosphorus 2.9 mg/dL (2.5-4.9); Potassium 2.9 mEq/L (3.5-5.1); Protein, Total 7.5 g/dL (6.4-8.2)
[2022-12-20 19:53] LABS: Thyroid Stimulating Hormone 0.011 uIU/mL (0.358-3.740)
[2022-12-20] MEDS ORDERED: KCL 20 MEQ/100 mL IVPB 200 ML IV ONE (20:19)
--- NOTE | 2022-12-20 20:55 | RAD REPORT ---
EXAM DESCRIPTION: CT - Abdomen Pelvis Wo Contrast - 12/20/2022 8:49 pm CLINICAL HISTORY: Abdominal pain. ABD PAIN COMPARISON: Head Brain Wo Cont dated 12/20/2022; HEAD BRAIN W O CONTRAST dated 04/15/2011bdomen Pel vis Wo Contrast dated 12/13/2022bdomen Pelvis Wo Contrast dated 12/13/2022; Abdomen Exam Limited ramón ed 12/13/2022 TECHNIQUE: CT imaging of the abdomen and pelvis was performed without contrast. Solid organ, bowel a nd vascular assessment is limited due to lack of IV and oral contrast. All CT scans are performed using dose optimization technique as appropriate and may include automated exposure control or mA/KV adjustment according to patient size. FINDINGS: The lower lung benavides are clear. The liver, spleen, pancreas, adrenal glands and kidneys are within normal limits for a limited non-co ntrast examination. No bowel obstruction, free air, free fluid or abscess. The appendix is normal. The osseous structures are within normal limits. IMPRESSION: No acute intra-abdominal or pelvic findings. A limited non-contrast examination was performed as detailed.
[2022-12-20 20:57] LABS: Hepatitis B Core IgM Nonreactive (Nonreactive); Hepatitis B surface AG Interp. Nonreactive (Nonreactive); Hepatitis C Virus Ab Nonreactive (Nonreactive)
--- NOTE | 2022-12-20 22:09 | ER ---
Nurse's Notes [facility] Name: Roya Reinoso Age: 57 yrs Sex: Female : 1965 Arrival Date: 12/20/2022 Time: 18:17 Bed 6 Private MD: Anselmo Harrison Diagnosis: Dehydration;Hypokalemia;Hyperthyroid state Presentation: 12/20 18:30 Chief complaint: Patient states: Vomiting and diarrhea for 1-2 months, seen here nj1 Friday, felt somewhat better for a couple of days and then again unable to keep anything down. States diarrhea is not as bad because "im not able to eat anything". Have appointment with GI specialist sometime this month. Coronavirus screen: Vaccine status: Patient reports being unvaccinated. Ebola Screen: Patient denies travel to an Ebola-affected area in the 21 days before illness onset. Initial Sepsis Screen: Does the patient meet any 2 criteria? No. Patient's initial sepsis screen is negative. Does the patient have a suspected source of infection? No. Patient's initial sepsis screen is negative. Risk Assessment: Do you want to hurt yourself or someone else? Patient reports no desire to harm self or others. Onset of symptoms was October 2022. 18:30 Method Of Arrival: Ambulatory [facility] 18:30 Acuity: LINDA 3 [facility] Triage Assessment: 19:00 General: Appears distressed, Behavior is cooperative, appropriate for age, anxious. bp Pain: Complains of pain in abdomen. EENT: No deficits noted. Neuro: No deficits noted. Cardiovascular: No deficits noted. Respiratory: No deficits noted. GI: Reports diarrhea, nausea, vomiting. : No signs and/or symptoms were reported regarding the genitourinary system. Derm: No deficits noted. Musculoskeletal: No deficits noted. Historical: - Allergies: 18:32 Toradol; nj1 - PMHx: 18:32 Hypertensive disorder; Hypothyroidism; TIA; Hypercholesterolemia; nj1 - PSHx: 18:32 Ligation of fallopian tube; Tonsillectomy; Carpal tunnel, left; nj1 - Immunization history:: Client reports having NOT received the Covid vaccine. - Social history:: Smoking status: Patient denies any tobacco usage or history of. Screenin:57 [facility] ED Fall Risk Assessment (Adult) History of falling in the last 3 months, bp including since admission No falls in past 3 months (0 pts). Abuse screen: Denies threats or abuse. Denies injuries from another. Nutritional screening: No deficits noted. Tuberculosis screening: No symptoms or risk factors identified. Assessment: 19:00 General: SEE TRIAGE NOTE. bp 19:57 Reassessment: Patient appears in no apparent distress at this time. Patient is alert, bp oriented x 3, equal unlabored respirations, skin warm/dry/pink. CT AND UOP PENDING. 22:00 Reassessment: Patient appears in no apparent distress at this time. Patient is alert, bp oriented x 3, equal unlabored respirations, skin warm/dry/pink. GI: Abdomen is non-distended. 12/21 00:38 Reassessment: REPORT GIVEN TO [facility]. rv 00:51 Reassessment: PT ONELIA WITH EMS. bp Vital Signs: 12/20 18:30 BP 120 / 54; Pulse 66; Resp 18; Temp 97.7(O); Pulse Ox 98% on R/A; Weight 74.39 kg; nj1 Height 5 ft. 7 in. ; 19:57 BP 120 / 76; Pulse 67; Resp 16; Pulse Ox 100% ; bp 20:00 BP 103 / 80; Pulse 68; Resp 17; Pulse Ox 100% ; rv 22:00 BP 97 / 49; Pulse 58; Resp 16; Pulse Ox 99% ; bp 23:00 BP 107 / 52; Pulse 59; Resp 18; Temp 98; Pulse Ox 97% on R/A; rv 12/21 00:30 BP 119 / 66; Pulse 61; Resp 16; Pulse Ox 98% on R/A; rv 12/20 18:30 Body Mass Index 25.69 (74.39 kg, 170.18 cm) nj1 Sofie Coma Score: 00:31 Eye Response: spontaneous(4). Motor Response: obeys commands(6). Verbal Response: rv oriented(5). Total: 15. ED Course: 12/20 18:20 Patient arrived in ED. mr 18:20 Anselmo Harrison is Private Physician. mr 18:21 [facility]C [facility]. snw 18:21 Jonas Bolden MD is Attending Physician. snw 18:32 Triage completed. nj1 18:33 Arm band placed on. nj1 19:10 Gagandeep Quintero, RN is Primary Nurse. bp 19:15 Inserted saline lock: 20 gauge in right forearm, using aseptic technique. Blood bp collected. 19:57 Patient has correct armband on for positive identification. Bed in low position. Call bp light in reach. Side rails up X2. Adult w/ patient. 20:50 Abdomen In Process Unspecified. EDMS 21:50 Dr. Harley initiated transfer to [facility]. wm 22:09 Terence Corcoran MD is Hospitalizing Provider. snw 22:31 Pt accepted for transfer to [facility] by Saulo Buckner \\T\\ [id number]. Admin to call wm back with bed assignment and report number, per Tammy Kirkpatrick. 22:47 Tammy from [facility] called back with bed assignment and report wm number. Pt will be going to [facility] 4 Bed 435. 12/21 00:38 No provider procedures requiring assistance completed. Patient transferred, IV remains rv in place. 00:40 Provided Education on: THYROID PROBLEM. rv Administered Medications: 12/20 19:43 Drug: NS 0.9% IV 1000 ml Route: IV; Rate: 1 bolus; Site: right forearm; bp 12/21 00:42 Follow up: IV Status: Completed infusion; IV Intake: 1000ml rv 12/20 19:43 Drug: Promethazine IVP 25 mg Route: IVP; Site: right forearm; bp / 00:41 Follow up: Response: No adverse reaction; Nausea is decreased rv 12/20 19:43 Drug: NS 0.9% IV 250 ml Route: IV; Rate: bolus; Site: right forearm; bp 12/21 00:41 Follow up: IV Status: Completed infusion; IV Intake: 250ml rv 12/20 20:11 Drug: Potassium Chloride IV 20 mEq Route: IV; Rate: calculated rate; Site: right wrist; rv 21:15 Follow up: Response: No adverse reaction; IV Status: Completed infusion; IV Intake: rv 100ml 21:15 Drug: Potassium Chloride IV 20 mEq Route: IV; Rate: calculated rate; Site: right wrist; rv 12/21 00:41 Follow up: IV Status: Completed infusion; IV Intake: 100ml rv 00:41 Follow up: Response: No adverse reaction rv 12/20 21:15 Drug: NS 0.9% IV 1000 ml Route: IV; Rate: 1 bolus; Site: right wrist; rv 12/21 00:41 Follow up: IV Status: Completed infusion; IV Intake: 1000ml rv 12/20 22:20 Drug: NS 0.9% IV 1000 ml Route: IV; Rate: 1 bolus; Site: right wrist; rv 12/21 00:41 Follow up: IV Status: Completed infusion; IV Intake: 1000ml rv Medication: 00:39 VIS not applicable for this client. rv Intake: 12/20 21:15 IV: 100ml; Total: 100ml. rv 12/21 00:41 IV: 1000ml; Total: 1100ml. rv 00:41 IV: 1000ml; Total: 2100ml. rv 00:41 IV: 100ml; Total: 2200ml. rv 00:41 IV: 250ml; Total: 2450ml. rv 00:42 IV: 1000ml; Total: 3450ml. rv Outcome: 12/20 22:09 Decision to Hospitalize by Provider. snw 12/21 00:37 ER care complete, transfer ordered by MD. snw 00:39 Transferred by ground EMS to [facility], Transfer form completed. X-rays rv sent w/ patient. 00:39 Condition: stable 00:39 Instructed on the need for transfer. 00:53 Patient left the ED. bp Signatures: Dispatcher [employer] EDMS Raissa Mascorro, GIN DIGITAL DIRECTOR-Colette Burks Brian, RN RN bp Austin Cosme RN SHERI rv Latanya Lujan Sheila Pearson RN RN nj1
--- NOTE | 2022-12-20 22:09 | EDPHYS ---
Physician Documentation [facility] Name: Roya Reinoso Age: 57 yrs Sex: Female : 1965 Arrival Date: 12/20/2022 Time: 18:17 Bed 6 Private MD: Anselmo Harrison ED Physician Jonas Bolden HPI: 12/20 20:57 This 57 yrs old Female presents to ER via Ambulatory with complaints of snw Nausea/Vomiting/Diarrhea, Dehydrated. 20:57 The patient presents to the emergency department with nausea, vomiting, abdominal pain. snw Onset: The symptoms/episode began/occurred 2 month(s) ago, and became persistent. The symptoms are aggravated by nothing. Severity of symptoms: At their worst the symptoms were moderate. The patient has experienced similar episodes in the past. The patient has been recently seen at the [facility] Emergency Department, a couple of weeks ago, for similar complaints. Historical: - Allergies: 18:32 Toradol; nj1 - PMHx: 18:32 Hypertensive disorder; Hypothyroidism; TIA; Hypercholesterolemia; nj1 - PSHx: 18:32 Ligation of fallopian tube; Tonsillectomy; Carpal tunnel, left; nj1 - Immunization history:: Client reports having NOT received the Covid vaccine. - Social history:: Smoking status: Patient denies any tobacco usage or history of. ROS: 20:56 Eyes: Negative for injury, pain, redness, and discharge, ENT: Negative for injury, snw pain, and discharge, Neck: Negative for injury, pain, and swelling, Cardiovascular: Negative for chest pain, palpitations, and edema, Respiratory: Negative for shortness of breath, cough, wheezing, and pleuritic chest pain. 20:56 Back: Negative for injury and pain, : Negative for injury, bleeding, discharge, and swelling, MS/Extremity: Negative for injury and deformity, Skin: Negative for injury, rash, and discoloration, Neuro: Negative for headache, weakness, numbness, tingling, and seizure, Psych: Negative for depression, anxiety, suicide ideation, homicidal ideation, and hallucinations. 20:56 Constitutional: Positive for body aches, malaise, poor PO intake, weight loss. 20:56 Abdomen/GI: Positive for abdominal pain, nausea and vomiting. Exam: 20:55 Head/Face: Normocephalic, atraumatic. Eyes: Pupils equal round and reactive to light, snw extra-ocular motions intact. Lids and lashes normal. Conjunctiva and sclera are non-icteric and not injected. Cornea within normal limits. Periorbital areas with no swelling, redness, or edema. ENT: Nares patent. No nasal discharge, no septal abnormalities noted. Tympanic membranes are normal and external auditory canals are clear. Oropharynx with no redness, swelling, or masses, exudates, or evidence of obstruction, uvula midline. Mucous membranes moist. Neck: Trachea midline, no thyromegaly or masses palpated, and no cervical lymphadenopathy. Supple, full range of motion without nuchal rigidity, or vertebral point tenderness. No Meningismus. Chest/axilla: Normal chest wall appearance and motion. Nontender with no deformity. No lesions are appreciated. Cardiovascular: Regular rate and rhythm with a normal S1 and S2. No gallops, murmurs, or rubs. Normal PMI, no JVD. No pulse deficits. Respiratory: Lungs have equal breath sounds bilaterally, clear to auscultation and percussion. No rales, rhonchi or wheezes noted. No increased work of breathing, no retractions or nasal flaring. 20:55 Back: No spinal tenderness. No costovertebral tenderness. Full range of motion. MS/ Extremity: Pulses equal, no cyanosis. Neurovascular intact. Full, normal range of motion. Neuro: Awake and alert, GCS 15, oriented to person, place, time, and situation. Cranial nerves II-XII grossly intact. Motor strength 5/5 in all extremities. Sensory grossly intact. Cerebellar exam normal. Normal gait. Psych: Awake, alert, with orientation to person, place and time. Behavior, mood, and affect are within normal limits. 20:55 Constitutional: The patient appears alert, anxious, pale, uncomfortable. 20:55 Abdomen/GI: Inspection: abdomen appears normal, Bowel sounds: diminished, in all quadrants, Palpation: mild abdominal tenderness, in all quadrants. 20:55 Skin: Appearance: Color: dusky. Vital Signs: 18:30 BP 120 / 54; Pulse 66; Resp 18; Temp 97.7(O); Pulse Ox 98% on R/A; Weight 74.39 kg; nj1 Height 5 ft. 7 in. ; 19:57 BP 120 / 76; Pulse 67; Resp 16; Pulse Ox 100% ; bp 20:00 BP 103 / 80; Pulse 68; Resp 17; Pulse Ox 100% ; rv 22:00 BP 97 / 49; Pulse 58; Resp 16; Pulse Ox 99% ; bp 23:00 BP 107 / 52; Pulse 59; Resp 18; Temp 98; Pulse Ox 97% on R/A; rv 12/21 00:30 BP 119 / 66; Pulse 61; Resp 16; Pulse Ox 98% on R/A; rv 12/20 18:30 Body Mass Index 25.69 (74.39 kg, 170.18 cm) nj1 Sofie Coma Score: 00:31 Eye Response: spontaneous(4). Motor Response: obeys commands(6). Verbal Response: rv oriented(5). Total: 15. MDM: 12/20 18:27 Patient medically screened. snw 18:51 ED course: 40# wt loss since August. snw 22:06 Differential diagnosis: Nonspecific abd pain, pancreatitis, viral gastroenteritis, snw gastroenteritis. Data reviewed: vital signs, nurses notes. Consideration of Admission/Observation Patient was admitted/placed on observation. Management of patient was discussed with the following: Hospitalist: Nahum Santana. I considered the following discharge prescriptions or medication management in the emergency department Medications were administered in the Emergency Department. See MAR. Historians other than the Patient: Spouse/Significant Other: . Counseling: I had a detailed discussion with the patient and/or guardian regarding the historical points, exam findings, and any diagnostic results supporting the discharge/admit diagnosis, lab results, radiology results, the need for further work-up and treatment in the hospital. Response to treatment: the patient's symptoms have mildly improved after treatment. Special discussion:. 12/20 18:51 Order name: TSH; Complete Time: 19:59 snw 12/20 18:51 Order name: CBC with Diff; Complete Time: 19:40 snw 12/20 18:51 Order name: CMP; Complete Time: 19:59 snw 12/20 18:51 Order name: Phosphorus; Complete Time: 19:59 snw 12/20 18:51 Order name: Hepatitis Panel; Complete Time: 20:58 snw 12/20 18:52 Order name: Lipid Profile; Complete Time: 19:59 snw 12/20 20:42 Order name: Abdomen ; Complete Time: 20:58 EDMS Administered Medications: 19:43 Drug: NS 0.9% IV 1000 ml Route: IV; Rate: 1 bolus; Site: right forearm; bp 12/21 00:42 Follow up: IV Status: Completed infusion; IV Intake: 1000ml rv 12/20 19:43 Drug: Promethazine IVP 25 mg Route: IVP; Site: right forearm; bp 12/21 00:41 Follow up: Response: No adverse reaction; Nausea is decreased rv 12/20 19:43 Drug: NS 0.9% IV 250 ml Route: IV; Rate: bolus; Site: right forearm; bp 12/21 00:41 Follow up: IV Status: Completed infusion; IV Intake: 250ml rv 12/20 20:11 Drug: Potassium Chloride IV 20 mEq Route: IV; Rate: calculated rate; Site: right wrist; rv 21:15 Follow up: Response: No adverse reaction; IV Status: Completed infusion; IV Intake: rv 100ml 21:15 Drug: Potassium Chloride IV 20 mEq Route: IV; Rate: calculated rate; Site: right wrist; rv 12/21 00:41 Follow up: IV Status: Completed infusion; IV Intake: 100ml rv 00:41 Follow up: Response: No adverse reaction rv 12/20 21:15 Drug: NS 0.9% IV 1000 ml Route: IV; Rate: 1 bolus; Site: right wrist; rv 12/21 00:41 Follow up: IV Status: Completed infusion; IV Intake: 1000ml rv 12/20 22:20 Drug: NS 0.9% IV 1000 ml Route: IV; Rate: 1 bolus; Site: right wrist; rv 12/21 00:41 Follow up: IV Status: Completed infusion; IV Intake: 1000ml rv Disposition Summary: 12/21/22 00:37 Transfer Ordered Transfer Location: [facility] snw Reason: Specialty snw Condition: Stable(12/21/22 00:37) snw Problem: an ongoing problem(12/21/22 00:37) snw Symptoms: are unchanged(12/21/22 00:37) snw Accepting Physician: [facility](12/21/22 00:53) bp Diagnosis - Dehydration(12/21/22 00:37) snw - Hypokalemia(12/21/22 00:37) snw - Hyperthyroid state snw Forms: - Medication Reconciliation Form snw - SBAR form snw Addendum: 12/23/2022 07:02 Co-signature as Attending Physician, Jonas Bolden MD I reviewed the patient's care r n provided by the Advanced Practice Provider and agree with the diagnosis and treatment plan. Signatures: Dispatcher [employer] EDMS Raissa Mascorro, TELEVISION ACTOR-C TELEVISION ACTOR-Csnw Jonas Bolden MD MD rn Gagandeep Quintero, RN RN bp Austin Cosme, RN RN rv Sheila Pearson RN RN nj1 Corrections: (The following items were deleted from the chart) 12/20 20:42 18:51 Abdomen Pelvis W Con+CT.RAD.BRZ ordered. EDGA EDGA 22:09 22:09 Dehydration snw snw 12/21 00:34 12/20 22:09 Observation snw snw 12/21 00:34 12/20 22:09 NiloTerence coto snw snw 12/21 00:34 12/20 22:09 Telemetry/MedSurg (observation) snw snw 12/21 00:34 12/20 22:09 Stable snw snw 12/21 00:34 12/20 22:09 an ongoing problem snw snw 12/21 00:34 12/20 22:09 have improved snw snw 12/21 00:34 12/20 22:09 Standard snw snw 12/21 00:34 12/20 22:09 snw snw 12/21 00:34 12/20 22:09 Hypokalemia snw snw 12/21 00:34 12/20 22:09 Hyperthyroid state snw snw 12/21 00:34 12/20 22:09 Dehydration - FLEX snw snw 12/21 00:53 00:37 [facility] snw bp
[2022-12-21 01:56] VITALS: TEMP 98
[2022-12-21 01:58] VITALS: BP 119/66; O2SAT 98
== END 2022-12-21 00:53 | disposition short-term general hospital (02) ==
LOC: ER 18:17
DX: E86.0 Dehydration (principal); E87.6 Hypokalemia; E05.90 Thyrotoxicosis, unspecified without thyrotoxic crisis or storm; I10 Essential (primary) hypertension; Z86.73 Personal history of transient ischemic attack (TIA), and cerebral infarction without residual deficits; Z88.5 Allergy status to narcotic agent
CPT/HCPCS: 96365; 85025; 36415; 84100; 80061; 84443; 80053; 80074; 74176; 96375; 99285; 96366; J2550; J3480; J7050; J7030 ×3

== ENCOUNTER 2024-01-31 16:43 | Emergency (ER) | payer OTHER ==
[2024-01-31] MEDS ORDERED: ONDANSETRON 4 MG/2 ML VIAL ONE (17:01)
[2024-01-31] MEDS ORDERED: NA CHLORIDE 0.9% 1,000 ML ONE (17:01)
[2024-01-31] MEDS ORDERED: droPERidol 5 MG/2 ML VIAL ONE (17:25)
[2024-01-31] MEDS ORDERED: DIPHENHYDRAMINE 50 MG/ML VIAL ONE (17:26)
[2024-01-31] MEDS ORDERED: FAMOTIDINE 20 MG/2 ML VIAL IV ONE (17:26)
[2024-01-31 17:28] LABS: Absolute Basophils 0.1 K/uL (0-0.5); Absolute Eosinophils 0.1 K/uL (0-0.5); Absolute Lymphocytes (CBC) 1.6 K/uL (0.7-4.9); Absolute Monocytes 0.4 K/uL (0.1-1.3); Eosinophils % 1.3 % (0-4.4); Hematocrit 37.7 % (36.0-45.0); Hemoglobin 12.8 g/dL (12.0-15.0); Lymphocytes % 25.7 % (15.3-44.8); MCH 30.1 pg (27.0-35.0); MCHC 33.9 g/dL (32.0-36.0); MCV 88.6 fL (80-100); MPV 8.9 fL (7.6-11.3); Platelets 299 thou/uL (152-406); RBC Red Blood Cell Count 4.25 M/uL (3.86-4.86); Red Cell Distribution Width 12.8 % (12.1-15.2)
[2024-01-31 17:48] LABS: Albumin 3.5 g/dL (3.4-5.0); Albumin/Globulin Ratio 1.1 (1.1-1.8); Anion Gap 11.7 mEq/L (5.0-15.0); Bilirubin Total 0.9 mg/dL (0.2-1.0); Globulin 3.1 g/dL (2.3-3.5); Potassium 2.7 mEq/L (3.5-5.1); Protein, Total 6.6 g/dL (6.4-8.2)
[2024-01-31] MEDS ORDERED: KCL 20 MEQ/100 mL IVPB 100 ML IV ONE (18:08)
[2024-01-31 18:30] LABS: Specific Gravity 1.005 (1.005-1.030); Sqamous Epithelial <5 /HPF (None Seen); Urine Bacteria <20 /HPF (<20); Urine Bilirubin NEGATIVE (Negative); Urine Blood Negative (Negative); Urine Clarity Turbid (Clear); Urine Color Colorless (Yellow); Urine Crystals Unidentified Few /HPF (None Seen); Urine Culture Reflex Order NOT NEEDED; Urine Glucose NEGATIVE (Negative); Urine Ketones 1+ (Negative); Urine Microscopic Reflex YN ORDER UMIC; Urine Nitrite NEGATIVE (Negative); Urine Protein NEGATIVE (Negative); Urine RBC <5 /HPF (None Seen); Urine Urobilinogen Normal (Normal); Urine WBC <5 /HPF (<5); Urine Yeast (Budding) Trace /HPF (None Seen); Urine pH 5.5 (5.0-7.0)
--- NOTE | 2024-01-31 19:01 | RAD REPORT ---
EXAMINATION: CT ABDOMEN AND PELVIS WITH CONTRAST CLINICAL INDICATION: ABD PAIN TECHNIQUE: CT abdomen and pelvis was performed, after the administration of IV contrast, as per [facility] protocol. Axial, sagittal and coronal reconstructions were obtained. One or more of the following dose reduction techniques were used: Automated exposure control, adjustment of the mA and k V according to patient size, and iterative reconstruction. Unless otherwise specified, incidental findings do not require dedicated imaging follow-up. COMPARISON: 12/20/2022 FINDINGS: LOWER CHEST: The visualized lung bases are clear. LIVER: Normal in size and contour. No focal lesion. Grossly unremarkable gallbladder. SPLEEN: Normal size. No focal lesion. PANCREAS: No mass, ductal dilation, or kylee-pancreatic fluid. ADRENALS: Normal; no mass. KIDNEYS: Normal size and contour. No hydronephrosis. GASTROINTESTINAL TRACT: No evidence of free air, significant intra-abdominal free fluid, bowel obstru ction or abscess. APPENDIX: Normal appendix. LYMPH NODES: No lymphadenopathy. MUSCULOSKELETAL: No acute or suspicious osseous abnormality. ADDITIONAL FINDINGS: None. IMPRESSION: No acute or concerning abnormalities seen in the abdomen or pelvis.
--- NOTE | 2024-01-31 20:47 | EDPHYS ---
Physician Documentation [facility] Name: Roya Reinoso Age: 58 yrs Sex: Female : 1965 Arrival Date: 01/31/2024 Time: 16:43 Bed 7 Private MD: ED Physician Amado Nichole HPI: 01/30 17:31 This 58 yrs old Female presents to ER via Ambulatory with complaints of ec2 Vomiting/Diarrhea. 17:31 Patient arrives today for evaluation of nausea, vomiting, diarrhea. Reports onset of ec2 symptoms approximately 2 weeks ago and has been persistent. Patient reports poor p.o. intake. Denies any urinary complaints. Reports generalized abdominal pain. Patient reports previous history of gastric ulcers.. Historical: - Allergies: 16:52 Toradol; aa5 - PMHx: 16:52 Hypercholesterolemia; Hypertensive disorder; Hypothyroidism; TIA; aa5 16:52 gastric ulcers; aa5 - PSHx: 16:52 Carpal tunnel; Ligation of fallopian tube; Tonsillectomy; aa5 - Immunization history:: Adult Immunizations unknown. - Infectious Disease History:: Denies. - Social history:: Smoking status: Patient denies any tobacco usage or history of. ROS: 17:31 Constitutional: as per hpi ec2 Exam: 17:31 Constitutional: GEN: NAD Head: atraumatic Eyes: EOMI Ears: External ears are ec2 normal. CV: regular rate LUNGS: no respiratory distress ABD: non-distended, soft, generally tender, not guarding, not rigid SKIN: no evidence of rashes MSK: no evidence of trauma Vital Signs: 16:51 BP 154 / 92; Pulse 62; Resp 18 S; Temp 97.5(TE); Pulse Ox 99% on R/A; Weight 74.39 kg aa5 (R); Height 5 ft. 7 in. (R); 18:41 BP 162 / 89; Pulse 53; Resp 16; Pulse Ox 96% on R/A; mb9 19:06 BP 181 / 96; Pulse 60; Resp 20; Temp 97.5; Pulse Ox 97% ; Pain 0/10; bm8 20:38 BP 184 / 89; Pulse 64; Resp 19; Temp 97.5; Pulse Ox 100% on R/A; Pain 0/10; bm8 16:51 Body Mass Index 25.69 (74.39 kg, 170.18 cm) aa5 19:06 Pain Scale: Adult bm8 20:38 Pain Scale: Adult bm8 [place] Coma Score: 19:06 Eye Response: spontaneous(4). Motor Response: obeys commands(6). Verbal Response: bm8 oriented(5). Total: 15. 20:38 Eye Response: spontaneous(4). Motor Response: obeys commands(6). Verbal Response: bm8 oriented(5). Total: 15. MDM: 17:31 Data reviewed: vital signs. ec2 17:33 ED course: Patient arrives today for evaluation of nausea, vomiting, diarrhea along ec2 with generalized abdominal pain. Examination remarkable for well-appearing nontoxic dividual's otherwise in no acute distress. Will obtain lab work, CT imaging and treat the patient's symptoms. Differential includes gastritis, urinary tract infection, lower suspicion for pancreatitis or appendicitis . 18:54 Patient medically screened. sb4 19:29 Patient medically screened. sb4 01/30 16:54 Order name: CBC with Diff; Complete Time: 17:39 ec2 01/30 16:54 Order name: CMP; Complete Time: 18:05 ec2 01/30 16:54 Order name: Urinalysis w/ reflexes; Complete Time: 18:33 ec2 12 18:33 Order name: CT Abd/Pelvis - IV Contrast Only; Complete Time: 19:06 ec2 01/30 16:54 Order name: IV Saline Lock; Complete Time: 17:21 ec2 01/30 16:54 Order name: Labs collected and sent; Complete Time: 17:21 ec2 01/30 19:06 Order name: PO challenge; Complete Time: 20:19 sb4 Administered Medications: 17:21 Drug: Ondansetron IVP 4 mg IVP once; over 2 minutes Route: IVP; Site: right forearm; mb9 18:00 Follow up: Response: No adverse reaction mb9 17:21 Drug: NS 0.9% IV 1000 ml IV at 1 bolus Per protocol; to be given as a bolus over 60 mb9 minutes Route: IV; Rate: 1 bolus; Site: right forearm; 18:37 Follow up: Response: No adverse reaction; IV Status: Completed infusion mb9 17:34 Drug: diphenhydrAMINE IVP 25 mg IVP once Route: IVP; Site: right forearm; mb9 18:00 Follow up: Response: No adverse reaction mb9 17:34 Drug: Famotidine IVP 20 mg IVP once; dilute with 10 mL 0.9% NaCl; give over 2 minutes mb9 Route: IVP; Site: right forearm; 18:00 Follow up: Response: No adverse reaction mb9 18:00 Not Given (Physician Discretion): droperidol2.5 mg IVP once mb9 18:21 Drug: Potassium Chloride IV 20 mEq IV at calculated rate once; administer over 1-2 mb9 hours Route: IV; Rate: calculated rate; Site: right forearm; 20:56 Follow up: Response: No adverse reaction; IV Status: Completed infusion; IV Intake: [id number] Disposition Summary: 01/31/24 20:47 Discharge Ordered Notes: Location: Home sb4 Problem: an ongoing problem sb4 Symptoms: have improved sb4 Condition: Stable sb4 Diagnosis - Nausea with vomiting, unspecified sb4 - Hypokalemia sb4 Followup: sb4 - With: Abelino Gill MD - When: 1 week - Reason: Further diagnostic work-up, Recheck today's complaints, Re-evaluation by your physician Discharge Instructions: - Discharge Summary Sheet sb4 - Food Choices to Help Relieve Diarrhea, Adult sb4 - Nausea and Vomiting, Adult sb4 - Hypokalemia sb4 Forms: - Patient Portal Instructions sb4 - Leadership Thank You Letter sb4 Prescriptions: - Reglan 10 mg Oral tablet - take 1 tablet ORAL route every 6 hours As needed; 20 tablet; Refills: 0, sb4 Product Selection Permitted Signatures: Dispatcher [employer] Emily Hinton RN RN aa5 Renate Farr PASalomón PASalomón sb4 Colette Olivas RN RN mb9 Amado Nichole MD MD ec2 Michael Reilly RN bm8 Corrections: (The following items were deleted from the chart) 16:52 16:52 PSHx: Carpal tunnel; aa5 [email or web address]
--- NOTE | 2024-01-31 20:47 | ER ---
Nurse's Notes [facility] Name: Roya Reinoso Age: 58 yrs Sex: Female : 1965 Arrival Date: 01/31/2024 Time: 16:43 Bed 7 Private MD: Diagnosis: Nausea with vomiting, unspecified;Hypokalemia Presentation: 01/30 16:51 Chief complaint: Patient states: vomiting and diarrhea that began 2 weeks ago. aa5 Coronavirus screen: diarrhea, vomiting. Ebola Screen: Patient denies travel to an Ebola-affected area in the 21 days before illness onset. Initial Sepsis Screen: Does the patient meet any 2 criteria? No. Patient's initial sepsis screen is negative. Does the patient have a suspected source of infection? No. Patient's initial sepsis screen is negative. Risk Assessment: Do you want to hurt yourself or someone else? Patient reports no desire to harm self or others. Onset of symptoms was January 2024. 16:51 Method Of Arrival: Ambulatory aa5 16:51 Acuity: LINDA 3 aa5 Historical: - Allergies: 16:52 Toradol; aa5 - PMHx: 16:52 Hypercholesterolemia; Hypertensive disorder; Hypothyroidism; TIA; aa5 16:52 gastric ulcers; aa5 - PSHx: 16:52 Carpal tunnel; Ligation of fallopian tube; Tonsillectomy; aa5 - Immunization history:: Adult Immunizations unknown. - Infectious Disease History:: Denies. - Social history:: Smoking status: Patient denies any tobacco usage or history of. Screenin:08 [facility] ED Fall Risk Assessment (Adult) History of falling in the last 3 months, mb9 including since admission No falls in past 3 months (0 pts) Confusion or Disorientation No (0 pts) Intoxicated or Sedated No (0 pts) Impaired Gait No (0 pts) Mobility Assist Device Used No (0 pt) Altered Elimination No (0 pt) Score/Fall Risk Level 0 - 2 = Low Risk Oriented to surroundings, Maintained a safe environment, Educated pt \T\ family on fall prevention, incl call for assistance when getting out of bed. Abuse screen: Denies threats or abuse. Nutritional screening: No deficits noted. Tuberculosis screening: No symptoms or risk factors identified. Assessment: 17:22 General: Appears in no apparent distress. Behavior is calm, cooperative. Pain: Denies mb9 pain. Neuro: [place] Agitation-Sedation Scale (RASS): 0 - Alert and Calm Level of Consciousness is awake, alert, obeys commands, Oriented to person, place, time, situation, Appropriate for age. Cardiovascular: Patient's skin is warm and dry. Respiratory: Airway is patent Respiratory effort is even, unlabored, Respiratory pattern is regular, symmetrical, Breath sounds are clear bilaterally. GI: Abdomen is flat, non-distended, Bowel sounds present X 4 quads. Abd is soft and non tender X 4 quads. Reports diarrhea, nausea. : No signs and/or symptoms were reported regarding the genitourinary system. EENT: No signs and/or symptoms were reported regarding the EENT system. Derm: Skin is pink, warm \T\ dry. Musculoskeletal: Range of motion: intact in all extremities. 19:06 Reassessment: Patient appears in no apparent distress at this time. Patient and/or bm8 family updated on plan of care and expected duration. Pain level reassessed. Patient is alert, oriented x 3, equal unlabored respirations, skin warm/dry/pink. Patient denies pain at this time. GI: Reports diarrhea, nausea, vomiting. 20:38 Reassessment: Patient appears in no apparent distress at this time. Patient and/or bm8 family updated on plan of care and expected duration. Pain level reassessed. Patient is alert, oriented x 3, equal unlabored respirations, skin warm/dry/pink. pt has passed PO challenge Patient states feeling better. Patient states symptoms have improved. Vital Signs: 16:51 BP 154 / 92; Pulse 62; Resp 18 S; Temp 97.5(TE); Pulse Ox 99% on R/A; Weight 74.39 kg aa5 (R); Height 5 ft. 7 in. (R); 18:41 BP 162 / 89; Pulse 53; Resp 16; Pulse Ox 96% on R/A; mb9 19:06 BP 181 / 96; Pulse 60; Resp 20; Temp 97.5; Pulse Ox 97% ; Pain 0/10; bm8 20:38 BP 184 / 89; Pulse 64; Resp 19; Temp 97.5; Pulse Ox 100% on R/A; Pain 0/10; bm8 16:51 Body Mass Index 25.69 (74.39 kg, 170.18 cm) aa5 19:06 Pain Scale: Adult bm8 20:38 Pain Scale: Adult bm8 [place] Coma Score: 19:06 Eye Response: spontaneous(4). Motor Response: obeys commands(6). Verbal Response: bm8 oriented(5). Total: 15. 20:38 Eye Response: spontaneous(4). Motor Response: obeys commands(6). Verbal Response: bm8 oriented(5). Total: 15. ED Course: 16:46 Patient arrived in ED. mg5 16:49 Amado Nichole MD is Attending Physician. ec2 16:51 Arm band placed on. aa5 16:52 Triage completed. aa5 16:59 Colette Olivas RN is Primary Nurse. mb9 17:08 Placed in gown. Bed in low position. Call light in reach. Side rails up X 1. Provided mb9 Education on: press call light if needing anything. Client placed on continuous cardiac and pulse oximetry monitoring. NIBP monitoring applied. 17:21 No provider procedures requiring assistance completed. Initial lab(s) drawn, by , louis sent to lab. Inserted saline lock: 22 gauge in right forearm, using aseptic technique. Blood collected. Flushed with 10 mL NS. 18:21 hospital monitor on. mb9 18:54 Renate Farr PA-C is PHCP. sb4 18:56 CT Abd/Pelvis - IV Contrast Only In Process Unspecified. EDMS 19:07 Report received from Colette gil RN. bm8 20:47 Abelino Gill MD is Referral Physician. sb4 20:56 Provided Education on: post er care. bm8 20:56 IV discontinued, intact, bleeding controlled, No redness/swelling at site. Pressure bm8 dressing applied. Administered Medications: 17:21 Drug: Ondansetron IVP 4 mg IVP once; over 2 minutes Route: IVP; Site: right forearm; mb9 18:00 Follow up: Response: No adverse reaction mb9 17:21 Drug: NS 0.9% IV 1000 ml IV at 1 bolus Per protocol; to be given as a bolus over 60 mb9 minutes Route: IV; Rate: 1 bolus; Site: right forearm; 18:37 Follow up: Response: No adverse reaction; IV Status: Completed infusion mb9 17:34 Drug: diphenhydrAMINE IVP 25 mg IVP once Route: IVP; Site: right forearm; mb9 18:00 Follow up: Response: No adverse reaction mb9 17:34 Drug: Famotidine IVP 20 mg IVP once; dilute with 10 mL 0.9% NaCl; give over 2 minutes mb9 Route: IVP; Site: right forearm; 18:00 Follow up: Response: No adverse reaction mb9 18:00 Not Given (Physician Discretion): droperidol2.5 mg IVP once mb9 18:21 Drug: Potassium Chloride IV 20 mEq IV at calculated rate once; administer over 1-2 mb9 hours Route: IV; Rate: calculated rate; Site: right forearm; 20:56 Follow up: Response: No adverse reaction; IV Status: Completed infusion; IV Intake: [id number] Medication: 17:08 VIS not applicable for this client. mb9 Intake: 20:56 IV: 50ml; Total: 50ml. bm8 Outcome: 20:47 Discharge ordered by . sb4 20:56 Discharged to home ambulatory, bm8 20:56 Condition: stable 20:56 Discharge instructions given to patient, family, Instructed on discharge instructions, follow up and referral plans. no drinking with medication, no driving heavy equipment, medication usage, safety practices, Demonstrated understanding of instructions, follow-up care, medications, Prescriptions given X 1, 20:58 Patient left the ED. bm8 Signatures: Dispatcher [employer] Emily Hinton RN RN aa5 Renate Farr, PA-C PA-C sb4 Colette Olivas RN RN mb9 Orquidea Shah mg5 Amado Nichole MD MD ec2 Michael Reilly RN RN bm8 Corrections: (The following items were deleted from the chart) 16:52 16:52 PSHx: Carpal tunnel; aa5 aa5
[2024-02-01 00:23] VITALS: TEMP 97.5
[2024-02-01 00:28] VITALS: BP 184/89; O2SAT 100
== END 2024-01-31 20:58 | disposition home or self-care (01) ==
LOC: ER 16:43
DX: R11.2 Nausea with vomiting, unspecified (principal); E87.6 Hypokalemia; I10 Essential (primary) hypertension; E78.00 Pure hypercholesterolemia, unspecified
CPT/HCPCS: 85025; 81001; 36415; 80053; 74177; Q9967; J3480; J1200; J2405; J7030; J1790

== ENCOUNTER 2024-02-19 17:15 | Emergency (ER) | payer OTHER ==
[2024-02-19] MEDS ORDERED: DIPHENHYDRAMINE 50 MG/ML VIAL ONE ×2 (17:45→18:28)
[2024-02-19] MEDS ORDERED: FAMOTIDINE 20 MG/2 ML VIAL IV ONE (17:45)
[2024-02-19] MEDS ORDERED: NA CHLORIDE 0.9% 1,000 ML ONE ×2 (17:45→21:43)
[2024-02-19] MEDS ORDERED: droPERidol 5 MG/2 ML VIAL ONE (17:45)
[2024-02-19 18:16] LABS: Absolute Basophils 0.1 K/uL (0-0.5); Absolute Lymphocytes (CBC) 1.5 K/uL (0.7-4.9); Absolute Monocytes 0.6 K/uL (0.1-1.3); Absolute Neutrophil 8.5 K/uL (1.8-8.0); Basophils % 0.9 % (0-1.3); Eosinophils % 0.3 % (0-4.4); Hematocrit 45.5 % (36.0-45.0); Hemoglobin 15.8 g/dL (12.0-15.0); Lymphocytes % 14.3 % (15.3-44.8); MCH 30.1 pg (27.0-35.0); MCHC 34.6 g/dL (32.0-36.0); MCV 86.9 fL (80-100); MPV 9.2 fL (7.6-11.3); Monocytes % 5.5 % (3.3-12.3); Nucleated Red Blood Cells % 0.3 % (0-0); Platelets 346 thou/uL (152-406); RBC Red Blood Cell Count 5.23 M/uL (3.86-4.86); Red Cell Distribution Width 12.6 % (12.1-15.2)
[2024-02-19 19:05] LABS: Albumin/Globulin Ratio 1.1 (1.1-1.8); Anion Gap 21.8 mEq/L (5.0-15.0); Bilirubin Total 0.8 mg/dL (0.2-1.0); Globulin 3.6 g/dL (2.3-3.5); Protein, Total 7.6 g/dL (6.4-8.2)
[2024-02-19 19:06] LABS: Potassium 3.8 mEq/L (3.5-5.1)
[2024-02-19] MEDS ORDERED: CEFTRIAXONE 1000 MG/VIAL ONE (19:50)
--- NOTE | 2024-02-19 20:52 | RAD REPORT ---
Procedure: Chest Single View HISTORY: Cough COMPARISON: none FINDINGS: The lungs appear clear of acute infiltrate. No significant pleural effusion noted. The heart is normal size. Battery pack overlies the left chest. IMPRESSION: No acute abnormality is displayed.
[2024-02-19 20:59] LABS: SARS-CoV-2 Antigen CONTROL BLUE LINE VIS/BG OK; SARS-CoV-2 Antigen Rapid Res Negative (Negative)
[2024-02-19 21:03] LABS: Specific Gravity 1.019 (1.005-1.030); Urine Bacteria <20 /HPF (<20); Urine Bilirubin NEGATIVE (Negative); Urine Blood Trace (Negative); Urine Clarity Extremely Turbid (Clear); Urine Color Light-Yellow (Yellow); Urine Culture Reflex Order REFLEXED; Urine Glucose NEGATIVE (Negative); Urine Ketones 4+ (Over) (Negative); Urine Micro Reflex YN NO BILL MICROSCOPIC; Urine Mucus Slight /HPF (None Seen); Urine Nitrite NEGATIVE (Negative); Urine Protein 1+ (Negative); Urine Urobilinogen 1+ (Normal); Urine WBC 20-50 /HPF (<5); Urine pH 5.5 (5.0-7.0)
--- NOTE | 2024-02-19 21:39 | RAD REPORT ---
EXAMINATION: CT ABDOMEN AND PELVIS WITH CONTRAST CLINICAL INDICATION: Abdominal pain TECHNIQUE: CT abdomen and pelvis was performed, after the administration of 100 cc Isovue-300.. Sagit ishan and coronal reconstructions were obtained. One or more of the following dose reduction techniques were used: Automated exposure control, adjustment of the mA and kV according to patient si ze, and iterative reconstruction. Unless otherwise specified, incidental findings do not require dedicated imaging follow-up. [id number]. Oral contrast was not given which limits evaluation of bowel and appendix. COMPARISON: January 31, 2024 FINDINGS: Mild fatty liver. The spleen, pancreas, adrenals and kidneys unremarkable Increased density within the appendix probably secondary to previous contrast. The appendix is normal size. .No evidence of diverticulitis. No adnexal mass : IMPRESSION: No acute abnormality displayed
--- NOTE | 2024-02-19 22:42 | ER ---
Nurse's Notes [facility] Name: Roya Reinoso Age: 58 yrs Sex: Female : 1965 Arrival Date: 02/19/2024 Time: 17:15 Bed 5 Private MD: Diagnosis: Nausea with vomiting, unspecified;UTI/ Urinary tract infection, site not specified Presentation: 02/18 17:21 Chief complaint: Patient states: was in [place] from 02/01 until 02/08, possible ko1 ulcers, didn't do a scope but had several CT's, MRI, and potassium replacements. Started having N/V again for past 7 days. Coronavirus screen: At this time, the client does not indicate any symptoms associated with coronavirus-19. Ebola Screen: No symptoms or risks identified at this time. Initial Sepsis Screen: Does the patient meet any 2 criteria? No. Patient's initial sepsis screen is negative. Does the patient have a suspected source of infection? No. Patient's initial sepsis screen is negative. Risk Assessment: Do you want to hurt yourself or someone else? Patient reports no desire to harm self or others. Onset of symptoms is unknown. 17:21 Method Of Arrival: Wheelchair ko1 17:21 Acuity: LINDA 3 ko1 Triage Assessment: 17:26 General: Appears in no apparent distress. Behavior is calm, cooperative, appropriate ko1 for age. Pain: Denies pain. GI: Reports intolerance of fluids, intolerance of food, nausea, vomiting. Historical: - Allergies: 17:26 Toradol; ko1 - Home Meds: 17:26 Unable to obtain [Active]; ko1 - PMHx: 17:26 gastric ulcers; Hypercholesterolemia; Hypertensive disorder; Hypothyroidism; TIA; ko1 - PSHx: 17:26 Carpal tunnel; Ligation of fallopian tube; Tonsillectomy; ko1 - Immunization history:: Adult Immunizations up to date. - Infectious Disease History:: Denies. - Social history:: Smoking status: Patient denies any tobacco usage or history of. Screenin:52 [facility] ED Fall Risk Assessment (Adult) History of falling in the last 3 months, tm6 including since admission No falls in past 3 months (0 pts) Confusion or Disorientation No (0 pts) Intoxicated or Sedated No (0 pts) Impaired Gait No (0 pts) Mobility Assist Device Used No (0 pt) Altered Elimination No (0 pt) Score/Fall Risk Level 0 - 2 = Low Risk Oriented to surroundings, Maintained a safe environment, Educated pt \T\ family on fall prevention, incl call for assistance when getting out of bed. Abuse screen: Denies threats or abuse. Denies injuries from another. Nutritional screening: No deficits noted. Tuberculosis screening: No symptoms or risk factors identified. Assessment: 20:05 General: Appears in no apparent distress. Behavior is calm, cooperative. Pain: Denies tm6 pain. Neuro: Level of Consciousness is awake, alert, obeys commands, Oriented to person, place, time, situation. Cardiovascular: Patient's skin is warm and dry. Respiratory: Airway is patent Respiratory effort is even, unlabored, Respiratory pattern is regular, symmetrical. GI: Abdomen is flat, non-distended, Reports nausea, vomiting, since x7 days. : No signs and/or symptoms were reported regarding the genitourinary system. EENT: No signs and/or symptoms were reported regarding the EENT system. Derm: No signs and/or symptoms reported regarding the dermatologic system. Musculoskeletal: No signs and/or symptoms reported regarding the musculoskeletal system. 21:35 Reassessment: Patient appears in no apparent distress at this time. No changes from al5 previously documented assessment. Patient and/or family updated on plan of care and expected duration. Pain level reassessed. Patient is alert, oriented x 3, equal unlabored respirations, skin warm/dry/pink. Patient states feeling better. Patient states symptoms have improved. 22:32 Reassessment: Patient appears in no apparent distress at this time. No changes from al5 previously documented assessment. Patient and/or family updated on plan of care and expected duration. Pain level reassessed. Patient is alert, oriented x 3, equal unlabored respirations, skin warm/dry/pink. Vital Signs: 17:21 BP 130 / 99; Pulse 91; Resp 18; Temp 97.3; Pulse Ox 98% ; ko1 20:05 BP 139 / 99; Pulse 91; Pulse Ox 99% on R/A; MAP 112 mmHg; tm6 20:46 BP 126 / 74; Pulse 66; Resp 18; Pulse Ox 99% on R/A; al5 21:00 BP 148 / 95; Pulse 88; Resp 16; Pulse Ox 99% ; al5 21:30 BP 161 / 91; Pulse 61; Resp 18; Pulse Ox 98% on R/A; al5 22:00 BP 159 / 97; Pulse 59; Resp 17; Pulse Ox 100% on R/A; al5 22:35 BP 168 / 99; Pulse 72; Resp 18; Pulse Ox 99% on R/A; al5 ED Course: 17:20 Patient arrived in ED. mg5 17:23 Amado Nichole MD is Attending Physician. ec2 17:26 Triage completed. ko1 17:26 Arm band placed on right wrist. Patient placed in an exam room, on a stretcher, on ko1 pulse oximetry, Patient notified of wait time. 17:35 Gagandeep Quintero, RN is Primary Nurse. bp 17:45 Patient has correct armband on for positive identification. Bed in low position. Call tm6 light in reach. Side rails up X 1. Provided Education on: use of call lee. Client placed on continuous cardiac and pulse oximetry monitoring. NIBP monitoring applied. Pulse ox on. NIBP on. Door closed. Noise minimized. Warm blanket given. 17:45 IV discontinued, intact, bleeding controlled, No redness/swelling at site. Pressure tm6 dressing applied. 18:00 Initial lab(s) drawn, by me, sent to lab. Inserted saline lock: 20 gauge in right bp antecubital area, using aseptic technique. Blood collected. Flushed with 10 mL NS. 20:00 Attending Physician role handed off by Amado Nichole MD rt 20:00 Jerrod Greene MD is Attending Physician. rt 20:10 Inserted saline lock: 20 gauge in left antecubital area, using aseptic technique. Blood sa1 collected. Flushed with 10 mL NS. 20:10 Flu and/or RSV swab sent to lab. sa1 20:21 SARS RAPID Sent. sa1 20:21 Influenza Screen (a \T\ B) Sent. sa1 20:21 Lactate w/ 2H reflex if indic. Sent. sa1 20:28 CXR XRAY In Process Unspecified. EDMS 21:32 CT Abd/Pelvis - IV Contrast Only In Process Unspecified. EDMS 22:35 No provider procedures requiring assistance completed. al5 Administered Medications: 18:00 Drug: Famotidine IVP 20 mg IVP once; dilute with 10 mL 0.9% NaCl; give over 2 minutes bp Route: IVP; Site: right antecubital; 21:40 Follow up: Response: No adverse reaction al5 18:00 Drug: NS 0.9% IV 1000 ml IV at 1 bolus Per protocol; to be given as a bolus over 60 bp minutes Route: IV; Rate: 1 bolus; Site: right antecubital; 21:41 Follow up: Response: No adverse reaction; IV Status: Completed infusion; IV Intake: al5 1000ml 18:00 Drug: Droperidol IVP 2.5 mg IVP once Route: IVP; Site: right antecubital; bp 19:34 Follow up: Response: No adverse reaction al5 18:00 Drug: diphenhydrAMINE IVP 50 mg IVP once Route: IVP; Site: right antecubital; bp 19:34 Follow up: Response: No adverse reaction al5 18:20 Drug: diphenhydrAMINE IVP 50 mg IVP once Route: IVP; Site: right antecubital; bp 19:34 Follow up: Response: No adverse reaction al5 19:35 Drug: NS 0.9% IV 1000 ml IV at 1000 ml once; to be given as a bolus over 60 minutes al5 {Note: started prior to nurses arrival. iv infusion discontinued at THIS time due to iv infiltration..} Route: IV; Rate: 1000 ml; Site: right antecubital; 19:35 Follow up: IV Status: IV infiltrated al5 20:45 Follow up: Response: No adverse reaction; IV SiteChange: left antecubital; IV al5 SiteChange Reason: Infiltration 21:40 Follow up: IV Status: Completed infusion; IV Intake: 1000ml al5 20:45 Drug: Rocephin IV 1 grams IV at calculated rate once; Given slow IV push per pharmacy al5 instructions Route: IV; Rate: calculated rate; Site: left antecubital; 21:40 Follow up: Response: No adverse reaction; IV Status: Completed infusion; IV Intake: [id number] Medication: 20:05 VIS not applicable for this client. tm6 Intake: 21:40 IV: 1000ml; Total: 1000ml. al5 21:40 IV: 10ml; Total: 1010ml. al5 21:41 IV: 1000ml; Total: 2010ml. al5 Outcome: 22:41 Discharge ordered by MD. rt 22:55 Discharged to home ambulatory, with significant other, al5 22:55 Condition: good 22:55 Discharge instructions given to patient, significant other, Instructed on discharge instructions, follow up and referral plans. medication usage, Demonstrated understanding of instructions, follow-up care, medications, Prescriptions given X 2, 22:55 Patient left the ED. al5 Signatures: Dispatcher [employer] EDGagandeep Ortiz RN RN Staci Figueroa RN RN ko1 Jerrod Greene MD MD rt [facility]5 Amado Nichole MD MD ec2 Natan Solano RN RN tm6 Radha Talley RN RN al5 Sultan marisela Umanzor Corrections: (The following items were deleted from the chart) 22:33 21:35 Reassessment: Patient appears in no apparent distress at this time. No changes al5 from previously documented assessment. Patient and/or family updated on plan of care and expected duration. Pain level reassessed. Patient is alert, oriented x 3, equal unlabored respirations, skin warm/dry/pink. al5
--- NOTE | 2024-02-19 22:42 | EDPHYS ---
Physician Documentation [facility] Name: Roya Reinoso Age: 58 yrs Sex: Female : 1965 Arrival Date: 02/19/2024 Time: 17:15 Bed 5 Private MD: ED Physician Jerrod Greene HPI: 02/18 17:35 This 58 yrs old Female presents to ER via Wheelchair with complaints of ec2 Nausea/Vomiting. 17:35 Patient arrives today d/t concern for n/v and abd pain. reports recent admission to ec2 [facility] for possible ulcers, has not had endoscopy. Reports recurrent n/v. reports recent admission w/ multiple ct images. Historical: - Allergies: 17:26 Toradol; ko1 - Home Meds: 17:26 Unable to obtain [Active]; ko1 - PMHx: 17:26 gastric ulcers; Hypercholesterolemia; Hypertensive disorder; Hypothyroidism; TIA; ko1 - PSHx: 17:26 Carpal tunnel; Ligation of fallopian tube; Tonsillectomy; ko1 - Immunization history:: Adult Immunizations up to date. - Infectious Disease History:: Denies. - Social history:: Smoking status: Patient denies any tobacco usage or history of. ROS: 17:37 Constitutional: as per hpi ec2 Exam: 17:37 Constitutional: GEN: NAD Head: atraumatic Eyes: EOMI Ears: External ears are ec2 normal. CV: regular rate LUNGS: no respiratory distress ABD: non-distended SKIN: no evidence of rashes MSK: no evidence of trauma Vital Signs: 17:21 BP 130 / 99; Pulse 91; Resp 18; Temp 97.3; Pulse Ox 98% ; ko1 20:05 BP 139 / 99; Pulse 91; Pulse Ox 99% on R/A; MAP 112 mmHg; tm6 20:46 BP 126 / 74; Pulse 66; Resp 18; Pulse Ox 99% on R/A; al5 21:00 BP 148 / 95; Pulse 88; Resp 16; Pulse Ox 99% ; al5 21:30 BP 161 / 91; Pulse 61; Resp 18; Pulse Ox 98% on R/A; al5 22:00 BP 159 / 97; Pulse 59; Resp 17; Pulse Ox 100% on R/A; al5 22:35 BP 168 / 99; Pulse 72; Resp 18; Pulse Ox 99% on R/A; al5 MDM: 17:27 Medical Screening Exam initiated ec2 17:37 Data reviewed: vital signs. ED course: Patient arrives today for evaluation of nausea ec2 and vomiting. Examination is remarkable for nontoxic individuals otherwise in no acute distress. Will obtain lab work, urine studies. . 19:39 ED course: Patient with slight anion gap at 22, rest of metabolic profile is ec2 nonactionable. CBC is reassuring. Will add on lactic acid, urine studies as well as viral swabs and CT imaging. . 22:48 Differential diagnosis: Gastritis, electrolyte disturbance, bowel obstruction. rt Consideration of Admission/Observation Escalation of care including admission/observation considered. Discussed diagnostic findings with the patient at length. I offered patient admission to the hospital for hydration, antiemetics. Patient states that she strongly does not wish to be admitted to the hospital, will follow-up as an outpatient. Return precautions were discussed.. I considered the following discharge prescriptions or medication management in the emergency department Medications were administered in the Emergency Department. See MAR. Independent interpretation of the following test(s) in the Emergency Department CT Scan: My interpretation is No bowel obstruction seen on interpretation of CT scan images. Care significantly affected by the following chronic conditions: Hypertension. Counseling: I had a detailed discussion with the patient and/or guardian regarding the historical points, exam findings, and any diagnostic results supporting the discharge/admit diagnosis, lab results, radiology results, the need for outpatient follow up, to return to the emergency department if symptoms worsen or persist or if there are any questions or concerns that arise at home. Response to treatment: the patient's symptoms have markedly improved after treatment. 02/18 17:34 Order name: CBC with Diff; Complete Time: 18:20 ec2 02/18 17:34 Order name: CMP; Complete Time: 19:22 ec2 02/18 17:34 Order name: Lipase; Complete Time: 19:22 ec2 02/18 19:30 Order name: UAM; Complete Time: 21:09 ec2 02/18 19:30 Order name: Lactate w/ 2H reflex if indic.; Complete Time: 20:53 ec2 02/18 19:30 Order name: Influenza Screen (a \T\ B); Complete Time: 21:09 ec2 02/18 19:30 Order name: SARS RAPID; Complete Time: 21:09 ec2 02/18 21:11 Order name: Urine Culture EDMS 02/18 19:30 Order name: CT Abd/Pelvis - IV Contrast Only; Complete Time: 21:39 ec2 02/18 19:30 Order name: CXR XRAY; Complete Time: 20:53 ec2 02/18 17:34 Order name: IV Saline Lock; Complete Time: 18:00 ec2 02/18 17:34 Order name: Labs collected and sent; Complete Time: 18:00 ec2 Administered Medications: 18:00 Drug: Famotidine IVP 20 mg IVP once; dilute with 10 mL 0.9% NaCl; give over 2 minutes bp Route: IVP; Site: right antecubital; 21:40 Follow up: Response: No adverse reaction al5 18:00 Drug: NS 0.9% IV 1000 ml IV at 1 bolus Per protocol; to be given as a bolus over 60 bp minutes Route: IV; Rate: 1 bolus; Site: right antecubital; 21:41 Follow up: Response: No adverse reaction; IV Status: Completed infusion; IV Intake: al5 1000ml 18:00 Drug: Droperidol IVP 2.5 mg IVP once Route: IVP; Site: right antecubital; bp 19:34 Follow up: Response: No adverse reaction al5 18:00 Drug: diphenhydrAMINE IVP 50 mg IVP once Route: IVP; Site: right antecubital; bp 19:34 Follow up: Response: No adverse reaction al5 18:20 Drug: diphenhydrAMINE IVP 50 mg IVP once Route: IVP; Site: right antecubital; bp 19:34 Follow up: Response: No adverse reaction al5 19:35 Drug: NS 0.9% IV 1000 ml IV at 1000 ml once; to be given as a bolus over 60 minutes al5 {Note: started prior to nurses arrival. iv infusion discontinued at THIS time due to iv infiltration..} Route: IV; Rate: 1000 ml; Site: right antecubital; 19:35 Follow up: IV Status: IV infiltrated al5 20:45 Follow up: Response: No adverse reaction; IV SiteChange: left antecubital; IV al5 SiteChange Reason: Infiltration 21:40 Follow up: IV Status: Completed infusion; IV Intake: 1000ml al5 20:45 Drug: Rocephin IV 1 grams IV at calculated rate once; Given slow IV push per pharmacy al5 instructions Route: IV; Rate: calculated rate; Site: left antecubital; 21:40 Follow up: Response: No adverse reaction; IV Status: Completed infusion; IV Intake: [id number] Disposition Summary: 02/19/24 22:41 Discharge Ordered Notes: Location: Home rt Problem: new rt Symptoms: have improved rt Condition: Stable rt Diagnosis - Nausea with vomiting, unspecified rt - UTI/ Urinary tract infection, site not specified rt Followup: rt - With: Private Physician - When: 2 - 3 days - Reason: Discharge Instructions: - Discharge Summary Sheet rt - Nausea and Vomiting, Adult rt - Urinary Tract Infection, Adult rt Forms: - Medication Reconciliation Form rt - Antibiotic Education rt - Prescription Opioid Use rt - Patient Portal Instructions rt - Leadership Thank You Letter rt Prescriptions: - cefpodoxime 200 mg Oral tablet - take 2 tablets ORAL route every 12 hours with food; 14 tablet; Refills: 0, rt Product Selection Permitted - promethazine 25 mg Oral Tablet - take 1 tablet ORAL route every 6 hours As needed; 20 tablet; Refills: 0, rt Product Selection Permitted Signatures: Dispatcher [employer] EDGagandeep Ortiz, RN RN bp Staci August RN RN ko1 Jerrod Greene MD MD rt Amado Nichole MD MD ec2 Radha Talley RN RN al5 Corrections: (The following items were deleted from the chart) 19:30 19:30 Urinalysis W/Microscopic+U.LAB.BRZ ordered. EDMS EDMS 19:30 19:30 LACTATE+C.LAB.BRZ ordered. EDMS EDMS 19:30 19:30 Influenza Screen (A \T\ B)+BA.LAB.BRZ ordered. EDMS EDMS 19:30 19:30 SARS-COV-2 Antigen Rapid+I.LAB.BRZ ordered. EDMS EDMS 19:30 19:30 Abdomen Pelvis W Con+CT.RAD.BRZ ordered. EDMS EDMS 19:30 19:30 Chest Single View+RAD.RAD.BRZ ordered. EDMS EDMS
[2024-02-19 23:31] VITALS: TEMP 97.3
[2024-02-19 23:38] VITALS: BP 168/99; O2SAT 99
== END 2024-02-19 22:55 | disposition home or self-care (01) ==
LOC: ER 17:15
DX: N39.0 Urinary tract infection, site not specified (principal); I10 Essential (primary) hypertension; Z11.52 Encounter for screening for COVID-19
CPT/HCPCS: 96365; 96361; 87088; 85025; 81001; 87086; 36415; 83605; 83690; 80053; 87804 ×2; 74177; 71045; 96375; 99284; 87811; Q9967; J1200 ×2; J1790; J7030 ×2; J0696

== ENCOUNTER 2024-03-22 15:36 | Emergency (ER) | payer OTHER ==
[2024-03-22 17:34] LABS: Absolute Eosinophils 0.1 K/uL (0-0.5); Absolute Lymphocytes (CBC) 1.6 K/uL (0.7-4.9); Absolute Monocytes 0.4 K/uL (0.1-1.3); Absolute Neutrophil 3.4 K/uL (1.8-8.0); Basophils % 0.8 % (0-1.3); Hematocrit 39.9 % (36.0-45.0); Hemoglobin 13.5 g/dL (12.0-15.0); MCH 29.5 pg (27.0-35.0); MCHC 33.8 g/dL (32.0-36.0); MCV 87.3 fL (80-100); MPV 8.9 fL (7.6-11.3); Monocytes % 7.5 % (3.3-12.3); Neutrophils % 60.7 % (41.7-73.7); Nucleated Red Blood Cells % 0.1 % (0-0); Platelets 295 thou/uL (152-406); RBC Red Blood Cell Count 4.57 M/uL (3.86-4.86); Red Cell Distribution Width 14.3 % (12.1-15.2)
[2024-03-22 17:47] LABS: Albumin 3.2 g/dL (3.4-5.0); Albumin/Globulin Ratio 0.9 (1.1-1.8); Anion Gap 10.2 mEq/L (5.0-15.0); Bilirubin Total 0.3 mg/dL (0.2-1.0); Globulin 3.4 g/dL (2.3-3.5); Potassium 3.2 mEq/L (3.5-5.1); Protein, Total 6.6 g/dL (6.4-8.2)
--- NOTE | 2024-03-22 18:07 | RAD REPORT ---
EXAMINATION: CT Abdomen Pelvis Wo Contrast CLINICAL INDICATION: Female, 58 years old. ABD PAIN TECHNIQUE: CT abdomen and pelvis was performed, without IV contrast, as per department protocol. Axia l, sagittal and coronal reconstructions were obtained. One or more of the following dose reduction techniques were used: Automated exposure control, adjustment of the mA and kV according to the patien t size, and iterative reconstruction. Unless otherwise specified, incidental findings do not require dedicated imaging follow-up. COMPARISON: 02/19/2024 FINDINGS: The lack of intravenous contrast limits the sensitivity of this exam for evaluation of solid visceral organs, vascular structures, and retroperitoneum. LOWER CHEST: The visualized lung bases are clear. LIVER: Normal in size and contour. No focal lesion. BILIARY SYSTEM: Gallbladder is contracted limiting evaluation. No other suspicious findings SPLEEN: Normal size. No focal lesion. PANCREAS: No mass, ductal dilation, or kylee-pancreatic fluid. ADRENALS: Normal; no mass. KIDNEYS AND URETERS: Normal size and contour. No hydronephrosis. URINARY BLADDER: Normal contour. GASTROINTESTINAL TRACT: No evidence of bowel obstruction, significant free fluid, free air or abscess . APPENDIX: Normal appendix. LYMPH NODES: No lymphadenopathy. MUSCULOSKELETAL: No acute or suspicious osseous abnormality. ADDITIONAL FINDINGS: None. IMPRESSION: No acute or concerning abnormalities in the abdomen or pelvis, with evaluation limited by lack of IV contrast.
[2024-03-22] MEDS ORDERED: KETAMINE HCL IN 0.9 % NACL 50 MG/5 ML SYRINGE IV ONE (19:23)
[2024-03-22] MEDS ORDERED: DIPHENHYDRAMINE 50 MG/ML VIAL ONE (19:23)
--- NOTE | 2024-03-22 20:12 | ER ---
Nurse's Notes [facility] Name: Roya Reinoso Age: 58 yrs Sex: Female : 1965 Arrival Date: 03/22/2024 Time: 15:36 Bed 13 Private MD: Diagnosis: Upper abdominal pain, unspecified Presentation: 03/22 16:28 Chief complaint: Patient states: nausea and diarrhea, abd pain that has been going on aa5 since December-January, pt's states "she's been admitted at [facility] and they cant figure out what is going on". Pt states "I feel like my legs are locking up and I can't walk", pt reports generalized weakness. Also reports right arm pain since last night. 16:28 Method Of Arrival: Wheelchair aa 16:28 Coronavirus screen: diarrhea, nausea. Ebola Screen: Patient denies travel to an [facility] Ebola-affected area in the 21 days before illness onset. Initial Sepsis Screen: Does the patient meet any 2 criteria? No. Patient's initial sepsis screen is negative. Does the patient have a suspected source of infection? No. Patient's initial sepsis screen is negative. Risk Assessment: Do you want to hurt yourself or someone else? Patient reports no desire to harm self or others. Onset of symptoms was 2023. 16:28 Acuity: LINDA 3 aa5 Historical: - Allergies: 16:30 Toradol; aa5 - PMHx: 16:30 gastric ulcers; Hypercholesterolemia; Hypertensive disorder; Hypothyroidism; TIA; aa5 - PSHx: 16:30 Carpal tunnel; Ligation of fallopian tube; Tonsillectomy; aa5 - Immunization history:: Adult Immunizations up to date. - Infectious Disease History:: Denies. - Social history:: Smoking status: unknown. Screenin:38 [facility] ED Fall Risk Assessment (Adult) History of falling in the last 3 months, bm8 including since admission No falls in past 3 months (0 pts) Confusion or Disorientation No (0 pts) Intoxicated or Sedated No (0 pts) Impaired Gait No (0 pts) Mobility Assist Device Used No (0 pt) Altered Elimination No (0 pt) Score/Fall Risk Level 0 - 2 = Low Risk Oriented to surroundings, Maintained a safe environment, Educated pt \\T\\ family on fall prevention, incl call for assistance when getting out of bed, Assessed \\T\\ reinforced patient's understanding of fall precautions, Hourly rounding (assess needs \\T\\ fall precautionary measures) done, Used ambulatory aids as needed (educated on \\T\\ assisted with), Used gait belt as appropriate. Abuse screen: Denies threats or abuse. Nutritional screening: No deficits noted. Tuberculosis screening: No symptoms or risk factors identified. Assessment: 19:38 Reassessment: Patient and/or family updated on plan of care and expected duration. Pain bm8 level reassessed. General: Appears in no apparent distress. uncomfortable, Behavior is calm, cooperative, appropriate for age. Pain: Complains of pain in right arm Pain currently is 8 out of 10 on a pain scale. Neuro: No deficits noted. Level of Consciousness is awake, alert, obeys commands, Oriented to person, place, time, situation, Appropriate for age. Cardiovascular: No deficits noted. Denies chest pain, Capillary refill < 3 seconds in bilateral fingers. Respiratory: Airway is patent Respiratory effort is even, unlabored, Respiratory pattern is regular, symmetrical. GI: No signs and/or symptoms were reported involving the gastrointestinal system. : No signs and/or symptoms were reported regarding the genitourinary system. EENT: No signs and/or symptoms were reported regarding the EENT system. Derm: No signs and/or symptoms reported regarding the dermatologic system. Musculoskeletal: Circulation, motion, and sensation intact. Capillary refill Range of motion: intact in all extremities, Reports pain in right arm. Vital Signs: 16:28 BP 149 / 108; Pulse 90; Resp 16 S; Temp 98.3(O); Pulse Ox 99% on R/A; aa5 19:38 BP 150 / 114; Pulse 94; Resp 18; Temp 98.3; Pulse Ox 97% ; Pain 8/10; bm8 20:18 BP 158 / 98; Pulse 80; Resp 18; Temp 98.3; Pulse Ox 97% ; Pain 0/10; bm8 19:38 Pain Scale: Adult bm8 20:18 Pain Scale: Adult bm8 [place] Coma Score: 19:38 Eye Response: spontaneous(4). Motor Response: obeys commands(6). Verbal Response: bm8 oriented(5). Total: 15. 20:18 Eye Response: spontaneous(4). Motor Response: obeys commands(6). Verbal Response: bm8 oriented(5). Total: 15. ED Course: 15:39 Patient arrived in ED. ra3 15:51 Amado Nichole MD is Attending Physician. ec2 16:27 Arm band placed on. aa5 16:31 Triage completed. aa5 17:15 Missed attempt(s): 20 gauge in left antecubital area. Bleeding controlled, band aid bc6 applied, catheter tip intact. 17:27 CBC with Diff Sent. bc6 17:27 CMP Sent. bc6 17:27 Lipase Sent. bc6 17:27 Initial lab(s) drawn, by me, sent to lab. Inserted saline lock: 22 gauge in left bc6 antecubital area, using aseptic technique. Blood collected. Flushed with 10 mL NS. 17:54 CT Abd/Pelvis - Without Contrast In Process Unspecified. EDMS 19:20 Michael Reilly, RN is Primary Nurse. bm8 19:38 Patient has correct armband on for positive identification. Bed in low position. Call bm8 light in reach. Side rails up X2. Adult w/ patient. Client placed on continuous cardiac and pulse oximetry monitoring. NIBP monitoring applied. Pulse ox on. NIBP on. Door closed. Noise minimized. Pillow given. Verbal reassurance given. Head of bed lowered. 19:38 No provider procedures requiring assistance completed. Patient maintains SpO2 bm8 saturation greater than 95% on room air. 20:18 Provided Education on: post er care. bm8 20:18 IV discontinued, intact, bleeding controlled, No redness/swelling at site. Pressure bm8 dressing applied. Administered Medications: 19:02 CANCELLED (Physician Discretion): droperidol2.5 mg IVP once ec2 19:35 Drug: diphenhydrAMINE IVP 50 mg IVP once Route: IVP; Site: left antecubital; bm8 20:18 Follow up: Response: No adverse reaction bm8 19:35 Drug: Ketamine IVP 20 mg IVP once Route: IVP; Site: left antecubital; bm8 20:18 Follow up: Response: No adverse reaction bm8 Medication: 19:38 VIS not applicable for this client. bm8 Outcome: 20:11 Discharge ordered by . ec2 20:19 Discharged to home ambulatory, bm8 20:19 Condition: stable 20:19 Discharge instructions given to patient, family, Instructed on discharge instructions, follow up and referral plans. no drinking with medication, no driving heavy equipment, medication usage, safety practices, Demonstrated understanding of instructions, follow-up care, medications, 20:24 Patient left the ED. bm8 Signatures: Dispatcher [employer] Emily Hinton, RN RN aa5 Cyn Wade 6 Amado Nichole MD MD ec2 Saira Cifuentes ra3 Michael Reilly RN RN bm8 Corrections: (The following items were deleted from the chart) 16:30 16:30 PSHx: Carpal tunnel; aa5 aa5 16:31 16:28 BP 149 / 108; Pulse 90bpm; Resp 16bpm; Spontaneous; Pulse Ox 99% RA; Temp 98.3F aa5 Oral; aa5
--- NOTE | 2024-03-22 20:12 | EDPHYS ---
Physician Documentation [facility] Name: Roya Reinoso Age: 58 yrs Sex: Female : 1965 Arrival Date: 03/22/2024 Time: 15:36 Bed 13 Private MD: ED Physician Amado Nichole HPI: 03/22 16:36 This 58 yrs old Female presents to ER via Wheelchair with complaints of Arm ec2 Pain - Right, trouble walking, Abdominal Pain. 16:36 Patient arrives today for evaluation of multiple complaints. Reports that she is having ec2 abdominal pain which has been ongoing for several months. Reports that she has been having some bouts of nausea and vomiting, states that she has been previously hospitalized multiple times with history [facility] without any specific etiology she has had multiple imaging modalities of the abdomen including ultrasound and CT imaging that were ultimately negative. States that she follows with GI. Patient reports she been having some nausea and right-sided abdominal discomfort. Denies any urinary complaints. Patient also reports right upper extremity pain which is atraumatic and to the soft tissue of the skin as she has reportedly lost a substantial amount of weight and into the skin that is hanging off her right arm. Patient also with complaints of generalized weakness.. Historical: - Allergies: 16:30 Toradol; aa5 - PMHx: 16:30 gastric ulcers; Hypercholesterolemia; Hypertensive disorder; Hypothyroidism; TIA; aa5 - PSHx: 16:30 Carpal tunnel; Ligation of fallopian tube; Tonsillectomy; aa5 - Immunization history:: Adult Immunizations up to date. - Infectious Disease History:: Denies. - Social history:: Smoking status: unknown. ROS: 16:36 Constitutional: as per hpi ec2 Exam: 16:36 Constitutional: GEN: NAD Head: atraumatic Eyes: EOMI Ears: External ears are ec2 normal. CV: regular rate LUNGS: no respiratory distress ABD: non-distended, soft, tender in the right abdomen, not guarding, not rigid. SKIN: no evidence of rashes MSK: no evidence of trauma, right upper extremity with significant excess skin, tenderness to this area without any erythema or warmth or fluctuance appreciated. No bony deformities or tenderness, intact distal right upper extremity neurovascular status. Vital Signs: 16:28 BP 149 / 108; Pulse 90; Resp 16 S; Temp 98.3(O); Pulse Ox 99% on R/A; aa5 19:38 BP 150 / 114; Pulse 94; Resp 18; Temp 98.3; Pulse Ox 97% ; Pain 8/10; bm8 20:18 BP 158 / 98; Pulse 80; Resp 18; Temp 98.3; Pulse Ox 97% ; Pain 0/10; bm8 19:38 Pain Scale: Adult bm8 20:18 Pain Scale: Adult bm8 [place] Coma Score: 19:38 Eye Response: spontaneous(4). Motor Response: obeys commands(6). Verbal Response: bm8 oriented(5). Total: 15. 20:18 Eye Response: spontaneous(4). Motor Response: obeys commands(6). Verbal Response: bm8 oriented(5). Total: 15. MDM: 16:15 Medical Screening Exam initiated ec2 16:36 Data reviewed: vital signs, nurses notes. ED course: Patient arrives today for ec2 evaluation of abdominal pain. Examination remarkable for nontoxic individual who is otherwise with a reassuring abdominal examination. Will obtain lab work, CT imaging. Differential includes electrolyte disturbance, anemia, UTI.. 20:08 ED course: On reassessment patient is well-appearing no acute distress, patient with no ec2 acute pathology identified. Will discharge home. Return precautions given. Instructed follow-up with GI doctor.. 12/02 16:36 Order name: CBC with Diff; Complete Time: 17:58 ec2 12/ 16:36 Order name: CMP; Complete Time: 17:58 ec2 03/22 16:36 Order name: Lipase; Complete Time: 17:58 ec2 03/22 16:36 Order name: CT Abd/Pelvis - Without Contrast; Complete Time: 18:12 ec2 1202 16:36 Order name: IV Saline Lock; Complete Time: 17:27 ec2 02 16:36 Order name: Labs collected and sent; Complete Time: 17:27 ec2 02 19:03 Order name: Misc. Order: ketamine for pain; Complete Time: 19:35 ec2 Administered Medications: 19:02 CANCELLED (Physician Discretion): droperidol2.5 mg IVP once ec2 19:35 Drug: diphenhydrAMINE IVP 50 mg IVP once Route: IVP; Site: left antecubital; bm8 20:18 Follow up: Response: No adverse reaction bm8 19:35 Drug: Ketamine IVP 20 mg IVP once Route: IVP; Site: left antecubital; bm8 20:18 Follow up: Response: No adverse reaction bm8 Disposition Summary: 03/22/24 20:11 Discharge Ordered Notes: Location: Home ec2 Condition: Stable ec2 Diagnosis - Upper abdominal pain, unspecified ec2 Followup: ec2 - With: Private Physician - When: - Reason: Re-evaluation by your physician Discharge Instructions: - Discharge Summary Sheet ec2 - Abdominal Pain, Adult ec2 Forms: - Medication Reconciliation Form ec2 - Antibiotic Education ec2 - Prescription Opioid Use ec2 - Patient Portal Instructions ec2 - Leadership Thank You Letter ec2 Signatures: Dispatcher [employer] Emily Gautam, RN RN aa5 Amado Nichole MD MD ec2 Michael Reilly RN RN bm8 Corrections: (The following items were deleted from the chart) 16:30 16:30 PSHx: Carpal tunnel; aa5 aa5 16:37 16:37 Abdomen Pelvis Wo Con+CT.RAD.BRZ ordered. [facility] 16:38 16:36 Patient arrives today for evaluation of multiple complaints. Reports that she is ec2 having abdominal pain which has been ongoing for several months. Reports that she has been having some bouts of nausea and vomiting, states that she has been previously hospitalized multiple times with history [facility] without any specific etiology she has had multiple imaging modalities of the abdomen including ultrasound and CT imaging that were ultimately negative. States that she follows with GI. Patient reports she been having some nausea and right-sided abdominal discomfort. Denies any urinary complaints. Patient also reports right upper extremity pain which is atraumatic and to the soft tissue of the skin as she has reportedly lost a substantial amount of weight and into the skin that is hanging off her right arm.. ec2 19:02 16:36 Droperidol IVP 2.5 mg IVP once ordered. ec2 ec2
[2024-03-22 22:55] VITALS: TEMP 98.3
[2024-03-22 23:01] VITALS: O2SAT 97
[2024-03-22 23:07] VITALS: BP 158/98
== END 2024-03-22 20:24 | disposition home or self-care (01) ==
LOC: ER 15:36
DX: R10.11 Right upper quadrant pain (principal); M79.621 Pain in right upper arm; I10 Essential (primary) hypertension; E78.00 Pure hypercholesterolemia, unspecified
CPT/HCPCS: 85025; 36415; 83690; 80053; 74176; 96375; 96374; 99284; J1200